=== PATIENT | male | born 1945 | race Caucasian/White ===

== ENCOUNTER 2017-01-10 18:03 | Emergency (ER) | payer MEDICARE, OTHER ==
[~2017-01-10] VITALS: Ht 185.4 cm; Wt 100.0 kg
[~2017-01-10 18:03] MED LIST: LEVA250T14 PO; METO25CR PO; PRED5TAB PO; WARF5TAB PO
[2017-01-10 18:11] VITALS: BP 112/86; PULSE 85; RESP 20; TEMP 98.5; O2SAT 97
[2017-01-10] MEDS ORDERED: WARF-23 PO (18:27)
[2017-01-10] MEDS ORDERED: TRAM50TA PO (18:27)
[2017-01-10] MEDS ORDERED: METO25TA3 PO (18:27)
[2017-01-10] MEDS ORDERED: PRED5TAB PO (18:27)
[2017-01-10] MEDS ORDERED: CEFU250T PO (18:27)
[2017-01-10] MEDS ORDERED: SACU1TAB PO (18:27)
[2017-01-10] MEDS ORDERED: RENV2.4P PO (18:27)
[2017-01-10 19:41] VITALS: BP 120/68
--- NOTE | 2017-01-10 19:43 | PD ---
HPI Chief Complaint: Fall Time Seen by Provider: 19:38 Travel History International Travel<30 days: No Contact w/Intl Traveler<30days: No Traveled to known affect area: No History of Present Illness HPI 71-year-old male that presents to the ED for evaluation of fall. Patient reports that he had a trip and fall before getting to his dialysis center. When he got to the dialysis Center they told to come here [facility] and brought him here. Patient complains of nothing other than some abrasions to his forehead as well as to his knee and arms but they're not actively bleeding. Per patient he was brought here because he hit his head and his taking blood thinners and were concerned that there might be internal bleeding. He denies any pain. No numbness, tingling, weakness. Per patient " I feel fine but need to get out of here to get my dialysis". Patient has ESRD and has dialysis every Tuesday and Tuesday. He denies any other medical problems. He denies any pain of any kind. Patient does have bruising but no bleeding. He has had no changes in mentation. Per patient he does have a trip and fall accident much of it. Per patient he was able to get himself up. He states that he is up-to-date with his tetanus. He has been here for similar in the past. PFSH Past Medical History Hx Anticoagulant Therapy: Yes Anemia: Yes Arthritis: Yes Atrial Fibrillation: Yes Heart Rhythm Problems: Yes Cancer: No Cardiovascular Problems: Yes (AF) Chemotherapy: No Congestive Heart Failure: Yes Cirrhosis: Yes Diabetes: No Dialysis: Yes (//TUE) Diminished Hearing: No Gastrointestinal Disorders: Yes Gout: Yes Genitourinary: Yes Hepatitis: No Hiatal Hernia: No Hypertension: Yes Musculoskeletal: Yes Respiratory: No Integumentary: Yes (MRSA SKIN) Immunizations Current: Yes Renal Failure: Yes Thyroid Disease: No Tetanus Vaccination: < 5 Years Past Surgical History Abdominal Surgery: Yes (APPENDECTOMY?) Arteriovenous Shunt: Yes (LUE) Eye Surgery: Yes (BILATERAL CATARACTS) Joint Replacement: No Oral Surgery: Yes (TONSILLECTOMY?) Pacemaker: No Other Surgery: Yes (skin abscess neck area, left arm fistula) Social History Alcohol Use: No Tobacco Use: No (QUIT 1966) Substance Use: No Allergies-Medications (Allergen,Severity, Reaction): Coded Allergies: Ibuprofen (Verified Allergy, Severe, Rash, 01/10/17) *MDRO Multi-Drug Resistant Organism (Verified Adverse Reaction, Unknown, ) MRSA finger wound 02/2016 Reported Meds & Prescriptions Reported Meds & Active Scripts Active Reported Warfarin 5 Mg Tab 5 Mg PO DAILY Tramadol (Tramadol HCl) 50 Mg Tab 50 Mg PO BID PRN Renvela Liq (Sevelamer Carbonate) 2.4 Gm Pack 2.4 Gm PO TID Prednisone 5 Mg Tab 5 Mg PO DAILY Entresto (Sacubitril-Valsartan) 24-26 Mg Tab 1 Tab PO DAILY Metoprolol Tartrate 25 Mg Tab 25 Mg PO BID Cefuroxime (Cefuroxime Axetil) 250 Mg Tab 250 Mg PO BID PRN Review of Systems General / Constitutional: No: Fever, Chills, Weight Gain, Weight Loss, Other Eyes: No: Diploplia, Blurred Vision, Photophobia, Drainage, Redness, Foreign Body Sensation, Pain, Tearing, Blind Spots, Visual changes, Blindness, Other HENT: No: Headaches, Vertigo, Lightheadedness, Sore Throat, Rhinitis, Rhinorrhea, Congestion, Nosebleed, Neck Stiffness, Neck Pain, Masses, Gingival Bleeding, Dental Difficulties, Ear Discharge, Earache, Other Cardiovascular: No: Chest Pain or Discomfort, Palpitations, Irregular Rhythm, Tachycardia, Diaphoresis, Syncope, Dyspnea on exertion, Varicosities, Edema, Cyanosis, Varicosities, Phlebitis, Claudication, Other Respiratory: No: Cough, Shortness of Breath, Wheezing, Sneezing, Orthopnea, Hemoptysis, Stridor, Night Sweats, Pleuritic Pain, Other Gastrointestinal: No: Nausea, Vomiting, Diarrhea, Abdominal Pain, Hematemesis, Hematochezia, Constipation, Changes in Bowel Habits, Indigestion, Dysphagia, Loss of Appetite, Other Genitourinary: No: Urgency, Frequency, Dysuria, Nocturia, Hematuria, Decreased Urinary Output, Oliguria, Hesitancy, Dribbling, Incontinence, Pelvic Pain, Flank Pain, Dyspareunia, Discharge, Dysmenorrhea, Menorrhagia, Metorrhagia, Vaginal Bleeding, Other Musculoskeletal: No: Myalgias, Arthralgias, Limited ROM, Weakness, Cramping, Edema, Pain, Atrophy, Other Skin: Positive Rash, Positive Lesions, No Itching, No Dryness, No Lumps, No Hives, No Change in Pigmentation, No Change in nails, No Alopecia, No Breast Lumps, No Breast Tenderness, No Breast Swelling, No Other Neurologic: No: Weakness, Dizziness, Syncope, Focal Abnormalities, Coordination Problem, Tremor, Ataxia, Headache, Change in Mentation, Slurred Speech, Paresthesia, Incontinence, Seizures, Sensory Disturbance, Other Psychiatric: No: Anxiety, Depression, Suicidal Ideations, Disorder of Thought, Mood Disorder, Substance Abuse, Homicidal Ideation, Other Endocrine: No: Heat Intolerance, Cold Intolerance, Polyuria, Polydipsia, Other Hematologic/Lymphatic: No: Easy Bruising, Lymph Node Enlargement, Other Physical Exam Narrative GENERAL: SKIN: Warm and dry. Patient has a very small superficial abrasion to the right forehead. Patient does have abrasions to the forearms as well as to the right knee. Able to move it fully. HEAD: Atraumatic. Normocephalic. EYES: Pupils equal and round 4 mm reactive and accommodation. No scleral icterus. No injection or drainage. ENT: No nasal bleeding or discharge. Mucous membranes pink and moist. Tongue is midline. No Uvula deviation. NECK: Trachea midline. No JVD. CARDIOVASCULAR: Regular rate and rhythm. RESPIRATORY: No accessory muscle use. Clear to auscultation. Breath sounds equal bilaterally. GASTROINTESTINAL: Abdomen soft, non-tender, nondistended. Hepatic and splenic margins not palpable. MUSCULOSKELETAL: Extremities without clubbing, cyanosis, or edema. No obvious deformities. Ambulatory with no pain. No lumbar, thoracic, cervical spine tenderness to palpation. Full range of motion of the upper and lower extremities. 2+ pulses bilaterally. NEUROLOGICAL: Awake and alert. No obvious cranial nerve deficits. Motor grossly within normal limits. Five out of 5 muscle strength in the arms and legs. Normal speech. PSYCHIATRIC: Appropriate mood and affect; insight and judgment normal. Data Data Last Documented VS Vital Signs Date Time Temp Pulse Resp B/P Pulse Ox O2 Delivery O2 Flow Rate FiO2 01/10/17 19:41 87 16 120/68 98 01/10/17 18:[address] Brain W/O Iv Contrast(Rout) (01/10/17 ) MDM Medical Decision Making Medical Screen Exam Complete: Yes Emergency Medical Condition: Yes Medical Record Reviewed: Yes Interpretation(s) CT the head was negative for acute intracranial injury Differential Diagnosis Head injury versus abrasion versus normal exam Narrative Course 71-year-old male that presents to the ED for evaluation of head injury. Patient was properly examined and was found to have signs and symptoms consistent with abrasions and head injury. Patient takes blood thinner. Patient was sent here for medical clearance so he can get his dialysis secondary to concern for head bleed. CT of the head was ordered. CT of the head was negative. Patient is neurovascular intact. Patient was reassured. A she was sent home with instructions to go to dialysis immediately. Patient agrees with plan. Told to apply warm compresses or ice to the areas of pain. Tylenol for pain as needed. See ED for any worsening symptoms. Diagnosis Primary Impression: Head injury, acute Qualified Code: S09.90XA - Head injury, acute, initial encounter Additional Impression: Abrasions of multiple sites Patient Instructions: General Instructions Additional Instructions: Follow with PCP. Go to dialysis. See ED for worsening symptoms. Patient is medically cleared to have dialysis. CT was negative no sign of bleeding. Med/Other Pt SpecificInfo: No Change to Meds, Wound Care Disposition: 01 DISCHARGE HOME Condition: Stable Otis Woodall Jan 10, 2017 19:43
--- NOTE | 2017-01-10 19:54 | RADRPT ---
EXAM DATE/TIME: 01/10/2017 19:08 [facility] COMPARISON: No previous studies available for comparison. INDICATIONS : Fall today, abrasion above right eye. RADIATION DOSE: 56.35 CTDIvol (mGy) MEDICAL HISTORY : Hypertension. diabetes, renal failure, cirrhosis SURGICAL HISTORY : None. ENCOUNTER: Initial ACUITY: 1 day PAIN SCALE: 5/10 LOCATION: Right head TECHNIQUE: Multiple contiguous axial images were obtained of the head. Using automated exposure control and adj ustment of the mA and/or kV according to patient size, radiation dose was kept as low as reasonably a chievable to obtain optimal diagnostic quality images. FINDINGS: CEREBRUM: The ventricles are normal for age. No evidence of midline shift, mass lesion, hemorrhage or acute in farction. No extra-axial fluid collections are seen. POSTERIOR FOSSA: The cerebellum and brainstem are intact. The 4th ventricle is midline. The cerebellopontine angle i s unremarkable. EXTRACRANIAL: The visualized portion of the orbits is intact. SKULL: The calvaria is intact. No evidence of skull fracture. CONCLUSION: Unremarkable exam. No evidence of acute infarct, hemorrhage, mass, edema or fracture. Ba Uribe MD on January 10, 2017 at 19:51 Board Certified Radiologist. This report was verified electronically.
== END 2017-01-10 20:10 | disposition home or self-care (01) ==
LOC: NEDAMB 18:03
DX: S09.90XA Unspecified injury of head, initial encounter (principal); S00.81XA Abrasion of other part of head, initial encounter; S80.211A Abrasion, right knee, initial encounter; S50.812A Abrasion of left forearm, initial encounter; S50.811A Abrasion of right forearm, initial encounter; W01.0XXA Fall on same level from slipping, tripping and stumbling without subsequent striking against object, initial encounter; N18.6 End stage renal disease; Z99.2 Dependence on renal dialysis; Z79.01 Long term (current) use of anticoagulants; Z86.2 Personal history of diseases of the blood and blood-forming organs and certain disorders involving the immune mechanism; Z87.39 Personal history of other diseases of the musculoskeletal system and connective tissue; Z86.79 Personal history of other diseases of the circulatory system; Z87.19 Personal history of other diseases of the digestive system; Z87.448 Personal history of other diseases of urinary system; Z86.14 Personal history of Methicillin resistant Staphylococcus aureus infection; Z87.891 Personal history of nicotine dependence
CPT/HCPCS: 70450

== ENCOUNTER 2017-01-24 10:00 | Inpatient (IN) | payer MEDICARE, OTHER ==
[2017-01-24] VITALS (8 sets, daily range): BP systolic 102–113; BP diastolic 51–72; PULSE 65–115; RESP 16–18; TEMP 96.6–102.8; O2SAT 92–98
[~2017-01-24] VITALS: Ht 185.4 cm; Wt 114.6 kg
[~2017-01-24 10:00] MED LIST changes: +CEFU250T PO; -LEVA250T14 PO; -METO25CR PO; +METO25TA3 PO; +RENV2.4P PO; +SACU1TAB PO; +TRAM50TA PO; +WARF-23 PO; -WARF5TAB PO
--- NOTE | 2017-01-24 10:18 | PD ---
HPI Chief Complaint: General Weakness Time Seen by Provider: 10:06 Travel History International Travel<30 days: No Contact w/Intl Traveler<30days: No Traveled to known affect area: No History of Present Illness HPI 71-year-old male came to the emergency room with history of generalized weakness , lightheadedness for past 1 week. His and daughter are here and they're very concerned about him. He fell one week ago and hit his head. Because he is on Coumadin he came into the emergency room to be checked out. A CAT scan of his head was done at that time which was negative and he was discharged home. His says that from the next day on word he started getting weak. Patient is awake but seems restless and says that he does not feel good. He has history of atrial fibrillation and he was A. fib on the monitor with RVR and heart rate in 1 teens. He is also a dialysis patient and is due for his dialysis is 4 PM today. His says that his last dialysis was last Tuesday and after dialysis he got very weak because his blood pressure went down. No history of chest pain. No history of syncopal episodes. He has history of nonalcoholic liver cirrhosis. But he does not see a GI specialist because that has not bothered him so far. I asked the nurse to do a rectal temperature since he felt warm and it was 102.5. PFSH Past Medical History Narrative Medical List of his past medical, social, surgical and family history as reviewed from the nursing note. Hx Anticoagulant Therapy: Yes Anemia: Yes Arthritis: Yes Atrial Fibrillation: Yes Heart Rhythm Problems: Yes Cancer: No Cardiovascular Problems: Yes (AF) Chemotherapy: No Congestive Heart Failure: Yes Cirrhosis: Yes Diabetes: Yes Dialysis: Yes (TU//SAT) Diminished Hearing: No Gastrointestinal Disorders: Yes Gout: Yes Genitourinary: Yes Hepatitis: No Hiatal Hernia: No Hypertension: Yes Musculoskeletal: Yes Respiratory: No Integumentary: Yes (MRSA SKIN) Immunizations Current: Yes Renal Failure: Yes Thyroid Disease: No Past Surgical History Abdominal Surgery: Yes (APPENDECTOMY?) Arteriovenous Shunt: Yes (LUE) Eye Surgery: Yes (BILATERAL CATARACTS) Joint Replacement: No Oral Surgery: Yes (TONSILLECTOMY?) Pacemaker: No Other Surgery: Yes (skin abscess neck area, left arm fistula) Social History Alcohol Use: No Tobacco Use: No (QUIT 1966) Substance Use: No Allergies-Medications (Allergen,Severity, Reaction): Coded Allergies: Ibuprofen (Verified Allergy, Severe, Rash, 01/24/17) *MDRO Multi-Drug Resistant Organism (Verified Adverse Reaction, Unknown, ) MRSA finger wound 02/2016 Comments List of his allergies reviewed from the nursing note. Reported Meds & Prescriptions Reported Meds & Active Scripts Active Reported Warfarin 5 Mg Tab 5 Mg PO DAILY Tramadol (Tramadol HCl) 50 Mg Tab 50 Mg PO BID PRN Prednisone 5 Mg Tab 5 Mg PO DAILY Entresto (Sacubitril-Valsartan) 24-26 Mg Tab 1 Tab PO DAILY Metoprolol Tartrate 25 Mg Tab 25 Mg PO BID Narrative Medication List of his home medications reviewed from the nursing note. Review of Systems Except as stated in HPI: all other systems reviewed are Neg Physical Exam Narrative GENERAL: Awake, alert, anxious, moderate to significant distress, fidgety and restless SKIN: Warm and dry. Pale. Left upper extremity hemodialysis shunt HEAD: Atraumatic. Normocephalic. EYES: Pupils equal and round. No scleral icterus. No injection or drainage. ENT: No nasal bleeding or discharge. Dry mucous membrane NECK: Trachea midline. No JVD. CARDIOVASCULAR: Irregularly irregular heart rate with tachycardia. No murmur appreciated. RESPIRATORY: No accessory muscle use. Clear to auscultation. Breath sounds equal bilaterally. GASTROINTESTINAL: Abdomen soft, non-tender, nondistended. Hepatic and splenic margins not palpable. MUSCULOSKELETAL: No obvious deformities. No clubbing. No cyanosis. No edema. NEUROLOGICAL: Awake and alert. No obvious cranial nerve deficits. Motor grossly within normal limits. Normal speech. PSYCHIATRIC: Appropriate mood and affect; insight and judgment normal. Data Data Last Documented VS Vital Signs Date Time Temp Pulse Resp B/P Pulse Ox O2 Delivery O2 Flow Rate FiO2 01/24/17 12:00 99.0 100 18 109/72 98 Nasal Cannula 2 Orders Ammonia (01/24/17 10:25) Complete Blood Count With Diff (01/24/17 10:25) Comprehensive Metabolic Panel (01/24/17 10:25) Creatine Kinase (Cpk) (01/24/17 10:25) Prothrombin Time / Inr (Pt) (01/24/17 10:25) Troponin I (01/24/17 10:25) Thyroid Stimulating Hormone (01/24/17 10:25) Lactic Acid Sepsis Protocol (01/24/17 10:25) Blood Culture (01/24/17 10:25) Chest, Single Ap (01/24/17 10:25) Ct Brain W/O Iv Contrast(Rout) (01/24/17 10:25) Blood Glucose (01/24/17 10:25) Ecg Monitoring (01/24/17 10:25) Iv Access Insert/Monitor (01/24/17 10:25) Oximetry (01/24/17 10:25) Sodium Chloride 0.9% Flush (Ns Flush) (01/24/17 10:30) Alcohol (Ethanol) (01/24/17 10:25) Salicylates (Aspirin) (01/24/17 10:25) Tylenol (Acetaminophen) (01/24/17 10:25) Sodium Chlorid 0.9% 500 Ml Inj (Ns 500 M (01/24/17 10:30) Sodium Chlor 0.9% 1000 Ml Inj (Ns 1000 M (01/24/17 10:30) Sodium Chlorid 0.9% 500 Ml Inj (Ns 500 M (01/24/17 10:30) Acetaminophen Supp (Tylenol Supp) (01/24/17 10:30) Piperacil-Tazo 4.5 Gm Premix (Zosyn 4.5 (01/24/17 10:30) Vancomycin Inj (Vancomycin Inj) (01/24/17 10:30) Direct Bilirubin (01/24/17 10:38) ^ Blood Flow Rate (01/24/17 11:10) ^ Dialysate Flow Rate (01/24/17 11:10) ^ Dialyzer (01/24/17 11:10) ^ Concentrate (01/24/17 11:10) ^ Acid Concentrate (01/24/17 11:10) ^ Length Of Dialysis (01/24/17 11:10) ^ Frequency Of Dialysis (01/24/17 11:10) ^ Dialysis Obtain (01/24/17 11:10) ^ Needle Size (01/24/17 11:10) ^ Dialysis Schedule (01/24/17 11:10) Resp Oxygen Geo C Titrat 1-4 L (01/24/17 ) ^ Dialysis Weight (01/24/17 11:10) ^ Obtain As Needed (01/24/17 11:10) Sodium Chlor 0.9% 1000 Ml Inj (Ns 1000 M (01/24/17 11:10) Heparin Inj (Heparin Inj) (01/24/17 11:15) Sodium Chlor 0.9% 1000 Ml Inj (Ns 1000 M (01/24/17 11:10) Sodium Chlor 0.9% 1000 Ml Inj (Ns 1000 M (01/24/17 11:10) Mannitol Inj (Mannitol Inj) (01/24/17 11:15) Albumin 25% Inj (Albumin 25% Inj) (01/24/17 11:15) Sodium Chloride 0.9% Flush (Ns Flush) (01/24/17 11:15) Heparin Inj (Heparin Inj) (01/24/17 11:15) Gentamicin (Dialysis) Inj (Gentamicin (D (01/24/17 11:15) Ondansetron Inj (Zofran Inj) (01/24/17 11:15) Acetaminophen (Tylenol) (01/24/17 11:15) Diphenhydramine (Benadryl) (01/24/17 11:15) Nitroglycerin Sl (Nitrostat Sl) (01/24/17 11:15) Clonidine (Catapres) (01/24/17 11:15) Epoetin Dawood Inj (Epogen Inj) (01/24/17 11:15) Gelatin 12 Mm/7 Mm Top (Gelfoam 12 Mm/7 (01/24/17 11:15) Influenzae A/B Antigen (01/24/17 11:55) Admit Order (Ed Use Only) (01/24/17 12:03) Labs Laboratory Tests Test 01/24/17 01/24/17 01/24/17 10:30 10:50 10:53 Prothrombin Time 19.4 SEC Prothromb Time International 1.7 RATIO Ratio Sodium Level 136 MEQ/L Potassium Level 3.8 MEQ/L Chloride Level 95 MEQ/L Carbon Dioxide Level 26.4 MEQ/L Anion Gap 15 MEQ/L Blood Urea Nitrogen 36 MG/DL Creatinine 9.19 MG/DL Estimat Glomerular Filtration 6 ML/MIN Rate Random Glucose 128 MG/DL Lactic Acid Level 3.1 mmol/L Calcium Level 7.6 MG/DL Total Bilirubin 0.8 MG/DL Direct Bilirubin 0.3 MG/DL Aspartate Amino Transf 52 U/L (AST/SGOT) Alanine Aminotransferase 21 U/L (ALT/SGPT) Alkaline Phosphatase 71 U/L Total Creatine Kinase 27 U/L Troponin I LESS THAN 0.02 NG/ML Total Protein 6.8 GM/DL Albumin 2.8 GM/DL Thyroid Stimulating Hormone 2.620 uIU/ML 3rd Gen Acetaminophen Level LESS THAN 2.0 MCG/ML Ethyl Alcohol Level LESS THAN 3 MG/DL White Blood Count 13.6 TH/MM3 Red Blood Count 3.76 MIL/MM3 Hemoglobin 11.9 GM/DL Hematocrit 35.2 % Mean Corpuscular Volume 93.6 FL Mean Corpuscular Hemoglobin 31.7 PG Mean Corpuscular Hemoglobin 33.9 % Concent Red Cell Distribution Width 14.4 % Platelet Count 138 TH/MM3 Mean Platelet Volume 10.0 FL Neutrophils (%) (Auto) % Lymphocytes (%) (Auto) % Monocytes (%) (Auto) % Eosinophils (%) (Auto) % Basophils (%) (Auto) % Neutrophils # (Auto) TH/MM3 Lymphocytes # (Auto) TH/MM3 Monocytes # (Auto) TH/MM3 Eosinophils # (Auto) TH/MM3 Basophils # (Auto) TH/MM3 CBC Comment AUTO DIFF Differential Total Cells 100 Counted Neutrophils % (Manual) 39 % Lymphocytes % 49 % Monocytes % 9 % Eosinophils % 1 % Basophils % 1 % Neutrophils # (Manual) 5.4 TH/MM3 Metamyelocytes 1 % Differential Comment FINAL DIFF MANUAL Atypical Lymphocytes % Platelet Estimate LOW Platelet Morphology Comment NORMAL Ammonia 41 MCMOL/L Salicylates Level LESS THAN 1.7 MG/DL [facility] Medical Decision Making Medical Screen Exam Complete: Yes Emergency Medical Condition: Yes Medical Record Reviewed: Yes Interpretation(s) Twelve-lead EKG was reviewed by me. Atrial fibrillation, normal axis, old anterior MT, poor R-wave progression, PVC. Heart rate of 104 bpm. Differential Diagnosis Sepsis, pneumonia, influenza, electrolyte abnormality, dehydration Narrative Course 11:51 AM patient was given IV fluid 2 L bolus and antibiotic as per sepsis protocol. His white count was elevated with left shift. His lactic acid was 3.1. BUN/creatinine was high as expected due to his end-stage renal disease. I contacted Dr. 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 Patient will require admission and he is arranging for dialysis for him. Head CT was within normal limits. I looked at the chest x-ray and there is no obvious acute issues. I'm waiting for the radiologist to give his read. Patient is subtherapeutic in terms of his INR. Awaiting for the resident to call for admission. I have ordered an influenza test that is pending. Critical Care Narrative Aggregate critical care time was 45 minutes. Time to perform other separately billable procedures was not included in the critical care time. My time did not include minutes spent treating any other patients simultaneously or on activities that did not directly contribute to the patient's treatment. The services I provided to this patient were to treat and/or prevent clinically significant deterioration that could result in: Sepsis, sepsis protocol, end-stage renal disease I provided critical care services requiring my management, as noted below: Chart data review, documentation time, medication orders and management, vital sign assessments/reviewing monitor data, ordering and reviewing lab tests, ordering and interpreting/reviewing x-rays and diagnostic studies, care of the patient and discussion of the patient with the admitting physicians. Procedures EKG Prior to Arrival: Yes Physician Communication Physician Communication Dr. Richardson Diagnosis Primary Impression: Sepsis Qualified Code: A41.9 - Sepsis, due to unspecified organism Additional Impressions: End stage renal disease Dependent on hemodialysis Atrial fibrillation Qualified Code: I48.2 - Chronic atrial fibrillation Admitting Information Admitting Physician Requests: Admit Pierre Hills MD Jan 24, 2017 10:18 Pierre Hills MD Jan 24, 2017 10:18 Pierre Hills MD Jan 24, 2017 10:18
[2017-01-24] MEDS ORDERED: SODIUM CHLORID 0.9% 500 ML INJ 500 ML IV ONE ×2 (10:30)
[2017-01-24] MEDS ORDERED: PIPERACIL-TAZO 4.5 GM PREMIX 100 ML IV ONE (10:30)
[2017-01-24] MEDS ORDERED: SODIUM CHLOR 0.9% 1000 ML INJ 1,000 ML IV ONE (10:30)
[2017-01-24] MEDS ORDERED: VANCOMYCIN INJ 1,000 MG in SODIUM CHLOR 0.9% 250 ML INJ 250 ML IV ONE (10:30)
[2017-01-24] MEDS ORDERED: ACETAMINOPHEN 650 MG SUPP RECTAL ONE (10:30)
[2017-01-24 10:50] LABS: HEMATOCRIT 35.2 % (39.0-51.0); MEAN CELL VOLUME 93.6 FL (80.0-100.0); MEAN CORPUSCULAR HEMOGLOBIN 31.7 PG (27.0-34.0); MEAN CORPUSCULAR HGB CONC 33.9 % (32.0-36.0); PLATELET COUNT 138 TH/MM3 (150-450); RED BLOOD COUNT 3.76 MIL/MM3 (4.50-5.90); RED CELL DISTRIBUTION WIDTH 14.4 % (11.6-17.2); WHITE BLOOD COUNT 13.6 TH/MM3 (4.0-11.0)
[2017-01-24 10:53] LABS: HEMO FLAGS AUTO DIFF
[2017-01-24 10:59] LABS: INTERNATIONAL NORMALIZED RATIO 1.7 RATIO; PROTHROMBIN TIME - PATIENT 19.4 SEC (9.8-11.6)
[2017-01-24] MEDS ORDERED: SODIUM CHLOR 0.9% 1000 ML INJ 1,000 ML IV PRN ×3 (11:10)
--- NOTE | 2017-01-24 11:10 | PD.CONS ---
HPI Service Nephrology Consult Requested By Reason for Consult ESRD Primary Care Physician Justin Chiang MD History of Present Illness Mr. Rowe is a 71 year old male with history of ESRD on HD MWF. Has not felt well for several days. Fell a few days ago, brought to the ER, there was no intracranial bleeding. Patient has been brought back to the hospital with complaints of dizziness, weakness and lightheadedness. He denies chest pain or shortness of breath. Patient has fever in the ER. He is awake, alert , answers questions. He is due for dialysis today. Review of Systems Constitutional: COMPLAINS OF: Fatigue, Fever, Chills, Dizziness, Change in appetite Cardiovascular: DENIES: Chest pain, Palpitations, Syncope Gastrointestinal: DENIES: Abdominal pain, Black stools, Bloody stools, Diarrhea , Nausea, Vomiting Musculoskeletal: COMPLAINS OF: Back pain, DENIES: Joint pain, Muscle aches Past Family Social History Allergies: Coded Allergies: Ibuprofen (Verified Allergy, Severe, Rash, 01/24/17) *MDRO Multi-Drug Resistant Organism (Verified Adverse Reaction, Unknown, ) MRSA finger wound 02/2016 Past Medical History ESRD Atrial fibrillation. CHF. KEVON Type 2 diabetes. Cirrhosis of the liver, possibly as a result of fatty liver. Remote history of MRSA infection in the neck area per , cervical spine was not involved. Past Surgical History AVF placement. Reported Medications Warfarin 5 Mg Tab 5 Mg PO DAILY Tramadol (Tramadol HCl) 50 Mg Tab 50 Mg PO BID PRN Renvela Liq (Sevelamer Carbonate) 2.4 Gm Pack 2.4 Gm PO TID Prednisone 5 Mg Tab 5 Mg PO DAILY Entresto (Sacubitril-Valsartan) 24-26 Mg Tab 1 Tab PO DAILY Metoprolol Tartrate 25 Mg Tab 25 Mg PO BID Cefuroxime (Cefuroxime Axetil) 250 Mg Tab 250 Mg PO BID PRN Active Ordered Medications Current Medications Medications (Trade) Dose Ordered Sig/Serge Route Start Time Stop Time Status Last Admin IV Flush 2 ml 2 ml UNSCH PRN IVF 01/24/17 10:30 Sodium Chloride 500 ml @ 500 mls/hr BOLUS ONCE IV 01/24/17 10:30 01/24/17 11:29 Sodium Chloride 1,000 ml @ 999 mls/hr BOLUS ONCE IV 01/24/17 10:30 01/24/17 11:30 01/24/17 10:46 Sodium Chloride 500 ml @ 500 mls/hr BOLUS ONCE IV 01/24/17 10:30 01/24/17 11:29 Piperacillin Sod/ Tazobactam Sod 100 ml @ 200 mls/hr ONCE ONCE IV 01/24/17 10:30 01/24/17 10:59 (Vancomycin Inj/ NS 250 ml Inj) 250 ml @ 250 mls/hr ONCE ONCE IV 01/24/17 10:30 01/24/17 11:29 01/24/17 10:45 Family History reviewed, non contributory Social History , quit smoking about 40 years ago, quit ETOH about 30 years ago. Physical Exam Vital Signs Vital Signs Date Time Temp Pulse Resp B/P Pulse Ox O2 Delivery O2 Flow Rate FiO2 01/24/17 10:37 102.8 01/24/17 10:10 99.7 105 16 113/51 01/24/17 10:06 97.8 107 16 102/55 97 Physical Exam GENERAL: obese, alert and oriented. Weak appearing. SKIN: Warm and dry. HEAD: Normocephalic. EYES: No scleral icterus. No injection or drainage. NECK: Supple, trachea midline. No JVD or lymphadenopathy. CARDIOVASCULAR: Regular rate and rhythm without murmurs, gallops, or rubs. RESPIRATORY: Breath sounds equal bilaterally. No accessory muscle use. GASTROINTESTINAL: Abdomen soft, non-tender, nondistended. MUSCULOSKELETAL: No cyanosis, or edema. Hypertrophied AVF left arm. BACK: Nontender without obvious deformity. No CVA tenderness. Laboratory Laboratory Tests Test 01/24/17 10:30 White Blood Count 13.6 Red Blood Count 3.76 Hemoglobin 11.9 Hematocrit 35.2 Mean Corpuscular Volume 93.6 Mean Corpuscular Hemoglobin 31.7 Mean Corpuscular Hemoglobin 33.9 Concent Red Cell Distribution Width 14.4 Platelet Count 138 Mean Platelet Volume 10.0 Neutrophils (%) (Auto) Lymphocytes (%) (Auto) Monocytes (%) (Auto) Eosinophils (%) (Auto) Basophils (%) (Auto) Neutrophils # (Auto) Lymphocytes # (Auto) Monocytes # (Auto) Eosinophils # (Auto) Basophils # (Auto) CBC Comment AUTO DIFF Prothrombin Time 19.4 Prothromb Time International 1.7 Ratio Result Diagram: 01/24/17 1030 Assessment and Plan Problem List: (1) ESRD (end stage renal disease) Plan: HD will be MWF. Due for dialysis today. Monitor volume status and electrolytes. Gadolinium is contraindicated. He may not tolerate excessive fluid removal. (2) CHF (congestive heart failure) Plan: He is on Entresto. May need to temporarily suspend it if he becomes hypotensive. (3) Atrial fibrillation Plan: Monitor heart rate. He is currently tachycardic. He is on Warfarin. Monitor INR. (4) Fever Plan: Etiology, source is unclear. Workup is in progress, to have CXR and blood cultures. Needs empiric antibiotics. Apparently has history of MRSA. (5) Anemia of renal disease Plan: Hemoglobin is acceptable. Epogen as needed per protocol with dialysis. Assessment and Plan Thanks for the consult. I will follow. Prashant Richardson MD Jan 24, 2017 11:10
[2017-01-24 11:12] LABS: ALT (GPT) 21 U/L (12-78); ANION GAP 15 MEQ/L (5-15); AST (GOT) 52 U/L (15-37); BICARBONATE 26.4 MEQ/L (21.0-32.0); BLOOD UREA NITROGEN 36 MG/DL (7-18); CHLORIDE 95 MEQ/L (98-107); GLOMERULAR FILTRATION RATE 6 ML/MIN (>89); POTASSIUM 3.8 MEQ/L (3.5-5.1); SODIUM (NA) 136 MEQ/L (136-145)
[2017-01-24] MEDS ORDERED: HEPARIN SODIUM - IV 10,000 UNITS/10 ML VIAL PRN (11:15)
[2017-01-24] MEDS ORDERED: diphenhydrAMINE HCL 25 MG CAP PO PRN (11:15)
[2017-01-24] MEDS ORDERED: SODIUM CHLORIDE 0.9% FLUSH 5 ML FLUSH IVF PRN (11:15)
[2017-01-24] MEDS ORDERED: HEPARIN SODIUM - IV 10,000 UNITS/10 ML VIAL IVF PRN (11:15)
[2017-01-24] MEDS ORDERED: NITROGLYCERIN 0.4 MG SL 25 TABS/BTL SL PRN (11:15)
[2017-01-24] MEDS ORDERED: cloNIDine HCL 0.1 MG TAB PO PRN (11:15)
[2017-01-24] MEDS ORDERED: ONDANSETRON HCL 4 MG/2 ML VIAL IV PRN (11:15)
[2017-01-24] MEDS ORDERED: GELATIN 12 MM/7 MM FOAM TOP PRN (11:15)
[2017-01-24] MEDS ORDERED: GENTAMICIN SULFATE (DIALYSIS USE ONLY) 20 MG/2 ML VIAL IV PRN (11:15)
[2017-01-24] MEDS ORDERED: ACETAMINOPHEN 325 MG TAB PO PRN (11:15)
[2017-01-24] MEDS ORDERED: MANNITOL 12.5 GM/50 ML VIAL IV PRN (11:15)
[2017-01-24] MEDS ORDERED: ALBUMIN HUMAN 25% 25 GM/100 ML BAGP IV PRN (11:15)
--- NOTE | 2017-01-24 11:17 | RADRPT ---
EXAM DATE/TIME: 01/24/2017 11:06 [facility] COMPARISON: CT BRAIN W/O CONTRAST, January 10, 2017, 19:08. INDICATIONS : Altered mental status RADIATION DOSE: 51.75 CTDIvol (mGy) MEDICAL HISTORY : Cardiovascular disease. Congestive heart failure. Diabetes mellitus type 1.Renal failure SURGICAL HISTORY : None. ENCOUNTER: Initial ACUITY: 1 day PAIN SCALE: 0/10 LOCATION: Bilateral cranial TECHNIQUE: Multiple contiguous axial images were obtained of the head. Using automated exposure control and adj ustment of the mA and/or kV according to patient size, radiation dose was kept as low as reasonably a chievable to obtain optimal diagnostic quality images. FINDINGS: CEREBRUM: The ventricles are normal for age. No evidence of midline shift, mass lesion, hemorrhage or acute in farction. No extra-axial fluid collections are seen. POSTERIOR FOSSA: The cerebellum and brainstem are intact. The 4th ventricle is midline. The cerebellopontine angle i s unremarkable. EXTRACRANIAL: The visualized portion of the orbits is intact. SKULL: The calvaria is intact. No evidence of skull fracture. CONCLUSION: No acute disease. No significant change has occurred. No evidence of acute infarct, hemorrhage, mass or edema. Ba Uribe MD on January 24, 2017 at 11:15 Board Certified Radiologist. This report was verified electronically.
[2017-01-24 11:22] LABS: ACETAMINOPHEN LESS THAN 2.0 MCG/ML (10.0-30.0); ALKALINE PHOSPHATASE 71 U/L (45-117); TOTAL BILIRUBIN ADULT 0.8 MG/DL (0.2-1.0)
[2017-01-24 11:24] LABS: CREATINE KINASE 27 U/L (39-308)
[2017-01-24 11:37] LABS: BASOPHILS 1 % (0-2); EOSINOPHILS 1 % (0-4); METAMYELOCYTES 1 % (0-1); NEUTROPHIL # MANUAL DIFF 5.4 TH/MM3 (1.8-7.7); POLYS (SEG NEUTROPHILS) 39 % (16-70); WBC DIFF SAMPLE 100
[2017-01-24 11:38] LABS: PLATELET ESTIMATE SMEAR LOW (NORMAL); PLATELET MORPHOLOGY NORMAL (NORMAL); SCAN/DIFF FINAL DIFF MANUAL
--- NOTE | 2017-01-24 12:08 | RADRPT ---
EXAM DATE/TIME: 01/24/2017 10:42 [facility] COMPARISON: No previous studies available for comparison. INDICATIONS : Dizziness. Fever. MEDICAL HISTORY : Hypertension. Renal failure. Diabetes. Cirrhosis. SURGICAL HISTORY : None. ENCOUNTER: Initial ACUITY: 2 days PAIN SCORE: 0/10 LOCATION: Bilateral chest FINDINGS: The heart size is enlarged. The lungs are grossly clear. No effusion is seen. CONCLUSION: Cardiomegaly Bunny Paz MD on January 24, 2017 at 12:01 Board Certified Radiologist. This report was verified electronically.
[2017-01-24 12:40] LABS: LACTIC ACID GHOST NOT REPORTABLE
[2017-01-24] MEDS ORDERED: HYDROmorphone HCL PF 1 MG/ML VIAL IV PRN (13:00)
[2017-01-24] MEDS ORDERED: SODIUM CHLORIDE 0.9% FLUSH 5 ML FLUSH IV FLUSH PRN (13:00)
[2017-01-24] MEDS ORDERED: Vancomycin Consult Pharmacy 1 EA XX SCH (13:00)
[2017-01-24] MEDS: SODIUM CHLOR 0.9% 1000 ML INJ 1,000 ML IV SCH ×4 (14:00→22:53)
[2017-01-24] MEDS: METOPROLOL TARTRATE 25 MG TAB PO SCH ×2 (14:00→20:55)
--- NOTE | 2017-01-24 16:59 | HHI.HP ---
[facility] Service Family Medicine Primary Care Physician Justin Chiang MD Admission Diagnosis sepsis, end-stage renal disease, hemodialysis dependent Diagnoses: International Travel<30 Days: No Contact w/Intl Traveler<30days: No Known Affected Area: No History of Present Illness Mr. Rowe is a very pleasant 71-year-old male, with a past medical history of type 2 diabetes, end-stage renal disease requiring dialysis Tuesday and Fridays, atrial fibrillation on Coumadin therapy, liver cirrhosis likely from fatty liver, and a MRSA infection/abscess on his posterior neck that needed surgical debridement and a four-month hospital course, his ending with 1 week of general malaise, confusion, and fevers. History of present illness: Approximately 7 days ago, on his way to dialysis he says that he "tripped, and fell forward. He never lost consciousness, however did hit the ground. He was evaluated in the emergency department, and a CT scan of his head at that time was negative for any bleeding or trauma. Since this time, he has been feeling weak and more tired. His reports that he has been sleeping all day long and has not been eating any meals. 3 days ago ( Sunday 01/21) while at dialysis, he felt very weak and his blood pressure was 90/ 30. They recommended that someone drive him home, however he insisted to drive himself home. Since this time, he has felt excessively tired and has not had an appetite. He denies any burning with urination, productive cough, upper respiratory symptoms, palpitations, chest pain, shortness of breath, abdominal pain, nausea, vomiting, diarrhea, or blood in his stool. He was scheduled to see his folder machine tomorrow. (Kleber Finn MD R2) Review of Systems Constitutional: COMPLAINS OF: Fatigue, Fever, Chills Eyes: COMPLAINS OF: Blurred vision, DENIES: Diplopia Respiratory: DENIES: Cough, Wheezing, Sputum production Cardiovascular: DENIES: Chest pain, Palpitations, Syncope Gastrointestinal: COMPLAINS OF: Anorexia, DENIES: Abdominal pain, Black stools , Bloody stools, Diarrhea, Nausea, Vomiting Genitourinary: DENIES: Dysuria Musculoskeletal: COMPLAINS OF: Joint pain, Neck pain (Neck pain.) Neurologic: COMPLAINS OF: Headache Psychiatric: COMPLAINS OF: Confusion (Kleber Finn MD R2) Past Family Social History Allergies: Coded Allergies: Ibuprofen (Verified Allergy, Severe, Rash, 01/24/17) *MDRO Multi-Drug Resistant Organism (Verified Adverse Reaction, Unknown, ) MRSA finger wound 02/2016 Physical Exam Vital Signs Vital Signs Date Time Temp Pulse Resp B/P Pulse Ox O2 Delivery O2 Flow Rate FiO2 01/24/17 13:09 98 Nasal Cannula 2.00 01/24/17 12:00 99.0 100 18 109/72 98 Nasal Cannula 2 01/24/17 10:37 102.8 01/24/17 10:10 99.7 105 16 113/51 01/24/17 10:06 97.8 107 16 102/55 97 Physical Exam GENERAL: NAD, appears tired, but talking in full sentences and sitting up in bed SKIN: Dry mucus membranes. HEAD: Atraumatic. Normocephalic. No temporal or scalp tenderness. EYES: Pupils equal round and reactive. ENT: Nose without bleeding, purulent drainage or septal hematoma. NECK: Trachea midline. No JVD or lymphadenopathy. CARDIOVASCULAR: irregular rate 105 bpm, no murmurs appreciated. RESPIRATORY: Clear to auscultation. GASTROINTESTINAL: Abdomen soft, non-tender, nondistended. MUSCULOSKELETAL: Extremities without clubbing, cyanosis, or edema. NEUROLOGICAL: Awake and alert. Cranial nerves II through XII intact. Motor and sensory grossly within normal limits. Five out of 5 muscle strength in all muscle groups. Normal speech. Laboratory Laboratory Tests Test 01/24/17 01/24/17 01/24/17 10:30 10:50 10:53 White Blood Count 13.6 Red Blood Count 3.76 Hemoglobin 11.9 Hematocrit 35.2 Mean Corpuscular Volume 93.6 Mean Corpuscular Hemoglobin 31.7 Mean Corpuscular Hemoglobin 33.9 Concent Red Cell Distribution Width 14.4 Platelet Count 138 Mean Platelet Volume 10.0 Neutrophils (%) (Auto) Lymphocytes (%) (Auto) Monocytes (%) (Auto) Eosinophils (%) (Auto) Basophils (%) (Auto) Neutrophils # (Auto) Lymphocytes # (Auto) Monocytes # (Auto) Eosinophils # (Auto) Basophils # (Auto) CBC Comment AUTO DIFF Differential Total Cells 100 Counted Neutrophils % (Manual) 39 Lymphocytes % 49 Monocytes % 9 Eosinophils % 1 Basophils % 1 Neutrophils # (Manual) 5.4 Metamyelocytes 1 Differential Comment FINAL DIFF MANUAL Atypical Lymphocytes Platelet Estimate LOW Platelet Morphology Comment NORMAL Prothrombin Time 19.4 Prothromb Time International 1.7 Ratio Sodium Level 136 Potassium Level 3.8 Chloride Level 95 Carbon Dioxide Level 26.4 Anion Gap 15 Blood Urea Nitrogen 36 Creatinine 9.19 Estimat Glomerular Filtration 6 Rate Random Glucose 128 Lactic Acid Level 3.1 Calcium Level 7.6 Total Bilirubin 0.8 Direct Bilirubin 0.3 Aspartate Amino Transf 52 (AST/SGOT) Alanine Aminotransferase 21 (ALT/SGPT) Alkaline Phosphatase 71 Total Creatine Kinase 27 Troponin I LESS THAN 0.02 Total Protein 6.8 Albumin 2.8 Thyroid Stimulating Hormone 2.620 3rd Gen Acetaminophen Level LESS THAN 2.0 Ethyl Alcohol Level LESS THAN 3 Ammonia 41 Salicylates Level LESS THAN 1.7 Date/Time Procedure Status Source Growth 01/24/17 12:00 Influenza Types A,B Antigen (GT) - Final Complete Nasal Aspirate NEGATIVE FOR FLU A AND B ANTIGEN.... 01/24/17 10:55 Aerobic Blood Culture Received Blood Peripheral Pending 01/24/17 10:55 Anaerobic Blood Culture Received Blood Peripheral Pending (Kleber Finn MD R2) Result Diagram: 01/24/17 1030 01/24/[address] of head, showed no acute disease, no significant change has occurred. No evidence of acute infarct, hemorrhage, mass or edema. Chest x-ray showed no consolidations, however noted cardiomegaly. (Kleber Finn MD R2) Septic Shock Reassessment Heart: Irregular Lungs: Clear Skin: Cold Peripheral Pulses: Weak Right Radial Weak Left Radial Capillary Refill: Sluggish (Kleber Finn MD R2) Assessment and Plan Assessment and Plan Mr. Rowe is a pleasant 71-year-old male, with a past medical history of type 2 diabetes, atrial fibrillation on Coumadin, end-stage renal disease on dialysis, MRSA infection on his posterior neck, liver cirrhosis, presenting to the [facility] emergency department with 1 week of general lethargy, confusion, decreased appetite, and subjective fevers and chills. CT of the head showed no acute changes, chest x-ray was benign, and he is not producing urine. A lactic acid on admission was 3.1. Blood cultures have been drawn x 2 , and he has been started on broad spectrum antibiotics (Vancomycin, Zosyn). Nephrology has been consulted, and have arranged for hemodialysis today 01/24. His creatinine on admission was 9.1. Problem #1: Severe sepsis Impression: Etiology unknown at this time. I suspect an occult bacteremia, given vascular access with AV fistula on left arm. Leukocytosis, tachycardia, lactic acidosis, may also be from an infection in the urinary tract, GI tract, or respiratory system. Pain as follows: -Broad Spectrum antibiotics that will be renally dosed, (Vancomycin and Zosyn Started 01/24 at 1000) -Blood cultures 2 -Has received 2 L of IV fluids in the ED, we will continue with 100 ML NS / hr. -We will trend his lactic acid. Anticipate improvement with antibiotics and IV fluids. Problem #2: End-stage renal disease, requiring dialysis. Creatinine on admission was 9.19. Appears dry on exam. Plan as follows: -Consulted nephrology, appreciate their assistance. -Scheduled for hemodialysis. -Avoid nephrotoxic agents. Problem #3: Atrial fibrillation Heart rate was irregular on exam, at 100 bpm. INR was subtherapeutic at 1.7. Continue with Coumadin 5 mg. Continue with home metoprolol 25 mg by mouth twice a day. Recheck INR in 24 hours, will adjust Coumadin dose accordingly. Problem #4: Type 2 diabetes Novolog Sliding Slide scale. Problem #5: Liver cirrhosis AST elevated on exam to 52. ALT within normal limits. Alkaline phosphatase within normal limits. Ammonia level elevated at 41. If his mentation does not improve with IV fluids and supportive therapy, would consider lactulose for hyperammonemia. Problem #6: FEN Fluids: Normal saline at 100 ML's per hour. Electrolytes: Grossly within normal limits except for elevated BUN and creatinine. We'll continue to monitor. Nutrition: Diabetic diet. DVT prophylaxis: Heparin 5,000 units q [address] Steph ar[address] Dr. Rudy Ellington. Code Status Full Code. (Kleber Finn MD R2) Attending Attestation The patient has been seen and examined. The chart and all resident notes have been reviewed. I agree that inpatient care is appropriate and that a two midnight stay is expected for the reasons documented in the resident history and physical. I have discussed this with the resident and certify the resident s order for inpatient admission. (Nia Choi MD) Problem List: (1) Sepsis Status: Acute (2) End stage renal disease Status: Acute (3) Anemia of renal disease Status: Acute (4) CHF (congestive heart failure) Status: Acute (5) Atrial fibrillation Status: Acute (6) Onychomycosis Status: Acute (7) Diabetes mellitus Status: Acute (Kleber Finn MD R2) Physician Certification 2 Midnight Certification Type: Admission for Inpatient Services Order for Inpatient Services The services are ordered in accordance with Medicare regulations or non- Medicare payer requirements, as applicable. In the case of services not specified as inpatient-only, they are appropriately provided as inpatient services in accordance with the 2-midnight benchmark. Estimated LOS (days): 3 3 days is the estimated time the patient will need to remain in the hospital, assuming treatment plan goals are met and no additional complications. Post-Hospital Plan: Home (Kleber Finn MD R2) Problem Qualifiers (1) Sepsis: Qualified Code: A41.9 - Sepsis, due to unspecified organism (2) Atrial fibrillation: Qualified Code: I48.2 - Chronic atrial fibrillation Kleber Finn MD R2 Jan 24, 2017 16:59 Nia Choi MD Jan 25, 2017 17:03
[2017-01-24] MEDS: oxyCODONE/ACETAMINOPHEN 5 MG/325 MG TAB PO PRN (17:30)
[2017-01-24] MEDS: PIPERACIL-TAZO 2.25 GM PREMIX 50 ML IV SCH (17:35)
[2017-01-24] MEDS: HEPARIN SODIUM - SQ 10,000 UNITS/ML VIAL SQ SCH (20:54)
[2017-01-24] MEDS: INSULIN ASPART SUPPLEMENTAL SCALE SQ SCH (20:55)
[2017-01-24] MEDS ORDERED: METOPROLOL TARTRATE 25 MG TAB PO SCH (21:00)
[2017-01-24] MEDS ORDERED: SODIUM CHLORIDE 0.9% FLUSH 5 ML FLUSH IV FLUSH SCH (21:00)
[2017-01-25] VITALS (7 sets, daily range): BP systolic 98–121; BP diastolic 58–82; PULSE 65–124; RESP 15–19; TEMP 97–98.7; O2SAT 93–99
[2017-01-25] MEDS: PIPERACIL-TAZO 2.25 GM PREMIX 50 ML IV SCH ×4 (00:18→23:42)
[2017-01-25] MEDS ORDERED: VANCOMYCIN INJ 1,000 MG in SODIUM CHLOR 0.9% 250 ML INJ 250 ML IV SCH (01:00)
[2017-01-25 05:41] LABS: MEAN CELL VOLUME 93.2 FL (80.0-100.0); MEAN CORPUSCULAR HEMOGLOBIN 32.2 PG (27.0-34.0); MEAN CORPUSCULAR HGB CONC 34.5 % (32.0-36.0); PLATELET COUNT 128 TH/MM3 (150-450); RED BLOOD COUNT 3.65 MIL/MM3 (4.50-5.90); RED CELL DISTRIBUTION WIDTH 14.5 % (11.6-17.2); WHITE BLOOD COUNT 11.6 TH/MM3 (4.0-11.0)
[2017-01-25] MEDS: SODIUM CHLOR 0.9% 1000 ML INJ 1,000 ML IV SCH ×6 (05:51→23:56)
[2017-01-25 06:04] LABS: HEMO FLAGS AUTO DIFF
[2017-01-25] MEDS: INSULIN ASPART SUPPLEMENTAL SCALE SQ SCH ×4 (06:07→20:16)
[2017-01-25 06:09] LABS: BICARBONATE 27.2 MEQ/L (21.0-32.0); CALCIUM-PROTEIN CORRECTED 7.6 MG/DL (8.5-10.1); POTASSIUM 3.7 MEQ/L (3.5-5.1); TOTAL BILIRUBIN ADULT 0.9 MG/DL (0.2-1.0)
[2017-01-25 07:55] LABS: BANDS 2 % (0-6); EOSINOPHILS 2 % (0-4); NEUTROPHIL # MANUAL DIFF 7.3 TH/MM3 (1.8-7.7); PLATELET ESTIMATE SMEAR LOW (NORMAL); PLATELET MORPHOLOGY NORMAL (NORMAL); POLYS (SEG NEUTROPHILS) 61 % (16-70); SCAN/DIFF FINAL DIFF MANUAL; WBC DIFF SAMPLE 100
[2017-01-25] MEDS: METOPROLOL TARTRATE 25 MG TAB PO SCH ×2 (09:00→20:13)
[2017-01-25] MEDS: HEPARIN SODIUM - SQ 10,000 UNITS/ML VIAL SQ SCH ×2 (09:08→23:42)
--- NOTE | 2017-01-25 14:37 | EKG ---
Date Performed: 01/24/2017 Time Performed: 08:20:01 PTAGE: 71 years EKG: ATRIAL FIBRILLATION WITH RAPID VENTRICULAR RESPONSE LOW QRS VOLTAGE IN EXTREMITY LEADS POSS IBLE ANTERIOR MYOCARDIAL INFARCTION POSSIBLE INFERIOR MYOCARDIAL INFARCTION ABNORMAL RHYTHM ECG Rajinder red to PREVIOUS TRACING , ventriular response to atrial fibrillation has increased. PREVIOUS TRA CING DOCTOR: Kevin Sanchez Interpretating Date/Time 01/25/2017 14:37:18
[2017-01-25] MEDS ORDERED: VANCOMYCIN INJ 1,500 MG in SODIUM CHLOR 0.9% 250 ML INJ 250 ML IV SCH (14:45)
--- NOTE | 2017-01-25 14:53 | PD.ID.CON ---
History of Present Illness Service ID Consult Requested By Reason for Consult Evaluation and Mment of fever, possible bacteremia in a patient with ESRD. Primary Care Physician Justin Chiang MD Diagnoses: History of Present Illness Patient says he is tired and does not wish to discuss all his history again. He asked me to try tomorrow. Most of the history was from review of medical records. Mr. Rowe is a 71-year-old male, with PMHx of DM2, ESRD on dialysis Tuesday and Fridays, atrial fibrillation on Coumadin therapy, liver cirrhosis likely from fatty liver, and a MRSA infection/abscess on his posterior neck that needed surgical debridement and a four-month hospital course , his ending with 1 week of general malaise, confusion, and fevers. Approximately 7 days ago, on his way to dialysis he says that he "tripped, and fell forward. He never lost consciousness, however did hit the ground. He was evaluated in the emergency department, and a CT scan of his head at that time was negative for any bleeding or trauma. Since this time, he has been feeling weak and more tired. His reports that he has been sleeping all day long and has not been eating any meals. 3 days ago (Sunday 01/21) while at dialysis, he felt very weak and his blood pressure was 90/30. They recommended that someone drive him home, however he insisted to drive himself home. Since this time, he has felt excessively tired and has not had an appetite. He denied any burning with urination, productive cough, upper respiratory symptoms, palpitations, chest pain, shortness of breath, abdominal pain, nausea, vomiting , diarrhea, or blood in his stool. ID consulted for evaluation and Mment of sepsis, fever, possible bacteremia in a patient with HD. Review of Systems ROS Limitations: Poor Historian Constitutional: COMPLAINS OF: Fever, Chills, DENIES: Diaphoretic episodes, Fatigue, Weight gain, Weight loss, Dizziness, Change in appetite, Night Sweats Endocrine: DENIES: Heat/cold intolerance, Polydipsia, Polyuria, Polyphagia Eyes: DENIES: Blurred vision, Diplopia, Eye inflammation, Eye pain, Vision loss , Photosensitivity, Double Vision Ears, nose, mouth, throat: DENIES: Tinnitus, Hearing loss, Vertigo, Nasal discharge, Oral lesions, Throat pain, Hoarseness, Ear Pain, Running Nose, Epistaxis, Sinus Pain, Toothache, Odynophagia Respiratory: DENIES: Apneas, Cough, Snoring, Wheezing, Hemoptysis, Sputum production, Shortness of breath Cardiovascular: DENIES: Chest pain, Palpitations, Syncope, Dyspnea on Exertion , PND, Lower Extremity Edema, Orthopnea, Claudication Gastrointestinal: DENIES: Abdominal pain, Black stools, Bloody stools, Constipation, Diarrhea, Nausea, Vomiting, Difficulty Swallowing, Anorexia Genitourinary: DENIES: Sexual dysfunction, Urinary frequency, Urinary incontinence, Urgency, Hematuria, Dysuria, Nocturia, Penile Discharge, Testicular Pain, Testicular Swelling Musculoskeletal: COMPLAINS OF: Joint pain, DENIES: Muscle aches, Stiffness, Joint Swelling, Back pain, Neck pain Integumentary: COMPLAINS OF: Abnormal pigmentation, Nail changes Hematologic/lymphatic: COMPLAINS OF: Bruising, DENIES: Lymphadenopathy Immunologic/allergic: DENIES: Eczema, Urticaria Neurologic: DENIES: Abnormal gait, Headache, Localized weakness, Paresthesias, Seizures, Speech Problems, Tremor, Poor Balance Psychiatric: DENIES: Anxiety, Confusion, Mood changes, Depression, Hallucinations, Agitation, Suicidal Ideation, Homicidal Ideation, Delusions Except as stated in HPI: all other systems reviewed are Neg Past Family Social History Allergies: Coded Allergies: Ibuprofen (Verified Allergy, Severe, Rash, 01/24/17) *MDRO Multi-Drug Resistant Organism (Verified Adverse Reaction, Unknown, ) MRSA finger wound 02/2016 Past Medical History ESRD Atrial fibrillation. CHF. KEVON Type 2 diabetes. Cirrhosis of the liver, possibly as a result of fatty liver. Remote history of MRSA infection in the neck area per , cervical spine was not involved. Past Surgical History AVF placement. Reported Medications Reported Meds & Active Scripts Active Reported Warfarin 5 Mg Tab 5 Mg PO DAILY Tramadol (Tramadol HCl) 50 Mg Tab 50 Mg PO BID PRN Prednisone 5 Mg Tab 5 Mg PO DAILY Entresto (Sacubitril-Valsartan) 24-26 Mg Tab 1 Tab PO DAILY Metoprolol Tartrate 25 Mg Tab 25 Mg PO BID Active Ordered Medications Current Medications Medications (Trade) Dose Ordered Sig/Serge Route Start Time Stop Time Status Last Admin IV Flush 2 ml 2 ml UNSCH PRN IVF 01/24/17 10:30 (NS 1000 ml Inj) 1,000 ml @ 0 mls/hr Q0M PRN IV 01/24/17 11:10 Heparin Sodium (Porcine) 8000 units 8,000 units UNSCH PRN IVF 01/24/17 11:15 Sodium Chloride 1,000 ml @ 200 mls/hr Q5H PRN IV 01/24/17 11:10 (NS 1000 ml Inj) 1,000 ml @ 0 mls/hr Q0M PRN IV 01/24/17 11:10 (Mannitol Inj) 12.5 gm UNSCH PRN IV 01/24/17 11:15 (Albumin 25% Inj) 25 gm UNSCH PRN IV 01/24/17 11:15 (NS Flush) 5 ml UNSCH PRN IVF 01/24/17 11:15 (Heparin Inj) UNSCH PRN .XX 01/24/17 11:15 (Gentamicin (Dialysis) Inj) 20 mg UNSCH PRN IV 01/24/17 11:15 (Zofran Inj) 4 mg UNSCH PRN IV 01/24/17 11:15 (Tylenol) 650 mg UNSCH PRN PO 01/24/17 11:15 (Benadryl) 25 mg UNSCH PRN PO 01/24/17 11:15 (Nitrostat Sl) 0.4 mg UNSCH PRN SL 01/24/17 11:15 (Catapres) 0.1 mg UNSCH PRN PO 01/24/17 11:15 (Epogen Inj) 5,000 units UNSCH PRN IV 01/24/17 11:15 (Gelfoam 12 Mm/7 Mm Top) 1 foam UNSCH PRN TOP 01/24/17 11:15 (Coumadin) 5 mg DAILY@16 PO 01/25/17 16:00 Patient Medication Teaching 1 1 ONCE ONCE XX 01/25/17 16:00 01/25/17 16:01 (NS 1000 ml Inj) 1,000 ml @ 100 mls/hr Q10H IV 01/24/17 12:53 01/25/17 09:08 (Tylenol) 650 mg Q4H PRN PO 01/24/17 13:00 (Percocet 5-325 Mg) 1 tab Q4H PRN PO 01/24/17 13:00 01/24/17 17:30 Hydromorphone HCl 1 mg 1 mg Q4H PRN IV 01/24/17 13:00 Piperacillin Sod/ Tazobactam Sod 50 ml @ 200 mls/hr Q8H IV 01/24/17 17:00 01/25/17 09:08 (NS 1000 ml Inj) 1,000 ml @ 125 mls/hr Q8H IV 01/24/17 14:00 01/25/17 13:57 (Lopressor) 25 mg BID PO 01/24/17 14:00 (Heparin Inj) 5,000 units Q12HR SQ 01/24/17 21:00 01/25/17 09:08 Family History could not be obtained. Patients says he is tired and does not wish to discuss history in details at this point. Social History , quit smoking about 40 years ago, quit ETOH about 30 years ago. Physical Exam Vital Signs Vital Signs Date Time Temp Pulse Resp B/P Pulse Ox O2 Delivery O2 Flow Rate FiO2 01/25/17 12:00 97.0 120 19 121/82 96 01/25/17 08:00 97.8 124 15 98/58 94 01/25/17 04:33 98.7 82 18 101/60 99 01/25/17 01:15 98.4 65 18 108/60 95 01/24/17 21:39 97.7 65 18 102/62 94 01/24/17 20:00 115 01/24/17 16:00 96.6 93 18 104/60 92 Physical Exam GENERAL: Obese CM patient, in no apparent distress. SKIN: No rashes, ecchymoses or lesions. Cool and dry. HEAD: Atraumatic. Normocephalic. No temporal or scalp tenderness. EYES: Pupils equal round and reactive. Extraocular motions intact. No scleral icterus. No injection or drainage. ENT: Nose without bleeding, purulent drainage or septal hematoma. Throat without erythema, tonsillar hypertrophy or exudate. Uvula midline. Airway patent. NECK: Trachea midline. Supple, nontender, no meningeal signs. CARDIOVASCULAR: HS audible. Tachycardic. RESPIRATORY: Clear to auscultation. Breath sounds equal bilaterally. No wheezes , rales, or rhonchi. GASTROINTESTINAL: Abdomen soft, non-tender, nondistended. MUSCULOSKELETAL: Bilateral LE with warmth and erythema noted. Left great toe nail avulsed. Left 2nd toe nail avulsed. Note both toe nails are extremely long and not well trimmed. Right great toe with nail avulsion noted as well as on outer aspect of nail there appears to be some skin involvement with erythema and discharge minimal noted as well. AV fistula site with no e.o infection. NEUROLOGICAL: Awake and alert. Grossly non focal Psych: cooperative IV line sites with no e.o infection. Laboratory Laboratory Tests Test 01/24/17 01/25/17 18:01 04:43 Lactic Acid Level 2.1 White Blood Count 11.6 Red Blood Count 3.65 Hemoglobin 11.7 Hematocrit 34.0 Mean Corpuscular Volume 93.2 Mean Corpuscular Hemoglobin 32.2 Mean Corpuscular Hemoglobin 34.5 Concent Red Cell Distribution Width 14.5 Platelet Count 128 Mean Platelet Volume 9.7 Neutrophils (%) (Auto) Lymphocytes (%) (Auto) Monocytes (%) (Auto) Eosinophils (%) (Auto) Basophils (%) (Auto) Neutrophils # (Auto) Lymphocytes # (Auto) Monocytes # (Auto) Eosinophils # (Auto) Basophils # (Auto) CBC Comment AUTO DIFF Differential Total Cells 100 Counted Neutrophils % (Manual) 61 Band Neutrophils % 2 Lymphocytes % 26 Monocytes % 9 Eosinophils % 2 Neutrophils # (Manual) 7.3 Differential Comment FINAL DIFF MANUAL Platelet Estimate LOW Platelet Morphology Comment NORMAL Red Cell Morphology Comment NORMAL Sodium Level 138 Potassium Level 3.7 Chloride Level 99 Carbon Dioxide Level 27.2 Anion Gap 12 Blood Urea Nitrogen 31 Creatinine 7.92 Estimat Glomerular Filtration 7 Rate Random Glucose 101 Calcium Level 7.3 Protein Corrected Calcium 7.6 Total Bilirubin 0.9 Aspartate Amino Transf 60 (AST/SGOT) Alanine Aminotransferase 21 (ALT/SGPT) Alkaline Phosphatase 75 Total Protein 6.6 Albumin 2.6 Random Vancomycin Level 9.6 Date/Time Procedure Status Source Growth 01/24/17 12:00 Influenza Types A,B Antigen (GT) - Final Complete Nasal Aspirate NEGATIVE FOR FLU A AND B ANTIGEN.... 01/24/17 10:55 Aerobic Blood Culture - Preliminary Resulted Blood Peripheral NO GROWTH IN 1 DAY 01/24/17 10:55 Anaerobic Blood Culture - Preliminary Resulted Blood Peripheral NO GROWTH IN 1 DAY Result Diagram: 01/25/17 0443 01/25/173 Imaging Last Impressions Head CT 01/24/17 1025 Signed Impressions: Service Date/Time: Tuesday, January 24, 2017 11:06 - CONCLUSION: No acute disease. No significant change has occurred. No evidence of acute infarct, hemorrhage, mass or edema. Ba Uribe MD Chest X-Ray 01/24/17 1025 Signed Impressions: Service Date/Time: Tuesday, January 24, 2017 10:42 - CONCLUSION: Cardiomegaly Bunny Paz MD Assessment and Plan Assessment and Plan Sepsis present on admission Bilateral LE cellulitis. Right great toe with avulsed nail and ? nail bed infection(cellulitis/abscess), paronychia. ESRD on HD using AV fistula. Clinically fistula does not appears to be the source of infection. Recs Agree with Podiatry consult. Will let them decide if imaging needed. D.w Patient the avulsed nails would likely need removal and right one needs assessment for possible abscess. Continue Zosyn IV Start Vanco IV 1500 mg every 48 hrs in HD sessions. HD sessions ,, Tue. Abad Hollis in HD. Follow cultures Follow clinically. d/w who will evaluate bedside for need of right great toe paronychia/ abscess. Right great toe avulsion and culture if abscess. Minerva Lua MD Jan 25, 2017 14:53
--- NOTE | 2017-01-25 15:47 | HHI.FPPN ---
Subjective Subjective Patient seen and examined with the resident team. Case reviewed and discussed Please refer to resident H&P for further details regarding HPI, ROS, PMH, SurgHx , FH and SocHx In summary, patient is a 71yoM with a history of ESRD on HD who presented from his HD center after increased weakness x 1 week He is seen in his hospital room with his family by his side. He is sitting up in the chair. No chest pain, shortness of breath. BPs running low this am. Hospital Objective Objective Last Impressions Head CT 01/24/17 1025 Signed Impressions: Service Date/Time: Tuesday, January 24, 2017 11:06 - CONCLUSION: No acute disease. No significant change has occurred. No evidence of acute infarct, hemorrhage, mass or edema. Ba Uribe MD Chest X-Ray 01/24/17 1025 Signed Impressions: Service Date/Time: Tuesday, January 24, 2017 10:42 - CONCLUSION: Cardiomegaly Bunny Paz MD Laboratory Tests - Abnormals Test 01/24/17 01/25/17 18:01 04:43 Lactic Acid Level 2.1 mmol/L White Blood Count 11.6 TH/MM3 Red Blood Count 3.65 MIL/MM3 Hemoglobin 11.7 GM/DL Hematocrit 34.0 % Platelet Count 128 TH/MM3 Monocytes % 9 % Platelet Estimate LOW Blood Urea Nitrogen 31 MG/DL Creatinine 7.92 MG/DL Estimat Glomerular Filtration 7 ML/MIN Rate Calcium Level 7.3 MG/DL Protein Corrected Calcium 7.6 MG/DL Aspartate Amino Transf 60 U/L (AST/SGOT) Albumin 2.6 GM/DL Vital Signs 01/24/17 01/24/17 01/24/17 01/25/17 16:00 20:00 21:39 01:15 Temp 96.6 97.7 98.4 Pulse 93 115 65 65 Resp 18 18 18 B/P 104/60 102/62 108/60 Pulse Ox 92 94 95 01/25/17 01/25/17 01/25/17 04:33 08:00 12:00 Temp 98.7 97.8 97.0 Pulse 82 124 120 Resp 18 15 19 B/P 101/60 98/58 121/82 Pulse Ox 99 94 96 INTAKE & OUTPUT 01/25/17 07:00 Intake Total 1127 ml Output Total 200 ml Balance 927 ml Physical exam GENERAL: Elderly male, sitting up in chair, fatigued-appearing. NAD SKIN: Warm and dry. R great toe with erythema, expressible drainage from toe nail, mild edema. HEAD: Normocephalic. AT EYES: No scleral icterus. No injection or drainage. ENT: OP clear. Multiple broken teeth, poor dentition. MM slightly dry. NECK: Supple, trachea midline. No JVD or lymphadenopathy. CARDIOVASCULAR: Regular rate and rhythm audible without murmurs, gallops, or rubs. RESPIRATORY: Breath sounds equal and clear bilaterally. No accessory muscle use. GASTROINTESTINAL: Abdomen soft, non-tender, nondistended. MUSCULOSKELETAL: No cyanosis, or edema. LUE AVF +thrill. No erythema. BACK: Nontender without obvious deformity. No CVA tenderness. NEURO: Awake, alert. Tired. Normal speech. Diminished sensation bilateral LE chronically. CN grossly intact. Assessment Assessment 71yoM admitted with: Sepsis, suspect source is foot infection vs HD access site Hypotension, fever, progressive weakness, concern for infectious process Leukocytosis Elevated lactic acid Recent fall one week ago DM2 ESRD on dialysis Tuesday and Fridays Atrial fibrillation anticoagulated on Coumadin CHF, compensated liver cirrhosis likely from fatty liver Hx MRSA infection/abscess on his posterior neck requiring surgical debridement and prolonged hospital stay (4 months) PLAN PLAN Empiric antibiotic therapy with Vanc and Zosyn ID consult Podiatry consult Nephrology consult for HD Blood cultures CXR 2D echo to assess heart function Caution with IVF given ESRD Monitor for fevers Trend lactic acid Follow PT/INR SSI with accuchecks Monitor intake, may benefit from dietary consult given poor PO intake PT once able Patient seen and examined. Case reviewed and discussed with the resident team Agree with plan of care as discussed with me and documented in the resident note. Nia Choi MD Jan 25, 2017 15:47
--- NOTE | 2017-01-25 16:40 | MB ---
cc: MICHAEL BROOKE DPM DATE OF CONSULTATION: 01/25/2017 REASON FOR CONSULTATION: Bilateral hallux ingrown toenail verses traumatic avulsion. HISTORY OF PRESENT ILLNESS This is a pleasant 71-year male with a significant past medical history, however, he has and tripped and fell on his way to dialysis. He never lost consciousness. He was evaluated emergency room negative for any bleed. He has been feeling more weak, more tired, losing appetite, currently I am seeing the patient bedside, his main complaint right now appears to be some backpain. He is overall numbness of his feet. He is not the best historian PAST MEDICAL HISTORY: The past medical history is positive for diabetes type 2 and stage renal disease, atrial fibrillation. Coumadin with a little psoriasis, history of MRSA of his posterior neck mass. General malaise and confusion. Appears to be the result of a 4-month hospital course. ALLERGIES IBUPROFEN. HISTORY OF MULTIDRUG RESISTANT ORGANISMS. PATIENT MEDICATIONS: Reviewed, he is receiving vancomycin Zosyn. PHYSICAL EXAMINATION VITAL SIGNS: Temperature 97, pulse rate 128, respiratory rate 19, blood pressure 121/82. He is satting 96% one room air. DIRECTED EXAMINATION: This is an alert and oriented male seen bedside he appears to be having a lot of discomfort of his lower back the bilateral lower extremities examined. There is noted be venous stasis hyperpigmentation changes left worse than right. There appears to be mild redness of the left distal ankle however no crepitus or instability upon range of motion of digits forefoot, hind foot or ankle feel warm. Pulses are faint but palpable. Sensation is decreased below the bilateral feet and ankles but intact to deep pressure upon evaluating the patient's bilateral hallux nails there appears to be traumatic lifting of the nails with some local hematoma type findings the nail remains approximately attached there is absent left second digit nail there is no plantar ulcerations noted. LABORATORY FINDINGS White blood cell 13 down to 11.6, hemoglobin/hematocrit 09/1934, platelet count is 128. Chem-7 sodium 138, 1003.7, chloride 99, CO2 27.2, BUN is 39 and creatinine 7.92. Microbial findings blood culture were negative 1 day. No growth. ASSESSMENT/PLAN Traumatic nail avulsion. Today we decided to complete the avulsion process the foot was prepped with Betadine and hallux nails were removed. There is noted be minimal so of subungual bleeding. There is no abscess. There is no ulcer. There was no open fracture. Wound care will resume order written chart. The patient is cleared to followup outpatient reconsult as needed. INOCENCIO Read/jj /3:36 PM /4:02 PM LUIS
[2017-01-25] MEDS: oxyCODONE/ACETAMINOPHEN 5 MG/325 MG TAB PO PRN (16:49)
[2017-01-25] MEDS: WARFARIN SOD 5 MG TAB PO SCH (16:49)
--- NOTE | 2017-01-25 17:20 | EC ---
Study Study Date:01/25/2017 STUDY CONCLUSIONS SUMMARY - Left ventricle: The cavity size was normal. Wall thickness was normal. Systolic function was moderately to severely reduced by visual assessment. The estimated ejection fraction was in the range of 30% to 40%. Diffuse hypokinesis. - Mitral valve: Calcified annulus. Mild regurgitation. Valve area by pressure half-time: 2.5cm^2. - Left atrium: The atrium was moderately dilated. - Right atrium: The atrium was mildly dilated. - Tricuspid valve: Mild regurgitation. - Pulmonary arteries: Systolic pressure was moderately to severely increased. PA peak pressure: 63mm Hg (S). If LV function is below 40, please consider prescribing an ACEI or ARB or document rationale for non-use. PROCEDURE DATA STUDY STATUS: Elective. Procedure: Transthoracic echocardiography. Image quality was poor. The study was technically limited due to poor acoustic window availability. Scanning was performed from the parasternal, apical, and subcostal acoustic windows. Study completion: The patient tolerated the procedure well. Transthoracic echocardiography. M-mode, complete 2D, complete spectral Doppler, and color Doppler. Patient status: Inpatient. CARDIAC ANATOMY LEFT VENTRICLE: Poorly visualized. The cavity size was normal. Wall thickness was normal. Systolic function was moderately to severely reduced by visual assessment. The estimated ejection fraction was in the range of 30% to 40%. Diffuse hypokinesis. AORTIC VALVE: Trileaflet; normal thickness leaflets. Doppler: Transvalvular velocity was within the normal range. There was no stenosis. No regurgitation. AORTA: Aortic root: The aortic root was normal in size. MITRAL VALVE: Calcified annulus. Doppler: Transvalvular velocity was within the normal range. There was no evidence for stenosis. Mild regurgitation. Valve area by pressure half-time: 2.5cm^2. LEFT ATRIUM: The atrium was moderately dilated. RIGHT VENTRICLE: The cavity size was normal. Wall thickness was normal. PULMONIC VALVE: Doppler: Transvalvular velocity was within the normal range. There was no evidence for stenosis. No regurgitation. TRICUSPID VALVE: Structurally normal valve. Doppler: Transvalvular velocity was within the normal range. Mild regurgitation. PULMONARY ARTERY: Systolic pressure was moderately to severely increased. RIGHT ATRIUM: The atrium was mildly dilated. PERICARDIUM: There was no pericardial effusion. SYSTEMIC VEINS: Inferior vena cava: The vessel was normal in size. BASIC MEASUREMENTS ADULT Normal Left ventricle LV internal dimension, ED, chordal level, *52.5 mm 43-52 PLAX LV internal dimension, ES, chordal level, *46.4 mm 23-38 PLAX Fractional shortening, chordal level, PLAX *12 % >29 LV posterior wall thickness, ED 10.6 mm IVS/LVPW ratio, ED *1.39 <1.3 Ventricular septum Septal thickness, ED 14.7 mm Aortic valve Leaflet separation *14 mm 15-26 Right ventricle RV internal dimension, ED, PLAX 30.4 mm 19-38 BASIC MEASUREMENTS ADULT Normal Aortic valve Leaflet separation *14 mm 15-26 Aorta Root diameter, ED *38 mm 20-37 Left atrium Anterior-posterior dimension, ES *45 mm 19-40 LA/aortic root ratio 1.18 DOPPLER MEASUREMENTS ADULT Normal Main pulmonary artery Pressure, S *63 mm Hg =30 Mitral valve Pressure half-time 88 ms Valve area, pressure half-time 2.5 cm^2 Tricuspid valve Regurgitant peak velocity 363 cm/s Peak RV-RA gradient, S 53 mm Hg Maximal regurgitant velocity 363 cm/s Systemic veins Estimated CVP 10 mm Hg Right ventricle RV pressure, S *63 mm Hg <30 LEGEND: Mean values are shown as u=mean value. Asterisk (*) [place] values outside specified normal range. Prepared and signed by Ian Perez [id number]
[2017-01-25 18:10] LABS: HEMOGLOBIN A1a 0.9 %; HEMOGLOBIN A1b 2.3 %; HEMOGLOBIN Ao 82.1 %; HEMOGLOBIN LA1C 2.2 %; HEMOGLOBIN P3 6.5 %
[2017-01-26] VITALS (9 sets, daily range): BP systolic 86–109; BP diastolic 51–67; PULSE 87–145; RESP 16–20; TEMP 96.6–99.6; O2SAT 94–98
[2017-01-26] MEDS: oxyCODONE/ACETAMINOPHEN 5 MG/325 MG TAB PO PRN ×2 (03:25→19:23)
[2017-01-26 05:19] LABS: INTERNATIONAL NORMALIZED RATIO 1.8 RATIO; PROTHROMBIN TIME - PATIENT 20.4 SEC (9.8-11.6)
[2017-01-26] MEDS: SODIUM CHLOR 0.9% 1000 ML INJ 1,000 ML IV SCH (06:00)
[2017-01-26] MEDS: INSULIN ASPART SUPPLEMENTAL SCALE SQ SCH ×4 (07:00→20:42)
[2017-01-26] MEDS: PIPERACIL-TAZO 2.25 GM PREMIX 50 ML IV SCH ×2 (08:33→17:00)
[2017-01-26] MEDS: SODIUM CHLORIDE 0.9% FLUSH 5 ML FLUSH IVF PRN (08:34)
[2017-01-26] MEDS: HEPARIN SODIUM - SQ 10,000 UNITS/ML VIAL SQ SCH ×2 (08:37→20:39)
[2017-01-26] MEDS: METOPROLOL TARTRATE 25 MG TAB PO SCH ×2 (08:39→20:39)
--- NOTE | 2017-01-26 08:50 | HHI.NPPN ---
Subjective Interval History complains of abdominal upset, wants Tums. BP is low normal. To have dialysis today. Cultures are still pending. Review of Systems General Constitutional: Fatigue Gastrointestinal Gastrointestinal: Abdominal Pain, Heartburn Objective Data Data 01/25/17 01/26/17 19:00 07:00 Intake Total 1182 ml 580 ml Balance 1182 ml 580 ml Intake Oral 500 ml 480 ml IV Total 682 ml 100 ml # Voids 0 0 # Bowel Movements 1 1 Vital Signs Date Time Temp Pulse Resp B/P Pulse Ox O2 Delivery O2 Flow Rate FiO2 01/26/17 07:56 96.7 87 16 100/59 98 01/26/17 07:37 96 01/26/17 04:00 96.8 101 18 109/59 94 01/26/17 00:00 98.1 113 20 108/61 95 01/25/17 20:00 106 01/25/17 20:00 97.4 104 18 111/79 96 01/25/17 19:03 94 21 01/25/17 16:00 97.5 106 18 98/59 93 01/25/17 12:00 97.0 120 19 121/82 96 -: 01/25/17 0443 01/25/17 0443 Microbiology 01/26/17 Gram Stain, Received Pending 01/26/17 Wound Culture, Received Pending Physical Exam General Appearance: Well Developed, No Acute Distress Throat Throat Exam: Oral Mucosa [place] & Moist Neck Neck Exam: Neck Supple Pulmonary Resp Exam: Clear Bilaterally, Breath Sounds Equal Cardiology CV Exam: Regular, Normal Sinus Rhythm Gastrointestinal/Abdomen GI Exam: Soft, Non-Tender, Bowel Sounds Present Musculoskeletal MS Exam: Joints Intact Extremeties Extremities Exam: No Edema Neurologic Neuro Exam: Alert, Awake, Oriented, Speech Clear, Moving All Extremities Assessment/Plan Problem List: (1) ESRD (end stage renal disease) Plan: HD will be MWF. Due for dialysis today. Monitor volume status and electrolytes. Gadolinium is contraindicated. (2) CHF (congestive heart failure) Plan: He was on Entresto. monitor volume status and electrolytes. (3) Atrial fibrillation Plan: Monitor heart rate. He is on Warfarin. Monitor INR. (4) Fever Plan: Etiology, source is unclear. Workup is in progress, to have CXR and blood cultures. On empiric antibiotics. Cultures are pending. Influenza negative. (5) Anemia of renal disease Plan: Hemoglobin is acceptable. Epogen as needed per protocol with dialysis. Problem Qualifiers (1) Atrial fibrillation: Qualified Code: I48.2 - Chronic atrial fibrillation Prashant Richardson MD Jan 26, 2017 08:50
[2017-01-26] MEDS ORDERED: CALCIUM CARBONATE 500 MG CHEWABLE TAB CHEW ONE (09:30)
[2017-01-26] MEDS ORDERED: CALCIUM CARBONATE 1.25 GM (CA 500 MG) TAB PO SCH (09:30)
--- NOTE | 2017-01-26 10:10 | HHI.FPPN ---
Subjective Remarks Mr. Rowe is feeling better today. He did not get good sleep and feels tired. He reports feeling about 20% better since admission. He denies sob, chest pain or abdominal discomfort. He is complaining of right arm pain that is worse with movement. He also is having indigestion this morning and requesting tums. He is having frequent formed BMs and tolerated a rice and mushroom soup this morning which is an improvement. Scheduled for dialysis today. (Kleber Finn MD R2) Objective Vitals Vital Signs Date Time Temp Pulse Resp B/P Pulse Ox O2 Delivery O2 Flow Rate FiO2 01/26/17 07:56 96.7 87 16 100/59 98 01/26/17 07:37 96 01/26/17 04:00 96.8 101 18 109/59 94 01/26/17 00:00 98.1 113 20 108/61 95 01/25/17 20:00 106 01/25/17 20:00 97.4 104 18 111/79 96 01/25/17 19:03 94 21 01/25/17 16:00 97.5 106 18 98/59 93 01/25/17 12:00 97.0 120 19 121/82 96 I/O 01/25/17 01/25/17 01/25/17 01/26/17 01/26/17 01/26/17 07:00 15:00 23:00 07:00 15:00 23:00 Intake Total 618 ml 1182 ml 240 ml 340 ml Output Total 0 ml Balance 618 ml 1182 ml 240 ml 340 ml Intake Oral 500 ml 240 ml 240 ml IV Total 618 ml 682 ml 100 ml Output Urine Total 0 ml # Voids 0 0 # Bowel Movements 1 1 0 (Kleber Finn MD R2) Result Diagram: 01/25/1744201/25/173 Objective Remarks GENERAL: NAD, resting comfortably SKIN: Warm and dry. HEAD: Normocephalic. NECK: Supple, trachea midline. No JVD or lymphadenopathy. CARDIOVASCULAR: Faint 2/6 RAMY at left sternal border. AV fistula on left arm. RESPIRATORY: Breath sounds equal bilaterally. GASTROINTESTINAL: Abdomen soft, non-tender, nondistended. EXTREMITIES: No cyanosis, or edema. Right hallux erythematous and nail removed. NEUROLOGICAL: Awake, alert, and oriented x 3. Non-focal. (ClearfieldKleber bhatti MD R2) A/P Assessment and Plan Mr. Rowe is a pleasant 71-year-old male, with a past medical history of type 2 diabetes, atrial fibrillation on Coumadin, end-stage renal disease on dialysis, MRSA infection on his posterior neck, liver cirrhosis, presenting to the [place] emergency department with 1 week of general lethargy, confusion, decreased appetite, and subjective fevers and chills. CT of the head showed no acute changes, chest x-ray was benign, and he is not producing urine. A lactic acid on admission was 3.1. Blood cultures have been drawn x 2 , and he has been started on broad spectrum antibiotics (Vancomycin, Zosyn). Nephrology has been consulted, and have arranged for hemodialysis today 01/26. His creatinine on admission was 9.1. Problem #1: Severe sepsis Resolved. Afebirle, WBC downtrending, no tachycardia. Source not identified at the time. Possible right hallux cellulitis, UTI, vs bactermia despite negative blood cultures. Pain as follows: -ID on board, appreciate recs -Broad Spectrum antibiotics that will be renally dosed, (Vancomycin q 48 hrs with HD and Zosyn Started 01/24 at 1000). -Culture from right foot pending, s/p nail removal, no abscess on exam. -Blood cultures 2 negative x 24 hours. -D/c IVF Problem #2: End-stage renal disease, requiring dialysis. Creatinine on admission was 9.19. Appears dry on exam. Plan as follows: -Consulted nephrology, appreciate their assistance. -Scheduled for hemodialysis. -Avoid nephrotoxic agents. Problem #3: Atrial fibrillation Heart rate was irregular on exam, at 100 bpm. INR 1.8 - continue with Coumadin 5 mg daily. Recheck INR in 1-2 days. Continue with home metoprolol 25 mg by mouth twice a day. Hold parameter (HR <60 , systolic < 100). Problem #4: Type 2 diabetes Novolog Sliding Slide scale. Has required 0 units. AIC 7.2 Problem #5: Liver cirrhosis AST elevated on exam to 52. ALT within normal limits. Alkaline phosphatase within normal limits. Ammonia level elevated at 41. Problem #6: FEN Fluids: d/c fluids, HD MWF. Electrolytes: Grossly within normal limits except for elevated BUN and creatinine. Ca low at 7.6 (corrected). give Ca2+Carbonate 500 mg daily. We'll continue to monitor. Nutrition: Diabetic diet. DVT prophylaxis: Heparin 5,000 units q 12, hold for INR > 2.0. wdw Dr. Choi (Kleber Finn MD R2) Attending Attestation Patient seen and examined. Case reviewed and discussed. Agree with plan of care as discussed with me and documented in the resident note. (Nia Choi MD) Problem List: (1) Sepsis Status: Acute (2) End stage renal disease Status: Acute (3) Anemia of renal disease Status: Acute (4) CHF (congestive heart failure) Status: Acute (5) Atrial fibrillation Status: Acute (6) Onychomycosis Status: Acute (7) Diabetes mellitus Status: Acute (Kleber Finn MD R2) Problem Qualifiers (1) Sepsis: Qualified Code: A41.9 - Sepsis, due to unspecified organism (2) Atrial fibrillation: Qualified Code: I48.2 - Chronic atrial fibrillation Kleber Finn MD R2 Jan 26, 2017 10:10 Nia Choi MD Jan 27, 2017 17:25
[2017-01-26 11:17] LABS: MEAN CORPUSCULAR HEMOGLOBIN 32.3 PG (27.0-34.0); MEAN CORPUSCULAR HGB CONC 34.7 % (32.0-36.0); PLATELET COUNT 135 TH/MM3 (150-450); RED BLOOD COUNT 3.65 MIL/MM3 (4.50-5.90); RED CELL DISTRIBUTION WIDTH 14.5 % (11.6-17.2); WHITE BLOOD COUNT 11.7 TH/MM3 (4.0-11.0)
[2017-01-26 11:18] LABS: HEMO FLAGS AUTO DIFF
[2017-01-26 11:42] LABS: BICARBONATE 26.9 MEQ/L (21.0-32.0); POTASSIUM 3.5 MEQ/L (3.5-5.1)
[2017-01-26] MEDS: SEVELAMER CARBONATE 800 MG TAB PO SCH ×2 (12:00→19:23)
[2017-01-26 12:16] LABS: CALCIUM-PROTEIN CORRECTED 7.3 MG/DL (8.5-10.1)
[2017-01-26 13:00] LABS: ATYPICAL LYMPHOCYTES 7 % (0-0); BANDS 1 % (0-6); EOSINOPHILS 6 % (0-4); NEUTROPHIL # MANUAL DIFF 6.2 TH/MM3 (1.8-7.7); POLYS (SEG NEUTROPHILS) 52 % (16-70); WBC DIFF SAMPLE 100
[2017-01-26 13:12] LABS: OVALOCYTES 1+ (NORMAL); PLATELET ESTIMATE SMEAR LOW (NORMAL); PLATELET MORPHOLOGY NORMAL (NORMAL)
[2017-01-26 13:13] LABS: SCAN/DIFF FINAL DIFF MANUAL
[2017-01-26] MEDS ORDERED: CALCIUM GLUCONATE INJ 1 GM in SODIUM CHLORIDE 0.9% INJ 100 ML IV ONE (15:00)
[2017-01-26] MEDS: WARFARIN SOD 5 MG TAB PO SCH (16:00)
[2017-01-26] MEDS: EPOETIN ALFA 10,000 UNITS/ML VIAL IV PRN (17:37)
[2017-01-26] MEDS: VANCOMYCIN INJ 1,500 MG in SODIUM CHLORID 0.9% 500 ML INJ 500 ML IV SCH (17:37)
[2017-01-27] VITALS (20 sets, daily range): BP systolic 70–117; BP diastolic 30–62; PULSE 72–132; RESP 18–20; TEMP 97.5–99.7; O2SAT 92–97
[2017-01-27] MEDS: PIPERACIL-TAZO 2.25 GM PREMIX 50 ML IV SCH ×2 (01:12→09:25)
[2017-01-27] MEDS ORDERED: METOPROLOL TARTRATE 5 MG/5 ML VIAL IV SCH (02:30)
[2017-01-27 03:37] LABS: HEMATOCRIT 33.7 % (39.0-51.0); MEAN CORPUSCULAR HEMOGLOBIN 31.8 PG (27.0-34.0); MEAN CORPUSCULAR HGB CONC 34.1 % (32.0-36.0); PLATELET COUNT 140 TH/MM3 (150-450); RED BLOOD COUNT 3.62 MIL/MM3 (4.50-5.90); RED CELL DISTRIBUTION WIDTH 14.6 % (11.6-17.2); WHITE BLOOD COUNT 15.7 TH/MM3 (4.0-11.0)
[2017-01-27 03:38] LABS: HEMO FLAGS AUTO DIFF
[2017-01-27 04:25] LABS: ALKALINE PHOSPHATASE 85 U/L (45-117); ALT (GPT) 29 U/L (12-78); ANION GAP 13 MEQ/L (5-15); AST (GOT) 85 U/L (15-37); BICARBONATE 29.6 MEQ/L (21.0-32.0); BLOOD UREA NITROGEN 26 MG/DL (7-18); CHLORIDE 97 MEQ/L (98-107); GLOMERULAR FILTRATION RATE 7 ML/MIN (>89); MAGNESIUM 1.4 MG/DL (1.5-2.5); POTASSIUM 3.8 MEQ/L (3.5-5.1); SODIUM (NA) 140 MEQ/L (136-145)
[2017-01-27 04:57] LABS: ATYPICAL LYMPHOCYTES 7 % (0-0); BANDS 2 % (0-6); POLYS (SEG NEUTROPHILS) 36 % (16-70); SCAN/DIFF FINAL DIFF MANUAL; WBC DIFF SAMPLE 100
[2017-01-27 04:58] LABS: PLATELET MORPHOLOGY NORMAL (NORMAL)
[2017-01-27 04:59] LABS: PLATELET ESTIMATE SMEAR LOW (NORMAL)
[2017-01-27] MEDS: INSULIN ASPART SUPPLEMENTAL SCALE SQ SCH ×4 (06:00→21:00)
[2017-01-27] MEDS: METOPROLOL TARTRATE 25 MG TAB PO SCH ×2 (06:01→21:01)
--- NOTE | 2017-01-27 06:54 | HHI.NPPN ---
Subjective Interval History Sitting on a chair. Low grade fevers (less than 100) earlier this morning. Feels tired. Had difficulty lying in bed for dialysis. Tachycardic. Review of Systems General Constitutional: Fatigue Objective Data Data 01/26/17 01/27/17 19:00 07:00 Intake Total 1965 ml 440 ml Output Total 3350 ml Balance -1385 ml 440 ml Intake Oral 240 ml 240 ml IV Total 1725 ml 200 ml Output Urine Total 0 ml Gastric Drainage Total 350 ml Hemodialysis 3000 ml # Bowel Movements 0 0 Vital Signs Date Time Temp Pulse Resp B/P Pulse Ox O2 Delivery O2 Flow Rate FiO2 01/27/17 04:00 97.8 121 20 117/57 94 01/27/17 02:20 99.7 132 20 110/56 95 01/27/17 01:11 99.7 132 20 100/62 95 01/26/17 23:23 97.2 108 18 99/64 95 01/26/17 20:17 109 01/26/17 20:00 99.6 145 20 107/67 94 01/26/17 17:11 96 21 01/26/17 12:00 96.6 110 16 86/51 96 01/26/17 07:56 96.7 87 16 100/59 98 01/26/17 07:37 96 -: 01/27/17 0320 01/27/17 0320 Physical Exam General Appearance: Well Developed, No Acute Distress Throat Throat Exam: Oral Mucosa [place] & Moist Neck Neck Exam: Neck Supple Pulmonary Resp Exam: Clear Bilaterally, Breath Sounds Equal Cardiology CV Exam: Irregular, Tachycardia Gastrointestinal/Abdomen GI Exam: Soft, Non-Tender, Bowel Sounds Present Musculoskeletal MS Exam: Joints Intact Extremeties Extremities Exam: No Edema Neurologic Neuro Exam: Alert, Awake, Oriented, Speech Clear, Moving All Extremities Assessment/Plan Problem List: (1) ESRD (end stage renal disease) Plan: HD will be MWF.Had dialysis yesterday. Monitor volume status and electrolytes. (2) CHF (congestive heart failure) Plan: He was on Entresto. monitor volume status and electrolytes. (3) Atrial fibrillation Plan: He is tachycardic, needs better heart rate control. INR is 1.8. He is on Metoprolol. Relatively hypotensive, making fluid removal at dialysis difficult. (4) Fever Plan: Source of possible sepsis is unclear. ID following. On Vancomycin and Zosyn empirically. (5) Anemia of renal disease Plan: Hemoglobin is acceptable. Epogen as needed per protocol with dialysis. Problem Qualifiers (1) Atrial fibrillation: Qualified Code: I48.2 - Chronic atrial fibrillation Prashant Richardson MD Jan 27, 2017 06:54
[2017-01-27] MEDS: SEVELAMER CARBONATE 800 MG TAB PO SCH ×3 (08:50→16:10)
[2017-01-27] MEDS: HEPARIN SODIUM - SQ 10,000 UNITS/ML VIAL SQ SCH (08:52)
[2017-01-27] MEDS ORDERED: MAGNESIUM SULFATE 1 GM PREMIX 100 ML IV ONE (09:00)
--- NOTE | 2017-01-27 11:03 | HHI.FPPN ---
Subjective Remarks Patient was seen and examined this morning. He reports all over body aches today and does not like the new room he is in as the bathroom lacks handles. Family states he is eating fresh foods from home without difficulty. Had a BM. Denies having any chest pain, sob, n/v/diarrhea, constipation. Had tachycardia overnight with low BP, received 500cc bolus. Metoprolol IV 5mg was given and patient was transferred to [facility] for possible IV medication, but pulse is now in the 90s and regular rhythm since this morning. (Danii Ellington MD R1) Objective Vitals Vital Signs Date Time Temp Pulse Resp B/P Pulse Ox O2 Delivery O2 Flow Rate FiO2 01/27/17 10:00 92 01/27/17 09:00 94 01/27/17 08:00 89 01/27/17 08:00 98.6 98 20 95/62 97 01/27/17 04:00 97.8 121 20 117/57 94 01/27/17 02:20 99.7 132 20 110/56 95 01/27/17 01:11 99.7 132 20 100/62 95 01/26/17 23:23 97.2 108 18 99/64 95 01/26/17 20:17 109 01/26/17 20:00 99.6 145 20 107/67 94 01/26/17 17:11 96 21 01/26/17 12:00 96.6 110 16 86/51 96 I/O 01/26/17 01/26/17 01/26/17 01/27/17 01/27/17 01/27/17 07:00 15:00 23:00 07:00 15:00 23:00 Intake Total 340 ml 1965 ml 100 ml 340 ml Output Total 350 ml 3000 ml Balance 340 ml 1615 ml -2900 ml 340 ml Intake Oral 240 ml 240 ml 240 ml IV Total 100 ml 1725 ml 100 ml 100 ml Output Urine Total 0 ml Gastric Drainage Total 350 ml Hemodialysis 3000 ml # Bowel Movements 0 0 0 (Danii Ellington MD R1) Result Diagram: 01/27/17 0320 01/27/17 0320 Imaging Last Impressions Head CT 01/24/17 1025 Signed Impressions: Service Date/Time: Tuesday, January 24, 2017 11:06 - CONCLUSION: No acute disease. No significant change has occurred. No evidence of acute infarct, hemorrhage, mass or edema. Ba Uribe MD Chest X-Ray 01/24/17 1025 Signed Impressions: Service Date/Time: Tuesday, January 24, 2017 10:42 - CONCLUSION: Cardiomegaly Bunny Paz MD Objective Remarks GENERAL: Well-nourished, well-appearing elderly male in no apparent distress. SKIN: Warm and dry. Mild bruising noticed on the distal upper extremities. Skin is thin. HEAD: Atraumatic. Normocephalic. EYES: Pupils equal and round. No scleral icterus. No injection or drainage. ENT: No nasal bleeding or discharge. Mucous membranes pink and moist. NECK: Trachea midline. No JVD. CARDIOVASCULAR: Regular rate and rhythm, rate approximately 90. RESPIRATORY: No accessory muscle use. Clear to auscultation without evidence of crackles or wheezing. Breath sounds equal bilaterally. GASTROINTESTINAL: Abdomen soft, non-tender, nondistended. Hepatic and splenic margins not palpable. MUSCULOSKELETAL: Extremities without clubbing, cyanosis, or edema. No obvious deformities. Joints are not tender to palpation. NEUROLOGICAL: Awake and alert. No obvious cranial nerve deficits. Motor grossly within normal limits. Normal speech. PSYCHIATRIC: He does seem somewhat confused but is re-oriented by family when asked about dialysis. Appropriate mood and affect; insight and judgment normal. ENERAL: NAD, resting comfortably SKIN: Warm and dry. HEAD: Normocephalic. NECK: Supple, trachea midline. No JVD or lymphadenopathy. CARDIOVASCULAR: Faint 2/6 RAMY at left sternal border. AV fistula on left arm. RESPIRATORY: Breath sounds equal bilaterally. GASTROINTESTINAL: Abdomen soft, non-tender, nondistended. EXTREMITIES: No cyanosis, or edema. Right hallux erythematous and nail removed. NEUROLOGICAL: Awake, alert, and oriented x 3. Non-focal. Medications and IVs Inpatient Medications Acetaminophen (Tylenol) 650 mg Q4H PRN PO SEE LABEL COMMENTS; Start 01/24/17 at 13:00 Acetaminophen 650 mg 650 mg ONCE ONCE RECTAL Last administered on 01/24/17t 10 :47; Start 01/24/17 at 10:30; Stop 01/24/17 at 10:32; Status DC Albumin Human (Albumin 25% Inj) 25 gm UNSCH PRN IV WITH DIALYSIS; Start at 11:15 Calcium Carbonate (Tums Chew) 500 mg ONCE ONCE CHEW Last administered on 09:50; Start 01/26/17 at 09:30; Stop 01/26/17 at 09:32; Status DC Calcium Carbonate 500 mg 500 mg DAILY PO ; Start 01/26/17 at 09:30; Stop at 09:35; Status DC Calcium Gluconate/ Sodium Chloride (Calcium Gluconate Inj/NS Inj) 110 ml @ 110 mls/hr ONCE ONCE IV Last administered on 01/26/17 19:24; Start 01/26/17 at 15 :00; Stop 01/26/17 at 15:59; Status DC Clonidine (Catapres) 0.1 mg UNSCH PRN PO for BP > 180/100 X 2 readings; Start 01/24/17 at 11:15 Diphenhydramine HCl (Benadryl) 25 mg UNSCH PRN PO for hives/itching/anaphylaxis ; Start 01/24/17 at 11:15 Epoetin Dawood (Epogen Inj) 5,000 units UNSCH PRN IV WITH DIALYSIS Last administered on 01/26/17 17:37; Start 01/24/17 at 11:15 Gelatin (Gelfoam 12 Mm/7 Mm Top) 1 foam UNSCH PRN TOP SEE LABEL COMMENTS; Start 01/24/17 at 11:15 Gentamicin Sulfate (Gentamicin (Dialysis) Inj) 20 mg UNSCH PRN IV WITH DIALYSIS ; Start 01/24/17 at 11:15 Heparin Sodium (Porcine) (Heparin Inj) UNSCH PRN .XX WITH DIALYSIS; Start at 11:15 Heparin Sodium (Porcine) 5000 units 5,000 units Q12HR SQ Last administered on 20:39; Start 01/24/17 at 21:00; Stop 01/27/17 at 15:33; Status DC Hydromorphone HCl (Dilaudid Pf Inj) 1 mg Q4H PRN IV PAIN SCALE 6 TO 10; Start 01/24/17 at 13:00 Insulin Aspart (NovoLOG SUPPLEMENTAL SCALE) 1 ACHS SLIDING SCALE SQ Last administered on 01/26/17 11:00; Start 01/24/17 at 21:00 IV Flush (NS Flush) 2 ml UNSCH PRN IV FLUSH FLUSH AFTER USING IV ACCESS; Start 01/24/17 at 13:00; Stop 01/24/17 at 13:21; Status DC IV Flush 2 ml 2 ml BID IV FLUSH ; Start 01/24/17 at 21:00; Stop 01/24/17 at 21: 00; Status DC Magnesium Sulfate/ Dextrose (Magnesium Sulfate 1 Gm Premix) 100 ml @ 100 mls/ hr ONCE ONCE IV Last administered on 01/27/17 09:27; Start 01/27/17 at 09:00 ; Stop 01/27/17 at 09:59; Status DC Mannitol (Mannitol Inj) 12.5 gm UNSCH PRN IV WITH DIALYSIS; Start 01/24/17 at 11:15 Metoprolol Tartrate (Lopressor) 25 mg BID PO Last administered on 01/27/17 06: 01; Start 01/24/17 at 14:00 Metoprolol Tartrate 5 mg 5 mg ONCE IV Last administered on 01/27/17 03:10; Start 01/27/17 at 02:30; Stop 01/28/17 at 02:29 Nitroglycerin (Nitrostat Sl) 0.4 mg UNSCH PRN SL CHEST PAIN; Start 01/24/17 at 11:15 Ondansetron HCl (Zofran Inj) 4 mg UNSCH PRN IV WITH DIALYSIS; Start 01/24/17 at 11:15 Oxycodone/ Acetaminophen (Percocet 5-325 Mg) 1 tab Q4H PRN PO PAIN SCALE 1 TO 5 Last administered on 01/27/17 11:55; Start 01/24/17 at 13:00 Patient Medication Teaching (Coumadin Booklet) 1 ONCE ONCE XX ; Start 01/25/17 at 16:00; Stop 01/25/17 at 16:01; Status DC Pharmacy Profile Note 0 ml @ 0 mls/hr UNSCH XX ; Start 01/24/17 at 13:00; Stop 01/24/17 at 13:59; Status DC Piperacillin Sod/ Tazobactam Sod 50 ml @ 200 mls/hr Q8H IV Last administered on 01/27/17 09:25; Start 01/24/17 at 17:00; Stop 01/27/17 at 13:00; Status DC Senna/Docusate Sodium (Erin-Colace) 1 tab DAILY PO ; Start 01/28/17 at 18:00 Sevelamer Carbonate (Renvela) 800 mg TIDAC PO Last administered on 01/27/17 11 :54; Start 01/26/17 at 12:00 Sodium Chloride (NS 1000 ml Inj) 1,000 ml @ 125 mls/hr Q8H IV Last administered on 01/25/17 23:44; Start 01/24/17 at 14:00; Stop 01/26/17 at 08:50 ; Status DC Sodium Chloride (NS 500 ml Inj) 500 ml @ 500 mls/hr BOLUS ONCE IV ; Start at 10:30; Stop 01/24/17 at 11:29; Status DC Vancomycin HCl 1000 mg/Sodium Chloride 260 ml @ 262.5 mls/ hr Q12H IV ; Start 01/25/17 at 01:00; Stop 01/25/17 at 01:00; Status DC Vancomycin HCl/ Sodium Chloride (Vancomycin Inj/ NS 250 ml Inj) 250 ml @ 250 mls/hr ONCE ONCE IV Last administered on 01/24/17 10:45; Start 01/24/17 at 10 :30; Stop 01/24/17 at 11:29; Status DC Vancomycin HCl/ Sodium Chloride (Vancomycin Inj/ NS 500 ml Inj) 515 ml @ 250 mls/hr WITH DIALYSIS IV Last administered on 01/26/17 17:37; Start 01/25/17 at 15:15 Warfarin Sodium (Coumadin) 5 mg DAILY@16 PO Last administered on 01/25/17 16: 49; Start 01/25/17 at 16:00 (Danii Ellington MD R1) Urinary Catheter: No (Danii Ellington MD R1) Vascular Central Line Catheter: No (Danii Ellington MD R1) A/P Assessment and Plan Mr. Rowe is a pleasant 71-year-old male, with a past medical history of type 2 diabetes, atrial fibrillation on Coumadin, end-stage renal disease on dialysis, MRSA infection on his posterior neck, liver cirrhosis, presenting to the [place] emergency department with 1 week of general lethargy, confusion, decreased appetite, and subjective fevers and chills. CT of the head showed no acute changes, chest x-ray was benign, and he is not producing urine. A lactic acid on admission was 3.1, with repeat 2.1 after fluid. Blood cultures have drawn x 2 on admission, and broad spectrum antibiotics (Vancomycin , Zosyn) were initiated. Nephrology has been consulted, and have arranged for hemodialysis on his normal schedule MWF. His creatinine on admission was 9.1, which improved after initial dialysis treatment. Problem #1: Severe sepsis Resolved. Afebirle, WBC downtrending, no tachycardia. Source not identified at the time. Possible right hallux cellulitis, UTI, vs bacteremia despite negative blood cultures. Pain as follows: -ID on board, appreciate recs -Broad Spectrum antibiotics that will be renally dosed, (Vancomycin q 48 hrs with HD and Zosyn Started 01/24 at 1000). Per ID, may start doxycycline at discharge if cultures negative -Culture from right foot pending, s/p nail removal, no abscess on exam. -Blood cultures 2 negative x 24 hours. -D/c IVF Problem #2: End-stage renal disease, requiring dialysis. Creatinine on admission was 9.19. Improved after dialysis. -Consulted nephrology, appreciate their assistance. -Scheduled for hemodialysis MWF -Avoid nephrotoxic agents. Problem #3: Atrial fibrillation Heart rate was irregular on admission exam, at 100 bpm. Had A. fib with RVR overnight on 01/27, requiring IV metoprolol 5 mg 1, with resolution a few hours thereafter He was transferred to [facility] for possible GTT, but this was not needed given return to sinus rhythm. INR 2.0- continue with Coumadin 5 mg daily. Recheck INR in 1-2 days. Home metoprolol was 25 mg PO BID. Will increase metoprolol to 12.5 mg twice a day as BP has been low, will increase as needed. Hold parameter (HR <60, systolic < 100). Problem #4: Type 2 diabetes Novolog Sliding Slide scale. Not requiring much sliding scale insulin. A1C 7.2 Problem #5: Liver cirrhosis AST mildly elevated. ALT within normal limits. Alkaline phosphatase within normal limits. Ammonia level elevated at 41. Patient clinically stable, continue follow-up as outpatient Problem #6: Right toenail avulsion -Podiatry was consulted on 01/25, operative right toenail avulsion was performed at that time. Not obvious source of infection per podiatry Problem #7: FEN Fluids: d/c fluids, HD MWF. Electrolytes: Grossly within normal limits except for elevated BUN and creatinine. Corrected calcium has been low. On Ca2+Carbonate 500 mg daily. We' ll continue to monitor and replete as needed Nutrition: Diabetic diet. DVT prophylaxis: On Coumadin, INR 2.0 on 01/[address] Choi Discharge Planning Unclear, possibly in the next 2-3 days if clinically improves and cultures show no growth (Danii Ellington MD R1) Attending Attestation Patient seen and examined. Case reviewed and discussed. Agree with plan of care as discussed with me and documented in the resident note. Patient's home Entresto has been on hold due to hypotension. Will need to consider resuming once appropriate. (Nia Choi MD) Problem List: (1) Sepsis Status: Acute (2) End stage renal disease Status: Acute (3) Anemia of renal disease Status: Acute (4) CHF (congestive heart failure) Status: Acute (5) Atrial fibrillation Status: Acute (6) Onychomycosis Status: Acute (7) Diabetes mellitus Status: Acute (8) Avulsion of toenail of right foot Status: Acute (Danii Ellington MD R1) Problem Qualifiers (1) Sepsis: Qualified Code: A41.9 - Sepsis, due to unspecified organism (2) Atrial fibrillation: Qualified Code: I48.2 - Chronic atrial fibrillation Danii Ellington MD R1 Jan 27, 2017 11:03 Nia Choi MD Jan 27, 2017 17:28
[2017-01-27 11:14] LABS: PROTHROMBIN TIME - PATIENT 22.7 SEC (9.8-11.6)
[2017-01-27] MEDS: oxyCODONE/ACETAMINOPHEN 5 MG/325 MG TAB PO PRN (11:55)
--- NOTE | 2017-01-27 12:49 | HHI.IDPN ---
Subjective Subjective Remarks Mr. Rowe is a 71-year-old male, with PMHx of DM2, ESRD on dialysis Tuesday and Fridays, atrial fibrillation on Coumadin therapy, liver cirrhosis likely from fatty liver, and a MRSA infection/abscess on his posterior neck that needed surgical debridement and a four-month hospital course , his ending with 1 week of general malaise, confusion, and fevers. Approximately 7 days ago, on his way to dialysis he says that he "tripped, and fell forward. He never lost consciousness, however did hit the ground. He was evaluated in the emergency department, and a CT scan of his head at that time was negative for any bleeding or trauma. Since this time, he has been feeling weak and more tired. His reports that he has been sleeping all day long and has not been eating any meals. 3 days ago (Sunday 01/21) while at dialysis, he felt very weak and his blood pressure was 90/30. They recommended that someone drive him home, however he insisted to drive himself home. Since this time, he has felt excessively tired and has not had an appetite. He denied any burning with urination, productive cough, upper respiratory symptoms, palpitations, chest pain, shortness of breath, abdominal pain, nausea, vomiting , diarrhea, or blood in his stool. ID consulted for evaluation and Mment of sepsis, fever, possible bacteremia in a patient with HD. Overnight events reviewed. Afib with RVR overnight. Transferred to [facility]. Hypotension but patient just recd metoprolol for rate control. informs me he is persistently low BP even prior to this admission. No fevers No rash No diarrhea Antibiotics Zosyn IV Vanco IV in HD Lines Line sites with no e.o infection. 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 Vital Signs Date Time Temp Pulse Resp B/P Pulse Ox O2 Delivery O2 Flow Rate FiO2 01/27/17 12:00 93 01/27/17 11:00 97.5 94 20 70/30 94 01/27/17 11:00 72 01/27/17 10:00 92 01/27/17 09:00 94 01/27/17 08:00 89 01/27/17 08:00 98.6 98 20 95/62 97 01/27/17 04:00 97.8 121 20 117/57 94 01/27/17 02:20 99.7 132 20 110/56 95 01/27/17 01:11 99.7 132 20 100/62 95 01/26/17 23:23 97.2 108 18 99/64 95 01/26/17 20:17 109 01/26/17 20:00 99.6 145 20 107/67 94 01/26/17 17:11 96 21 01/26/17 01/26/17 01/27/17 15:00 23:00 07:00 Intake Total 1965 ml 100 ml 340 ml Output Total 350 ml 3000 ml Balance 1615 ml -2900 ml 340 ml Intake Oral 240 ml 240 ml IV Total 1725 ml 100 ml 100 ml Output Urine Total 0 ml Gastric Drainage Total 350 ml Hemodialysis 3000 ml # Bowel Movements 0 0 . Laboratory Tests Test 01/26/17 01/27/17 10:20 03:20 White Blood Count 11.7 TH/MM3 15.7 TH/MM3 Red Blood Count 3.65 MIL/MM3 3.62 MIL/MM3 Hemoglobin 11.8 GM/DL 11.5 GM/DL Hematocrit 34.0 % 33.7 % Mean Corpuscular Volume 93.0 FL 93.0 FL Mean Corpuscular Hemoglobin 32.3 PG 31.8 PG Mean Corpuscular Hemoglobin 34.7 % 34.1 % Concent Red Cell Distribution Width 14.5 % 14.6 % Platelet Count 135 TH/MM3 140 TH/MM3 Mean Platelet Volume 9.6 FL 10.0 FL Neutrophils (%) (Auto) % % Lymphocytes (%) (Auto) % % Monocytes (%) (Auto) % % Eosinophils (%) (Auto) % % Basophils (%) (Auto) % % Neutrophils # (Auto) TH/MM3 TH/MM3 Lymphocytes # (Auto) TH/MM3 TH/MM3 Monocytes # (Auto) TH/MM3 TH/MM3 Eosinophils # (Auto) TH/MM3 TH/MM3 Basophils # (Auto) TH/MM3 TH/MM3 CBC Comment AUTO DIFF AUTO DIFF Differential Total Cells 100 100 Counted Neutrophils % (Manual) 52 % 36 % Band Neutrophils % 1 % 2 % Lymphocytes % 26 % 47 % Monocytes % 8 % 8 % Eosinophils % 6 % Neutrophils # (Manual) 6.2 TH/MM3 6.0 TH/MM3 Differential Comment FINAL DIFF FINAL DIFF MANUAL MANUAL Atypical Lymphocytes 7 % 7 % Platelet Estimate LOW LOW Platelet Morphology Comment NORMAL NORMAL Ovalocytes 1+ Red Cell Morphology Comment NORMAL Laboratory Tests Test 01/26/17 01/27/17 10:20 03:20 Sodium Level 137 MEQ/L 140 MEQ/L Potassium Level 3.5 MEQ/L 3.8 MEQ/L Chloride Level 98 MEQ/L 97 MEQ/L Carbon Dioxide Level 26.9 MEQ/L 29.6 MEQ/L Anion Gap 12 MEQ/L 13 MEQ/L Blood Urea Nitrogen 40 MG/DL 26 MG/DL Creatinine 9.90 MG/DL 7.48 MG/DL Estimat Glomerular Filtration 5 ML/MIN 7 ML/MIN Rate Random Glucose 110 MG/DL 97 MG/DL Calcium Level 7.1 MG/DL 7.8 MG/DL Protein Corrected Calcium 7.3 MG/DL Total Protein 6.8 GM/DL 6.4 GM/DL Phosphorus Level 2.0 MG/DL Magnesium Level 1.4 MG/DL Total Bilirubin 1.0 MG/DL Aspartate Amino Transf 85 U/L (AST/SGOT) Alanine Aminotransferase 29 U/L (ALT/SGPT) Alkaline Phosphatase 85 U/L Troponin I 0.04 NG/ML Albumin 2.6 GM/DL Microbiology Date/Time Procedure Status Source Growth 01/26/17 01:15 Gram Stain - Final Resulted Abscess Toe 01/26/17 01:15 Wound Culture - Preliminary Resulted Abscess Toe Imaging Last Impressions Head CT 01/24/17 1025 Signed Impressions: Service Date/Time: Tuesday, January 24, 2017 11:06 - CONCLUSION: No acute disease. No significant change has occurred. No evidence of acute infarct, hemorrhage, mass or edema. Ba Uribe MD Chest X-Ray 01/24/17 1025 Signed Impressions: Service Date/Time: Tuesday, January 24, 2017 10:42 - CONCLUSION: Cardiomegaly Bunny Paz MD Physical Exam GENERAL: Obese CM patient, in no apparent distress. SKIN: No rashes, ecchymoses or lesions. Cool and dry. HEAD: Atraumatic. Normocephalic. No temporal or scalp tenderness. EYES: Pupils equal round and reactive. Extraocular motions intact. No scleral icterus. No injection or drainage. ENT: Nose without bleeding, purulent drainage or septal hematoma. Throat without erythema, tonsillar hypertrophy or exudate. Uvula midline. Airway patent. NECK: Trachea midline. Supple, nontender, no meningeal signs. CARDIOVASCULAR: HS audible. Tachycardic. RESPIRATORY: Clear to auscultation. Breath sounds equal bilaterally. No wheezes , rales, or rhonchi. GASTROINTESTINAL: Abdomen soft, non-tender, nondistended. MUSCULOSKELETAL: Bilateral LE with warmth and erythema noted much improved. Great toe nails removed by podiatry. Base of nail clean with no residual infection at this point. AV fistula site with no e.o infection. NEUROLOGICAL: Awake and alert. Grossly non focal Psych: cooperative IV line sites with no e.o infection. Assessment & Plan Remarks Sepsis present on admission Bilateral LE cellulitis. Right great toe with avulsed nail and ? nail bed infection(cellulitis/abscess), paronychia. ESRD on HD using AV fistula. Clinically fistula does not appears to be the source of infection. Recs DC Zosyn IV Continue Vanco IV 1500 mg every 48 hrs in HD sessions. HD sessions M,W, Tue. When ready to discharge ok to DC on oral Doxy if cultures negative or based on cultures if any growth. Follow cultures Follow clinically. I will be OOT from 01/28/17 to 02/04/17. Other ID MDs to cover for me. Minerva Lua MD Jan 27, 2017 12:49
--- NOTE | 2017-01-27 13:50 | EKG ---
Date Performed: 01/27/2017 Time Performed: 02:02:54 PTAGE: 71 years EKG: Atrial fibrillation with rapid ventricular response with frequent multifocal PVCs or aberra nt ventricular conduction. Indeterminate axis Possible inferior infarct - age undetermined Possible a nterior infarct - age undetermined Lateral ST-T changes are nonspecific Low QRS voltages in limb lead s Abnormal ECG PREVIOUS TRACING : 01/24/2017 08.20 DOCTOR: Nish Allen Interpretating Date/Time 01/27/2017 13:47:46
[2017-01-27] MEDS: WARFARIN SOD 5 MG TAB PO SCH (16:09)
[2017-01-27] MEDS ORDERED: PILL SPLITTER OTHER PRN (16:15)
[2017-01-27] MEDS ORDERED: BENZOCAINE 6 MG/MENTHOL 10 MG LOZENGE BUCCAL PRN (17:00)
[2017-01-28] VITALS (23 sets, daily range): BP systolic 87–125; BP diastolic 50–69; PULSE 89–132; RESP 16–18; TEMP 97.4–98.7; O2SAT 91–94
[2017-01-28] MEDS: traMADol HCL 50 MG TAB PO PRN ×3 (02:36→22:07)
[2017-01-28 05:43] LABS: HEMATOCRIT 35.1 % (39.0-51.0); MEAN CELL VOLUME 93.5 FL (80.0-100.0); MEAN CORPUSCULAR HEMOGLOBIN 30.8 PG (27.0-34.0); PLATELET COUNT 141 TH/MM3 (150-450); RED BLOOD COUNT 3.75 MIL/MM3 (4.50-5.90); RED CELL DISTRIBUTION WIDTH 14.3 % (11.6-17.2)
[2017-01-28 05:44] LABS: HEMO FLAGS AUTO DIFF
[2017-01-28 05:49] LABS: INTERNATIONAL NORMALIZED RATIO 2.1 RATIO; PROTHROMBIN TIME - PATIENT 24.1 SEC (9.8-11.6)
[2017-01-28 06:31] LABS: ALKALINE PHOSPHATASE 93 U/L (45-117); ALT (GPT) 34 U/L (12-78); ANION GAP 13 MEQ/L (5-15); AST (GOT) 105 U/L (15-37); BICARBONATE 29.1 MEQ/L (21.0-32.0); BLOOD UREA NITROGEN 36 MG/DL (7-18); CHLORIDE 95 MEQ/L (98-107); GLOMERULAR FILTRATION RATE 5 ML/MIN (>89); MAGNESIUM 1.8 MG/DL (1.5-2.5); SODIUM (NA) 137 MEQ/L (136-145)
[2017-01-28] MEDS: INSULIN ASPART SUPPLEMENTAL SCALE SQ SCH ×4 (07:00→21:00)
[2017-01-28 07:39] LABS: BANDS 4 % (0-6); EOSINOPHILS 2 % (0-4); NEUTROPHIL # MANUAL DIFF 4.5 TH/MM3 (1.8-7.7); PLATELET ESTIMATE SMEAR LOW (NORMAL); PLATELET MORPHOLOGY NORMAL (NORMAL); POLYS (SEG NEUTROPHILS) 26 % (16-70); SCAN/DIFF FINAL DIFF MANUAL; WBC DIFF SAMPLE 100
[2017-01-28] MEDS: METOPROLOL TARTRATE 25 MG TAB PO SCH ×2 (09:00→22:07)
--- NOTE | 2017-01-28 09:38 | HHI.FPPN ---
Subjective Remarks Patient was seen and examined this morning. He states he feels better and would like to go home and pursue dialysis scheduled for today at his outpt center. He notes back pain when he gets dialysis here and states he is more comfortable at his center. Denies nausea, vomiting, shortness of breath, chest pain. Denies total body aches which he endorsed yesterday. Patient's is at bedside, states he is eating and drinking well, and states he would not need home health at home but could benefit from home PT. He notes no pain in the feet or LEs. Objective Vitals Vital Signs Date Time Temp Pulse Resp B/P Pulse Ox O2 Delivery O2 Flow Rate FiO2 01/28/17 09:00 99 01/28/17 08:00 98.4 105 18 94/58 94 01/28/17 08:00 105 01/28/17 07:00 94 01/28/17 03:24 98.6 94 18 94/50 93 01/28/17 03:00 112 01/28/17 02:00 112 01/28/17 01:00 98 01/28/17 00:00 96 01/27/17 23:00 98.6 104 18 104/62 92 01/27/17 23:00 98 01/27/17 22:00 100 01/27/17 21:00 104 01/27/17 20:14 98.7 109 18 101/56 96 01/27/17 20:00 106 01/27/17 19:00 110 01/27/17 18:00 101 01/27/17 17:00 90 01/27/17 16:00 95 01/27/17 15:00 97.6 89 20 112/58 96 01/27/17 15:00 95 01/27/17 14:00 84 01/27/17 13:00 86 01/27/17 12:00 93 01/27/17 11:00 97.5 94 20 70/30 94 01/27/17 11:00 72 01/27/17 10:00 92 I/O 01/27/17 01/27/17 01/27/17 01/28/17 01/28/17 01/28/17 07:00 15:00 23:00 07:00 15:00 23:00 Intake Total 340 ml 1110 ml 240 ml Output Total 0 ml 0 ml Balance 340 ml 1110 ml 240 ml Intake Oral 240 ml 960 ml 240 ml IV Total 100 ml 150 ml Output Urine Total 0 ml 0 ml # Bowel Movements 0 1 0 Result Diagram: 01/28/17 0454 01/28/17 0454 Imaging Last Impressions Head CT 01/24/17 1025 Signed Impressions: Service Date/Time: Tuesday, January 24, 2017 11:06 - CONCLUSION: No acute disease. No significant change has occurred. No evidence of acute infarct, hemorrhage, mass or edema. Ba Uribe MD Chest X-Ray 01/24/17 1025 Signed Impressions: Service Date/Time: Tuesday, January 24, 2017 10:42 - CONCLUSION: Cardiomegaly Bunny Paz MD Objective Remarks GENERAL: Well-nourished, well-appearing elderly male in no apparent distress. SKIN: Warm and dry. Mild bruising noticed on the distal upper extremities. Skin is thin. HEAD: Atraumatic. Normocephalic. EYES: Pupils equal and round. No scleral icterus. No injection or drainage. ENT: No nasal bleeding or discharge. Mucous membranes pink and moist. NECK: Trachea midline. No JVD. CARDIOVASCULAR: Faint 2/6 RAMY at left sternal border. AV fistula on left arm. Rate approx 90 RESPIRATORY: No accessory muscle use. Clear to auscultation without evidence of crackles or wheezing. Breath sounds equal bilaterally. GASTROINTESTINAL: Abdomen soft, non-tender, nondistended. Hepatic and splenic margins not palpable. MUSCULOSKELETAL: Extremities without clubbing, cyanosis, or edema. Joints are not tender to palpation. No cyanosis, or edema. Right hallux erythematous and nail removed. NEUROLOGICAL: Awake and alert. No obvious cranial nerve deficits. Motor grossly within normal limits. Normal speech. PSYCHIATRIC: He does seem somewhat confused but is re-oriented by family when asked about dialysis. Appropriate mood and affect; insight and judgment normal. Medications and IVs Inpatient Medications Acetaminophen (Tylenol) 650 mg Q4H PRN PO SEE LABEL COMMENTS; Start 01/24/17 at 13:00 Acetaminophen 650 mg 650 mg ONCE ONCE RECTAL Last administered on 01/24/17t 10 :47; Start 01/24/17 at 10:30; Stop 01/24/17 at 10:32; Status DC Albumin Human (Albumin 25% Inj) 25 gm UNSCH PRN IV WITH DIALYSIS; Start at 11:15 Benzocaine/Menthol (Chloraseptic Maximiliano) 1 lozenge UNSCH PRN BUCCAL THROAT IRRITATION Last administered on 01/27/17 17:31; Start 01/27/17 at 17:00 Calcium Carbonate (Tums Chew) 500 mg ONCE ONCE CHEW Last administered on 09:50; Start 01/26/17 at 09:30; Stop 01/26/17 at 09:32; Status DC Calcium Carbonate 500 mg 500 mg DAILY PO ; Start 01/26/17 at 09:30; Stop at 09:35; Status DC Calcium Gluconate/ Sodium Chloride (Calcium Gluconate Inj/NS Inj) 110 ml @ 110 mls/hr ONCE ONCE IV Last administered on 01/26/17 19:24; Start 01/26/17 at 15 :00; Stop 01/26/17 at 15:59; Status DC Clonidine (Catapres) 0.1 mg UNSCH PRN PO for BP > 180/100 X 2 readings; Start 01/24/17 at 11:15 Diphenhydramine HCl (Benadryl) 25 mg UNSCH PRN PO for hives/itching/anaphylaxis ; Start 01/24/17 at 11:15 Epoetin Dawood (Epogen Inj) 5,000 units UNSCH PRN IV WITH DIALYSIS Last administered on 01/26/17 17:37; Start 01/24/17 at 11:15 Gelatin (Gelfoam 12 Mm/7 Mm Top) 1 foam UNSCH PRN TOP SEE LABEL COMMENTS; Start 01/24/17 at 11:15 Gentamicin Sulfate (Gentamicin (Dialysis) Inj) 20 mg UNSCH PRN IV WITH DIALYSIS ; Start 01/24/17 at 11:15 Heparin Sodium (Porcine) (Heparin Inj) UNSCH PRN .XX WITH DIALYSIS; Start at 11:15 Heparin Sodium (Porcine) 5000 units 5,000 units Q12HR SQ Last administered on 20:39; Start 01/24/17 at 21:00; Stop 01/27/17 at 15:33; Status DC Hydromorphone HCl (Dilaudid Pf Inj) 1 mg Q4H PRN IV PAIN SCALE 6 TO 10; Start 01/24/17 at 13:00 Insulin Aspart (NovoLOG SUPPLEMENTAL SCALE) 1 ACHS SLIDING SCALE SQ Last administered on 01/26/17 11:00; Start 01/24/17 at 21:00 IV Flush (NS Flush) 2 ml UNSCH PRN IV FLUSH FLUSH AFTER USING IV ACCESS; Start 01/24/17 at 13:00; Stop 01/24/17 at 13:21; Status DC IV Flush 2 ml 2 ml BID IV FLUSH ; Start 01/24/17 at 21:00; Stop 01/24/17 at 21: 00; Status DC Magnesium Sulfate/ Dextrose (Magnesium Sulfate 1 Gm Premix) 100 ml @ 100 mls/ hr ONCE ONCE IV Last administered on 01/27/17 09:27; Start 01/27/17 at 09:00 ; Stop 01/27/17 at 09:59; Status DC Mannitol (Mannitol Inj) 12.5 gm UNSCH PRN IV WITH DIALYSIS; Start 01/24/17 at 11:15 Metoprolol Tartrate (Lopressor) 12.5 mg BID PO Last administered on 01/27/17 21:01; Start 01/27/17 at 21:00 Metoprolol Tartrate 5 mg 5 mg ONCE IV Last administered on 01/27/17 03:10; Start 01/27/17 at 02:30; Stop 01/28/17 at 02:29; Status DC Miscellaneous (Pill Splitter) 1 ea UNSCH PRN OTHER SEE LABEL COMMENTS; Start at 16:15 Nitroglycerin (Nitrostat Sl) 0.4 mg UNSCH PRN SL CHEST PAIN; Start 01/24/17 at 11:15 Ondansetron HCl (Zofran Inj) 4 mg UNSCH PRN IV WITH DIALYSIS; Start 01/24/17 at 11:15 Oxycodone/ Acetaminophen (Percocet 5-325 Mg) 1 tab Q4H PRN PO PAIN SCALE 1 TO 5 Last administered on 01/27/17 11:55; Start 01/24/17 at 13:00; Stop 01/27/17 at 16:57; Status DC Patient Medication Teaching (Coumadin Booklet) 1 ONCE ONCE XX ; Start 01/25/17 at 16:00; Stop 01/25/17 at 16:01; Status DC Patient Own Medication PT OWN MED: RENVELA(SEVELAMER)-1 PACKET(2.4 ... TIDAC PO Last administered on 01/28/17 08:29; Start 01/27/17 at 18:00 Pharmacy Profile Note 0 ml @ 0 mls/hr UNSCH XX ; Start 01/24/17 at 13:00; Stop 01/24/17 at 13:59; Status DC Piperacillin Sod/ Tazobactam Sod 50 ml @ 200 mls/hr Q8H IV Last administered on 01/27/17 09:25; Start 01/24/17 at 17:00; Stop 01/27/17 at 13:00; Status DC Senna/Docusate Sodium (Erin-Colace) 1 tab DAILY PO ; Start 01/28/17 at 18:00 Sevelamer Carbonate (Renvela) 800 mg TIDAC PO Last administered on 01/27/17 16 :10; Start 01/26/17 at 12:00; Stop 01/27/17 at 17:47; Status DC Sodium Chloride (NS 1000 ml Inj) 1,000 ml @ 125 mls/hr Q8H IV Last administered on 01/25/17 23:44; Start 01/24/17 at 14:00; Stop 01/26/17 at 08:50 ; Status DC Sodium Chloride (NS 500 ml Inj) 500 ml @ 500 mls/hr BOLUS ONCE IV ; Start at 10:30; Stop 01/24/17 at 11:29; Status DC Tramadol HCl (Ultram) 50 mg Q6H PRN PO PAIN Last administered on 01/28/17 09: 02; Start 01/27/17 at 17:00 Vancomycin HCl 1000 mg/Sodium Chloride 260 ml @ 262.5 mls/ hr Q12H IV ; Start 01/25/17 at 01:00; Stop 01/25/17 at 01:00; Status DC Vancomycin HCl/ Sodium Chloride (Vancomycin Inj/ NS 250 ml Inj) 250 ml @ 250 mls/hr ONCE ONCE IV Last administered on 01/24/17 10:45; Start 01/24/17 at 10 :30; Stop 01/24/17 at 11:29; Status DC Vancomycin HCl/ Sodium Chloride (Vancomycin Inj/ NS 500 ml Inj) 515 ml @ 250 mls/hr WITH DIALYSIS IV Last administered on 01/26/17 17:37; Start 01/25/17 at 15:15 Warfarin Sodium (Coumadin) 5 mg DAILY@16 PO Last administered on 01/27/17 16: 09; Start 01/25/17 at 16:00 Urinary Catheter: No Vascular Central Line Catheter: No A/P Assessment and Plan Mr. Rowe is a pleasant 71-year-old male, with a past medical history of type 2 diabetes, atrial fibrillation on Coumadin, end-stage renal disease on dialysis, MRSA infection on his posterior neck, liver cirrhosis, presenting to the [place] emergency department with 1 week of general lethargy, confusion, decreased appetite, and subjective fevers and chills. CT of the head showed no acute changes, chest x-ray was benign, and he is not producing urine. A lactic acid on admission was 3.1, with repeat 2.1 after fluid. Blood cultures have drawn x 2 on admission, and broad spectrum antibiotics (Vancomycin , Zosyn) were initiated. Nephrology has been consulted, and have arranged for hemodialysis on his normal schedule MWF. His creatinine on admission was 9.1, which improved after initial dialysis treatment. Discharge Planning Possible today or tomorrow pending clear cultures and PT clearance for safe discharge Problem List: (1) Sepsis Status: Resolved Plan: Resolved. Afebirle, WBC downtrending, no tachycardia. Source not identified at the time. Possible right hallux cellulitis vs bacteremia despite negative blood cultures. Pain as follows: -ID on board, appreciate rec - recommend Doxycycline as outpatient if cultures negative, will continue to complete a 14 day course -Broad Spectrum antibiotics that will be renally dosed, (Vancomycin q 48 hrs with HD and Zosyn Started 01/24 at 1000). Per ID, may start doxycycline at discharge if cultures negative -Culture from right foot pending, s/p nail removal, no abscess on exam. -Blood cultures 2 negative x 24 hours. -D/c IVF (2) End stage renal disease Status: Acute Plan: Creatinine on admission was 9.19. Improved after dialysis. -Consulted nephrology, appreciate their assistance. -Scheduled for hemodialysis MWF -Avoid nephrotoxic agents. (3) CHF (congestive heart failure) Status: Acute Plan: EF 30% per echo. Asymptomatic. Recommend f/u with cardiology as outpatient. (4) Atrial fibrillation Status: Acute Plan: Heart rate was irregular on admission exam, at 100 bpm. Had A. fib with RVR overnight on 01/27, requiring IV metoprolol 5 mg 1, with resolution a few hours thereafter He was transferred to [facility] for possible GTT, but this was not needed given return to sinus rhythm. INR 2.0- continue with Coumadin 5 mg daily. Recheck INR in 1-2 days. Home metoprolol was 25 mg PO BID. Will increase metoprolol to 12.5 mg twice a day as BP has been low, will increase as needed. Hold parameter (HR <60, systolic < 100). (5) Avulsion of toenail of right foot Status: Acute Plan: Podiatry was consulted on 01/25, operative right toenail avulsion was performed at that time. Not obvious source of infection per podiatry (6) Diabetes mellitus Status: Acute Plan: Novolog Sliding Slide scale. Not requiring much sliding scale insulin. A1C 7.2 (7) Liver cirrhosis Status: Chronic Plan: AST mildly elevated. ALT within normal limits. Alkaline phosphatase within normal limits. Ammonia level elevated at 41. Patient clinically stable, continue follow-up as outpatient (8) Fluids/Electrolytes/Nutrition/Prophylaxis Status: Acute Plan: Fluids: d/c fluids, HD MWF. Electrolytes: Grossly within normal limits except for elevated BUN and creatinine. Corrected calcium has been low. On Ca2+Carbonate 500 mg daily. We' ll continue to monitor and replete as needed Nutrition: Diabetic diet. DVT prophylaxis: On Coumadin, INR 2.1 on 01/28 Problem Qualifiers (1) Sepsis: Qualified Code: A41.9 - Sepsis, due to unspecified organism (2) Atrial fibrillation: Qualified Code: I48.2 - Chronic atrial fibrillation Danii Ellington MD R1 Jan 28, 2017 09:38 Problem #3: Atrial fibrillation Heart rate was irregular on admission exam, at 100 bpm. Had A. fib with RVR overnight on 01/27, requiring IV metoprolol 5 mg 1, with resolution a few hours thereafter He was transferred to [facility] for possible GTT, but this was not needed given return to sinus rhythm. INR 2.0- continue with Coumadin 5 mg daily. Recheck INR in 1-2 days. Home metoprolol was 25 mg PO BID. Will increase metoprolol to 12.5 mg twice a day as BP has been low, will increase as needed. Hold parameter (HR <60, systolic < 100). Problem #4: Type 2 diabetes Novolog Sliding Slide scale. Not requiring much sliding scale insulin. A1C 7.2 Problem #5: Liver cirrhosis AST mildly elevated. ALT within normal limits. Alkaline phosphatase within normal limits. Ammonia level elevated at 41. Patient clinically stable, continue follow-up as outpatient Problem #6: Right toenail avulsion -Podiatry was consulted on 01/25, operative right toenail avulsion was performed at that time. Not obvious source of infection per podiatry Problem #7: FEN Fluids: d/c fluids, HD MWF. Electrolytes: Grossly within normal limits except for elevated BUN and creatinine. Corrected calcium has been low. On Ca2+Carbonate 500 mg daily. We' ll continue to monitor and replete as needed Nutrition: Diabetic diet. DVT prophylaxis: On Coumadin, INR 2.0 on 01/[address] Choi (2) End stage renal disease Status: Acute (3) Anemia of renal disease Status: Acute (4) CHF (congestive heart failure) Status: Acute (5) Atrial fibrillation Status: Acute (6) Onychomycosis Status: Acute (7) Diabetes mellitus Status: Acute (8) Avulsion of toenail of right foot Status: Acute Problem Qualifiers (1) Sepsis: Qualified Code: A41.9 - Sepsis, due to unspecified organism (2) Atrial fibrillation: Qualified Code: I48.2 - Chronic atrial fibrillation Danii Ellington MD R1 Jan 28, 2017 09:38 (6) Onychomycosis Status: Acute (7) Diabetes mellitus Status: Acute (8) Avulsion of toenail of right foot Status: Acute Problem Qualifiers (1) Sepsis: Qualified Code: A41.9 - Sepsis, due to unspecified organism (2) Atrial fibrillation: Qualified Code: I48.2 - Chronic atrial fibrillation Danii Ellington MD R1 Jan 28, 2017 09:38
--- NOTE | 2017-01-28 11:32 | HHI.NPPN ---
Subjective General Problems: Edema Renal Failure: Chronic, End Stage Renal Disease Interval History Due for dialysis today. BP borderline low but he was sleeping when it was taken. He is requesting discharge to resume outpatient HD this evening. ( Eileen Salgado) Review of Systems General Constitutional: Fatigue (Eileen Salgado) Musculoskeletal MS: Pain/Stiffness MS Remarks left arm (Eileen Salgado) Objective Data Data 01/27/17 01/28/17 19:00 07:00 Intake Total 1110 ml Output Total 0 ml Balance 1110 ml Intake Oral 960 ml IV Total 150 ml Output Urine Total 0 ml # Bowel Movements 1 Vital Signs Date Time Temp Pulse Resp B/P Pulse Ox O2 Delivery O2 Flow Rate FiO2 01/28/17 10:00 115 01/28/17 09:00 99 01/28/17 08:00 98.4 105 18 94/58 94 01/28/17 08:00 105 01/28/17 07:00 94 01/28/17 03:24 98.6 94 18 94/50 93 01/28/17 03:00 112 01/28/17 02:00 112 01/28/17 01:00 98 01/28/17 00:00 96 01/27/17 23:00 98.6 104 18 104/62 92 01/27/17 23:00 98 01/27/17 22:00 100 01/27/17 21:00 104 01/27/17 20:14 98.7 109 18 101/56 96 01/27/17 20:00 106 01/27/17 19:00 110 01/27/17 18:00 101 01/27/17 17:00 90 01/27/17 16:00 95 01/27/17 15:00 97.6 89 20 112/58 96 01/27/17 15:00 95 01/27/17 14:00 84 01/27/17 13:00 86 01/27/17 12:00 93 (Eileen Salgado) -: 01/28/17 0454 01/28/17 0454 Physical Exam General Appearance: Well Developed, Well Nourished, No Acute Distress (Eileen Salgado) Throat Throat Exam: Oral Mucosa [place] & Moist (Eileen Salgado NNP) Neck Neck Exam: Neck Supple (Eileen Salgado NNP) Pulmonary Resp Exam: Clear Bilaterally, Breath Sounds Equal (Eileen SalgadoP) Cardiology CV Exam: Irregular, Tachycardia (Eileen Salgado NNP) Gastrointestinal/Abdomen GI Exam: Soft, Non-Tender, Bowel Sounds Present (Eileen SalgadoP) Musculoskeletal MS Exam: Joints Intact, Normal Gait (Eileen SalgadoP) Integumentary Skin Exam: Warm, Dry (Eileen SalgadoP) Extremeties Extremities Exam: No Edema (Eileen SalgadoP) Neurologic Neuro Exam: Alert, Awake, Oriented, Speech Clear, Moving All Extremities ( Eileen Salgado) Assessment/Plan Discussed Condition With: Patient Assessment Summary: Anemia of CKD, End Stage Renal Disease Problem List: (1) ESRD (end stage renal disease) Plan: HD MWF, he is due today has access left arm that functions well no electrolyte concerns monitor fluid volume status phosphorus borderline low, hold Renvela intermittent metabolic profile (2) CHF (congestive heart failure) Plan: He is on BB monitor volume status (3) Atrial fibrillation Plan: persistently tachycardic, needs better heart rate control. INR is therapeutic He is on Metoprolol but dose reduced due to hypotension consider digoxin difficulty with fluid removal during dialysis due to hypotension (4) Fever Plan: afebrile now, negative cultures Source of possible infection is unclear. ID following. On Vancomycin with dialysis (5) Anemia of renal disease Plan: Hemoglobin is acceptable. Epogen as needed per protocol with dialysis. (Eileen Salgado) Plan patient was seen and examined. Relatively hypotensive, tachycardic. Monitor. Dialysis is scheduled for today, remains to be seen how well he will tolerate it. (Prashant Richardson MD) Problem Qualifiers (1) Atrial fibrillation: Qualified Code: I48.2 - Chronic atrial fibrillation Eileen Salgado Jan 28, 2017 11:32 Prashant Richardson MD Jan 28, 2017 17:28
[2017-01-28] MEDS ORDERED: MIDODRINE 5 MG TAB PO ONE (13:15)
[2017-01-28] MEDS: WARFARIN SOD 5 MG TAB PO SCH (16:28)
[2017-01-28] MEDS: DOCUSATE SODIUM 50 MG/SENNA 8.6 MG TAB PO SCH (18:00)
[2017-01-28] MEDS: EPOETIN ALFA 10,000 UNITS/ML VIAL IV PRN (19:05)
[2017-01-28] MEDS: VANCOMYCIN INJ 1,500 MG in SODIUM CHLORID 0.9% 500 ML INJ 500 ML IV SCH (19:05)
[2017-01-29] VITALS (27 sets, daily range): BP systolic 70–113; BP diastolic 49–75; PULSE 81–122; RESP 16–18; TEMP 98–98.7; O2SAT 93–96
[2017-01-29] MEDS: MIDODRINE 5 MG TAB PO SCH ×3 (06:28→17:57)
[2017-01-29] MEDS: traMADol HCL 50 MG TAB PO PRN ×2 (06:29→22:14)
[2017-01-29 06:33] LABS: HEMATOCRIT 34.4 % (39.0-51.0); MEAN CELL VOLUME 94.2 FL (80.0-100.0); MEAN CORPUSCULAR HEMOGLOBIN 30.9 PG (27.0-34.0); MEAN CORPUSCULAR HGB CONC 32.8 % (32.0-36.0); PLATELET COUNT 144 TH/MM3 (150-450); RED BLOOD COUNT 3.65 MIL/MM3 (4.50-5.90); RED CELL DISTRIBUTION WIDTH 14.5 % (11.6-17.2); WHITE BLOOD COUNT 16.7 TH/MM3 (4.0-11.0)
[2017-01-29 06:46] LABS: HEMO FLAGS AUTO DIFF
--- NOTE | 2017-01-29 06:47 | HHI.DCPOC ---
Discharge Care Plan Diagnosis: (1) Sepsis (2) End stage renal disease (3) CHF (congestive heart failure) (4) Atrial fibrillation (5) Avulsion of toenail of right foot (6) Diabetes mellitus (7) Liver cirrhosis Goals to Promote Your Health * To prevent worsening of your condition and complications * To maintain your health at the optimal level Directions to Meet Your Goals Take your medications as prescribed Follow your dietary instruction Follow activity as directed Keep your appointments as scheduled Take your immunizations and boosters as scheduled If your symptoms worsen call your PCP, if no PCP go to Urgent Care Center or Emergency Room Smoking is Dangerous to Your Health. Avoid second hand smoke Call the 24-hour hour crisis hotline for domestic abuse at Danii Ellington MD R1 Jan 29, 2017 06:46
--- NOTE | 2017-01-29 06:49 | HHI.FF ---
Face to Face Verification Diagnosis: (1) Sepsis (2) ESRD (end stage renal disease) (3) CHF (congestive heart failure) (4) Atrial fibrillation (5) Avulsion of toenail of right foot (6) Diabetes mellitus (7) Liver cirrhosis Physical Therapy Order: Evaluate and Treat, Improve ambulation, Strength and gait training Occupational Therapy Order: Evaluate and Treat Home Health Nursing Order: CHF education Wound care and dressing changes I have seen patient Doug Rowe on 01/29/17. My clinical findings support the need for the requested home health care services because: Ltd mobility - disease progression Deconditioned w/ increased weakness Limited ability to care for self Impaired cognition/judgement High risk of falls I certify that my clinical findings support that this patient is homebound because: Impaired cognitive ability/safety Unsteady gait/balance Poor cardiac reserve A. fib on the ESRD on dialysis, CHF EF 30%, diabetes Danii Ellington MD R1 Jan 29, 2017 06:49
[2017-01-29 06:55] LABS: BICARBONATE 31.8 MEQ/L (21.0-32.0)
[2017-01-29] MEDS: INSULIN ASPART SUPPLEMENTAL SCALE SQ SCH ×4 (07:00→21:00)
[2017-01-29 08:02] LABS: BANDS 8 % (0-6); EOSINOPHILS 3 % (0-4); NEUTROPHIL # MANUAL DIFF 8.7 TH/MM3 (1.8-7.7); PLATELET ESTIMATE SMEAR LOW (NORMAL); PLATELET MORPHOLOGY ENLARGED (NORMAL); POLYS (SEG NEUTROPHILS) 44 % (16-70); WBC DIFF SAMPLE 100
[2017-01-29 08:03] LABS: SCAN/DIFF FINAL DIFF MANUAL
[2017-01-29] MEDS: METOPROLOL TARTRATE 25 MG TAB PO SCH ×3 (08:57→17:57)
[2017-01-29] MEDS ORDERED: DIGOXIN 0.125 MG TAB PO SCH (09:00)
[2017-01-29] MEDS: DOCUSATE SODIUM 50 MG/SENNA 8.6 MG TAB PO SCH (09:36)
--- NOTE | 2017-01-29 09:54 | HHI.FPPN ---
Subjective Remarks Patient reports he feels fine today and is ready to go home. He has been eating and drinking without any difficulty. Normal bowel movements. Oliguric at baseline. states that she is not ready to take him home given he has low blood pressures and she worries about these. They both assert that the blood pressure is often low but that it has been particularly low since admission. He is aware he is in A. fib and denies any symptoms of dizziness, shortness of breath, chest pain, nausea, vomiting. He states he has gotten up out any difficulty. Regarding the right toenail erosion, he states he has no symptoms in the toe feels fine. He does note that he has had decreased sensation in the right distal toes for a while. (Danii Ellington MD R1) Objective Vitals Vital Signs Date Time Temp Pulse Resp B/P Pulse Ox O2 Delivery O2 Flow Rate FiO2 01/29/17 08:00 110 01/29/17 07:00 98.2 105 18 70/49 94 01/29/17 07:00 101 01/29/17 06:00 101 01/29/17 05:00 107 01/29/17 04:56 98.6 105 16 90/58 93 01/29/17 04:00 115 01/29/17 03:00 116 01/29/17 02:00 110 01/29/17 01:33 98.7 121 16 113/68 93 01/29/17 01:00 112 01/29/17 00:00 122 01/28/17 23:00 124 01/28/17 22:00 124 01/28/17 21:00 124 01/28/17 20:09 98.7 121 16 102/59 91 01/28/17 20:00 132 01/28/17 19:00 132 01/28/17 18:00 120 01/28/17 17:00 110 01/28/17 16:00 101 01/28/17 15:00 104 01/28/17 15:00 97.4 109 18 125/69 92 01/28/17 14:00 98 01/28/17 13:16 104 01/28/17 12:00 95 01/28/17 11:00 97.5 89 18 87/53 92 01/28/17 11:00 106 01/28/17 10:00 115 I/O 01/28/17 01/28/17 01/28/17 01/29/17 01/29/17 01/29/17 07:00 15:00 23:00 07:00 15:00 23:00 Intake Total 240 ml 1200 ml 600 ml Output Total 0 ml 3000 ml 0 ml Balance 240 ml -1800 ml 600 ml Intake Oral 240 ml 1200 ml 600 ml Output Urine Total 0 ml 0 ml 0 ml Hemodialysis 3000 ml # Bowel Movements 0 1 (Danii Ellington MD R1) Result Diagram: 01/29/17 0610 01/29/17 0610 Imaging Last Impressions Head CT 01/24/17 1025 Signed Impressions: Service Date/Time: Tuesday, January 24, 2017 11:06 - CONCLUSION: No acute disease. No significant change has occurred. No evidence of acute infarct, hemorrhage, mass or edema. Ba Uribe MD Chest X-Ray 01/24/17 1025 Signed Impressions: Service Date/Time: Tuesday, January 24, 2017 10:42 - CONCLUSION: Cardiomegaly Bunyn Paz MD Objective Remarks GENERAL: Well-nourished, well-appearing elderly male in no apparent distress. Sitting up in chair. SKIN: Warm and dry. Skin is thin and scattered bruising noted. HEAD: Atraumatic. Normocephalic. EYES: Pupils equal and round. No scleral icterus. No injection or drainage. ENT: No nasal bleeding or discharge. Mucous membranes pink and moist. NECK: Trachea midline. No JVD. CARDIOVASCULAR: Irregular rhythm approximately 100. Faint 2/6 RAMY at left sternal border. AV fistula on left arm. RESPIRATORY: No accessory muscle use. Clear to auscultation without evidence of crackles or wheezing. Breath sounds equal bilaterally. GASTROINTESTINAL: Abdomen soft, non-tender, nondistended. Hepatic and splenic margins not palpable. MUSCULOSKELETAL: Extremities without clubbing, cyanosis, or edema. Joints are not tender to palpation. No cyanosis, or edema. Right great toe is bandaged. Distal toe shows decreased sensation but no discoloration. Pulses are 1+ in the upper and lower extremities bilaterally. NEUROLOGICAL: Awake and alert. No obvious cranial nerve deficits. Motor grossly within normal limits. Normal speech. PSYCHIATRIC: Alert and oriented. Appropriate mood and affect; insight and judgment normal. Medications and IVs Inpatient Medications Acetaminophen (Tylenol) 650 mg Q4H PRN PO SEE LABEL COMMENTS; Start 01/24/17 at 13:00 Acetaminophen 650 mg 650 mg ONCE ONCE RECTAL Last administered on 01/24/17 10 :47; Start 01/24/17 at 10:30; Stop 01/24/17 at 10:32; Status DC Albumin Human (Albumin 25% Inj) 25 gm UNSCH PRN IV WITH DIALYSIS; Start at 11:15 Benzocaine/Menthol (Chloraseptic Maximiliano) 1 lozenge UNSCH PRN BUCCAL THROAT IRRITATION Last administered on 01/27/17 17:31; Start 01/27/17 at 17:00 Calcium Carbonate (Tums Chew) 500 mg ONCE ONCE CHEW Last administered on 09:50; Start 01/26/17 at 09:30; Stop 01/26/17 at 09:32; Status DC Calcium Carbonate 500 mg 500 mg DAILY PO ; Start 01/26/17 at 09:30; Stop at 09:35; Status DC Calcium Gluconate/ Sodium Chloride (Calcium Gluconate Inj/NS Inj) 110 ml @ 110 mls/hr ONCE ONCE IV Last administered on 01/26/17 19:24; Start 01/26/17 at 15 :00; Stop 01/26/17 at 15:59; Status DC Clonidine (Catapres) 0.1 mg UNSCH PRN PO for BP > 180/100 X 2 readings; Start 01/24/17 at 11:15 Digoxin (Lanoxin) 0.125 mg DAILY PO Last administered on 01/29/17 09:36; Start 01/29/17 at 09:00 Diphenhydramine HCl (Benadryl) 25 mg UNSCH PRN PO for hives/itching/anaphylaxis ; Start 01/24/17 at 11:15 Epoetin Dawood (Epogen Inj) 5,000 units UNSCH PRN IV WITH DIALYSIS Last administered on 01/28/17 19:05; Start 01/24/17 at 11:15 Gelatin (Gelfoam 12 Mm/7 Mm Top) 1 foam UNSCH PRN TOP SEE LABEL COMMENTS; Start 01/24/17 at 11:15 Gentamicin Sulfate (Gentamicin (Dialysis) Inj) 20 mg UNSCH PRN IV WITH DIALYSIS ; Start 01/24/17 at 11:15 Heparin Sodium (Porcine) (Heparin Inj) UNSCH PRN .XX WITH DIALYSIS; Start at 11:15 Heparin Sodium (Porcine) 5000 units 5,000 units Q12HR SQ Last administered on 20:39; Start 01/24/17 at 21:00; Stop 01/27/17 at 15:33; Status DC Hydromorphone HCl (Dilaudid Pf Inj) 1 mg Q4H PRN IV PAIN SCALE 6 TO 10; Start 01/24/17 at 13:00 Insulin Aspart (NovoLOG SUPPLEMENTAL SCALE) 1 ACHS SLIDING SCALE SQ Last administered on 01/28/17 16:28; Start 01/24/17 at 21:00 IV Flush (NS Flush) 2 ml UNSCH PRN IV FLUSH FLUSH AFTER USING IV ACCESS; Start 01/24/17 at 13:00; Stop 01/24/17 at 13:21; Status DC IV Flush 2 ml 2 ml BID IV FLUSH ; Start 01/24/17 at 21:00; Stop 01/24/17 at 21: 00; Status DC Magnesium Sulfate/ Dextrose (Magnesium Sulfate 1 Gm Premix) 100 ml @ 100 mls/ hr ONCE ONCE IV Last administered on 01/27/17 09:27; Start 01/27/17 at 09:00 ; Stop 01/27/17 at 09:59; Status DC Mannitol (Mannitol Inj) 12.5 gm UNSCH PRN IV WITH DIALYSIS; Start 01/24/17 at 11:15 Metoprolol Tartrate (Lopressor) 12.5 mg BID PO Last administered on 01/28/17 22:07; Start 01/27/17 at 21:00 Metoprolol Tartrate 5 mg 5 mg ONCE IV Last administered on 01/27/17 03:10; Start 01/27/17 at 02:30; Stop 01/28/17 at 02:29; Status DC Midodrine (Proamatine) 5 mg TID@07,12,17 PO Last administered on 01/29/17 06: 28; Start 01/29/17 at 07:00 Miscellaneous (Pill Splitter) 1 ea UNSCH PRN OTHER SEE LABEL COMMENTS; Start at 16:15 Nitroglycerin (Nitrostat Sl) 0.4 mg UNSCH PRN SL CHEST PAIN; Start 01/24/17 at 11:15 Ondansetron HCl (Zofran Inj) 4 mg UNSCH PRN IV WITH DIALYSIS; Start 01/24/17 at 11:15 Oxycodone/ Acetaminophen (Percocet 5-325 Mg) 1 tab Q4H PRN PO PAIN SCALE 1 TO 5 Last administered on 01/27/17 11:55; Start 01/24/17 at 13:00; Stop 01/27/17 at 16:57; Status DC Patient Medication Teaching (Coumadin Booklet) 1 ONCE ONCE XX ; Start 01/25/17 at 16:00; Stop 01/25/17 at 16:01; Status DC Patient Own Medication PT OWN MED: RENVELA(SEVELAMER)-1 PACKET(2.4 ... TIDAC PO Last administered on 01/29/17 09:37; Start 01/27/17 at 18:00 Pharmacy Profile Note 0 ml @ 0 mls/hr UNSCH XX ; Start 01/24/17 at 13:00; Stop 01/24/17 at 13:59; Status DC Piperacillin Sod/ Tazobactam Sod 50 ml @ 200 mls/hr Q8H IV Last administered on 01/27/17 09:25; Start 01/24/17 at 17:00; Stop 01/27/17 at 13:00; Status DC Senna/Docusate Sodium (Erin-Colace) 1 tab DAILY PO Last administered on 09:36; Start 01/28/17 at 18:00 Sevelamer Carbonate (Renvela) 800 mg TIDAC PO Last administered on 01/27/17 16 :10; Start 01/26/17 at 12:00; Stop 01/27/17 at 17:47; Status DC Sodium Chloride (NS 1000 ml Inj) 1,000 ml @ 125 mls/hr Q8H IV Last administered on 01/25/17 23:44; Start 01/24/17 at 14:00; Stop 01/26/17 at 08:50 ; Status DC Sodium Chloride (NS 500 ml Inj) 500 ml @ 500 mls/hr BOLUS ONCE IV ; Start at 10:30; Stop 01/24/17 at 11:29; Status DC Tramadol HCl (Ultram) 50 mg Q6H PRN PO PAIN Last administered on 01/29/17 06: 29; Start 01/27/17 at 17:00 Vancomycin HCl 1000 mg/Sodium Chloride 260 ml @ 262.5 mls/ hr Q12H IV ; Start 01/25/17 at 01:00; Stop 01/25/17 at 01:00; Status DC Vancomycin HCl/ Sodium Chloride (Vancomycin Inj/ NS 250 ml Inj) 250 ml @ 250 mls/hr ONCE ONCE IV Last administered on 01/24/17 10:45; Start 01/24/17 at 10 :30; Stop 01/24/17 at 11:29; Status DC Vancomycin HCl/ Sodium Chloride (Vancomycin Inj/ NS 500 ml Inj) 515 ml @ 250 mls/hr WITH DIALYSIS IV Last administered on 01/28/17 19:05; Start 01/25/17 at 15:15 Warfarin Sodium (Coumadin) 5 mg DAILY@16 PO Last administered on 01/28/17 16: 28; Start 01/25/17 at 16:00 (Danii Ellington MD R1) Urinary Catheter: No (Danii Ellington MD R1) Vascular Central Line Catheter: No (Danii Ellington MD R1) A/P Assessment and Plan Mr. Rowe is a pleasant 71-year-old male, with a past medical history of type 2 diabetes, atrial fibrillation on Coumadin, end-stage renal disease on dialysis, MRSA infection on his posterior neck, liver cirrhosis, presenting to the [place] emergency department with 1 week of general lethargy, confusion, decreased appetite, and subjective fevers and chills. CT of the head showed no acute changes, chest x-ray was benign, and he is not producing urine. A lactic acid on admission was 3.1, with repeat 2.1 after fluid. Blood cultures have drawn x 2 on admission, and broad spectrum antibiotics (Vancomycin , Zosyn) were initiated. Nephrology has been consulted, and have arranged for hemodialysis on his normal schedule MW. His creatinine on admission was 9.1, which improved after initial dialysis treatment. Discharge Planning Cardiology consult placed on 01/29 persistent hypotension and A. fib, CHF. Discharge is pending recs. (Danii Ellington MD R1) Attending Attestation Pt. examined and case discussed with resident physicians I have read the above note and agree with the assessment/plan as discussed with me I was involved in all medical decision making for this patient Ezio Sanon MD (Ezio Sanon MD) Problem List: (1) Sepsis Status: Resolved Plan: Resolved. Afebirle, WBC downtrending, no tachycardia. Source not identified at the time. Possible right hallux cellulitis vs bacteremia despite negative blood cultures. Pain as follows: -ID on board, appreciate rec - recommend Doxycycline as outpatient if cultures negative, will continue to complete a 14 day course. Once cultures show clear and final read, will transition to doxycycline. -Broad Spectrum antibiotics that will be renally dosed, (Vancomycin q 48 hrs with HD and Zosyn Started 01/24 at 1000). Per ID, may start doxycycline at discharge if cultures negative -Culture from right foot negative, s/p nail removal, no abscess on exam. -Blood cultures 2 negative x 4 d. -D/c IVF (2) End stage renal disease Status: Acute Plan: Creatinine on admission was 9.19. Improved after dialysis. -Consulted nephrology, appreciate their assistance. -Scheduled for hemodialysis MWF -Avoid nephrotoxic agents. -Vancomycin has been repeatedly dosed (3) CHF (congestive heart failure) Status: Acute Plan: EF 30% per echo this hospital stay. Asymptomatic. -Cardiology consult placed 01/29 given A. fib and hypotension (4) Atrial fibrillation Status: Acute Plan: Heart rate was irregular on admission exam, at 100 bpm. Had A. fib with RVR overnight on 01/27, requiring IV metoprolol 5 mg 1, with resolution a few hours thereafter He was transferred to [facility] for possible GTT, but this was not needed given return to sinus rhythm and asymptomatic. INR 2.0- continue with Coumadin 5 mg daily. Recheck INR in 1-2 days. Home metoprolol was 25 mg PO BID. metoprolol is being held due to hypotension. Hold parameter (HR <60, systolic < 100). Digoxin ordered but pt refused today Cardiology consult 01/29 (5) Avulsion of toenail of right foot Status: Acute Plan: Podiatry was consulted on 01/25, operative right toenail avulsion was performed at that time. Not obvious source of infection per podiatry (6) Diabetes mellitus Status: Acute Plan: Novolog Sliding Slide scale. Not requiring much sliding scale insulin. A1C 7.2 (7) Liver cirrhosis Status: Chronic Plan: AST mildly elevated. ALT within normal limits. Alkaline phosphatase within normal limits. Ammonia level elevated at 41. Patient clinically stable, continue follow-up as outpatient (8) Fluids/Electrolytes/Nutrition/Prophylaxis Status: Acute Plan: Fluids: d/c fluids, HD MWF. Electrolytes: Grossly within normal limits except for elevated BUN and creatinine. Corrected calcium has been low. On Ca2+Carbonate 500 mg daily. We' ll continue to monitor and replete as needed Nutrition: Diabetic diet. DVT prophylaxis: On Coumadin, INR 2.1 on 01/28 (Danii Ellington MD R1) Problem Qualifiers (1) Sepsis: Qualified Code: A41.9 - Sepsis, due to unspecified organism (2) Atrial fibrillation: Qualified Code: I48.2 - Chronic atrial fibrillation Danii Ellington MD R1 Jan 29, 2017 09:54 Ezio Sanon MD Jan 29, 2017 20:46
--- NOTE | 2017-01-29 12:17 | MB ---
cc: MERLINE AMBROSE M.D., ALAN S. M.D. WILSON, VANCE E. M.D. DATE OF CONSULTATION: 01/29/2017. HISTORY OF PRESENT ILLNESS: Hospital and office records have been reviewed. The patient is a 71-year-old white gentleman followed by Dr. Chiang in my group. The patient has a nonischemic cardiomyopathy with catheterization in 2010 showing ejection fraction of 30% to 35% with normal coronary arteries. The patient has multiple medical issues including prior hypertension, atrial fibrillation which is chronic, chronic kidney disease V on dialysis, diabetes, cirrhosis presumably from fatty liver, sleep apnea, prior MRSA of the neck, AV fistula. The patient was admitted with a week of fatigue, lightheadedness, mild confusion and fever. The patient was initially febrile with this has resolved. He has run low blood pressures despite discontinuation of his cardiac medications and has been placed on midodrine. He is feeling stronger. He had been placed on antibiotics. IMAGING STUDIES: Head CT was negative. Chest x-ray showed cardiomegaly. EKGS: EKG showed atrial fibrillation with rapid response and poor R-wave progression. LABORATORY DATA: CBC remarkable for mild anemia. INR last done yesterday 2.1. Troponins negative. TSH normal. Most recent electrolytes: potassium 4.0, creatinine 8.5, magnesium 1.8. Liver functions mildly elevated. Blood cultures negative so far. ALLERGIES: IBUPROFEN. SOCIAL HISTORY: He is and a distant smoker and does not drink. REVIEW OF SYSTEMS: Remarkable for fatigue and trace edema intermittently. MEDICATIONS: Medication list reviewed. He had been switched to Entresto in the office, but this has been on hold. PHYSICAL EXAMINATION: GENERAL: On exam, he is alert and oriented times three. He is sitting in a chair. He is overweight. VITAL SIGNS: He is in atrial fibrillation with a rapid response. He is afebrile. Blood pressure borderline to mildly depressed. SKIN: There are no xanthelasma and oropharyngeal mucosa normal. CHEST: Clear. CARDIOVASCULAR: JVD normal and a irregular rhythm. S1, S2. No definite murmurs or gallops. ABDOMEN: Grossly benign. EXTREMITIES: Trace edema. PULSES: Carotids without bruits. Radials at most are trace. Femorals not felt. Pedals not felt. NEUROLOGIC: He was not ambulated. Echocardiogram showed an ejection fraction of 30% to 40% with mitral annular calcification, mild MR/TR, left atrial enlargement and pulmonary hypertension. ASSESSMENT AND PLAN: Mr. Rowe has a nonischemic cardiomyopathy. He presented with sepsis. He has chronic atrial fibrillation and his rate is elevated initially most likely due to the infection and debility but also his metoprolol has been placed on hold. He is off his cardiac medication. At this point in time, he is feeling better and I would recommend the followin. Infectious disease per primary service. 2. Warfarin to an INR of 2 to 3. 3. Digoxin was initiated by the primary service -- I have asked the nurse to contact the renal specialist about appropriate dosing of this given his end-stage renal disease. 4. Will re-initiate metoprolol at a lower dose q. 8 hours. I would not hold this as the atrial fibrillation with rapid response in itself is probably lowering his blood pressure and we need to better control rate obtaining sustained average of 100 or below. 5. Hold Entresto and LEVI inhibitors. 6. The patient has a shunt in the left arm and has an intravenous catheter in the right antecubital area. I have asked his nurse to switch the IV site and to do all blood pressures manually. 7. The patient is not ready for discharge and we will follow. All questions were answered to him, his and the nurse. MD KALEN Ladd/LAURA /10:49 AM /11:59 AM LUIS
--- NOTE | 2017-01-29 14:17 | HHI.NPPN ---
Subjective General Problems: Anemia, Edema Renal Failure: Chronic, End Stage Renal Disease Additional Remarks Patient is alert, sitting on chair, no SOB, no dizziness, no palpitation. Review of Systems General Constitutional: Fatigue Musculoskeletal MS: Pain/Stiffness MS Remarks left arm Objective Data Data 01/28/17 01/29/17 19:00 07:00 Intake Total 1440 ml 600 ml Output Total 0 ml 3000 ml Balance 1440 ml -2400 ml Intake Oral 1440 ml 600 ml Output Urine Total 0 ml 0 ml Hemodialysis 3000 ml # Bowel Movements 1 Vital Signs Date Time Temp Pulse Resp B/P Pulse Ox O2 Delivery O2 Flow Rate FiO2 01/29/17 14:00 85 01/29/17 13:00 95 01/29/17 12:00 95 01/29/17 11:10 102 01/29/17 11:10 98.4 104 18 82/54 95 82/54 01/29/17 10:00 108 01/29/17 09:00 98 01/29/17 08:00 110 01/29/17 07:00 98.2 105 18 70/49 94 01/29/17 07:00 101 01/29/17 06:00 101 01/29/17 05:00 107 01/29/17 04:56 98.6 105 16 90/58 93 01/29/17 04:00 115 01/29/17 03:00 116 01/29/17 02:00 110 01/29/17 01:33 98.7 121 16 113/68 93 01/29/17 01:00 112 01/29/17 00:00 122 01/28/17 23:00 124 01/28/17 22:00 124 01/28/17 21:00 124 01/28/17 20:09 98.7 121 16 102/59 91 01/28/17 20:00 132 01/28/17 19:00 132 01/28/17 18:00 120 01/28/17 17:00 110 01/28/17 16:00 101 01/28/17 15:00 104 01/28/17 15:00 97.4 109 18 125/69 92 -: 01/29/17 0610 01/29/17 0610 Physical Exam General Appearance: No Acute Distress, Comfortable Throat Throat Exam: Oral Mucosa [place] & Moist Neck Neck Exam: Neck Supple Pulmonary Resp Exam: Clear Bilaterally, Breath Sounds Equal Cardiology CV Exam: Irregular, Tachycardia Gastrointestinal/Abdomen GI Exam: Soft, Non-Tender, Bowel Sounds Present Musculoskeletal MS Exam: Joints Intact, Normal Gait Integumentary Skin Exam: Warm, Dry Extremeties Extremities Exam: No Edema Neurologic Neuro Exam: Alert, Awake, Oriented, Speech Clear, Moving All Extremities Assessment/Plan Discussed Condition With: Patient Assessment Summary: Anemia of CKD, End Stage Renal Disease Problem List: (1) ESRD (end stage renal disease) Plan: HD MWF, has access left arm that functions well no electrolyte concerns monitor fluid volume status phosphorus borderline low, hold Renvela intermittent metabolic profile Last HD done yesterday. Digoxin to change to Q48 hrs. (2) CHF (congestive heart failure) Plan: He is on BB monitor volume status (3) Atrial fibrillation Plan: persistently tachycardic, needs better heart rate control. INR is therapeutic He is on Metoprolol but dose reduced due to hypotension consider digoxin difficulty with fluid removal during dialysis due to hypotension (4) Fever Plan: afebrile now, negative cultures Source of possible infection is unclear. ID following. On Vancomycin with dialysis (5) Anemia of renal disease Plan: Hemoglobin is acceptable. Epogen as needed per protocol with dialysis. Problem Qualifiers (1) Atrial fibrillation: Qualified Code: I48.2 - Chronic atrial fibrillation Cristiane Cárdenas MD Jan 29, 2017 14:17
[2017-01-29] MEDS: WARFARIN SOD 5 MG TAB PO SCH (16:26)
--- NOTE | 2017-01-29 16:41 | EKG ---
Date Performed: 01/29/2017 Time Performed: 10:13:14 PTAGE: 71 years EKG: Atrial fibrillation with PVC(s) Left axis deviation Possible inferior infarct - age undeter mined Possible anterior infarct - age undetermined Lateral T wave changes are nonspecific Generalized low QRS voltages Abnormal ECG No significant change from prior electrocardiogram. PREVIOUS TRACING : 01/27/2017 02.02 DOCTOR: Darren Siegel Interpretating Date/Time 01/29/2017 16:39:23
[2017-01-30] VITALS (31 sets, daily range): BP systolic 82–114; BP diastolic 53–77; PULSE 84–122; RESP 16–20; TEMP 98.1–100.1; O2SAT 92–99
[2017-01-30] MEDS: METOPROLOL TARTRATE 25 MG TAB PO SCH ×3 (03:36→23:16)
[2017-01-30] MEDS: MIDODRINE 5 MG TAB PO SCH ×3 (06:27→17:17)
[2017-01-30] MEDS: traMADol HCL 50 MG TAB PO PRN ×3 (06:27→23:16)
[2017-01-30] MEDS: INSULIN ASPART SUPPLEMENTAL SCALE SQ SCH ×4 (07:00→21:00)
--- NOTE | 2017-01-30 08:57 | HHI.FPPN ---
Subjective Remarks Doing well. Denies palpitations or chest pain. Feels lightheaded in the morning when he gets up from bed. Denies abdominal pain. Still having right elbow and arm pain, worse with movement. Constant and aching. BM this AM, eating whole meals. No SOB. No HAs. Objective Vitals Vital Signs Date Time Temp Pulse Resp B/P Pulse Ox O2 Delivery O2 Flow Rate FiO2 01/30/17 06:00 106 01/30/17 05:51 98.1 100 18 107/56 98 01/30/17 05:00 97 01/30/17 04:00 102 01/30/17 03:00 112 01/30/17 02:00 104 01/30/17 01:23 91/53 01/30/17 01:22 98.3 87 18 84/66 99 01/30/17 01:00 106 01/30/17 00:00 90 01/29/17 23:00 86 01/29/17 22:00 86 01/29/17 21:04 98.0 81 18 87/53 96 01/29/17 21:04 105/75 01/29/17 21:00 84 01/29/17 20:00 86 01/29/17 19:00 97 01/29/17 18:00 88 01/29/17 17:00 102 01/29/17 16:00 100 01/29/17 15:00 98.4 100 18 101/66 95 01/29/17 15:00 96 01/29/17 14:00 85 01/29/17 13:00 95 01/29/17 12:00 95 01/29/17 11:10 102 01/29/17 11:10 98.4 104 18 82/54 95 82/54 01/29/17 10:00 108 01/29/17 09:00 98 I/O 01/29/17 01/29/17 01/29/17 01/30/17 01/30/17 01/30/17 07:00 15:00 23:00 07:00 15:00 23:00 Intake Total 600 ml 1000 ml 620 ml Output Total 0 ml 0 ml 0 ml Balance 600 ml 1000 ml 620 ml Intake Oral 600 ml 1000 ml 620 ml Output Urine Total 0 ml 0 ml 0 ml # Bowel Movements 1 0 Result Diagram: 01/29/17 0601/29/17 06 Imaging Last Impressions Head CT 01/24/17 1025 Signed Impressions: Service Date/Time: Tuesday, January 24, 2017 11:06 - CONCLUSION: No acute disease. No significant change has occurred. No evidence of acute infarct, hemorrhage, mass or edema. Ba Uribe MD Chest X-Ray 01/24/17 1025 Signed Impressions: Service Date/Time: Tuesday, January 24, 2017 10:42 - CONCLUSION: Cardiomegaly Bunny Paz MD Objective Remarks GENERAL: Well-nourished, well-appearing elderly male in no apparent distress. Sitting up in chair. SKIN: Warm and dry. Skin is thin and scattered bruising noted. HEAD: Atraumatic. Normocephalic. EYES: Pupils equal and round. No scleral icterus. No injection or drainage. ENT: No nasal bleeding or discharge. Mucous membranes pink and moist. NECK: Trachea midline. No JVD. CARDIOVASCULAR: Irregular rhythm approximately 100. Faint 2/6 RAMY at left sternal border. AV fistula on left arm. RESPIRATORY: No accessory muscle use. Clear to auscultation without evidence of crackles or wheezing. Breath sounds equal bilaterally. GASTROINTESTINAL: Abdomen soft, non-tender, nondistended. Hepatic and splenic margins not palpable. MUSCULOSKELETAL: Extremities without clubbing, cyanosis, or edema. Joints are not tender to palpation. No cyanosis, or edema. Right great toe is bandaged. Distal toe shows decreased sensation but no discoloration. Pulses are 1+ in the upper and lower extremities bilaterally. NEUROLOGICAL: Awake and alert. No obvious cranial nerve deficits. Motor grossly within normal limits. Normal speech. PSYCHIATRIC: Alert and oriented. Appropriate mood and affect; insight and judgment normal. A/P Assessment and Plan Mr. Rowe is a pleasant 71-year-old male, with a past medical history of type 2 diabetes, atrial fibrillation on Coumadin, end-stage renal disease on dialysis, MRSA infection on his posterior neck, liver cirrhosis, presenting to the [facility] emergency department with 1 week of general lethargy, confusion, decreased appetite, and subjective fevers and chills. CT of the head showed no acute changes, chest x-ray was benign, and he is not producing urine. A lactic acid on admission was 3.1, with repeat 2.1 after fluid. Blood cultures have drawn x 2 on admission, and broad spectrum antibiotics (Vancomycin , Zosyn) were initiated. Nephrology has been consulted, and have arranged for hemodialysis on his normal schedule MWF. His creatinine on admission was 9.1, which improved after initial dialysis treatment. Discharge Planning Cardiology consult placed on 01/29 persistent hypotension and A. fib, CHF. Discharge is pending recs. Problem List: (1) Sepsis Status: Resolved Plan: Resolved. Afebirle, WBC downtrending, no tachycardia. Source not identified at the time. Possible right hallux cellulitis vs bacteremia despite negative blood cultures. Pain as follows: -ID on board, appreciate rec - recommend Doxycycline as outpatient if cultures negative, will continue to complete a 14 day course. Once cultures show no growth on final read, will transition to doxycycline. -Broad Spectrum antibiotics that will be renally dosed, (Vancomycin q 48 hrs with HD and Zosyn Started 01/24 at 1000). Per ID, may start doxycycline at discharge if cultures negative -Culture from right foot negative, s/p nail removal, no abscess on exam. -Blood cultures 2 negative x 4 d. -D/c IVF (2) End stage renal disease Status: Acute Plan: Creatinine on admission was 9.19. Improved after dialysis. -Consulted nephrology, appreciate their assistance. -Scheduled for hemodialysis MWF -Avoid nephrotoxic agents. -Vancomycin has been repeatedly dosed (3) CHF (congestive heart failure) Status: Acute Plan: EF 30% per echo this hospital stay. Asymptomatic. -Cardiology consult placed 01/29 given A. fib and hypotension. (4) Atrial fibrillation Status: Acute Plan: Heart rate was irregular on admission exam, at 100 bpm. Had A. fib with RVR overnight on 01/27, requiring IV metoprolol 5 mg 1, with resolution a few hours thereafter He was transferred to [facility] for possible GTT, but this was not needed given return to sinus rhythm and asymptomatic. INR 2.0- continue with Coumadin 5 mg daily. Recheck INR in 1-2 days. Home metoprolol was 25 mg PO BID changed to 12.5 mg PO q 8 hours. Hold parameters (HR <60, systolic < 100). Digoxin ordered, renally dosed to q 48. Check level in 1-2 days. Cardiology consult 01/29 (5) Avulsion of toenail of right foot Status: Acute Plan: Podiatry was consulted on 01/25, operative right toenail avulsion was performed at that time. Not obvious source of infection per podiatry (6) Diabetes mellitus Status: Acute Plan: Novolog Sliding Slide scale. Not requiring much sliding scale insulin. A1C 7.2 (7) Liver cirrhosis Status: Chronic Plan: AST mildly elevated. ALT within normal limits. Alkaline phosphatase within normal limits. Ammonia level elevated at 41. Patient clinically stable, continue follow-up as outpatient (8) Fluids/Electrolytes/Nutrition/Prophylaxis Status: Acute Plan: Fluids: d/c fluids, HD MWF. Electrolytes: Grossly within normal limits except for elevated BUN and creatinine. Corrected calcium has been low. On Ca2+Carbonate 500 mg daily. We' ll continue to monitor and replete as needed Nutrition: Diabetic diet. DVT prophylaxis: On Coumadin, INR 2.1 on 01/28 Dispo: Like d/c within 1-2 days once stable from cardiac standpoint. WDW Dr. Sanon. Problem Qualifiers (1) Sepsis: Qualified Code: A41.9 - Sepsis, due to unspecified organism (2) Atrial fibrillation: Qualified Code: I48.2 - Chronic atrial fibrillation Kleber Finn MD R2 Jan 30, 2017 08:57
[2017-01-30] MEDS: DOCUSATE SODIUM 50 MG/SENNA 8.6 MG TAB PO SCH (09:46)
--- NOTE | 2017-01-30 10:03 | PD.CARD.PN ---
Subjective Subjective Remarks The patient denies chest pain, shortness of breath, palpitations, GI symptoms or bleeding. Telemetry reveals borderline controlled atrial fibrillation. Chart reviewed. Objective Medications Reviewed Vital Signs / I&O Vital Signs Date Time Temp Pulse Resp B/P Pulse Ox O2 Delivery O2 Flow Rate FiO2 01/30/17 06:00 106 01/30/17 05:51 98.1 100 18 107/56 98 01/30/17 05:00 97 01/30/17 04:00 102 01/30/17 03:00 112 01/30/17 02:00 104 01/30/17 01:23 91/53 01/30/17 01:22 98.3 87 18 84/66 99 01/30/17 01:00 106 01/30/17 00:00 90 01/29/17 23:00 86 01/29/17 22:00 86 01/29/17 21:04 98.0 81 18 87/53 96 01/29/17 21:04 105/75 01/29/17 21:00 84 01/29/17 20:00 86 01/29/17 19:00 97 01/29/17 18:00 88 01/29/17 17:00 102 01/29/17 16:00 100 01/29/17 15:00 98.4 100 18 101/66 95 01/29/17 15:00 96 01/29/17 14:00 85 01/29/17 13:00 95 01/29/17 12:00 95 01/29/17 11:10 102 01/29/17 11:10 98.4 104 18 82/54 95 82/54 I/O 01/29/17 01/29/17 01/29/17 01/30/17 01/30/17 01/30/17 07:00 15:00 23:00 07:00 15:00 23:00 Intake Total 600 ml 1000 ml 620 ml Output Total 0 ml 0 ml 0 ml Balance 600 ml 1000 ml 620 ml Intake Oral 600 ml 1000 ml 620 ml Output Urine Total 0 ml 0 ml 0 ml # Bowel Movements 1 0 Physical Exam GENERAL: Well-nourished, well-developed patient in no apparent distress. SKIN: Warm and dry. NECK: JVD normal - less than or equal to 5 cm H20. CARDIOVASCULAR: Irregular rate and rhythm without murmurs, gallops, or rubs. RESPIRATORY: Normal breath sounds - equal bilaterally. No accessory muscle use. No wheezes, rales or rubs. PERIPHERY: No cyanosis, or edema. Laboratory Reviewed Assessment and Plan Assessment and Plan Problems: Atrial fibrillation with rapid response Nonischemic cardiomyopathy Recent sepsis End-stage renal disease on dialysis Hypertension Cirrhosis Recommendations: Continue digoxin at recommended dose by renal. Increase metoprolol back to 25 mg twice a day which is his pre-admit dose. We'll hold Entresto. Discharge per primary service with follow-up with Dr. Chiang. I will be available if needed. Darren Siegel MD Jan 30, 2017 10:03
[2017-01-30] MEDS ORDERED: ULTR50TA5 PO (10:28)
[2017-01-30 10:29] LABS: HEMATOCRIT 35.7 % (39.0-51.0); MEAN CELL VOLUME 94.3 FL (80.0-100.0); MEAN CORPUSCULAR HEMOGLOBIN 31.1 PG (27.0-34.0); PLATELET COUNT 155 TH/MM3 (150-450); RED BLOOD COUNT 3.79 MIL/MM3 (4.50-5.90); WHITE BLOOD COUNT 17.3 TH/MM3 (4.0-11.0)
[2017-01-30 10:30] LABS: HEMO FLAGS AUTO DIFF
[2017-01-30 10:37] LABS: INTERNATIONAL NORMALIZED RATIO 4.4 RATIO; PROTHROMBIN TIME - PATIENT 52.3 SEC (9.8-11.6)
[2017-01-30 11:04] LABS: BANDS 2 % (0-6); MYELOCYTES 1 % (0-0); NEUTROPHIL # MANUAL DIFF 6.9 TH/MM3 (1.8-7.7); POLYS (SEG NEUTROPHILS) 37 % (16-70); WBC DIFF SAMPLE 100
[2017-01-30 11:05] LABS: PLATELET ESTIMATE SMEAR NORMAL (NORMAL); PLATELET MORPHOLOGY NORMAL (NORMAL); SCAN/DIFF FINAL DIFF MANUAL
[2017-01-30 11:20] LABS: BICARBONATE 32.6 MEQ/L (21.0-32.0); MAGNESIUM 1.7 MG/DL (1.5-2.5); POTASSIUM 4.2 MEQ/L (3.5-5.1)
--- NOTE | 2017-01-30 11:39 | HHI.DS ---
Discharge Summary Admission Date Jan 24, 2017 at 12:05 Discharge Date: Jan 30, 2017 Admitting Diagnosis sepsis, end-stage renal disease, hemodialysis dependent (1) Sepsis Diagnosis: Principal Plan: Resolved. Afebirle, WBC downtrending, no tachycardia. Source not identified at the time. Possible right hallux cellulitis vs bacteremia despite negative blood cultures. Pain as follows: -ID on board, appreciate rec - recommend Doxycycline as outpatient if cultures negative, will continue to complete a 14 day course. Once cultures show no growth on final read, will transition to doxycycline. -Broad Spectrum antibiotics that will be renally dosed, (Vancomycin q 48 hrs with HD and Zosyn Started 01/24 at 1000). Per ID, may start doxycycline at discharge if cultures negative -Culture from right foot negative, s/p nail removal, no abscess on exam. -Blood cultures 2 negative x 4 d. -D/c IVF (2) Atrial fibrillation Diagnosis: Principal Plan: Heart rate was irregular on admission exam, at 100 bpm. Had A. fib with RVR overnight on 01/27, requiring IV metoprolol 5 mg 1, with resolution a few hours thereafter He was transferred to [facility] for possible GTT, but this was not needed given return to sinus rhythm and asymptomatic. INR 2.0- continue with Coumadin 5 mg daily. Recheck INR in 1-2 days. Home metoprolol was 25 mg PO BID changed to 12.5 mg PO q 8 hours. Hold parameters (HR <60, systolic < 100). Digoxin ordered, renally dosed to q 48. Check level in 1-2 days. Cardiology consult 01/29 (3) End stage renal disease Diagnosis: Secondary Plan: Creatinine on admission was 9.19. Improved after dialysis. -Consulted nephrology, appreciate their assistance. -Scheduled for hemodialysis MWF -Avoid nephrotoxic agents. -Vancomycin has been repeatedly dosed (4) CHF (congestive heart failure) Diagnosis: Secondary Plan: EF 30% per echo this hospital stay. Asymptomatic. -Cardiology consult placed 01/29 given A. fib and hypotension. -Follow up with senior design engineer (Dr. Chiang) within one week (5) Avulsion of toenail of right foot Diagnosis: Secondary Plan: Podiatry was consulted on 01/25, operative right toenail avulsion was performed at that time. Not obvious source of infection per podiatry (6) Diabetes mellitus Diagnosis: Secondary Plan: Novolog Sliding Slide scale. Not requiring much sliding scale insulin. A1C 7.2 (7) Liver cirrhosis Diagnosis: Secondary Plan: AST mildly elevated. ALT within normal limits. Alkaline phosphatase within normal limits. Ammonia level elevated at 41. Patient clinically stable, continue follow-up as outpatient Consultants Nephrology, Cardiology, Infectious Disease Procedures Dialysis MWF Brief History Mr. Rowe is a very pleasant 71-year-old male, with a past medical history of type 2 diabetes, end-stage renal disease requiring dialysis Tuesday and Fridays, atrial fibrillation on Coumadin therapy, liver cirrhosis likely from fatty liver, and a MRSA infection/abscess on his posterior neck that needed surgical debridement and a four-month hospital course, his ending with 1 week of general malaise, confusion, and fevers. History of present illness: Approximately 7 days ago, on his way to dialysis he says that he "tripped, and fell forward. He never lost consciousness, however did hit the ground. He was evaluated in the emergency department, and a CT scan of his head at that time was negative for any bleeding or trauma. Since this time, he has been feeling weak and more tired. His reports that he has been sleeping all day long and has not been eating any meals. 3 days ago ( Sunday 01/21) while at dialysis, he felt very weak and his blood pressure was 90/ 30. They recommended that someone drive him home, however he insisted to drive himself home. Since this time, he has felt excessively tired and has not had an appetite. He denies any burning with urination, productive cough, upper respiratory symptoms, palpitations, chest pain, shortness of breath, abdominal pain, nausea, vomiting, diarrhea, or blood in his stool. He was scheduled to see his senior design engineer tomorrow. CBC/BMP: 01/30/17 1012 01/29/17 0610 Significant Findings Laboratory Tests Test 01/28/17 01/29/17 01/30/17 04:54 06:10 10:12 White Blood Count 15.0 TH/MM3 16.7 TH/MM3 17.3 TH/MM3 (4.0-11.0) (4.0-11.0) (4.0-11.0) Red Blood Count 3.75 MIL/MM3 3.65 MIL/MM3 3.79 MIL/MM3 (4.50-5.90) (4.50-5.90) (4.50-5.90) Hemoglobin 11.6 GM/DL 11.3 GM/DL 11.8 GM/DL (13.0-17.0) (13.0-17.0) (13.0-17.0) Hematocrit 35.1 % 34.4 % 35.7 % (39.0-51.0) (39.0-51.0) (39.0-51.0) Platelet Count 141 TH/MM3 144 TH/MM3 (150-450) (150-450) Lymphocytes % 59 % (9-44) Monocytes % 9 % (0-8) 17 % (0-8) Platelet Estimate LOW (NORMAL) LOW (NORMAL) Prothrombin Time 24.1 SEC 52.3 SEC (9.8-11.6) (9.8-11.6) Chloride Level 95 MEQ/L 95 MEQ/L (98-107) (98-107) Blood Urea Nitrogen 36 MG/DL (7-18) 29 MG/DL (7-18) Creatinine 9.47 MG/DL 8.50 MG/DL (0.60-1.30) (0.60-1.30) Estimat Glomerular Filtration 5 ML/MIN (>89) 6 ML/MIN (>89) Rate Calcium Level 8.0 MG/DL 7.6 MG/DL (8.5-10.1) (8.5-10.1) Aspartate Amino Transf 105 U/L (15-37) (AST/SGOT) Albumin 2.4 GM/DL (3.4-5.0) Band Neutrophils % 8 % (0-6) Neutrophils # (Manual) 8.7 TH/MM3 (1.8-7.7) Platelet Morphology Comment ENLARGED (NORMAL) Random Glucose 112 MG/DL (74-106) Myelocytes 1 % (0-0) Imaging Last Impressions Head CT 01/24/17 1025 Signed Impressions: Service Date/Time: Tuesday, January 24, 2017 11:06 - CONCLUSION: No acute disease. No significant change has occurred. No evidence of acute infarct, hemorrhage, mass or edema. Ba Uribe MD Chest X-Ray 01/24/17 1025 Signed Impressions: Service Date/Time: Tuesday, January 24, 2017 10:42 - CONCLUSION: Cardiomegaly Bunny Paz MD PE at Discharge GENERAL: Well-nourished, well-appearing elderly male in no apparent distress. Sitting up in chair. SKIN: Warm and dry. Skin is thin and scattered bruising noted. HEAD: Atraumatic. Normocephalic. EYES: Pupils equal and round. No scleral icterus. No injection or drainage. ENT: No nasal bleeding or discharge. Mucous membranes pink and moist. NECK: Trachea midline. No JVD. CARDIOVASCULAR: Irregular rhythm approximately 100. Faint 2/6 RAMY at left sternal border. AV fistula on left arm. RESPIRATORY: No accessory muscle use. Clear to auscultation without evidence of crackles or wheezing. Breath sounds equal bilaterally. GASTROINTESTINAL: Abdomen soft, non-tender, nondistended. Hepatic and splenic margins not palpable. MUSCULOSKELETAL: Extremities without clubbing, cyanosis, or edema. Joints are not tender to palpation. No cyanosis, or edema. Right great toe is bandaged. Distal toe shows decreased sensation but no discoloration. Pulses are 1+ in the upper and lower extremities bilaterally. NEUROLOGICAL: Awake and alert. No obvious cranial nerve deficits. Motor grossly within normal limits. Normal speech. PSYCHIATRIC: Alert and oriented. Appropriate mood and affect; insight and judgment normal. Hospital Course Mr. Rowe is a pleasant 71-year-old male, with a past medical history of type 2 diabetes, atrial fibrillation on Coumadin, end-stage renal disease on dialysis, MRSA infection on his posterior neck, liver cirrhosis, who was admitted for work-up of AMS, lethargy, confusion, decreased appetite, and subjective fevers and chills x [address] of the head showed no acute changes, chest x-ray was benign, and he is anuric at baseline. A lactic acid on admission was 3.1, with repeat 2.1 after fluid bolus. Blood cultures have drawn x 2 on admission, and broad spectrum antibiotics (Vancomycin, Zosyn) were initiated. Nephrology has been consulted, and have arranged for hemodialysis on his normal schedule [facility]. His creatinine on admission was 9.1, which improved after initial dialysis treatment. Patient has hypotension and metoprolol doses were held; he went into atrial fibrillation with RVR on 01/27 which resolved and then recurred. Patient remained asymptomatic. Midodrine 5mg PO TID was initiated for hypotension in addition to digoxin for atrial fibrillation. Cardiology consult placed on 01/29 due to atrial fibrillation complicated by hypotension. Recommendations were made to restart home metoprolol dose of 25mg BID, continue midodrine. With additional recommendations from Nephrology, digoxin 0.125mg was added and being renally dosed for every other day. Discharge has been placed 01/30 with doxycycline 100mg BID to be continued to complete a 14-day total course of antibiotics, with home health PT ordered and coordinated by case management per PT recs. He is to follow up with nephrology, cardiology (Dr. Chiang), and primary care physician within one week. Pt Condition on Discharge: Stable Discharge Disposition: Discharge Home Discharge Instructions DIET: Follow Instructions for: Renal Failure Diet Activities you can perform: Regular-No Restrictions, See Additionl Instruction Other Activity Instructions: Follow home PT recommendations. Ambulation with assistance Follow up Referrals: Cardiology - 1 Week with Justin Chiang MD Nephrology - 2-3 Days Physician - 1 Week New Medications: Digoxin (Digoxin) 0.125 Mg Tab 0.125 MG PO EVERY OTHER DAY #30 TAB Doxycycline Hyclate (Doxycycline Hyclate) 100 Mg Cap 100 MG PO BID #16 CAP Midodrine (Midodrine) 5 Mg Tab 5 MG PO TID@07,12,17 #60 Ref 0 TAB Tramadol (Ultram) 50 Mg Tab 50 MG PO Q6H PRN PAIN #60 Ref 0 TAB Continued Medications: Metoprolol Tartrate (Metoprolol Tartrate) 25 Mg Tab 25 MG PO BID #60 Ref 0 TAB (This prescription has been renewed) Warfarin (Warfarin) 5 Mg Tab 5 MG PO DAILY Blood Clot Prevention #30 Ref 0 TAB Discontinued Medications: Prednisone (Prednisone) 5 Mg Tab 5 MG PO DAILY Ref 0 TAB Sacubitril-Valsartan (Entresto) 24-26 Mg Tab 1 TAB PO DAILY Heart Failure #30 Ref 0 TAB Tramadol (Tramadol) 50 Mg Tab 50 MG PO BID PRN PAIN Ref 0 TAB Danii Ellington MD R1 Jan 30, 2017 11:39
--- NOTE | 2017-01-30 12:25 | HHI.PR ---
Addendum to Inpatient Note Addendum Reason: Additional Documentation Additional Information ADDENDUM INPATIENT Update: Labs resulted at approximately 1130 were reviewed, notable for leukocytosis to 17.3 without left shift but notable for monocytes elevated, 1 myelocyte, INR 4.2 , platelets low normal, creatinine 10.3. Electrolytes grossly wnl. Patient examined at bedside and is asymptomatic. He notes no new lesions, chest pain, shortness of breath, fevers, chills. He wants to go home and states he will refuse dialysis as inpatient. Next outpatient dialysis would be 01/31/17 ([facility]) per routine and he prefers this. Objective: Patient on exam is sitting up in chair in NAD. Cardiac auscultation reveals afib with rate approximately 90. Lungs are clear. No edema or abdominal pain. Assessment/Plan: Leukocytosis: will repeat CBC in AM and obtain blood cultures x 2 now continue inpatient monitoring of VS and monitor for new symptoms. Getting a peripheral smear Creatinine: spoke with Dr. Cárdenas, who notes the lab results above and states dialysis can be continued per routine on 01/31 either as inpatient or outpatient given electrolytes wnl and patient asymptomatic INR: spoke with pharmacy; will hold coumadin and monitor INR as inpatient. Pharmacy coumadin consult placed. Inpatient monitoring will also allow for further titration of BB and other medications for chronic atrial fibrillation. Plan was discussed with patient and at bedside, who understand and agree with plan of care. WDW Dr. Sanon and Danii Garza MD R1 Jan 30, 2017 12:25
--- NOTE | 2017-01-30 13:20 | HHI.NPPN ---
Subjective General Problems: Anemia, Edema Renal Failure: Chronic, End Stage Renal Disease Additional Remarks Patient is alert, no complain except heart burn, no SOB, no palpitation. Review of Systems General Constitutional: Fatigue Musculoskeletal MS: Pain/Stiffness MS Remarks left arm Objective Data Data 01/29/17 01/30/17 19:00 07:00 Intake Total 1000 ml 620 ml Output Total 0 ml 0 ml Balance 1000 ml 620 ml Intake Oral 1000 ml 620 ml Output Urine Total 0 ml 0 ml # Bowel Movements 1 0 Vital Signs Date Time Temp Pulse Resp B/P Pulse Ox O2 Delivery O2 Flow Rate FiO2 01/30/17 11:01 96 01/30/17 10:00 98 01/30/17 09:00 98 01/30/17 08:59 98.5 102 16 82/54 95 01/30/17 08:00 100 01/30/17 07:00 100 01/30/17 06:00 106 01/30/17 05:51 98.1 100 18 107/56 98 01/30/17 05:00 97 01/30/17 04:00 102 01/30/17 03:00 112 01/30/17 02:00 104 01/30/17 01:23 91/53 01/30/17 01:22 98.3 87 18 84/66 99 01/30/17 01:00 106 01/30/17 00:00 90 01/29/17 23:00 86 01/29/17 22:00 86 01/29/17 21:04 98.0 81 18 87/53 96 01/29/17 21:04 105/75 01/29/17 21:00 84 01/29/17 20:00 86 01/29/17 19:00 97 01/29/17 18:00 88 01/29/17 17:00 102 01/29/17 16:00 100 01/29/17 15:00 98.4 100 18 101/66 95 01/29/17 15:00 96 01/29/17 14:00 85 -: 01/30/17 1012 01/30/17 1012 Microbiology 01/30/17 Aerobic Blood Culture, Received Pending 01/30/17 Anaerobic Blood Culture, Received Pending 01/30/17 Aerobic Blood Culture, Received Pending 01/30/17 Anaerobic Blood Culture, Received Pending Physical Exam General Appearance: No Acute Distress, Comfortable Throat Throat Exam: Oral Mucosa Spur & Moist Neck Neck Exam: Neck Supple Pulmonary Resp Exam: Clear Bilaterally, Breath Sounds Equal Cardiology CV Exam: Irregular, Tachycardia Gastrointestinal/Abdomen GI Exam: Soft, Non-Tender, Bowel Sounds Present Musculoskeletal MS Exam: Joints Intact, Normal Gait Integumentary Skin Exam: Warm, Dry Extremeties Extremities Exam: No Edema Neurologic Neuro Exam: Alert, Awake, Oriented, Speech Clear, Moving All Extremities Assessment/Plan Discussed Condition With: Patient Assessment Summary: Anemia of CKD, End Stage Renal Disease Problem List: (1) ESRD (end stage renal disease) Plan: HD MWF, has access left arm that functions well no electrolyte concerns monitor fluid volume status phosphorus borderline low, hold Renvela intermittent metabolic profile HD to continue MWF. BP is chronically low. WBC elevated, afebrile. Possible D/C in AM if stable. (2) CHF (congestive heart failure) Plan: He is on BB monitor volume status (3) Atrial fibrillation Plan: persistently tachycardic, needs better heart rate control. INR is therapeutic He is on Metoprolol but dose reduced due to hypotension consider digoxin difficulty with fluid removal during dialysis due to hypotension (4) Fever Plan: afebrile now, negative cultures Source of possible infection is unclear. ID following. On Vancomycin with dialysis (5) Anemia of renal disease Plan: Hemoglobin is acceptable. Epogen as needed per protocol with dialysis. Problem Qualifiers (1) Atrial fibrillation: Qualified Code: I48.2 - Chronic atrial fibrillation Cristiane Cárdenas MD Jan 30, 2017 13:20
[2017-01-30] MEDS ORDERED: ALUMINUM/MAGNESIUM/SIMETH 30 ML CUP PO PRN (13:30)
[2017-01-30] MEDS ORDERED: DOXYCYCLINE HYCLATE 100 MG CAP PO SCH (21:00)
[2017-01-30] MEDS: ACETAMINOPHEN 325 MG TAB PO PRN (23:44)
[2017-01-31] VITALS (23 sets, daily range): BP systolic 82–114; BP diastolic 48–66; PULSE 85–134; RESP 18–20; TEMP 97.6–100.1; O2SAT 90–95
[2017-01-31 05:29] LABS: HEMATOCRIT 35.8 % (39.0-51.0); MEAN CELL VOLUME 93.7 FL (80.0-100.0); MEAN CORPUSCULAR HEMOGLOBIN 31.4 PG (27.0-34.0); MEAN CORPUSCULAR HGB CONC 33.5 % (32.0-36.0); PLATELET COUNT 159 TH/MM3 (150-450); RED BLOOD COUNT 3.82 MIL/MM3 (4.50-5.90); RED CELL DISTRIBUTION WIDTH 14.8 % (11.6-17.2); WHITE BLOOD COUNT 21.5 TH/MM3 (4.0-11.0)
[2017-01-31 05:40] LABS: HEMO FLAGS AUTO DIFF
[2017-01-31 06:21] LABS: ALKALINE PHOSPHATASE 133 U/L (45-117); ALT (GPT) 35 U/L (12-78); ANION GAP 13 MEQ/L (5-15); AST (GOT) 115 U/L (15-37); BICARBONATE 27.7 MEQ/L (21.0-32.0); BLOOD UREA NITROGEN 44 MG/DL (7-18); CHLORIDE 94 MEQ/L (98-107); GLOMERULAR FILTRATION RATE 4 ML/MIN (>89); MAGNESIUM 1.9 MG/DL (1.5-2.5); POTASSIUM 4.6 MEQ/L (3.5-5.1); SODIUM (NA) 135 MEQ/L (136-145)
[2017-01-31] MEDS: MIDODRINE 5 MG TAB PO SCH ×3 (07:00→17:00)
[2017-01-31] MEDS: INSULIN ASPART SUPPLEMENTAL SCALE SQ SCH ×4 (07:00→21:05)
[2017-01-31 07:02] LABS: BANDS 6 % (0-6); BASOPHILS 2 % (0-2); METAMYELOCYTES 1 % (0-1); NEUTROPHIL # MANUAL DIFF 8.4 TH/MM3 (1.8-7.7); POLYS (SEG NEUTROPHILS) 32 % (16-70); WBC DIFF SAMPLE 100
[2017-01-31 07:03] LABS: PLATELET ESTIMATE SMEAR NORMAL (NORMAL); PLATELET MORPHOLOGY ENLARGED (NORMAL); SCAN/DIFF FINAL DIFF MANUAL
[2017-01-31 07:26] LABS: INTERNATIONAL NORMALIZED RATIO 4.8 RATIO; PROTHROMBIN TIME - PATIENT 56.9 SEC (9.8-11.6)
[2017-01-31] MEDS ORDERED: VANCOMYCIN INJ 1,500 MG in SODIUM CHLORID 0.9% 500 ML INJ 500 ML IV SCH (08:00)
[2017-01-31] MEDS: DOCUSATE SODIUM 50 MG/SENNA 8.6 MG TAB PO SCH (09:00)
--- NOTE | 2017-01-31 09:01 | HHI.NPPN ---
Subjective General Problems: Anemia, Edema, Hypotension Renal Failure: Chronic, End Stage Renal Disease Interval History Seen during dialysis. Chronically hypotensive. Midodrine has been started. Fevers overnight. INR 4.8. (Eileen Salgado) Review of Systems General Constitutional: Fever, Fatigue (Eileen Salgado) Cardiovascular Cardiac: Edema (Eileen Salgado) Musculoskeletal MS: Pain/Stiffness MS Remarks left arm (Eileen Salgado) Objective Data Data 01/30/17 01/31/17 19:00 07:00 Intake Total 600 ml 420 ml Output Total 0 ml Balance 600 ml 420 ml Intake Oral 600 ml 420 ml Output Urine Total 0 ml # Voids 0 # Bowel Movements 1 0 Vital Signs Date Time Temp Pulse Resp B/P Pulse Ox O2 Delivery O2 Flow Rate FiO2 01/31/17 08:00 98.0 115 20 92/53 95 01/31/17 06:36 97.6 93 20 82/48 90 01/31/17 06:00 103 01/31/17 05:00 112 01/31/17 04:00 104 01/31/17 03:00 103 01/31/17 02:00 104 01/31/17 01:33 98.7 01/31/17 01:31 100.1 98 20 92/65 92 01/31/17 01:00 124 01/31/17 00:00 126 01/30/17 23:00 119 01/30/17 22:10 100.1 112 20 86/55 92 01/30/17 22:00 122 01/30/17 21:00 116 01/30/17 20:00 114 01/30/17 19:00 104 01/30/17 18:01 102 01/30/17 17:01 85 01/30/17 16:00 84 01/30/17 15:45 98.1 92 18 114/77 98 01/30/17 15:00 86 01/30/17 14:00 92 01/30/17 13:00 96 01/30/17 12:00 96 01/30/17 11:45 98.5 98 16 91/62 96 01/30/17 11:01 96 01/30/17 10:00 98 01/30/17 09:00 98 01/30/17 08:59 98.5 102 16 82/54 95 (Eileen Salgado) -: 01/31/17 0440 01/31/17 0440 Microbiology 01/30/17 Aerobic Blood Culture, Received Pending 01/30/17 Anaerobic Blood Culture, Received Pending 01/30/17 Aerobic Blood Culture, Received Pending 01/30/17 Anaerobic Blood Culture, Received Pending Imaging Last Impressions Head CT 01/24/17 1025 Signed Impressions: Service Date/Time: Tuesday, January 24, 2017 11:06 - CONCLUSION: No acute disease. No significant change has occurred. No evidence of acute infarct, hemorrhage, mass or edema. Ba Uribe MD Chest X-Ray 01/24/17 1025 Signed Impressions: Service Date/Time: Tuesday, January 24, 2017 10:42 - CONCLUSION: Cardiomegaly Bunny Paz MD (Eileen Salgado) Physical Exam General Appearance: Well Developed, No Acute Distress, Comfortable (Eileen Salgado) Throat Throat Exam: Oral Mucosa [place] & Moist Throat Remarks poor dentition (Eileen Salgado) Neck Neck Exam: Neck Supple (Eileen Salgado) Pulmonary Resp Exam: Clear Bilaterally, Breath Sounds Equal (Eileen Salgado BAlejandro DAVISP) Cardiology CV Exam: Good Perfusion, Irregular, Tachycardia (Eileen Salgado BAlejandro DAVISP) Gastrointestinal/Abdomen GI Exam: Soft, Non-Tender, Bowel Sounds Present (Eileen Salgado) Musculoskeletal MS Exam: Joints Intact, Normal Gait (Eileen SalgadoP) Integumentary Skin Exam: Warm, Dry (Eileen Salgado) Extremeties Extremities Exam: No Edema, Moderate Edema (Eileen Salgado BAlejandro STERN) Neurologic Neuro Exam: Alert, Awake, Oriented, Speech Clear, Moving All Extremities ( Eileen SalgadoP) VTE Prophylaxis Meds: Coumadin (Eileen Salgado BAlejandro DAVISP) Assessment/Plan Discussed Condition With: Patient Assessment Summary: Anemia of CKD, Hypotension, End Stage Renal Disease Problem List: (1) ESRD (end stage renal disease) Plan: HD MWF, seen during dialysis today on a 2K, 350 BFR, goal 2-3 liters if BP tolerates now requiring midodrine, BP still 70s systolic, increase dosage to 10 mg has access left arm that functions well no electrolyte concerns phosphorus acceptable, Renvela on hold if he is discharged he has existing outpatient arrangements. (2) CHF (congestive heart failure) Plan: now on digoxin, monitor volume status, adjust UF with dialysis (3) Atrial fibrillation Plan: intermittent tachycardia, on digoxin; also on Lopressor INR is 4.5. difficulty with fluid removal during dialysis due to hypotension (4) Fever Plan: intermittent fevers, also with leukocytosis noted negative cultures Source of possible infection is unclear. ID following. On Vancomycin with dialysis (5) Anemia of renal disease Plan: Hemoglobin is acceptable. Epogen as needed per protocol with dialysis. (Eileen Salgado) Plan patient was seen and examined. Seen during dialysis. Orders were reviewed. We will continue dialysis MWF. Above note was reviewed, I agree with assessment and plan. (Prashant Richardson MD) Problem Qualifiers (1) Atrial fibrillation: Qualified Code: I48.2 - Chronic atrial fibrillation Eileen Salgado Jan 31, 2017 09:01 Prashant Richardson MD Feb 01, 2017 11:30
--- NOTE | 2017-01-31 09:18 | HHI.FPPN ---
Subjective Remarks Overnight, it was reported that patient complained of "ringing" in the head, not the ears. He complained of pain and weakness on the right arm and thigh, which she reports he has had since this hospital stay.. He was noted to have 3 superficial bleeding lesions on the left posterior foot and calf. He reports that he was sitting in the recliner and wrapped his leg against the chair. He denies any falls or trauma. Reports that he feels he needs dialysis this morning. states that she does not feel like he is getting better and she would be uncomfortable having him at home given his weakness. He also notes that his throat is not sore, previously only reporting that it was dry and uncomfortable. He denies chest pain, shortness of breath, nausea, vomiting, abdominal pain, fevers, chills. Has had normal bowel movements this hospital stay, last bowel movement yesterday. He is going to dialysis this morning. ( Danii Ellington MD R1) Objective Vitals Vital Signs Date Time Temp Pulse Resp B/P Pulse Ox O2 Delivery O2 Flow Rate FiO2 01/31/17 08:00 98.0 115 20 92/53 95 01/31/17 06:36 97.6 93 20 82/48 90 01/31/17 06:00 103 01/31/17 05:00 112 01/31/17 04:00 104 01/31/17 03:00 103 01/31/17 02:00 104 01/31/17 01:33 98.7 01/31/17 01:31 100.1 98 20 92/65 92 01/31/17 01:00 124 01/31/17 00:00 126 01/30/17 23:00 119 01/30/17 22:10 100.1 112 20 86/55 92 01/30/17 22:00 122 01/30/17 21:00 116 01/30/17 20:00 114 01/30/17 19:00 104 01/30/17 18:01 102 01/30/17 17:01 85 01/30/17 16:00 84 01/30/17 15:45 98.1 92 18 114/77 98 01/30/17 15:00 86 01/30/17 14:00 92 01/30/17 13:00 96 01/30/17 12:00 96 01/30/17 11:45 98.5 98 16 91/62 96 01/30/17 11:01 96 01/30/17 10:00 98 I/O 01/30/17 01/30/17 01/30/17 01/31/17 01/31/17 01/31/17 07:00 15:00 23:00 07:00 15:00 23:00 Intake Total 620 ml 600 ml 420 ml Output Total 0 ml 0 ml Balance 620 ml 600 ml 420 ml Intake Oral 620 ml 600 ml 420 ml Output Urine Total 0 ml 0 ml # Voids 0 # Bowel Movements 0 1 0 (Danii Ellington MD R1) Result Diagram: 01/31/17 0440 01/31/17 0440 Imaging Last Impressions Head CT 01/24/17 1025 Signed Impressions: Service Date/Time: Tuesday, January 24, 2017 11:06 - CONCLUSION: No acute disease. No significant change has occurred. No evidence of acute infarct, hemorrhage, mass or edema. Ba Uribe MD Chest X-Ray 01/24/17 1025 Signed Impressions: Service Date/Time: Tuesday, January 24, 2017 10:42 - CONCLUSION: Cardiomegaly Bunny Paz MD Objective Remarks GENERAL: Well-nourished elderly male. Sitting up in a recliner chair. Appear to be in acute distress. SKIN: Warm and dry. Skin is thin and scattered bruising noted. The left posterior extremity is notable for approximately 1 cm skin abrasion with slow bleeding on the posterior medial calf and posterior foot. HEAD: Atraumatic. Normocephalic. EYES: Pupils equal and round. No scleral icterus. No injection or drainage. ENT: No nasal bleeding or discharge. Mucous membranes pink and moist. NECK: Trachea midline. No JVD. CARDIOVASCULAR: Irregular rhythm approximately 90. Faint 2/6 RAMY at left sternal border. AV fistula on left arm. RESPIRATORY: No accessory muscle use. Clear to auscultation without evidence of crackles or wheezing. Breath sounds equal bilaterally. GASTROINTESTINAL: Abdomen soft, non-tender, nondistended. Hepatic and splenic margins not palpable. MUSCULOSKELETAL: Joints are not tender to palpation. No cyanosis, or edema. Right great toe is dressed, without active bleeding or signs of infection. Distal toes show decreased sensation but no discoloration. Pulses are 1+ in the upper and lower extremities bilaterally. The lower extremities bilaterally are nontender to palpation. Joints are normal in appearance without tenderness or swelling. He has limited range of motion of the right upper and lower extremity due to pain. Passive range of motion is normal, without pain noted in the shoulders, elbows, hips, knees, ankles. He is noted to have 2+ edema to the knee worse in the feet and ankle. NEUROLOGICAL: Awake and alert. No obvious cranial nerve deficits. Motor grossly within normal limits. Normal speech. PSYCHIATRIC: Alert and oriented. Appropriate mood and affect; insight and judgment normal. Procedures Dialysis MWF (Danii Ellington MD R1) A/P Assessment and Plan Mr. Rowe is a pleasant 71-year-old male, with a past medical history of type 2 diabetes, atrial fibrillation on Coumadin, end-stage renal disease on dialysis, MRSA infection on his posterior neck, liver cirrhosis, presenting to the [place] emergency department with 1 week of general lethargy, confusion, decreased appetite, and subjective fevers and chills. CT of the head showed no acute changes, chest x-ray was benign, and he is not producing urine. A lactic acid on admission was 3.1, with repeat 2.1 after fluid. Blood cultures have drawn x 2 on admission, and broad spectrum antibiotics (Vancomycin , Zosyn) were initiated. Nephrology has been consulted, and have arranged for hemodialysis on his normal schedule MWF. His creatinine on admission was 9.1, which improved after initial dialysis treatment, but has trended up over the weekend. Discharge Planning Cardiology consult placed on 01/29 persistent hypotension and A. fib, CHF. Discharge was initially pending cardiology rest, however, discharge was held due to increasing leukocytosis, INR 4.4, creatinine 10.5 on 01/30. Further workup including blood cultures pending. We'll continue IV antibiotics at this time as outlined below. (Danii Ellington MD R1) Attending Attestation Pt. examined and case discussed with resident physician I have read the above note and agree with the assessment/plan as discussed with me I was involved in all medical decision making for this patient Ezio Sanon MD (Ezio Sanon MD) Problem List: (1) Fever of unknown origin Status: Acute Plan: Initially, sepsis resolved. On 01/30, leukocytosis noted to continue increasing and patient has had low-grade fever overnight to 100.1 F. WBC 21.5 today. Source not identified on clinical exam. Initial potential sources were bacteremia and skin infection, not found on labs or clinical exam. Plan as follows: -Blood cultures reordered 01/30. We will add CK and ESR to rule out possible inflammatory etiology. Peripheral smear was ordered yesterday and pending. -Reconsult ID -Wells score for PE is 1.5 for tachycardia - low risk for PE -ESR noted to be elevated at 56, CK wnl, lactate 2.0 -AST noted to be uptrending, isolated as ALT normal. Bili normal -ID on board early in admission, appreciate recs - recommended Doxycycline as outpatient if cultures negative, to complete a 14 day course. Initial cultures on 01/24 showed no growth. Doxycycline 100 mg twice a day was initiated on 01/30. Over, given increasing leukocytosis and low-grade fevers overnight to 100.1, IV vancomycin was restarted to be dosed with dialysis. Blood cultures were redrawn on 01/30, pending. -Vancomycin (01/24 - ) dosed with dialysis. Initially discontinued but restarted due lab abnormalities, getting dose this morning -Broad Spectrum antibiotics that will be renally dosed, (Vancomycin q 48 hrs with HD and Zosyn Started 01/24 at 1000, continued). Per ID, may start doxycycline at discharge if cultures negative -Culture from right foot negative, s/p nail removal, no abscess or evidence of infection on exam. -Blood cultures 2 negative from 01/24, new blood cultures pending from 01/30 -D/C IVF (2) Right leg pain Status: Acute Plan: Exam is unremarkable. The pain is noted to be in the right lateral thigh. He did sustain a fall one week prior to admission. Lower extremity ultrasounds ordered to rule out clot, though suspicion is low for this. (3) Right arm pain Status: Acute Plan: Exam is unremarkable. He notes no tenderness to palpation over the shoulder, elbow, wrist. Passive range of motion is normal, active range of motion limited due to pain. -X-ray right elbow ordered -Monitor symptoms, likely related to previous fall and deconditioning -Reconsult PT to work with patient to improve mobility and strength (4) Atrial fibrillation Status: Acute Plan: Heart rate was irregular on admission exam, at 100 bpm. HR 110s this morning, continues to be irregular. Telemetry showing short run of V. tach at 7 this morning, resolved. Had A. fib with RVR overnight on 01/27, requiring IV metoprolol 5 mg 1, with resolution a few hours thereafter He was transferred to [facility] for possible GTT, but this was not needed given return to sinus rhythm and asymptomatic. INR 4.4 on 01/30, 4.8 on 01/31. Coumadin was held on 01/30, Coumadin consult placed with pharmacy. Patient did have some superficial bleeding today, resolved after pressure dressings were applied. Monitor INR and bleeding. Home metoprolol was 25 mg PO BID was restarted per cardiology. Hold parameters ( HR <60, systolic < 100). Digoxin ordered, renally dosed to q 48. Check level in 1-2 days. (5) End stage renal disease Status: Acute Plan: Creatinine on admission was 9.19. Improved after dialysis. -Consulted nephrology, appreciate their assistance. -Scheduled for hemodialysis MWF -Avoid nephrotoxic agents. -Vancomycin has been repeatedly dosed (6) CHF (congestive heart failure) Status: Acute Plan: EF 30% per echo this hospital stay. Asymptomatic. -Cardiology consult placed 01/29 given A. fib and hypotension. -Follow up with principal librarian (Dr. Chiang) within one week (7) Avulsion of toenail of right foot Status: Acute Plan: Podiatry was consulted on 01/25, operative right toenail avulsion was performed at that time. Not obvious source of infection per podiatry (8) Diabetes mellitus Status: Acute Plan: Novolog Sliding Slide scale. Not requiring much sliding scale insulin. A1C 7.2 (9) Liver cirrhosis Status: Chronic Plan: AST mildly elevated. ALT within normal limits. Alkaline phosphatase within normal limits. Ammonia level elevated at 41. Patient clinically stable, continue follow-up as outpatient (10) Fluids/Electrolytes/Nutrition/Prophylaxis Status: Acute Plan: Fluids: d/c fluids, HD MWF. Electrolytes: Grossly within normal limits except for elevated BUN and creatinine. Corrected calcium has been low. On Ca2+Carbonate 500 mg daily. We' ll continue to monitor and replete as needed Nutrition: Diabetic diet. DVT prophylaxis: On Coumadin at home, 5 mg daily. Held due to INR 4.[address] Sanon. (Danii Ellington MD R1) Problem Qualifiers (1) Atrial fibrillation: Qualified Code: I48.2 - Chronic atrial fibrillation Danii Ellington MD R1 Jan 31, 2017 09:18 Ezio Sanon MD Jan 31, 2017 18:10
--- NOTE | 2017-01-31 09:26 | RADRPT ---
EXAM DATE/TIME: 01/31/2017 07:45 [facility] COMPARISON: No previous studies available for comparison. INDICATIONS : Patient states right elbow pain, no known trauma to elbow. MEDICAL HISTORY : None. SURGICAL HISTORY : None. ENCOUNTER: Initial ACUITY: 1 week PAIN SCORE: 5/10 LOCATION: Right Elbow FINDINGS: Two view examination of the right elbow demonstrates bony eburnation at the bicipital tuberosity of t he proximal radius. Small spur is also seen at the triceps tendon attachment of the olecranon. No obv ious fracture or joint effusion. There is calcification of the regional vasculature with a benign-damian earing soft tissue calcification anterior to the elbow joint. CONCLUSION: 1. Small olecranon spur with bony eburnation at the bicipital tuberosity of the proximal radius. Thes e are both chronic and overtly benign. 2. No acute fracture or effusion. 3. Atherosclerotic calcification of the regional vasculature. Robin Reed MD on January 31, 2017 at 9:21 Board Certified Radiologist. This report was verified electronically.
[2017-01-31] MEDS: DIGOXIN 0.125 MG TAB PO SCH (15:33)
--- NOTE | 2017-01-31 16:42 | HHI.PR ---
Addendum to Inpatient Note Addendum Reason: Additional Documentation Additional Information Addendum Subjective: She was evaluated at bedside due to report of heart rate in the 120s on monitor. At bedside, patient reports no symptoms at this time besides dry mouth and throat irritation. He denies current chest pain, shortness of breath, nausea , vomiting, abdominal pain. Objective: On auscultation, patient is noted to have a rate of approximately 100-110 with irregular rate Plan: Will restart medications which were missed this morning. Digoxin 0.125 mg by mouth given all which was due this morning. Metoprolol dose of 25 mg ordered 1. This dose was missed this morning. Will monitor rate. Continue telemetry, monitor HR. If patient's rate is not controlled (>110 sustained after interventions noted above), will initiate a amiodarone drip with 150 mg bolus followed by drip per protocol, with starting rate of 1 mg/min for the first 6 hours, then 0.5 mg/min until discontinued. Must caution giving other antiarrhythmics given additive effects with digoxin and ESRD. Danii Martinez Dr., Dr., MD R1 Jan 31, 2017 16:42
[2017-01-31] MEDS: METOPROLOL TARTRATE 25 MG TAB PO SCH ×2 (16:45→21:05)
--- NOTE | 2017-01-31 19:16 | HHI.IDPN ---
Subjective Subjective Remarks ID Xcover for Dr Lua reconsulted 2/2 fever, leukocytosis' Dw Dr Rudy Martinez [facility] reviewed Mr. Rowe is a 71-year-old male, with PMHx of DM2, ESRD on dialysis Tuesday and Fridays, atrial fibrillation on Coumadin therapy, liver cirrhosis likely from fatty liver, and a MRSA infection/abscess on his posterior neck that needed surgical debridement and a four-month hospital course , his ending with 1 week of general malaise, confusion, and fevers. Approximately 7 days ago, on his way to dialysis he says that he "tripped, and fell forward. He never lost consciousness, however did hit the ground. He was evaluated in the emergency department, and a CT scan of his head at that time was negative for any bleeding or trauma. Since this time, he has been feeling weak and more tired. He was noted to have fever, leukocytosis blood clx were negative o admission Repeat BC also negative at 1 day He has b/s sx for traumatic nail avulsion , cultuer is negative - final Pt developped Afib with RVR and was ransferred to [facility]. Overnight events reviewed. + fevers, low grade up to 100.3 in the last 24-48 hrs, but not today No rash No diarrhea No abd pain Denies cough co RUE pain "where they take BP" Pt is on HD, anuric Antibiotics Vanco IV in HD Lines Line sites with no e.o infection. 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 Vital Signs Date Time Temp Pulse Resp B/P Pulse Ox O2 Delivery O2 Flow Rate FiO2 01/31/17 17:00 128 01/31/17 16:00 112 01/31/17 15:00 110 01/31/17 15:00 98.9 111 20 100/64 92 01/31/17 14:00 134 01/31/17 13:45 124 01/31/17 13:15 99.2 130 20 91/66 94 01/31/17 08:00 98 01/31/17 08:00 98.0 115 20 92/53 95 01/31/17 07:00 98 01/31/17 06:36 97.6 93 20 82/48 90 01/31/17 06:00 103 01/31/17 05:00 112 01/31/17 04:00 104 01/31/17 03:00 103 01/31/17 02:00 104 01/31/17 01:33 98.7 01/31/17 01:31 100.1 98 20 92/65 92 01/31/17 01:00 124 01/31/17 00:00 126 01/30/17 23:00 119 01/30/17 22:10 100.1 112 20 86/55 92 01/30/17 22:00 122 01/30/17 21:00 116 01/30/17 20:00 114 01/30/17 01/30/17 01/31/17 15:00 23:00 07:00 Intake Total 600 ml 420 ml Output Total 0 ml Balance 600 ml 420 ml Intake Oral 600 ml 420 ml Output Urine Total 0 ml # Voids 0 # Bowel Movements 1 0 . Laboratory Tests Test 01/30/17 01/30/17 01/31/17 10:12 12:50 04:40 White Blood Count 17.3 TH/MM3 21.5 TH/MM3 Red Blood Count 3.79 MIL/MM3 3.82 MIL/MM3 Hemoglobin 11.8 GM/DL 12.0 GM/DL Hematocrit 35.7 % 35.8 % Mean Corpuscular Volume 94.3 FL 93.7 FL Mean Corpuscular Hemoglobin 31.1 PG 31.4 PG Mean Corpuscular Hemoglobin 33.0 % 33.5 % Concent Red Cell Distribution Width 15.0 % 14.8 % Platelet Count 155 TH/MM3 159 TH/MM3 Mean Platelet Volume 10.3 FL 9.9 FL Neutrophils (%) (Auto) % % Lymphocytes (%) (Auto) % % Monocytes (%) (Auto) % % Eosinophils (%) (Auto) % % Basophils (%) (Auto) % % Neutrophils # (Auto) TH/MM3 TH/MM3 Lymphocytes # (Auto) TH/MM3 TH/MM3 Monocytes # (Auto) TH/MM3 TH/MM3 Eosinophils # (Auto) TH/MM3 TH/MM3 Basophils # (Auto) TH/MM3 TH/MM3 CBC Comment AUTO DIFF AUTO DIFF Differential Total Cells 100 100 Counted Neutrophils % (Manual) 37 % 32 % Band Neutrophils % 2 % 6 % Lymphocytes % 43 % 43 % Monocytes % 17 % 16 % Neutrophils # (Manual) 6.9 TH/MM3 8.4 TH/MM3 Myelocytes 1 % Differential Comment FINAL DIFF FINAL DIFF MANUAL MANUAL Platelet Estimate NORMAL NORMAL Platelet Morphology Comment NORMAL ENLARGED Blood Smear Pathologist Review Basophils % 2 % Metamyelocytes 1 % Erythrocyte Sedimentation Rate 65 mm/hr Laboratory Tests Test 01/30/17 01/31/17 01/31/17 10:12 04:40 08:13 Sodium Level 134 MEQ/L 135 MEQ/L Potassium Level 4.2 MEQ/L 4.6 MEQ/L Chloride Level 92 MEQ/L 94 MEQ/L Carbon Dioxide Level 32.6 MEQ/L 27.7 MEQ/L Anion Gap 9 MEQ/L 13 MEQ/L Blood Urea Nitrogen 37 MG/DL 44 MG/DL Creatinine 10.31 MG/DL 11.42 MG/DL Estimat Glomerular Filtration 5 ML/MIN 4 ML/MIN Rate Random Glucose 111 MG/DL 80 MG/DL Calcium Level 7.6 MG/DL 8.0 MG/DL Phosphorus Level 2.9 MG/DL 3.3 MG/DL Magnesium Level 1.7 MG/DL 1.9 MG/DL Total Bilirubin 1.0 MG/DL Aspartate Amino Transf 115 U/L (AST/SGOT) Alanine Aminotransferase 35 U/L (ALT/SGPT) Alkaline Phosphatase 133 U/L Total Protein 7.0 GM/DL Albumin 2.4 GM/DL Lactic Acid Level 2.0 mmol/L Ammonia 35 MCMOL/L Total Creatine Kinase 36 U/L Microbiology Date/Time Procedure Status Source Growth 01/30/17 12:20 Aerobic Blood Culture - Preliminary Resulted Blood Peripheral NO GROWTH IN 1 DAY 01/30/17 12:20 Anaerobic Blood Culture - Preliminary Resulted Blood Peripheral NO GROWTH IN 1 DAY 01/30/17 12:25 Aerobic Blood Culture - Preliminary Resulted Blood Peripheral NO GROWTH IN 1 DAY 01/30/17 12:25 Anaerobic Blood Culture - Preliminary Resulted Blood Peripheral NO GROWTH IN 1 DAY Imaging Last Impressions Elbow X-Ray 01/31/17 0000 Signed Impressions: Service Date/Time: Tuesday, January 31, 2017 07:45 - CONCLUSION: 1. Small olecranon spur with bony eburnation at the bicipital tuberosity of the proximal radius. These are both chronic and overtly benign. 2. No acute fracture or effusion. 3. Atherosclerotic calcification of the regional vasculature. Robin Reed MD Head CT 01/24/17 1025 Signed Impressions: Service Date/Time: Tuesday, January 24, 2017 11:06 - CONCLUSION: No acute disease. No significant change has occurred. No evidence of acute infarct, hemorrhage, mass or edema. Ba Uribe MD Chest X-Ray 01/24/17 1025 Signed Impressions: Service Date/Time: Tuesday, January 24, 2017 10:42 - CONCLUSION: Cardiomegaly Bunny Paz MD Physical Exam GENERAL: Obese CM patient, in no apparent distress. Chronically ill appearing SKIN: No rashes, ecchymoses or lesions. Cool and dry. HEAD: Atraumatic. Normocephalic. No temporal or scalp tenderness. EYES: Pupils equal round and reactive. Extraocular motions intact. No scleral icterus. No injection or drainage. ENT: Nose without bleeding, purulent drainage or septal hematoma. Throat without erythema, tonsillar hypertrophy or exudate. Uvula midline. Airway patent. NECK: Trachea midline. Supple, nontender, no meningeal signs. CARDIOVASCULAR: HS audible. Tachycardic. RESPIRATORY: Clear to auscultation. Breath sounds equal bilaterally. No wheezes , rales, or rhonchi. GASTROINTESTINAL: Abdomen soft, non-tender, nondistended. MUSCULOSKELETAL: Bilateral LE with residual edema and erythema Great toe nails removed by podiatry. Base of nail clean with no residual infection at this point. AV fistula site with no e.o infection. RUE with echymoses, but no edema or erythema noted ROM wnl NEUROLOGICAL: Awake and alert. Grossly non focal Psych: cooperative IV line sites with no e.o infection. Assessment & Plan Remarks FUO, persistent leukocytosis with monocytosi - path reviw noted - multiple neg BC - negative 2 D echo,but image quality was poor - new elevation of LFTs note Sepsis present on admission - sourece no apparent Bilateral LE cellulitis. Right great toe with avulsed nail and ? nail bed infection(cellulitis/abscess), paronychia. ESRD on HD using AV fistula. Clinically fistula does not appears to be the source of infection. Recs Continue Vanco IV 1500 mg every 48 hrs in HD sessions. HD sessions ,, Tue. fu repeat BC CT abd/pel to Enma Emanuel Dr, MD Jan 31, 2017 19:16
[2017-01-31] MEDS ORDERED: DIATRIZOATE MEGLUM/DIATRIZOATE SOD 9 ML CUP PO ONE (19:45)
[2017-02-01] VITALS (28 sets, daily range): BP systolic 93–124; BP diastolic 55–80; PULSE 69–112; RESP 16–20; TEMP 97.6–98.5; O2SAT 94–99
[2017-02-01 01:05] LABS: EBV VCA IgM Positive (Negative)
[2017-02-01 05:50] LABS: INTERNATIONAL NORMALIZED RATIO 3.8 RATIO; PROTHROMBIN TIME - PATIENT 44.1 SEC (9.8-11.6)
[2017-02-01] MEDS: INSULIN ASPART SUPPLEMENTAL SCALE SQ SCH ×4 (07:00→21:00)
[2017-02-01] MEDS: MIDODRINE 5 MG TAB PO SCH ×3 (07:13→16:41)
[2017-02-01 07:35] LABS: HEMATOCRIT 34.7 % (39.0-51.0); MEAN CELL VOLUME 94.1 FL (80.0-100.0); PLATELET COUNT 146 TH/MM3 (150-450); RED BLOOD COUNT 3.68 MIL/MM3 (4.50-5.90); RED CELL DISTRIBUTION WIDTH 14.8 % (11.6-17.2); WHITE BLOOD COUNT 19.5 TH/MM3 (4.0-11.0)
[2017-02-01 07:41] LABS: HEMO FLAGS AUTO DIFF
[2017-02-01] MEDS ORDERED: EPINEPHrine HCL (1:10,000) 1 MG/10 ML SYRINGE ONE (07:49)
[2017-02-01] MEDS ORDERED: ATROPINE SULFATE 1 MG/10 ML SYRINGE ONE (07:49)
[2017-02-01 08:21] LABS: ALKALINE PHOSPHATASE 123 U/L (45-117); ALT (GPT) 29 U/L (12-78); ANION GAP 10 MEQ/L (5-15); AST (GOT) 106 U/L (15-37); BICARBONATE 30.4 MEQ/L (21.0-32.0); BLOOD UREA NITROGEN 35 MG/DL (7-18); CHLORIDE 97 MEQ/L (98-107); GLOMERULAR FILTRATION RATE 6 ML/MIN (>89); POTASSIUM 4.6 MEQ/L (3.5-5.1); SODIUM (NA) 137 MEQ/L (136-145); TOTAL BILIRUBIN ADULT 1.1 MG/DL (0.2-1.0)
[2017-02-01 08:23] LABS: BANDS 7 % (0-6); CORRECTED NUCLEATED RBC 1 /100 WBC (0-0); NEUTROPHIL # MANUAL DIFF 8.4 TH/MM3 (1.8-7.7); POLYS (SEG NEUTROPHILS) 36 % (16-70); WBC DIFF SAMPLE 100
[2017-02-01 08:24] LABS: PLATELET ESTIMATE SMEAR LOW (NORMAL); PLATELET MORPHOLOGY NORMAL (NORMAL)
[2017-02-01 08:25] LABS: SCAN/DIFF FINAL DIFF MANUAL
--- NOTE | 2017-02-01 08:38 | RADRPT ---
EXAM DATE/TIME: 02/01/2017 08:10 [place] COMPARISON: No previous studies available for comparison. INDICATIONS : Fever. Abnormal LFT's. ORAL CONTRAST: Prescribed oral contrast ingested. RADIATION DOSE: 16.89 CTDIvol (mGy) MEDICAL HISTORY : Cardiovascular disease. Renal failure, chronic. Cirrhosis.Hypertension. SURGICAL HISTORY : Appendectomy. ENCOUNTER: Initial ACUITY: 2 days PAIN SCALE: 0/10 LOCATION: Abdomen. TECHNIQUE: Volumetric scanning of the abdomen and pelvis was performed. Using automated exposure control and ad justment of the mA and/or kV according to patient size, radiation dose was kept as low as reasonably achievable to obtain optimal diagnostic quality images. FINDINGS: LOWER LUNGS: Dependent atelectatic changes in the left base with some haziness in the adjacent lung parenchyma pos sibly representing an early infiltrate. Benign-appearing diaphragmatic calcification on the right LIVER: Homogeneous density without lesion. There is no dilation of the biliary tree. No calcified gallston es. SPLEEN: Normal size without lesion. PANCREAS: Within normal limits. KIDNEYS: Both kidneys are atrophic with cortical thinning. Bilateral renal cortical cysts. ADRENAL GLANDS: Within normal limits. VASCULAR: There is no aortic aneurysm. BOWEL/MESENTERY: The stomach, small bowel, and colon demonstrate no acute abnormality. There is no free intraperitone al air or fluid. ABDOMINAL WALL: Small umbilical hernia measuring 3 cm in diameter and only containing fat. RETROPERITONEUM: There is no lymphadenopathy. BLADDER: Decompressed with relatively high density fluid centrally. This may represent some concentrated urine associated with dysfunctional kidneys. REPRODUCTIVE: Within normal limits. INGUINAL: Small left inguinal hernia which only contains fat. MUSCULOSKELETAL: Within normal limits for patient age. CONCLUSION: 1. Left-sided atelectatic changes with adjacent parenchymal density possibly representing early infil trate. This could be the source of the patient's fever. 2. Benign-appearing diaphragmatic calcification on the right. 3. Both kidneys are atrophic with cortical thinning and bilateral renal cortical cysts. 4. Urinary bladder is decompressed with some relatively high density fluid centrally possibly represe nting dehydrated urine associated with chronic renal insufficiency. 5. 3 cm periumbilical hernia which only contains fat Robin Reed MD on February 01, 2017 at 8:29 Board Certified Radiologist. This report was verified electronically.
--- NOTE | 2017-02-01 09:13 | HHI.FPPN ---
Subjective Remarks Feel good today. Denies palpitations or SOB. Has not had BM this AM. Denies fevers or chills. Walked with PT yesterday with walker and felt steady. Denies dizziness or loss of balance. Left arm pain has improved since yesterday. ( Kleber Finn MD R2) Objective Vitals Vital Signs Date Time Temp Pulse Resp B/P Pulse Ox O2 Delivery O2 Flow Rate FiO2 02/01/17 08:02 91 02/01/17 08:00 108 02/01/17 07:59 91 02/01/17 07:00 98.0 92 16 105/55 99 02/01/17 07:00 100 02/01/17 06:00 106 02/01/17 05:00 98 02/01/17 04:00 106 02/01/17 03:00 98.5 69 18 124/80 95 02/01/17 03:00 98 02/01/17 02:00 102 02/01/17 01:00 98 02/01/17 00:00 94 01/31/17 23:00 85 01/31/17 23:00 98.7 88 20 114/56 93 01/31/17 22:00 96 01/31/17 21:00 94 01/31/17 20:00 94 01/31/17 19:00 85 01/31/17 19:00 98.1 100 18 92/53 93 01/31/17 17:00 128 01/31/17 16:00 112 01/31/17 15:00 110 01/31/17 15:00 98.9 111 20 100/64 92 01/31/17 14:00 134 01/31/17 13:45 124 01/31/17 13:15 99.2 130 20 91/66 94 I/O 01/31/17 01/31/17 01/31/17 02/01/17 02/01/17 02/01/17 07:00 15:00 23:00 07:00 15:00 23:00 Intake Total 420 ml 600 ml 240 ml Output Total 0 ml 2000 ml 0 ml 0 ml Balance 420 ml -2000 ml 600 ml 240 ml Intake Oral 420 ml 600 ml 240 ml Output Urine Total 0 ml 0 ml 0 ml Hemodialysis 2000 ml # Bowel Movements 0 1 0 (Kleber Finn MD R2) Result Diagram: 02/01/1723 02/01/17 0723 Objective Remarks GENERAL: Well-nourished elderly male. Sitting up in a recliner chair. Appear to be in acute distress. SKIN: Warm and dry. Skin is thin and scattered bruising noted. The left posterior extremity is notable for approximately 1 cm skin abrasion with slow bleeding on the posterior medial calf and posterior foot. Lower extremities erythematous to chins. HEAD: Atraumatic. Normocephalic. EYES: Pupils equal and round. No scleral icterus. No injection or drainage. ENT: No nasal bleeding or discharge. Mucous membranes pink and moist. NECK: Trachea midline. No JVD. CARDIOVASCULAR: Irregular rhythm approximately 90. Faint 2/6 RAMY at left sternal border. AV fistula on left arm. RESPIRATORY: No accessory muscle use. Clear to auscultation without evidence of crackles or wheezing. Breath sounds equal bilaterally. GASTROINTESTINAL: Abdomen soft, non-tender, nondistended. Hepatic and splenic margins not palpable. MUSCULOSKELETAL: Joints are not tender to palpation. No cyanosis, or edema. Right great toe is dressed, without active bleeding or signs of infection. Distal toes show decreased sensation but no discoloration. Pulses are 1+ in the upper and lower extremities bilaterally. The lower extremities bilaterally are nontender to palpation. Joints are normal in appearance without tenderness or swelling. He has limited range of motion of the right upper and lower extremity due to pain. Passive range of motion is normal, without pain noted in the shoulders, elbows, hips, knees, ankles. He is noted to have 2+ edema to the knee worse in the feet and ankle. NEUROLOGICAL: Awake and alert. No obvious cranial nerve deficits. Motor grossly within normal limits. Normal speech. PSYCHIATRIC: Alert and oriented. Appropriate mood and affect; insight and judgment normal. Procedures Dialysis MWF (Kleber Finn MD R2) A/P Assessment and Plan Mr. Rowe is a pleasant 71-year-old male, with a past medical history of type 2 diabetes, atrial fibrillation on Coumadin, end-stage renal disease on dialysis, MRSA infection on his posterior neck, liver cirrhosis, presenting to the [facility] [place] emergency department with 1 week of general lethargy, confusion, decreased appetite, and subjective fevers and chills. CT of the head showed no acute changes, chest x-ray was benign, and he is not producing urine. A lactic acid on admission was 3.1, with repeat 2.1 after fluid. Blood cultures have drawn x 2 on admission, and broad spectrum antibiotics (Vancomycin , Zosyn) were initiated. Nephrology has been consulted, and have arranged for hemodialysis on his normal schedule MWF. His creatinine on admission was 9.1, which improved after initial dialysis treatment, but has trended up over the weekend. Discharge Planning Cardiology consult placed on 01/29 persistent hypotension and A. fib, CHF. Discharge was initially pending cardiology rest, however, discharge was held due to increasing leukocytosis, INR 4.4, creatinine 10.5 on 01/30. Further workup including blood cultures pending. We'll continue IV antibiotics at this time as outlined below. (Kleber Finn MD R2) Problem List: (1) Fever of unknown origin Status: Acute Plan: Initially, sepsis resolved. Source not identified on clinical exam. Initial potential sources were bacteremia and skin infection, not found on labs or clinical exam. Plan as follows: -ABD/PELVIS CT with Oral Contrast 02/01. -Blood cultures reordered 01/30 (negative x 1 days). -Peripheral smear showed monocytosis unspecific for any malignancy, inflammatory process, or infection. -Reconsult ID - we greatly appreciate their recommendations. -ESR noted to be elevated at 56, CK wnl, lactate 2.0 -AST noted to be uptrending, isolated as ALT normal. Bili normal. IgM and IgG EBV antibodies positive, will get monoscreen. -ID on board early in admission, appreciate recs - recommended Doxycycline as outpatient if cultures negative, to complete a 14 day course. Initial cultures on 01/24 showed no growth. Doxycycline 100 mg twice a day was initiated on 01/30. Over, given increasing leukocytosis and low-grade fevers to 100.1, IV vancomycin was restarted to be dosed with dialysis MWF. Blood cultures were redrawn on 01/30, negative x 1 day. -Culture from right foot negative, s/p nail removal, no abscess or evidence of infection on exam. (2) Right leg pain Status: Acute Plan: Exam is unremarkable. The pain is noted to be in the right lateral thigh. He did sustain a fall one week prior to admission. Lower extremity ultrasounds ordered to rule out clot, though suspicion is low for this. (3) Right arm pain Status: Acute Plan: Exam is unremarkable. He notes no tenderness to palpation over the shoulder, elbow, wrist. Passive range of motion is normal, active range of motion limited due to pain. -X-ray right elbow was insignificant -Monitor symptoms, likely related to previous fall and deconditioning -Reconsult PT to work with patient to improve mobility and strength (4) Atrial fibrillation Status: Acute Plan: Heart rate was irregular on admission exam, at 100 bpm. HR 106 this morning, continues to be irregular. Had A. fib with RVR overnight on 01/27, requiring IV metoprolol 5 mg 1, with resolution a few hours thereafter He was transferred to [facility] for possible GTT, but this was not needed given return to sinus rhythm and asymptomatic. INR 4.4 on 01/30, 4.8 on 01/31. 3.8 on 02/01. Coumadin was held on 01/30, Coumadin consult placed with pharmacy. Patient did have some superficial bleeding today, resolved after pressure dressings were applied. Monitor INR and bleeding. Home metoprolol was 25 mg PO BID was restarted per cardiology. Hold parameters ( HR <60, systolic < 100). Digoxin ordered, renally dosed to q 48. Check level in 1-2 days. (5) End stage renal disease Status: Acute Plan: Creatinine on admission was 9.19. Improved after dialysis. -Consulted nephrology, appreciate their assistance. -Scheduled for hemodialysis MWF -Avoid nephrotoxic agents. -Vancomycin has been repeatedly dosed (6) CHF (congestive heart failure) Status: Acute Plan: EF 30% per echo this hospital stay. Asymptomatic. -Cardiology consult placed 01/29 given A. fib and hypotension. -Follow up with mill stenciler (Dr. Chiang) within one week (7) Avulsion of toenail of right foot Status: Acute Plan: Podiatry was consulted on 01/25, operative right toenail avulsion was performed at that time. Not obvious source of infection per podiatry (8) Diabetes mellitus Status: Acute Plan: Novolog Sliding Slide scale. Not requiring much sliding scale insulin. A1C 7.2 (9) Liver cirrhosis Status: Chronic Plan: AST mildly elevated. ALT within normal limits. Alkaline phosphatase within normal limits. Ammonia level elevated at 41. Patient clinically stable, continue follow-up as outpatient (10) Fluids/Electrolytes/Nutrition/Prophylaxis Status: Acute Plan: Fluids: d/c fluids, HD MWF. Electrolytes: Grossly within normal limits except for elevated BUN and creatinine. Corrected calcium has been low. On Ca2+Carbonate 500 mg daily. We' ll continue to monitor and replete as needed Nutrition: Diabetic diet. DVT prophylaxis: On Coumadin at home, 5 mg daily. Held due to INR 3.8. WDW Dr. Sanon. (Kleber Finn MD R2) Problem Qualifiers (1) Atrial fibrillation: Qualified Code: I48.2 - Chronic atrial fibrillation Kleber Finn MD R2 Feb 01, 2017 09:13 Ezio Sanon MD Feb 01, 2017 20:14
[2017-02-01] MEDS: METOPROLOL TARTRATE 25 MG TAB PO SCH ×2 (09:41→21:14)
[2017-02-01] MEDS: DOCUSATE SODIUM 50 MG/SENNA 8.6 MG TAB PO SCH (09:41)
[2017-02-01] MEDS: SODIUM CHLORIDE 0.9% FLUSH 5 ML FLUSH IVF PRN (09:42)
--- NOTE | 2017-02-01 10:17 | EKG ---
Date Performed: 01/31/2017 Time Performed: 17:25:44 PTAGE: 71 years EKG: Atrial fibrillation with rapid ventricular response. Leftward axis Possible inferior infarc t - age undetermined Possible anterior infarct - age undetermined Generalized low QRS voltages Abnorm al ECG PREVIOUS TRACING : 01/29/2017 10.13 DOCTOR: Nish Allen Interpretating Date/Time 02/01/2017 10:15:11
--- NOTE | 2017-02-01 10:51 | HHI.NPPN ---
Subjective General Problems: Anemia, Edema, Hypotension Renal Failure: Chronic, End Stage Renal Disease Interval History Lying in bed, at bedside. Afebrile overnight. (Eileen Salgado) Review of Systems General Constitutional: Fever, Fatigue (Eileen Salgado) Cardiovascular Cardiac: Edema (Eileen Salgado) Musculoskeletal MS: Pain/Stiffness MS Remarks left arm (Eileen Salgado) Objective Data Data 01/31/17 02/01/17 19:00 07:00 Intake Total 840 ml Output Total 2000 ml 0 ml Balance -2000 ml 840 ml Intake Oral 840 ml Output Urine Total 0 ml Hemodialysis 2000 ml # Bowel Movements 1 Vital Signs Date Time Temp Pulse Resp B/P Pulse Ox O2 Delivery O2 Flow Rate FiO2 02/01/17 10:00 96 02/01/17 09:20 112 02/01/17 08:02 91 02/01/17 08:00 108 02/01/17 07:59 91 02/01/17 07:00 98.0 92 16 105/55 99 02/01/17 07:00 100 02/01/17 06:00 106 02/01/17 05:00 98 02/01/17 04:00 106 02/01/17 03:00 98.5 69 18 124/80 95 02/01/17 03:00 98 02/01/17 02:00 102 02/01/17 01:00 98 02/01/17 00:00 94 01/31/17 23:00 85 01/31/17 23:00 98.7 88 20 114/56 93 01/31/17 22:00 96 01/31/17 21:00 94 01/31/17 20:00 94 01/31/17 19:00 85 01/31/17 19:00 98.1 100 18 92/53 93 01/31/17 17:00 128 01/31/17 16:00 112 01/31/17 15:00 110 01/31/17 15:00 98.9 111 20 100/64 92 01/31/17 14:00 134 01/31/17 13:45 124 01/31/17 13:15 99.2 130 20 91/66 94 (Eileen Salgado) -: 02/01/17 0723 02/01/17 0723 Imaging Last Impressions Abdomen/Pelvis CT 02/01/17 0000 Signed Impressions: Service Date/Time: Wednesday, February 01, 2017 08:10 - CONCLUSION: 1. Left-sided atelectatic changes with adjacent parenchymal density possibly representing early infiltrate. This could be the source of the patient's fever. 2. Benign-appearing diaphragmatic calcification on the right. 3. Both kidneys are atrophic with cortical thinning and bilateral renal cortical cysts. 4. Urinary bladder is decompressed with some relatively high density fluid centrally possibly representing dehydrated urine associated with chronic renal insufficiency. 5. 3 cm periumbilical hernia which only contains fat Robin Reed MD Elbow X-Ray 01/31/17 0000 Signed Impressions: Service Date/Time: Tuesday, January 31, 2017 07:45 - CONCLUSION: 1. Small olecranon spur with bony eburnation at the bicipital tuberosity of the proximal radius. These are both chronic and overtly benign. 2. No acute fracture or effusion. 3. Atherosclerotic calcification of the regional vasculature. Robin Reed MD Head CT 01/24/17 1025 Signed Impressions: Service Date/Time: Tuesday, January 24, 2017 11:06 - CONCLUSION: No acute disease. No significant change has occurred. No evidence of acute infarct, hemorrhage, mass or edema. Ba Uribe MD Chest X-Ray 01/24/17 1025 Signed Impressions: Service Date/Time: Tuesday, January 24, 2017 10:42 - CONCLUSION: Cardiomegaly Bunny Paz MD (Eileen Salgado) Physical Exam General Appearance: Well Developed, No Acute Distress, Comfortable (Eileen Salgado) Throat Throat Exam: Oral Mucosa [place] & Moist Throat Remarks poor dentition (Eileen Salgado) Neck Neck Exam: Neck Supple (Eileen Salgado) Pulmonary Resp Exam: Clear Bilaterally, Breath Sounds Equal (Eileen Salgado) Cardiology CV Exam: Good Perfusion, Irregular, Tachycardia (Eileen Salgado) Gastrointestinal/Abdomen GI Exam: Soft, Non-Tender, Bowel Sounds Present (Eileen Salgado) Musculoskeletal MS Exam: Joints Intact, Normal Gait (Eileen Salgado) Integumentary Skin Exam: Warm, Dry (Eileen Salgado) Extremeties Extremities Exam: No Edema, Moderate Edema (Eileen Salgado) Neurologic Neuro Exam: Alert, Awake, Oriented, Speech Clear, Moving All Extremities ( Eileen Salgado) Assessment/Plan Discussed Condition With: Patient, Spouse Assessment Summary: Anemia of CKD, Hypotension, End Stage Renal Disease Problem List: (1) ESRD (end stage renal disease) Plan: HD MWF, he had 2L UF without complications on midodrine at 10 mg TID has access left arm that functions well no electrolyte concerns phosphorus acceptable, Renvela on hold if he is discharged he has existing outpatient arrangements. (2) CHF (congestive heart failure) Plan: now on digoxin, monitor volume status, adjust UF with dialysis, although having some difficulty with fluid removal during dialysis due to hypotension (3) Atrial fibrillation Plan: intermittent tachycardia, on digoxin; also on Lopressor INR supra therapeutic (4) Fever Plan: intermittent fevers, also with leukocytosis noted negative cultures Source of possible infection is unclear. CT showing early PNA as source? Abd US looking at GB taken, awaiting results ID following. On Vancomycin with dialysis (5) Anemia of renal disease Plan: Hemoglobin is acceptable. Epogen as needed per protocol with dialysis. (Eileen Salgado) Plan patient was seen and examined. He feels better. Discussed with patient's . LFTs slightly better, alkaline phosphatase could be higher due to bone disease associated with ESRD. Afebrile. On Vancomycin. HD MWF. Start protein supplement. (Prashant Richardson MD) Problem Qualifiers (1) Atrial fibrillation: Qualified Code: I48.2 - Chronic atrial fibrillation Eileen Salgado Feb 01, 2017 10:51 Prashant Richardson MD Feb 01, 2017 11:59
--- NOTE | 2017-02-01 12:54 | RADRPT ---
EXAM DATE/TIME: 02/01/2017 12:07 [facility] COMPARISON: CHEST SINGLE AP, January 24, 2017, 10:42. INDICATIONS: Infiltrate. Short of breath. MEDICAL HISTORY: Cardiovascular disease. Hypertension Renal failure, chronic. SURGICAL HISTORY: Appendectomy. ENCOUNTER: Subsequent ACUITY: 2 days PAIN SCORE: 0/10 LOCATION: Chest FINDINGS: Mild cardiomegaly is stable. The pulmonary vascular pattern is normal. The lungs are clear. Degene rative changes are noted within the thoracic spine. CONCLUSION: 1. Mild cardiomegaly. 2. No acute focal pulmonary infiltrate or pulmonary vascular congestion. 3. Degenerative changes involving the thoracic spine. Mike Arriaga MD on February 01, 2017 at 12:36 Board Certified Radiologist. This report was verified electronically.
--- NOTE | 2017-02-01 13:23 | RADRPT ---
EXAM DATE/TIME: 02/01/2017 09:01 [facility] COMPARISON: No previous studies available for comparison. INDICATIONS : Cholelithiasis. MEDICAL HISTORY : Hypertension. Cirrhosis. Methicillin-resistant Staphylococcus aureus. CHF. Hiatal hernia. Renal failu re. Arthritis. Gout. SURGICAL HISTORY : Tonsillectomy. Appendectomy. Umbilical hernia repair. AV shunt. ENCOUNTER: Initial ACUITY: 1 day PAIN SCORE: 0/10 LOCATION: Right upper quadrant MEASUREMENTS: LIVER: 18.0 cm length COMMON DUCT: 6 mm RIGHT KIDNEY: 9.0 x 4.6 x 4.8 cm FINDINGS: LIVER: Normal echotexture without focal lesion or ductal dilatation. COMMON DUCT: No intraluminal mass or stone visualized. GALLBLADDER: Low level echoes in the gallbladder neck probably represents some sludge. No stones or mural thickeni ng. PANCREAS: The visualized portions are within normal limits. RIGHT KIDNEY: Right kidney appears atrophic with cortical thinning. There are multiple cortical cysts. Echogenic fo ci in the hilum represent either nonobstructing stones or vascular calcifications CONCLUSION: 1. Atrophic changes in the right kidney with multiple cortical cysts. 2. Echogenic foci in the region of the collecting system are characteristic of nonobstructing stones or vascular calcifications. 3. Small amount of sludge in the gallbladder neck. No stones, mural thickening or pericholecystic flu id. Robin Reed MD on February 01, 2017 at 13:15 Board Certified Radiologist. This report was verified electronically.
--- NOTE | 2017-02-01 15:53 | HHI.IDPN ---
Subjective Subjective Remarks Afebrile No cough CT A/P wo acute pahtology, ATX @ bases AC essentially unchanged EBV profiel cw resolving infx vs reactivation Antibiotics Vanco IV in HD Lines Line sites with no e.o infection. 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 Vital Signs Date Time Temp Pulse Resp B/P Pulse Ox O2 Delivery O2 Flow Rate FiO2 02/01/17 15:33 98.0 106 18 110/62 98 02/01/17 15:29 106 02/01/17 14:38 104 02/01/17 13:08 84 02/01/17 12:09 106 02/01/17 11:11 107 02/01/17 11:00 94 02/01/17 11:00 98.4 92 18 93/57 94 02/01/17 10:00 96 02/01/17 09:20 112 02/01/17 08:02 91 02/01/17 08:00 108 02/01/17 07:59 91 02/01/17 07:00 98.0 92 16 105/55 99 02/01/17 07:00 100 02/01/17 06:00 106 02/01/17 05:00 98 02/01/17 04:00 106 02/01/17 03:00 98.5 69 18 124/80 95 02/01/17 03:00 98 02/01/17 02:00 102 02/01/17 01:00 98 02/01/17 00:00 94 01/31/17 23:00 85 01/31/17 23:00 98.7 88 20 114/56 93 01/31/17 22:00 96 01/31/17 21:00 94 01/31/17 20:00 94 01/31/17 19:00 85 01/31/17 19:00 98.1 100 18 92/53 93 01/31/17 17:00 128 01/31/17 16:00 112 01/31/17 01/31/17 02/01/17 15:00 23:00 07:00 Intake Total 600 ml 240 ml Output Total 2000 ml 0 ml 0 ml Balance -2000 ml 600 ml 240 ml Intake Oral 600 ml 240 ml Output Urine Total 0 ml 0 ml Hemodialysis 2000 ml # Bowel Movements 1 0 . Laboratory Tests Test 01/31/17 02/01/17 04:40 07:23 White Blood Count 21.5 TH/MM3 19.5 TH/MM3 Red Blood Count 3.82 MIL/MM3 3.68 MIL/MM3 Hemoglobin 12.0 GM/DL 11.4 GM/DL Hematocrit 35.8 % 34.7 % Mean Corpuscular Volume 93.7 FL 94.1 FL Mean Corpuscular Hemoglobin 31.4 PG 31.0 PG Mean Corpuscular Hemoglobin 33.5 % 33.0 % Concent Red Cell Distribution Width 14.8 % 14.8 % Platelet Count 159 TH/MM3 146 TH/MM3 Mean Platelet Volume 9.9 FL 9.8 FL Neutrophils (%) (Auto) % % Lymphocytes (%) (Auto) % % Monocytes (%) (Auto) % % Eosinophils (%) (Auto) % % Basophils (%) (Auto) % % Neutrophils # (Auto) TH/MM3 TH/MM3 Lymphocytes # (Auto) TH/MM3 TH/MM3 Monocytes # (Auto) TH/MM3 TH/MM3 Eosinophils # (Auto) TH/MM3 TH/MM3 Basophils # (Auto) TH/MM3 TH/MM3 CBC Comment AUTO DIFF AUTO DIFF Differential Total Cells 100 100 Counted Neutrophils % (Manual) 32 % 36 % Band Neutrophils % 6 % 7 % Lymphocytes % 43 % 48 % Monocytes % 16 % 9 % Basophils % 2 % Neutrophils # (Manual) 8.4 TH/MM3 8.4 TH/MM3 Metamyelocytes 1 % Differential Comment FINAL DIFF FINAL DIFF MANUAL MANUAL Platelet Estimate NORMAL LOW Platelet Morphology Comment ENLARGED NORMAL Erythrocyte Sedimentation Rate 65 mm/hr Nucleated Red Blood Cells 1 /100 WBC Polychromasia 2.0 % Laboratory Tests Test 01/31/17 01/31/17 02/01/17 04:40 08:13 07:23 Sodium Level 135 MEQ/L 137 MEQ/L Potassium Level 4.6 MEQ/L 4.6 MEQ/L Chloride Level 94 MEQ/L 97 MEQ/L Carbon Dioxide Level 27.7 MEQ/L 30.4 MEQ/L Anion Gap 13 MEQ/L 10 MEQ/L Blood Urea Nitrogen 44 MG/DL 35 MG/DL Creatinine 11.42 MG/DL 9.13 MG/DL Estimat Glomerular Filtration 4 ML/MIN 6 ML/MIN Rate Random Glucose 80 MG/DL 85 MG/DL Calcium Level 8.0 MG/DL 7.7 MG/DL Phosphorus Level 3.3 MG/DL Magnesium Level 1.9 MG/DL Total Bilirubin 1.0 MG/DL 1.1 MG/DL Aspartate Amino Transf 115 U/L 106 U/L (AST/SGOT) Alanine Aminotransferase 35 U/L 29 U/L (ALT/SGPT) Alkaline Phosphatase 133 U/L 123 U/L Total Protein 7.0 GM/DL 6.6 GM/DL Albumin 2.4 GM/DL 2.3 GM/DL Lactic Acid Level 2.0 mmol/L Ammonia 35 MCMOL/L Total Creatine Kinase 36 U/L Microbiology Date/Time Procedure Status Source Growth 01/30/17 12:20 Aerobic Blood Culture - Preliminary Resulted Blood Peripheral NO GROWTH IN 2 DAYS 01/30/17 12:20 Anaerobic Blood Culture - Preliminary Resulted Blood Peripheral NO GROWTH IN 2 DAYS 01/30/17 12:25 Aerobic Blood Culture - Preliminary Resulted Blood Peripheral NO GROWTH IN 2 DAYS 01/30/17 12:25 Anaerobic Blood Culture - Preliminary Resulted Blood Peripheral NO GROWTH IN 2 DAYS Imaging Last Impressions Gall Bladder Ultrasound 02/01/17 0000 Signed Impressions: Service Date/Time: Wednesday, February 01, 2017 09:01 - CONCLUSION: 1. Atrophic changes in the right kidney with multiple cortical cysts. 2. Echogenic foci in the region of the collecting system are characteristic of nonobstructing stones or vascular calcifications. 3. Small amount of sludge in the gallbladder neck. No stones, mural thickening or pericholecystic fluid. Robin Reed MD Abdomen/Pelvis CT 02/01/17 0000 Signed Impressions: Service Date/Time: Wednesday, February 01, 2017 08:10 - CONCLUSION: 1. Left-sided atelectatic changes with adjacent parenchymal density possibly representing early infiltrate. This could be the source of the patient's fever. 2. Benign-appearing diaphragmatic calcification on the right. 3. Both kidneys are atrophic with cortical thinning and bilateral renal cortical cysts. 4. Urinary bladder is decompressed with some relatively high density fluid centrally possibly representing dehydrated urine associated with chronic renal insufficiency. 5. 3 cm periumbilical hernia which only contains fat Robin Reed MD Elbow X-Ray 01/31/17 0000 Signed Impressions: Service Date/Time: Tuesday, January 31, 2017 07:45 - CONCLUSION: 1. Small olecranon spur with bony eburnation at the bicipital tuberosity of the proximal radius. These are both chronic and overtly benign. 2. No acute fracture or effusion. 3. Atherosclerotic calcification of the regional vasculature. Robin Reed MD Head CT 01/24/17 1025 Signed Impressions: Service Date/Time: Tuesday, January 24, 2017 11:06 - CONCLUSION: No acute disease. No significant change has occurred. No evidence of acute infarct, hemorrhage, mass or edema. Ba Uribe MD Chest X-Ray 01/24/17 1025 Signed Impressions: Service Date/Time: Tuesday, January 24, 2017 10:42 - CONCLUSION: Cardiomegaly Bunny Paz MD Physical Exam GENERAL: Obese CM patient, in no apparent distress. Chronically ill appearing SKIN: No rashes, ecchymoses or lesions. Cool and dry. HEAD: Atraumatic. Normocephalic. No temporal or scalp tenderness. EYES: Pupils equal round and reactive. Extraocular motions intact. No scleral icterus. No injection or drainage. ENT: Nose without bleeding, purulent drainage or septal hematoma. CARDIOVASCULAR: HS audible. Tachycardic. RESPIRATORY: Clear to auscultation. Breath sounds equal bilaterally. No wheezes , rales, or rhonchi. GASTROINTESTINAL: Abdomen soft, non-tender, nondistended. MUSCULOSKELETAL: Bilateral LE with residual edema and erythema Great toe nails removed by podiatry. Base of nail clean with no residual infection at this point. AV fistula site with no e.o infection. RUE with echymoses, but no edema or erythema noted ROM wnl NEUROLOGICAL: Awake and alert. Grossly non focal Psych: cooperative IV line sites with no e.o infection. Assessment & Plan Remarks FUO, persistent leukocytosis with monocytosis - path review noted - multiple neg BC - negative 2 D echo,but image quality was poor - new elevation of LFTs note, US with stones, but no e/o cholecystitis Sepsis present on admission - source no apparent Bilateral LE cellulitis. Right great toe with avulsed nail and ? nail bed infection(cellulitis/abscess), paronychia. ESRD on HD using AV fistula. Clinically fistula does not appears to be the source of infection. Recs dc Vanco IV fu temmami, WBC Enma Vazquez MD Feb 01, 2017 15:53
[2017-02-02] VITALS (23 sets, daily range): BP systolic 92–127; BP diastolic 52–71; PULSE 81–155; RESP 18–20; TEMP 98–98.7; O2SAT 93–98
[2017-02-02] MEDS: INSULIN ASPART SUPPLEMENTAL SCALE SQ SCH ×4 (06:11→21:00)
[2017-02-02 06:13] LABS: HEMATOCRIT 35.9 % (39.0-51.0); MEAN CELL VOLUME 93.6 FL (80.0-100.0); MEAN CORPUSCULAR HEMOGLOBIN 31.6 PG (27.0-34.0); MEAN CORPUSCULAR HGB CONC 33.7 % (32.0-36.0); PLATELET COUNT 145 TH/MM3 (150-450); RED BLOOD COUNT 3.84 MIL/MM3 (4.50-5.90); RED CELL DISTRIBUTION WIDTH 15.1 % (11.6-17.2); WHITE BLOOD COUNT 16.2 TH/MM3 (4.0-11.0)
[2017-02-02 06:21] LABS: INTERNATIONAL NORMALIZED RATIO 3.1 RATIO; PROTHROMBIN TIME - PATIENT 36.4 SEC (9.8-11.6)
[2017-02-02 06:26] LABS: HEMO FLAGS AUTO DIFF
[2017-02-02 06:33] LABS: ALKALINE PHOSPHATASE 132 U/L (45-117); ALT (GPT) 30 U/L (12-78); ANION GAP 12 MEQ/L (5-15); AST (GOT) 114 U/L (15-37); BICARBONATE 27.4 MEQ/L (21.0-32.0); BLOOD UREA NITROGEN 45 MG/DL (7-18); CHLORIDE 96 MEQ/L (98-107); GLOMERULAR FILTRATION RATE 5 ML/MIN (>89); SODIUM (NA) 135 MEQ/L (136-145); TOTAL BILIRUBIN ADULT 1.1 MG/DL (0.2-1.0)
[2017-02-02] MEDS: MIDODRINE 5 MG TAB PO SCH ×3 (07:00→17:00)
[2017-02-02 08:53] LABS: BANDS 4 % (0-6); CORRECTED NUCLEATED RBC 1 /100 WBC (0-0); EOSINOPHILS 2 % (0-4); PLATELET ESTIMATE SMEAR LOW (NORMAL); PLATELET MORPHOLOGY NORMAL (NORMAL); POLYS (SEG NEUTROPHILS) 39 % (16-70); SCAN/DIFF FINAL DIFF MANUAL; WBC DIFF SAMPLE 100
[2017-02-02] MEDS: DOCUSATE SODIUM 50 MG/SENNA 8.6 MG TAB PO SCH (09:21)
[2017-02-02] MEDS: METOPROLOL TARTRATE 25 MG TAB PO SCH ×2 (09:21→22:31)
[2017-02-02] MEDS: SODIUM CHLORIDE 0.9% FLUSH 5 ML FLUSH IVF PRN (09:21)
--- NOTE | 2017-02-02 10:56 | HHI.NPPN ---
Subjective General Problems: Anemia, Edema, Hypotension Renal Failure: Chronic, End Stage Renal Disease Interval History Pt sitting up in chair. Due for dialysis. He is wanting to be discharged. Afebrile overnight. (Eileen Salgado) Review of Systems General Constitutional: Fever, Fatigue (Eileen Salgado) Cardiovascular Cardiac: Edema (Eileen Salgado) Musculoskeletal MS: Pain/Stiffness MS Remarks left arm (Eileen Salgado) Objective Data Data 02/01/17 02/02/17 19:00 07:00 Intake Total 960 ml 240 ml Output Total 1000 ml 0 ml Balance -40 ml 240 ml Intake Oral 960 ml 240 ml IV Total 0 ml 0 ml Output Urine Total 1000 ml 0 ml # Bowel Movements 0 Vital Signs Date Time Temp Pulse Resp B/P Pulse Ox O2 Delivery O2 Flow Rate FiO2 02/02/17 08:15 98.1 92 18 120/59 98 02/02/17 06:00 99 02/02/17 05:00 92 02/02/17 04:00 95 02/02/17 03:00 100 02/02/17 03:00 98.3 97 18 121/71 95 Manual Cuff/Auscultation 02/02/17 02:00 104 02/02/17 01:00 100 02/02/17 00:00 81 02/01/17 23:00 97.6 95 19 95/65 96 02/01/17 23:00 97 02/01/17 22:00 108 02/01/17 21:00 110 02/01/17 20:00 102 02/01/17 19:00 97.6 106 20 114/70 94 02/01/17 19:00 112 02/01/17 18:40 98 02/01/17 17:14 108 02/01/17 16:20 100 02/01/17 15:33 98.0 106 18 110/62 98 02/01/17 15:29 106 02/01/17 14:38 104 02/01/17 13:08 84 02/01/17 12:09 106 02/01/17 11:11 107 02/01/17 11:00 94 02/01/17 11:00 98.4 92 18 93/57 94 (Eileen Salgado) -: 02/02/17 0511 02/02/17 0511 Imaging Last Impressions Gall Bladder Ultrasound 02/01/17 0000 Signed Impressions: Service Date/Time: Wednesday, February 01, 2017 09:01 - CONCLUSION: 1. Atrophic changes in the right kidney with multiple cortical cysts. 2. Echogenic foci in the region of the collecting system are characteristic of nonobstructing stones or vascular calcifications. 3. Small amount of sludge in the gallbladder neck. No stones, mural thickening or pericholecystic fluid. Robin Reed MD Chest X-Ray 02/01/17 0000 Signed Impressions: Service Date/Time: Wednesday, February 01, 2017 12:07 - CONCLUSION: 1. Mild cardiomegaly. 2. No acute focal pulmonary infiltrate or pulmonary vascular congestion. 3. Degenerative changes involving the thoracic spine. Mike Arriaga MD Abdomen/Pelvis CT 02/01/17 0000 Signed Impressions: Service Date/Time: Wednesday, February 01, 2017 08:10 - CONCLUSION: 1. Left-sided atelectatic changes with adjacent parenchymal density possibly representing early infiltrate. This could be the source of the patient's fever. 2. Benign-appearing diaphragmatic calcification on the right. 3. Both kidneys are atrophic with cortical thinning and bilateral renal cortical cysts. 4. Urinary bladder is decompressed with some relatively high density fluid centrally possibly representing dehydrated urine associated with chronic renal insufficiency. 5. 3 cm periumbilical hernia which only contains fat Robin Reed MD Elbow X-Ray 01/31/17 0000 Signed Impressions: Service Date/Time: Tuesday, January 31, 2017 07:45 - CONCLUSION: 1. Small olecranon spur with bony eburnation at the bicipital tuberosity of the proximal radius. These are both chronic and overtly benign. 2. No acute fracture or effusion. 3. Atherosclerotic calcification of the regional vasculature. Robin Reed MD Head CT 01/24/17 1025 Signed Impressions: Service Date/Time: Tuesday, January 24, 2017 11:06 - CONCLUSION: No acute disease. No significant change has occurred. No evidence of acute infarct, hemorrhage, mass or edema. Ba Uribe MD (Eileen Salgado) Physical Exam General Appearance: Well Developed, Well Nourished, No Acute Distress, Comfortable ( Eileen Salgado) Throat Throat Exam: Oral Mucosa [place] & Moist Throat Remarks poor dentition (Eileen Salgado) Neck Neck Exam: Neck Supple (Eileen Salgado) Pulmonary Resp Exam: Clear Bilaterally, Breath Sounds Equal (Eileen Salgado) Cardiology CV Exam: Good Perfusion, Irregular, Tachycardia (Eileen Salgado) Gastrointestinal/Abdomen GI Exam: Soft, Non-Tender, Bowel Sounds Present (Eileen Salgado) Musculoskeletal MS Exam: Joints Intact, Normal Gait (Eileen Salgado) Integumentary Skin Exam: Warm, Dry (Eileen Salgado) Extremeties Extremities Exam: Pedal Pulses Palpable, Trace Edema (Eileen Salgado) Neurologic Neuro Exam: Alert, Awake, Oriented, Speech Clear, Moving All Extremities ( Eileen Salgado) Psychiatric Psych Exam: Appropriate Responses (Eileen Salgado) Assessment/Plan Discussed Condition With: Patient Assessment Summary: Anemia of CKD, Hypotension, End Stage Renal Disease Problem List: (1) ESRD (end stage renal disease) Plan: HD MWF, he is due today on midodrine at TID, BP better reduce to 5 mg dose has access left arm that functions well no electrolyte concerns phosphorus acceptable, Renvela on hold if he is discharged early today he can resume outpatient HD arrangements this evening, he goes around 5pm ; he is preferring outpatient HD (2) CHF (congestive heart failure) Plan: now on digoxin, monitor volume status, adjust UF with dialysis (3) Atrial fibrillation Plan: heart rate improved, on digoxin; also on Lopressor INR supra therapeutic but improving (4) Fever Plan: afebrile but worsening leukocytosis noted negative cultures Source of possible infection is unclear. CT showing early PNA as source? Abd US with stones, no cholecystitis, although elevated LFTs ID following. vancomycin was stopped (5) Anemia of renal disease Plan: Hemoglobin is acceptable. Epogen as needed per protocol with dialysis. (Eileen Salgado) Plan patient was seen and examined. Patient is wanting to be discharged today. ID note reviewed. (Prashant Richardson MD) Problem Qualifiers (1) Atrial fibrillation: Qualified Code: I48.2 - Chronic atrial fibrillation Eileen Salgado Feb 02, 2017 10:56 Prashant Richardson MD Feb 03, 2017 07:50
--- NOTE | 2017-02-02 11:55 | HHI.FPPN ---
Subjective Remarks Patient was agitated today on exam. He is requesting to go to HD at an outside facility. He says that it is very difficult for him to lay flat for 4 hours 2/2 back pain. He denies palpitation, chest pain, feeling faint, or fevers over the past 24 hours. He is requesting to go home. Objective Vitals Vital Signs Date Time Temp Pulse Resp B/P Pulse Ox O2 Delivery O2 Flow Rate FiO2 02/02/17 11:06 98.0 97 20 92/52 94 02/02/17 11:05 98 02/02/17 10:00 108 02/02/17 09:00 116 02/02/17 08:15 98.1 92 18 120/59 98 02/02/17 08:00 92 02/02/17 07:00 86 02/02/17 06:00 99 02/02/17 05:00 92 02/02/17 04:00 95 02/02/17 03:00 100 02/02/17 03:00 98.3 97 18 121/71 95 Manual Cuff/Auscultation 02/02/17 02:00 104 02/02/17 01:00 100 02/02/17 00:00 81 02/01/17 23:00 97.6 95 19 95/65 96 02/01/17 23:00 97 02/01/17 22:00 108 02/01/17 21:00 110 02/01/17 20:00 102 02/01/17 19:00 97.6 106 20 114/70 94 02/01/17 19:00 112 02/01/17 18:40 98 02/01/17 17:14 108 02/01/17 16:20 100 02/01/17 15:33 98.0 106 18 110/62 98 02/01/17 15:29 106 02/01/17 14:38 104 02/01/17 13:08 84 02/01/17 12:09 106 I/O 02/01/17 02/01/17 02/01/17 02/02/17 02/02/17 02/02/17 07:00 15:00 23:00 07:00 15:00 23:00 Intake Total 240 ml 960 ml 240 ml Output Total 0 ml 1000 ml 0 ml Balance 240 ml -40 ml 240 ml Intake Oral 240 ml 960 ml 240 ml IV Total 0 ml 0 ml Output Urine Total 0 ml 1000 ml 0 ml # Bowel Movements 0 0 Result Diagram: 02/02/1751002/02/17510 Objective Remarks GENERAL: Well-nourished elderly male. Sitting up in a recliner chair. Appear to be in acute distress. SKIN: Warm and dry. Skin is thin and scattered bruising noted. The left posterior extremity is notable for approximately 1 cm skin abrasion with slow bleeding on the posterior medial calf and posterior foot. Lower extremities erythematous to chins. HEAD: Atraumatic. Normocephalic. EYES: Pupils equal and round. No scleral icterus. No injection or drainage. ENT: No nasal bleeding or discharge. Mucous membranes pink and moist. NECK: Trachea midline. No JVD. CARDIOVASCULAR: Irregular rhythm approximately 90. Faint 2/6 RAMY at left sternal border. AV fistula on left arm. RESPIRATORY: No accessory muscle use. Clear to auscultation without evidence of crackles or wheezing. Breath sounds equal bilaterally. GASTROINTESTINAL: Abdomen soft, non-tender, nondistended. Hepatic and splenic margins not palpable. MUSCULOSKELETAL: Joints are not tender to palpation. No cyanosis, or edema. Right great toe is dressed, without active bleeding or signs of infection. Distal toes show decreased sensation but no discoloration. Pulses are 1+ in the upper and lower extremities bilaterally. The lower extremities bilaterally are nontender to palpation. Joints are normal in appearance without tenderness or swelling. He has limited range of motion of the right upper and lower extremity due to pain. Passive range of motion is normal, without pain noted in the shoulders, elbows, hips, knees, ankles. He is noted to have 2+ edema to the knee worse in the feet and ankle. NEUROLOGICAL: Awake and alert. No obvious cranial nerve deficits. Motor grossly within normal limits. Normal speech. PSYCHIATRIC: Alert and oriented. Appropriate mood and affect; insight and judgment normal. Procedures Dialysis MWF A/P Assessment and Plan Mr. Rowe is a pleasant 71-year-old male, with a past medical history of type 2 diabetes, atrial fibrillation on Coumadin, end-stage renal disease on dialysis, MRSA infection on his posterior neck, liver cirrhosis, presenting to the [facility] emergency department with 1 week of general lethargy, confusion, decreased appetite, and subjective fevers and chills. CT of the head showed no acute changes, chest x-ray was benign, and he is not producing urine. Discharge Planning Cardiology consult placed on 01/29 persistent hypotension and A. fib, CHF. Discharge was held due to increasing leukocytosis, INR 4.4, creatinine 10.5 on . Further workup including blood cultures have been negative and he has remained afebrile off of ABX. Problem List: (1) Fever of unknown origin Status: Acute Plan: Initially, sepsis resolved. Source not identified on clinical exam. Initial potential sources were bacteremia and skin infection, not found on labs or clinical exam. Afebrile x 24 hours off of antibiotics and cultures have been negative for 3 days. Plan as follows: -ABD/PELVIS CT with Oral Contrast 02/01: Left sided atelectasis changes with adjacent parenchymal density possibly representing an early infiltrate. A follow-up chest x-ray was negative for any consolidations. -Blood cultures reordered 01/30 (negative x 3 days). -Peripheral smear showed monocytosis unspecific for any malignancy, inflammatory process, or infection. -Factious disease recommended stopping antibiotics at this time. His WBC decreased from 19.5-->16.2, while off antibiotics. His leukocytosis, more specifically monocytosis, is likely chronic. -ESR noted to be elevated at 56, CK wnl, lactate 2.0 -AST increasing, isolated as ALT normal. Bili slightly elevated at 1.1. IgM and IgG EBV antibodies positive. May represent reactivation. -Culture from right foot negative, s/p nail removal, no abscess or evidence of infection on exam. -Check CMV RNA in the blood, will check for C. difficile given no diarrhea, we will also consult gastroenterology. (2) Right arm pain Status: Acute Plan: Resolved. -X-ray right elbow was insignificant (3) Atrial fibrillation Status: Acute Plan: Heart rate was irregular on admission exam, at 100 bpm. HR occ 105 on exam. Coumadin was held on 01/30 given supra-therapeutic INR. Continue monitoring. Coumadin consult placed with pharmacy. Home metoprolol was 25 mg PO BID was restarted per cardiology. Hold parameters ( HR <60, systolic < 100). Digoxin ordered, renally dosed to q 48. Check level in 1-2 days. (4) End stage renal disease Status: Acute Plan: Creatinine on admission was 9.19. Improved after dialysis. -Consulted nephrology, appreciate their assistance. -Scheduled for hemodialysis MWF -Avoid nephrotoxic agents. (5) CHF (congestive heart failure) Status: Acute Plan: EF 30% per echo this hospital stay. Asymptomatic. -Cardiology consult placed 01/29 given A. fib and hypotension. -Follow up with aligning inspector (Dr. Chiang) within one week (6) Avulsion of toenail of right foot Status: Acute Plan: Podiatry was consulted on 01/25, operative right toenail avulsion was performed at that time. Not obvious source of infection per podiatry (7) Diabetes mellitus Status: Acute Plan: Novolog Sliding Slide scale. Not requiring much sliding scale insulin. A1C 7.2 (8) Liver cirrhosis Status: Chronic Plan: AST mildly elevated and trending upward. Repeat CMV. Hep B panel negative for signs of infection. ALT within normal limits. Negative Physical exam. CT abd showed no hepatic pathology. (9) Fluids/Electrolytes/Nutrition/Prophylaxis Status: Acute Plan: Fluids: d/c fluids, HD MWF. Electrolytes: Grossly within normal limits except for elevated BUN and creatinine. Corrected calcium has been low. On Ca2+Carbonate 500 mg daily. We' ll continue to monitor and replete as needed Nutrition: Diabetic diet. DVT prophylaxis: On Coumadin at home, 5 mg daily. Held due to supra- theraapeutic INR. DW Dr. Sanon. Problem Qualifiers (1) Atrial fibrillation: Qualified Code: I48.2 - Chronic atrial fibrillation Kleber Finn MD R2 Feb 02, 2017 11:55 Nutrition: Diabetic diet. DVT prophylaxis: On Coumadin at home, 5 mg daily. Held due to INR 3.8. WDW Dr. Sanon. Problem Qualifiers (1) Atrial fibrillation: Qualified Code: I48.2 - Chronic atrial fibrillation Kleber Finn MD R2 Feb 02, 2017 11:55
[2017-02-02] MEDS ORDERED: COUM5TAB PO (12:01)
[2017-02-02] MEDS ORDERED: MIDO10TA PO (12:10)
[2017-02-02] MEDS: DIGOXIN 0.125 MG TAB PO SCH (13:16)
--- NOTE | 2017-02-02 14:53 | HHI.IDPN ---
Subjective Subjective Remarks seen in HD Afebrile co new onset diarrhea " big time" denies abd pain CMV viremia > 10 K EBV profiel cw resolving infx vs reactivation Antibiotics Vanco IV in HD Lines Line sites with no e.o infection. 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 Vital Signs Date Time Temp Pulse Resp B/P Pulse Ox O2 Delivery O2 Flow Rate FiO2 02/02/17 12:01 102 02/02/17 11:06 98.0 97 20 92/52 94 02/02/17 11:05 98 02/02/17 10:00 108 02/02/17 09:00 116 02/02/17 08:15 98.1 92 18 120/59 98 02/02/17 08:00 92 02/02/17 07:00 86 02/02/17 06:00 99 02/02/17 05:00 92 02/02/17 04:00 95 02/02/17 03:00 100 02/02/17 03:00 98.3 97 18 121/71 95 Manual Cuff/Auscultation 02/02/17 02:00 104 02/02/17 01:00 100 02/02/17 00:00 81 02/01/17 23:00 97.6 95 19 95/65 96 02/01/17 23:00 97 02/01/17 22:00 108 02/01/17 21:00 110 02/01/17 20:00 102 02/01/17 19:00 97.6 106 20 114/70 94 02/01/17 19:00 112 02/01/17 18:40 98 02/01/17 17:14 108 02/01/17 16:20 100 02/01/17 15:33 98.0 106 18 110/62 98 02/01/17 15:29 106 02/01/17 02/01/17 02/02/17 15:00 23:00 07:00 Intake Total 960 ml 240 ml Output Total 1000 ml 0 ml Balance -40 ml 240 ml Intake Oral 960 ml 240 ml IV Total 0 ml 0 ml Output Urine Total 1000 ml 0 ml # Bowel Movements 0 . Laboratory Tests Test 02/01/17 02/02/17 07:23 05:11 White Blood Count 19.5 TH/MM3 16.2 TH/MM3 Red Blood Count 3.68 MIL/MM3 3.84 MIL/MM3 Hemoglobin 11.4 GM/DL 12.1 GM/DL Hematocrit 34.7 % 35.9 % Mean Corpuscular Volume 94.1 FL 93.6 FL Mean Corpuscular Hemoglobin 31.0 PG 31.6 PG Mean Corpuscular Hemoglobin 33.0 % 33.7 % Concent Red Cell Distribution Width 14.8 % 15.1 % Platelet Count 146 TH/MM3 145 TH/MM3 Mean Platelet Volume 9.8 FL 9.5 FL Neutrophils (%) (Auto) % % Lymphocytes (%) (Auto) % % Monocytes (%) (Auto) % % Eosinophils (%) (Auto) % % Basophils (%) (Auto) % % Neutrophils # (Auto) TH/MM3 TH/MM3 Lymphocytes # (Auto) TH/MM3 TH/MM3 Monocytes # (Auto) TH/MM3 TH/MM3 Eosinophils # (Auto) TH/MM3 TH/MM3 Basophils # (Auto) TH/MM3 TH/MM3 CBC Comment AUTO DIFF AUTO DIFF Differential Total Cells 100 100 Counted Neutrophils % (Manual) 36 % 39 % Band Neutrophils % 7 % 4 % Lymphocytes % 48 % 42 % Monocytes % 9 % 13 % Neutrophils # (Manual) 8.4 TH/MM3 7.0 TH/MM3 Nucleated Red Blood Cells 1 /100 WBC 1 /100 WBC Differential Comment FINAL DIFF FINAL DIFF MANUAL MANUAL Platelet Estimate LOW LOW Platelet Morphology Comment NORMAL NORMAL Polychromasia 2.0 % Eosinophils % 2 % Atypical Lymphocytes % Red Cell Morphology Comment NORMAL Laboratory Tests Test 02/01/17 02/02/17 07:23 05:11 Sodium Level 137 MEQ/L 135 MEQ/L Potassium Level 4.6 MEQ/L 5.0 MEQ/L Chloride Level 97 MEQ/L 96 MEQ/L Carbon Dioxide Level 30.4 MEQ/L 27.4 MEQ/L Anion Gap 10 MEQ/L 12 MEQ/L Blood Urea Nitrogen 35 MG/DL 45 MG/DL Creatinine 9.13 MG/DL 10.55 MG/DL Estimat Glomerular Filtration 6 ML/MIN 5 ML/MIN Rate Random Glucose 85 MG/DL 75 MG/DL Calcium Level 7.7 MG/DL 7.9 MG/DL Total Bilirubin 1.1 MG/DL 1.1 MG/DL Aspartate Amino Transf 106 U/L 114 U/L (AST/SGOT) Alanine Aminotransferase 29 U/L 30 U/L (ALT/SGPT) Alkaline Phosphatase 123 U/L 132 U/L Total Protein 6.6 GM/DL 7.0 GM/DL Albumin 2.3 GM/DL 2.4 GM/DL Magnesium Level 2.0 MG/DL Imaging Last Impressions Gall Bladder Ultrasound 02/01/17 0000 Signed Impressions: Service Date/Time: Wednesday, February 01, 2017 09:01 - CONCLUSION: 1. Atrophic changes in the right kidney with multiple cortical cysts. 2. Echogenic foci in the region of the collecting system are characteristic of nonobstructing stones or vascular calcifications. 3. Small amount of sludge in the gallbladder neck. No stones, mural thickening or pericholecystic fluid. Robin Reed MD Chest X-Ray 02/01/17 0000 Signed Impressions: Service Date/Time: Wednesday, February 01, 2017 12:07 - CONCLUSION: 1. Mild cardiomegaly. 2. No acute focal pulmonary infiltrate or pulmonary vascular congestion. 3. Degenerative changes involving the thoracic spine. Mike Arriaga MD Abdomen/Pelvis CT 02/01/17 0000 Signed Impressions: Service Date/Time: Wednesday, February 01, 2017 08:10 - CONCLUSION: 1. Left-sided atelectatic changes with adjacent parenchymal density possibly representing early infiltrate. This could be the source of the patient's fever. 2. Benign-appearing diaphragmatic calcification on the right. 3. Both kidneys are atrophic with cortical thinning and bilateral renal cortical cysts. 4. Urinary bladder is decompressed with some relatively high density fluid centrally possibly representing dehydrated urine associated with chronic renal insufficiency. 5. 3 cm periumbilical hernia which only contains fat Robin Reed MD Elbow X-Ray 01/31/17 0000 Signed Impressions: Service Date/Time: Tuesday, January 31, 2017 07:45 - CONCLUSION: 1. Small olecranon spur with bony eburnation at the bicipital tuberosity of the proximal radius. These are both chronic and overtly benign. 2. No acute fracture or effusion. 3. Atherosclerotic calcification of the regional vasculature. Robin Reed MD Head CT 01/24/17 1025 Signed Impressions: Service Date/Time: Tuesday, January 24, 2017 11:06 - CONCLUSION: No acute disease. No significant change has occurred. No evidence of acute infarct, hemorrhage, mass or edema. Ba Uribe MD Physical Exam GENERAL: Obese CM patient, in no apparent distress. Chronically ill appearing SKIN: No rashes, ecchymoses or lesions. Cool and dry. HEAD: Atraumatic. Normocephalic. No temporal or scalp tenderness. EYES: Pupils equal round and reactive. Extraocular motions intact. No scleral icterus. No injection or drainage. ENT: Nose without bleeding, purulent drainage or septal hematoma. CARDIOVASCULAR: HS audible. Tachycardic. RESPIRATORY: Clear to auscultation. Breath sounds equal bilaterally. No wheezes , rales, or rhonchi. GASTROINTESTINAL: Abdomen soft, non-tender, nondistended. MUSCULOSKELETAL: Bilateral LE with residual edema and erythema Great toe nails removed by podiatry. Base of nail clean with no residual infection at this point. AV fistula site with no e.o infection. RUE with echymoses, but no edema or erythema noted ROM wnl NEUROLOGICAL: Awake and alert. Grossly non focal Psych: cooperative IV line sites with no e.o infection. Assessment & Plan Remarks FUO, persistent leukocytosis with monocytosis - leukocytosis resolving - ANC is WNL today monocytosis is favouring reactive +EBV reactivation profile + CMV viremia ? target organ - path review noted - multiple neg BC - negative 2 D echo,but image quality was poor - new elevation of LFTs note, US with stones, but no e/o cholecystitis New onset diarrhea ? CMV colitis Sepsis present on admission - source no apparent Bilateral LE cellulitis. Right great toe with avulsed nail and ? nail bed infection(cellulitis/abscess), paronychia. ESRD on HD using AV fistula. Clinically fistula does not appears to be the source of infection. Recs chk HIV STEPHAN ro C.diff if C.diff negative and pt cont to have diarrhea consult GI for suspected CMV colitis - that dx has to be made via colonoscopy repeat CMV load dw Leatha Medina, Aakash Vazquez,Enma Thomas MD Feb 02, 2017 14:53
[2017-02-02] MEDS: EPOETIN ALFA 10,000 UNITS/ML VIAL IV PRN (17:03)
--- NOTE | 2017-02-02 18:13 | PD.CONS ---
HPI History of Present Illness This is a 71 year old male with multiple medical problems including type 2 diabetes, end-stage renal disease (hemodialysis on Mondays, Wednesdays, and Fridays), atrial fibrillation, liver cirrhosis secondary to fatty liver, CHF, who was currently hospitalized for severe sepsis, no apparent source. However, he has had with leukocytosis, and monocytosis. He came back with a positive Isauro-Brown virus reactivation profile, positive CMV viremia with elevated LFTs. ID is following. GI has been consulted for diarrhea. The patient tells me that he normally has no issues with diarrhea or any GI problems. He states that since he's been in the hospital, he has been getting a stool softener and started having loose stools. However, up until today, this was just a single loose stool. Today this worsened and he reports that he has had 5 liquid brown stools without any blood or mucous. He denies any nausea, vomiting, fever, chills, abdominal pain, melena, or hematochezia. He states that he had a colonoscopy a few years ago and that this was normal, but he had issues with rectal pain for months after the procedure. D/W patient the concern for possible CMV colitis related to his CMV infection and possible evaluation with colonoscopy for further evaluation. He verbalizes understanding but is refusing to have any endoscopic procedures. (Arianne Gomes) PFSH Past Medical History Type 2 diabetes End-stage renal disease, hemodialysis on Wednesdays and Fridays Atrial fibrillation Liver cirrhosis secondary to fatty liver disease History of MRSA infection CHF Obstructive sleep apnea Past Surgical History AV fistula placement Colonoscopy (Arianne Gomes) Coded Allergies: Ibuprofen (Verified Allergy, Severe, Rash, 01/24/17) *MDRO Multi-Drug Resistant Organism (Verified Adverse Reaction, Unknown, ) MRSA finger wound 02/2016 Medications Allergies Coded Allergies Type Severity Reaction Last Updated Verified Ibuprofen Allergy Severe Rash 01/24/17 Yes *MDRO Multi-Drug Resistant Organism Adverse Reaction Unknown 01/24/17 Yes Active Scripts Medications Dose Route/Sig Days Date Category Ultram (Tramadol HCl) 50 Mg Tab 50 Mg PO Q6H PRN 01/30/17 Rx Warfarin 5 Mg Tab 5 Mg PO DAILY 01/10/17 Reported Tramadol (Tramadol HCl) 50 Mg Tab 50 Mg PO BID PRN 01/10/17 Reported Prednisone 5 Mg Tab 5 Mg PO DAILY 01/10/17 Reported Entresto (Sacubitril-Valsartan) 24-26 Mg Tab 1 Tab PO DAILY 01/10/17 Reported Metoprolol Tartrate 25 Mg Tab 25 Mg PO BID 01/10/17 Reported Family History Denies any family history of colitis, gastric, esophageal, or colorectal cancer Social History He quit smoking 40 years ago. He quit drinking alcohol about 30 years ago ( Arianne Gomes) Review of Systems Constitutional: COMPLAINS OF: Fatigue, DENIES: Weight loss, Change in appetite Respiratory: DENIES: Cough Cardiovascular: DENIES: Chest pain Gastrointestinal: COMPLAINS OF: Diarrhea, DENIES: Abdominal pain, Black stools , Bloody stools, Constipation, Nausea, Vomiting, Heartburn, Hematemesis Hematologic/lymphatic: COMPLAINS OF: Bruising Neurologic: DENIES: Abnormal gait Psychiatric: DENIES: Confusion (Arianne Gomes) GI Exam Vitals I&O Vital Signs Date Time Temp Pulse Resp B/P Pulse Ox O2 Delivery O2 Flow Rate FiO2 02/02/17 12:01 102 02/02/17 11:06 98.0 97 20 92/52 94 02/02/17 11:05 98 02/02/17 10:00 108 02/02/17 09:00 116 02/02/17 08:15 98.1 92 18 120/59 98 02/02/17 08:00 92 02/02/17 07:00 86 02/02/17 06:00 99 02/02/17 05:00 92 02/02/17 04:00 95 02/02/17 03:00 100 02/02/17 03:00 98.3 97 18 121/71 95 Manual Cuff/Auscultation 02/02/17 02:00 104 02/02/17 01:00 100 02/02/17 00:00 81 02/01/17 23:00 97.6 95 19 95/65 96 02/01/17 23:00 97 02/01/17 22:00 108 02/01/17 21:00 110 02/01/17 20:00 102 02/01/17 19:00 97.6 106 20 114/70 94 02/01/17 19:00 112 02/01/17 18:40 98 I/O 02/01/17 02/01/17 02/01/17 02/02/17 02/02/17 02/02/17 07:00 15:00 23:00 07:00 15:00 23:00 Intake Total 240 ml 960 ml 240 ml Output Total 0 ml 1000 ml 0 ml Balance 240 ml -40 ml 240 ml Intake Oral 240 ml 960 ml 240 ml IV Total 0 ml 0 ml Output Urine Total 0 ml 1000 ml 0 ml # Voids 3 # Bowel Movements 0 0 4 Imaging Last Impressions Gall Bladder Ultrasound 02/01/17 0000 Signed Impressions: Service Date/Time: Wednesday, February 01, 2017 09:01 - CONCLUSION: 1. Atrophic changes in the right kidney with multiple cortical cysts. 2. Echogenic foci in the region of the collecting system are characteristic of nonobstructing stones or vascular calcifications. 3. Small amount of sludge in the gallbladder neck. No stones, mural thickening or pericholecystic fluid. Robin Reed MD Chest X-Ray 02/01/17 0000 Signed Impressions: Service Date/Time: Wednesday, February 01, 2017 12:07 - CONCLUSION: 1. Mild cardiomegaly. 2. No acute focal pulmonary infiltrate or pulmonary vascular congestion. 3. Degenerative changes involving the thoracic spine. Mike Arriaga MD Abdomen/Pelvis CT 02/01/17 0000 Signed Impressions: Service Date/Time: Wednesday, February 01, 2017 08:10 - CONCLUSION: 1. Left-sided atelectatic changes with adjacent parenchymal density possibly representing early infiltrate. This could be the source of the patient's fever. 2. Benign-appearing diaphragmatic calcification on the right. 3. Both kidneys are atrophic with cortical thinning and bilateral renal cortical cysts. 4. Urinary bladder is decompressed with some relatively high density fluid centrally possibly representing dehydrated urine associated with chronic renal insufficiency. 5. 3 cm periumbilical hernia which only contains fat Robin Reed MD Elbow X-Ray 01/31/17 0000 Signed Impressions: Service Date/Time: Tuesday, January 31, 2017 07:45 - CONCLUSION: 1. Small olecranon spur with bony eburnation at the bicipital tuberosity of the proximal radius. These are both chronic and overtly benign. 2. No acute fracture or effusion. 3. Atherosclerotic calcification of the regional vasculature. Robin Reed MD Head CT 01/24/17 1025 Signed Impressions: Service Date/Time: Tuesday, January 24, 2017 11:06 - CONCLUSION: No acute disease. No significant change has occurred. No evidence of acute infarct, hemorrhage, mass or edema. Ba Uribe MD Laboratory Test 02/02/17 05:11 White Blood Count 16.2 TH/MM3 Red Blood Count 3.84 MIL/MM3 Hemoglobin 12.1 GM/DL Hematocrit 35.9 % Mean Corpuscular Volume 93.6 FL Mean Corpuscular Hemoglobin 31.6 PG Mean Corpuscular Hemoglobin 33.7 % Concent Red Cell Distribution Width 15.1 % Platelet Count 145 TH/MM3 Mean Platelet Volume 9.5 FL Neutrophils (%) (Auto) % Lymphocytes (%) (Auto) % Monocytes (%) (Auto) % Eosinophils (%) (Auto) % Basophils (%) (Auto) % Neutrophils # (Auto) TH/MM3 Lymphocytes # (Auto) TH/MM3 Monocytes # (Auto) TH/MM3 Eosinophils # (Auto) TH/MM3 Basophils # (Auto) TH/MM3 CBC Comment AUTO DIFF Differential Total Cells 100 Counted Neutrophils % (Manual) 39 % Band Neutrophils % 4 % Lymphocytes % 42 % Monocytes % 13 % Eosinophils % 2 % Neutrophils # (Manual) 7.0 TH/MM3 Nucleated Red Blood Cells 1 /100 WBC Differential Comment FINAL DIFF MANUAL Atypical Lymphocytes % Platelet Estimate LOW Platelet Morphology Comment NORMAL Red Cell Morphology Comment NORMAL Prothrombin Time 36.4 SEC Prothromb Time International 3.1 RATIO Ratio Sodium Level 135 MEQ/L Potassium Level 5.0 MEQ/L Chloride Level 96 MEQ/L Carbon Dioxide Level 27.4 MEQ/L Anion Gap 12 MEQ/L Blood Urea Nitrogen 45 MG/DL Creatinine 10.55 MG/DL Estimat Glomerular Filtration 5 ML/MIN Rate Random Glucose 75 MG/DL Calcium Level 7.9 MG/DL Magnesium Level 2.0 MG/DL Total Bilirubin 1.1 MG/DL Aspartate Amino Transf 114 U/L (AST/SGOT) Alanine Aminotransferase 30 U/L (ALT/SGPT) Alkaline Phosphatase 132 U/L Total Protein 7.0 GM/DL Albumin 2.4 GM/DL Date/Time Procedure Status Source Growth 01/30/17 12:25 Aerobic Blood Culture - Preliminary Resulted Blood Peripheral NO GROWTH IN 3 DAYS 01/30/17 12:25 Anaerobic Blood Culture - Preliminary Resulted Blood Peripheral NO GROWTH IN 3 DAYS Physical Examination HEENT: Normocephalic; atraumatic; no jaundice. CHEST: CTA CARDIAC: Irregular ABDOMEN: Soft, nondistended, nontender; no hepatosplenomegaly; bowel sounds are present in all four quadrants. EXTREMITIES: trace edema ble, worse lle SKIN: Normal; no rash; no jaundice. DIE EQUIPMENT OPERATOR: No focal deficits; alert and oriented times three. (Arianne Gomes) Assessment and Plan Plan ASSESSMENT: - Diarrhea. States he started having liquid stools after being started on a stool softener. He was only having one episode per day up until today. He has had 5 episodes today. He denies mucus or visible blood. He denies any other GI symptoms. Stool studies have not been done. He has a known EBV and CMV infection and is being followed by ID. GI was consulted for evaluation for possible CMV colitis. Abdomen/Pelvis CT (02/01/17)---> 1. Left-sided atelectatic changes with adjacent parenchymal density possibly representing early infiltrate. This could be the source of the patient's fever. 2. Benign-appearing diaphragmatic calcification on the right. 3. Both kidneys are atrophic with cortical thinning and bilateral renal cortical cysts. 4. Urinary bladder is decompressed with some relatively high density fluid centrally possibly representing dehydrated urine associated with chronic renal insufficiency. 5. 3 cm periumbilical hernia which only contains faPatient had a colonoscopy about 2 years ago. He cannot recall who did this. Discussed with patient further evaluation with colonoscopy to evaluate for possible CMV colitis. He verbalizes understanding but, adamantly refuses any endoscopic procedures. Recommend holding stool softener. Obtain stool studies. - Elevated LFTs. Pt is (+) EBV, CMV. Gall Bladder Ultrasound (02/01/17) 1. Atrophic changes in the right kidney with multiple cortical cysts. 2. Echogenic foci in the region of the collecting system are characteristic of nonobstructing stones or vascular calcifications. 3. Small amount of sludge in the gallbladder neck. No stones, mural thickening or pericholecystic fluid. Pt also has known liver cirrhosis secondary to fatty liver disease. - Leukocytosis, monocytosis with (+) EBV, CMV per ID. - ESRD, HD per renal - DM, Afib, CHF, KEVON per primary. Coumadin on hold for elevated INR. PLAN: - CLAUDINE - CDiff, Giardia, Cryptosporidia, Cyclospora, O&P, WBC, Enteric pathogens - Monitor labs - Hold colace - Pt refuses colonoscopy - Supportive care - Further recommendations to follow based on results of above - Pt seen and examined by Dr. Ren and myself and this note is written on her behalf (Arianne Gomes) Physician Comments seen, examined agree with above also complaining of some dry mouth, soreness in his mouth and some difficulty swallowing, discussed about egd-also refusing (Negrita Ren MD) Arianne Gomes Feb 02, 2017 18:13 Negrita Ren MD Feb 03, 2017 08:54
[2017-02-02] MEDS ORDERED: DILTIAZEM HCL 25 MG/5 ML VIAL IV ONE (22:15)
[2017-02-03] VITALS (25 sets, daily range): BP systolic 102–112; BP diastolic 50–68; PULSE 87–122; RESP 13–16; TEMP 98–98.7; O2SAT 95–98
[2017-02-03 05:53] LABS: BICARBONATE 31.4 MEQ/L (21.0-32.0); POTASSIUM 4.4 MEQ/L (3.5-5.1)
[2017-02-03 05:59] LABS: HEMATOCRIT 35.7 % (39.0-51.0); INTERNATIONAL NORMALIZED RATIO 2.4 RATIO; MEAN CELL VOLUME 93.5 FL (80.0-100.0); MEAN CORPUSCULAR HEMOGLOBIN 31.5 PG (27.0-34.0); MEAN CORPUSCULAR HGB CONC 33.6 % (32.0-36.0); PLATELET COUNT 129 TH/MM3 (150-450); PROTHROMBIN TIME - PATIENT 27.7 SEC (9.8-11.6); RED BLOOD COUNT 3.82 MIL/MM3 (4.50-5.90); RED CELL DISTRIBUTION WIDTH 15.4 % (11.6-17.2); WHITE BLOOD COUNT 16.1 TH/MM3 (4.0-11.0)
[2017-02-03 06:10] LABS: HEMO FLAGS AUTO DIFF
[2017-02-03] MEDS: INSULIN ASPART SUPPLEMENTAL SCALE SQ SCH ×4 (06:37→21:00)
[2017-02-03 06:44] LABS: BANDS 1 % (0-6); BASOPHILS 1 % (0-2); CORRECTED NUCLEATED RBC 1 /100 WBC (0-0); EOSINOPHILS 1 % (0-4); NEUTROPHIL # MANUAL DIFF 6.3 TH/MM3 (1.8-7.7); PLASMA CELLS 1 % (0-0); POLYS (SEG NEUTROPHILS) 38 % (16-70); WBC DIFF SAMPLE 100
[2017-02-03 06:46] LABS: PLATELET ESTIMATE SMEAR LOW (NORMAL); PLATELET MORPHOLOGY NORMAL (NORMAL); SCAN/DIFF FINAL DIFF MANUAL
--- NOTE | 2017-02-03 08:08 | HHI.NPPN ---
Subjective General Problems: Anemia, Edema, Hypotension Renal Failure: Chronic, End Stage Renal Disease Interval History He is sitting on a chair. Wondering why he is still in the hospital. He has now developed diarrhea. ID following. GI on the case. CMV and EBV positive. Review of Systems General Constitutional: Fever, Fatigue Cardiovascular Cardiac: Edema Gastrointestinal Gastrointestinal: Diarrhea Musculoskeletal MS: Pain/Stiffness MS Remarks left arm Objective Data Data 02/02/17 02/03/17 19:00 07:00 Intake Total 1080 ml Output Total 300 ml Balance 780 ml Intake Oral 1080 ml Output Urine Total 0 ml Stool Total 300 ml # Voids 3 2 # Bowel Movements 4 3 Vital Signs Date Time Temp Pulse Resp B/P Pulse Ox O2 Delivery O2 Flow Rate FiO2 02/03/17 06:00 102 02/03/17 05:00 98 02/03/17 04:00 90 02/03/17 03:00 98.2 104 16 112/66 95 02/03/17 03:00 96 02/03/17 02:00 90 02/03/17 01:00 98 02/03/17 00:00 98.6 110 16 109/68 95 02/03/17 00:00 103 02/02/17 23:00 104 02/02/17 22:00 101 02/02/17 21:00 155 02/02/17 20:00 147 02/02/17 19:00 98.7 147 20 127/67 93 02/02/17 19:00 112 02/02/17 18:01 128 02/02/17 17:30 98.2 105 18 101/57 94 02/02/17 17:00 119 02/02/17 12:01 102 02/02/17 11:06 98.0 97 20 92/52 94 02/02/17 11:05 98 02/02/17 10:00 108 02/02/17 09:00 116 02/02/17 08:15 98.1 92 18 120/59 98 -: 02/03/17 0510 02/03/17 0510 Physical Exam General Appearance: Well Developed, Well Nourished, No Acute Distress, Comfortable Throat Throat Exam: Oral Mucosa Jolley & Moist Neck Neck Exam: Neck Supple Pulmonary Resp Exam: Clear Bilaterally, Breath Sounds Equal Cardiology CV Exam: Good Perfusion, Irregular, Tachycardia Gastrointestinal/Abdomen GI Exam: Soft, Non-Tender, Bowel Sounds Present Musculoskeletal MS Exam: Joints Intact, Normal Gait Integumentary Skin Exam: Warm, Dry Extremeties Extremities Exam: Pedal Pulses Palpable, Trace Edema Neurologic Neuro Exam: Alert, Awake, Oriented, Speech Clear, Moving All Extremities Psychiatric Psych Exam: Appropriate Responses Assessment/Plan Discussed Condition With: Patient Assessment Summary: Anemia of CKD, Hypotension, End Stage Renal Disease Problem List: (1) ESRD (end stage renal disease) Plan: Hemodialysis will be continued MWF. has access left arm that functions well no electrolyte concerns phosphorus acceptable, Renvela on hold if he is discharged early today he can resume outpatient HD arrangements this evening, he goes around 5pm ; he is preferring outpatient HD (2) CHF (congestive heart failure) Plan: now on digoxin, monitor volume status, adjust UF with dialysis (3) Atrial fibrillation Plan: heart rate improved, on digoxin; also on Lopressor INR is now therapeutic. (4) Fever Plan: Persisting but stable leukocytosis. Cultures are negative. Now with diarrhea. Rule out C.diff colitis. CMV positive, significance is not known. GI consulted. ID on the case. (5) Anemia of renal disease Plan: Hemoglobin is acceptable. Epogen as needed per protocol with dialysis. Problem Qualifiers (1) Atrial fibrillation: Qualified Code: I48.2 - Chronic atrial fibrillation Prashant Richardson MD Feb 03, 2017 08:08
--- NOTE | 2017-02-03 08:33 | HHI.FPPN ---
Subjective Remarks Reports doing well overnight. Dry mouth and lips. Some pain around inguinal fold with movement, feels sore. Also complaining of pain around rectum. Had bloody BM yesterday and blood when whipping today. Also having excessive flatulence today. Denies F C CP or SOB. Objective Vitals Vital Signs Date Time Temp Pulse Resp B/P Pulse Ox O2 Delivery O2 Flow Rate FiO2 02/03/17 06:00 102 02/03/17 05:00 98 02/03/17 04:00 90 02/03/17 03:00 98.2 104 16 112/66 95 02/03/17 03:00 96 02/03/17 02:00 90 02/03/17 01:00 98 02/03/17 00:00 98.6 110 16 109/68 95 02/03/17 00:00 103 02/02/17 23:00 104 02/02/17 22:00 101 02/02/17 21:00 155 02/02/17 20:00 147 02/02/17 19:00 98.7 147 20 127/67 93 02/02/17 19:00 112 02/02/17 18:01 128 02/02/17 17:30 98.2 105 18 101/57 94 02/02/17 17:00 119 02/02/17 12:01 102 02/02/17 11:06 98.0 97 20 92/52 94 02/02/17 11:05 98 02/02/17 10:00 108 02/02/17 09:00 116 I/O 02/02/17 02/02/17 02/02/17 02/03/17 02/03/17 02/03/17 07:00 15:00 23:00 07:00 15:00 23:00 Intake Total 240 ml 720 ml 360 ml Output Total 0 ml 300 ml Balance 240 ml 420 ml 360 ml Intake Oral 240 ml 720 ml 360 ml IV Total 0 ml Output Urine Total 0 ml 0 ml Stool Total 300 ml # Voids 3 0 2 # Bowel Movements 0 4 2 1 Result Diagram: 02/03/1750902/03/17509 Objective Remarks GENERAL: Well-nourished elderly male. Sitting up in a recliner chair. Appear to be in acute distress. SKIN: Warm and dry. Skin is thin and scattered bruising noted. The left posterior extremity is notable for approximately 1 cm skin abrasion with slow bleeding on the posterior medial calf and posterior foot. Lower extremities erythematous to chins. Erythematous intertriginous areas. HEAD: Atraumatic. Normocephalic. EYES: Pupils equal and round. No scleral icterus. No injection or drainage. ENT: No nasal bleeding or discharge. Mucous membranes pink and moist. NECK: Trachea midline. No JVD. CARDIOVASCULAR: Irregular rhythm approximately 90. Faint 2/6 RAMY at left sternal border. AV fistula on left arm. RESPIRATORY: No accessory muscle use. Clear to auscultation without evidence of crackles or wheezing. Breath sounds equal bilaterally. GASTROINTESTINAL: Abdomen soft, non-tender, nondistended. Hepatic and splenic margins not palpable. MUSCULOSKELETAL: Joints are not tender to palpation. No cyanosis, or edema. Right great toe is dressed, without active bleeding or signs of infection. Distal toes show decreased sensation but no discoloration. Pulses are 1+ in the upper and lower extremities bilaterally. The lower extremities bilaterally are nontender to palpation. Joints are normal in appearance without tenderness or swelling. He has limited range of motion of the right upper and lower extremity due to pain. Passive range of motion is normal, without pain noted in the shoulders, elbows, hips, knees, ankles. He is noted to have 2+ edema to the knee worse in the feet and ankle. NEUROLOGICAL: Awake and alert. No obvious cranial nerve deficits. Motor grossly within normal limits. Normal speech. PSYCHIATRIC: Alert and oriented. Appropriate mood and affect; insight and judgment normal. Procedures Dialysis MWF A/P Assessment and Plan Mr. Rowe is a pleasant 71-year-old male, with a past medical history of type 2 diabetes, atrial fibrillation on Coumadin, end-stage renal disease on dialysis, MRSA infection on his posterior neck, liver cirrhosis, presenting to the [place] emergency department with 1 week of general lethargy, confusion, decreased appetite, and subjective fevers and chills. CT of the head showed no acute changes, chest x-ray was benign, and he is not producing urine. Discharge Planning Cardiology consult placed on 01/29 persistent hypotension and A. fib, CHF. Discharge was held due to increasing leukocytosis, INR 4.4, creatinine 10.5 on . Further workup including blood cultures have been negative and he has remained afebrile off of ABX. Problem List: (1) Fever of unknown origin Status: Acute Plan: Initially, sepsis resolved. Source not identified on clinical exam. Initial potential sources were bacteremia and skin infection, not found on labs or clinical exam. Afebrile x 24 hours off of antibiotics and cultures have been negative for 3 days. Plan as follows: -ABD/PELVIS CT with Oral Contrast 02/01: Left sided atelectasis changes with adjacent parenchymal density possibly representing an early infiltrate. A follow-up chest x-ray was negative for any consolidations. -Blood cultures reordered 01/30 (negative x 3 days). -Peripheral smear showed monocytosis unspecific for any malignancy, inflammatory process, or infection. -Infectious disease recommended stopping antibiotics at this time. His WBC decreased from 19.5-->16.2, while off antibiotics. His leukocytosis, more specifically monocytosis, is likely chronic. -ESR noted to be elevated at 56, CK wnl, lactate 2.0 -AST increasing, isolated as ALT normal. Bili slightly elevated at 1.1. IgM and IgG EBV antibodies positive. May represent reactivation. -Culture from right foot negative, s/p nail removal, no abscess or evidence of infection on exam. -Check CMV DNA in the blood, will check for C. difficile given diarrhea, we will also consult gastroenterology, who have ordered stool studies and stopped stool softeners. (2) Right arm pain Status: Acute Plan: Resolved. -X-ray right elbow was insignificant (3) Atrial fibrillation Status: Acute Plan: Heart rate was irregular on admission exam, at 100 bpm. HR occ 105 on exam. Coumadin was held on 01/30 given supra-therapeutic INR. Continue monitoring. Coumadin consult placed with pharmacy. Home metoprolol was 25 mg PO BID was restarted per cardiology. Hold parameters ( HR <60, systolic < 100). Digoxin ordered, renally dosed to q 48. Check level in 1-2 days. (4) End stage renal disease Status: Acute Plan: Creatinine on admission was 9.19. Improved after dialysis. -Consulted nephrology, appreciate their assistance. -Scheduled for hemodialysis MWF -Avoid nephrotoxic agents. (5) CHF (congestive heart failure) Status: Acute Plan: EF 30% per echo this hospital stay. Asymptomatic. -Cardiology consult placed 01/29 given A. fib and hypotension. -Follow up with measurement coordinator (Dr. Chiang) within one week (6) Avulsion of toenail of right foot Status: Acute Plan: Podiatry was consulted on 01/25, operative right toenail avulsion was performed at that time. Not obvious source of infection per podiatry (7) Diabetes mellitus Status: Acute Plan: Novolog Sliding Slide scale. Not requiring much sliding scale insulin. A1C 7.2 (8) Liver cirrhosis Status: Chronic Plan: AST mildly elevated and trending upward. Repeat CMV. Hep B panel negative for signs of infection. ALT within normal limits. Negative Physical exam. CT abd showed no hepatic pathology. (9) Fluids/Electrolytes/Nutrition/Prophylaxis Status: Acute Plan: Fluids: d/c fluids, HD MWF. Electrolytes: Grossly within normal limits except for elevated BUN and creatinine. Corrected calcium has been low. On Ca2+Carbonate 500 mg daily. We' ll continue to monitor and replete as needed Nutrition: Diabetic diet. DVT prophylaxis: On Coumadin at home, 5 mg daily. Held due to rectal bleeding. INR 2.4 on 02/03. wdw Dr. Sanon. Problem Qualifiers (1) Atrial fibrillation: Qualified Code: I48.2 - Chronic atrial fibrillation Kleber Finn MD R2 Feb 03, 2017 08:33
[2017-02-03] MEDS: MIDODRINE 5 MG TAB PO SCH ×3 (08:55→18:10)
[2017-02-03] MEDS: METOPROLOL TARTRATE 25 MG TAB PO SCH ×3 (08:55→22:22)
[2017-02-03] MEDS: CALCIUM CARBONATE 1.25 GM (CA 500 MG) TAB PO SCH (08:56)
[2017-02-03 12:38] LABS: ALKALINE PHOSPHATASE 125 U/L (45-117); ALT (GPT) 23 U/L (12-78); ANION GAP 10 MEQ/L (5-15); AST (GOT) 102 U/L (15-37); BLOOD UREA NITROGEN 35 MG/DL (7-18); CHLORIDE 95 MEQ/L (98-107); GLOMERULAR FILTRATION RATE 6 ML/MIN (>89); POTASSIUM 4.2 MEQ/L (3.5-5.1); SODIUM (NA) 137 MEQ/L (136-145); TOTAL BILIRUBIN ADULT 0.9 MG/DL (0.2-1.0)
--- NOTE | 2017-02-03 16:19 | HHI.GIFU ---
Subjective Remarks Resting in bed. C/O oral and throat pain. No n/v. No further diarrhea. Still refusing egd/colonoscopy. (Arianne Gomes) Objective Vitals I&O Vital Signs Date Time Temp Pulse Resp B/P Pulse Ox O2 Delivery O2 Flow Rate FiO2 02/03/17 12:43 98.0 90 16 103/52 97 02/03/17 11:00 98 02/03/17 10:00 98 02/03/17 09:00 90 02/03/17 08:57 98.2 87 13 102/50 96 02/03/17 08:00 106 02/03/17 06:00 102 02/03/17 05:00 98 02/03/17 04:00 90 02/03/17 03:00 98.2 104 16 112/66 95 02/03/17 03:00 96 02/03/17 02:00 90 02/03/17 01:00 98 02/03/17 00:00 98.6 110 16 109/68 95 02/03/17 00:00 103 02/02/17 23:00 104 02/02/17 22:00 101 02/02/17 21:00 155 02/02/17 20:00 147 02/02/17 19:00 98.7 147 20 127/67 93 02/02/17 19:00 112 02/02/17 18:01 128 02/02/17 17:30 98.2 105 18 101/57 94 02/02/17 17:00 119 I/O 02/02/17 02/02/17 02/02/17 02/03/17 02/03/17 02/03/17 07:00 15:00 23:00 07:00 15:00 23:00 Intake Total 240 ml 720 ml 360 ml 360 ml Output Total 0 ml 300 ml Balance 240 ml 420 ml 360 ml 360 ml Intake Oral 240 ml 720 ml 360 ml 360 ml IV Total 0 ml Output Urine Total 0 ml 0 ml Stool Total 300 ml # Voids 3 0 2 1 # Bowel Movements 0 4 2 1 Laboratory Laboratory Tests Test 02/03/17 02/03/17 05:10 11:40 White Blood Count 16.1 Red Blood Count 3.82 Hemoglobin 12.0 Hematocrit 35.7 Mean Corpuscular Volume 93.5 Mean Corpuscular Hemoglobin 31.5 Mean Corpuscular Hemoglobin 33.6 Concent Red Cell Distribution Width 15.4 Platelet Count 129 Mean Platelet Volume 9.8 Neutrophils (%) (Auto) Lymphocytes (%) (Auto) Monocytes (%) (Auto) Eosinophils (%) (Auto) Basophils (%) (Auto) Neutrophils # (Auto) Lymphocytes # (Auto) Monocytes # (Auto) Eosinophils # (Auto) Basophils # (Auto) CBC Comment AUTO DIFF Differential Total Cells 100 Counted Neutrophils % (Manual) 38 Band Neutrophils % 1 Lymphocytes % 44 Monocytes % 14 Eosinophils % 1 Basophils % 1 Neutrophils # (Manual) 6.3 Nucleated Red Blood Cells 1 Differential Comment FINAL DIFF MANUAL Plasma Cells 1 Platelet Estimate LOW Platelet Morphology Comment NORMAL Prothrombin Time 27.7 Prothromb Time International 2.4 Ratio Sodium Level 139 137 Potassium Level 4.4 4.2 Chloride Level 97 95 Carbon Dioxide Level 31.4 32.0 Anion Gap 11 10 Blood Urea Nitrogen 33 35 Creatinine 8.60 9.06 Estimat Glomerular Filtration 6 6 Rate Random Glucose 91 124 Calcium Level 7.8 7.6 Total Bilirubin 0.9 Aspartate Amino Transf 102 (AST/SGOT) Alanine Aminotransferase 23 (ALT/SGPT) Alkaline Phosphatase 125 Total Protein 6.3 Albumin 2.1 HIV (1&2) Antibody NEGATIVE Date/Time Procedure Status Source Growth 01/30/17 12:25 Aerobic Blood Culture - Preliminary Resulted Blood Peripheral NO GROWTH IN 4 DAYS 01/30/17 12:25 Anaerobic Blood Culture - Preliminary Resulted Blood Peripheral NO GROWTH IN 4 DAYS Imaging Last Impressions Gall Bladder Ultrasound 02/01/17 0000 Signed Impressions: Service Date/Time: Wednesday, February 01, 2017 09:01 - CONCLUSION: 1. Atrophic changes in the right kidney with multiple cortical cysts. 2. Echogenic foci in the region of the collecting system are characteristic of nonobstructing stones or vascular calcifications. 3. Small amount of sludge in the gallbladder neck. No stones, mural thickening or pericholecystic fluid. Robin Reed MD Chest X-Ray 02/01/17 0000 Signed Impressions: Service Date/Time: Wednesday, February 01, 2017 12:07 - CONCLUSION: 1. Mild cardiomegaly. 2. No acute focal pulmonary infiltrate or pulmonary vascular congestion. 3. Degenerative changes involving the thoracic spine. Mike Arriaga MD Abdomen/Pelvis CT 02/01/17 0000 Signed Impressions: Service Date/Time: Wednesday, February 01, 2017 08:10 - CONCLUSION: 1. Left-sided atelectatic changes with adjacent parenchymal density possibly representing early infiltrate. This could be the source of the patient's fever. 2. Benign-appearing diaphragmatic calcification on the right. 3. Both kidneys are atrophic with cortical thinning and bilateral renal cortical cysts. 4. Urinary bladder is decompressed with some relatively high density fluid centrally possibly representing dehydrated urine associated with chronic renal insufficiency. 5. 3 cm periumbilical hernia which only contains fat Robin Reed MD Elbow X-Ray 01/31/17 0000 Signed Impressions: Service Date/Time: Tuesday, January 31, 2017 07:45 - CONCLUSION: 1. Small olecranon spur with bony eburnation at the bicipital tuberosity of the proximal radius. These are both chronic and overtly benign. 2. No acute fracture or effusion. 3. Atherosclerotic calcification of the regional vasculature. Robin Reed MD Head CT 01/24/17 1025 Signed Impressions: Service Date/Time: Tuesday, January 24, 2017 11:06 - CONCLUSION: No acute disease. No significant change has occurred. No evidence of acute infarct, hemorrhage, mass or edema. Ba Uribe MD Physical Exam HEENT: Normocephalic; atraumatic; no jaundice. CHEST: CTA CARDIAC: Irregular ABDOMEN: Soft, nondistended, nontender; no hepatosplenomegaly; bowel sounds are present in all four quadrants. EXTREMITIES: trace edema ble, worse lle SKIN: Normal; no rash; no jaundice. STAY CUTTER: No focal deficits; alert and oriented times three (Arianne Gomes [facility]) Assessment and Plan Plan ASSESSMENT: - Diarrhea. States he started having liquid stools after being started on a stool softener. He was only having one episode per day up until today. He has had 5 episodes today. He denies mucus or visible blood. He denies any other GI symptoms. Stool studies have not been done. He has a known EBV and CMV infection and is being followed by ID. GI was consulted for evaluation for possible CMV colitis. Abdomen/Pelvis CT (02/01/17)---> 1. Left-sided atelectatic changes with adjacent parenchymal density possibly representing early infiltrate. This could be the source of the patient's fever. 2. Benign-appearing diaphragmatic calcification on the right. 3. Both kidneys are atrophic with cortical thinning and bilateral renal cortical cysts. 4. Urinary bladder is decompressed with some relatively high density fluid centrally possibly representing dehydrated urine associated with chronic renal insufficiency. 5. 3 cm periumbilical hernia which only contains faPatient had a colonoscopy about 2 years ago. He cannot recall who did this. Discussed with patient further evaluation with colonoscopy to evaluate for possible CMV colitis. No further diarrhea. Refusing EGD/Colonoscopy. - Oral/Throat pain. Oral cavity appears extremely dry. - Elevated LFTs. Pt is (+) EBV, CMV. Gall Bladder Ultrasound (02/01/17) 1. Atrophic changes in the right kidney with multiple cortical cysts. 2. Echogenic foci in the region of the collecting system are characteristic of nonobstructing stones or vascular calcifications. 3. Small amount of sludge in the gallbladder neck. No stones, mural thickening or pericholecystic fluid. Pt also has known liver cirrhosis secondary to fatty liver disease. - Leukocytosis, monocytosis with (+) EBV, CMV per ID. - ESRD, HD per renal - DM, Afib, CHF, KEVON per primary. Coumadin on hold for elevated INR. PLAN: - CLAUDINE - Mouth moisturizer to oral cavity - CDiff, Giardia, Cryptosporidia, Cyclospora, O&P, WBC, Enteric pathogens- not sent as he has not had any further diarrhea. - Monitor labs - Hold colace - Pt refuses egd/colonoscopy - Supportive care - Further recommendations to follow based on results of above - Pt seen and examined by Dr. Ren and myself and this note is written on her behalf (Arianne Gomes) Physician Comments agree (Negrita Ren MD) Arianne Gomes Feb 03, 2017 16:19 Negrita Ren MD Feb 03, 2017 16:57
[2017-02-03] MEDS: WARFARIN SOD 4 MG TAB PO SCH (18:10)
[2017-02-04] VITALS (24 sets, daily range): BP systolic 82–107; BP diastolic 63–74; PULSE 80–113; RESP 18–20; TEMP 97.4–98; O2SAT 96–99
[2017-02-04] MEDS: MIDODRINE 5 MG TAB PO SCH ×3 (05:20→16:51)
[2017-02-04 06:45] LABS: HEMATOCRIT 34.9 % (39.0-51.0); MEAN CORPUSCULAR HEMOGLOBIN 30.7 PG (27.0-34.0); MEAN CORPUSCULAR HGB CONC 32.7 % (32.0-36.0); PLATELET COUNT 107 TH/MM3 (150-450); RED BLOOD COUNT 3.71 MIL/MM3 (4.50-5.90); RED CELL DISTRIBUTION WIDTH 15.6 % (11.6-17.2); WHITE BLOOD COUNT 17.7 TH/MM3 (4.0-11.0)
[2017-02-04 06:46] LABS: APTT (PATIENT) 49.1 SEC (24.3-30.1); PROTHROMBIN TIME - PATIENT 24.6 SEC (9.8-11.6)
[2017-02-04 06:47] LABS: INTERNATIONAL NORMALIZED RATIO 2.2 RATIO
[2017-02-04 06:55] LABS: HEMO FLAGS AUTO DIFF
[2017-02-04] MEDS: INSULIN ASPART SUPPLEMENTAL SCALE SQ SCH ×4 (07:00→20:42)
[2017-02-04 07:20] LABS: ALKALINE PHOSPHATASE 154 U/L (45-117); ALT (GPT) 23 U/L (12-78); ANION GAP 11 MEQ/L (5-15); AST (GOT) 103 U/L (15-37); BICARBONATE 30.8 MEQ/L (21.0-32.0); BLOOD UREA NITROGEN 45 MG/DL (7-18); CHLORIDE 93 MEQ/L (98-107); GLOMERULAR FILTRATION RATE 5 ML/MIN (>89); POTASSIUM 4.4 MEQ/L (3.5-5.1); SODIUM (NA) 135 MEQ/L (136-145); TOTAL BILIRUBIN ADULT 0.9 MG/DL (0.2-1.0)
[2017-02-04 08:15] LABS: BANDS 1 % (0-6); EOSINOPHILS 1 % (0-4); METAMYELOCYTES 1 % (0-1); NEUTROPHIL # MANUAL DIFF 5.5 TH/MM3 (1.8-7.7); POLYS (SEG NEUTROPHILS) 29 % (16-70); WBC DIFF SAMPLE 100
[2017-02-04 08:17] LABS: PLATELET ESTIMATE SMEAR LOW (NORMAL); PLATELET MORPHOLOGY NORMAL (NORMAL); SCAN/DIFF FINAL DIFF MANUAL
[2017-02-04] MEDS: DIGOXIN 0.125 MG TAB PO SCH (08:24)
[2017-02-04] MEDS: METOPROLOL TARTRATE 25 MG TAB PO SCH ×3 (08:25→20:34)
[2017-02-04] MEDS: CALCIUM CARBONATE 1.25 GM (CA 500 MG) TAB PO SCH (08:25)
--- NOTE | 2017-02-04 09:24 | HHI.NPPN ---
Subjective General Problems: Anemia, Edema, Hypotension Renal Failure: Chronic, End Stage Renal Disease Interval History Sitting up in chair. No further diarrhea or rectal bleeding. (Eileen Salgado) Review of Systems General Constitutional: Fever, Fatigue (Eileen Salgado) Cardiovascular Cardiac: Edema (Eileen Salgado) Gastrointestinal Gastrointestinal: Diarrhea, Blood/Tarry Stools (Eileen Salgado) Objective Data Data 02/03/17 02/04/17 18:59 06:59 Intake Total 360 ml 240 ml Balance 360 ml 240 ml Intake Oral 360 ml 240 ml # Voids 1 0 Vital Signs Date Time Temp Pulse Resp B/P Pulse Ox O2 Delivery O2 Flow Rate FiO2 02/04/17 06:00 88 02/04/17 05:00 88 02/04/17 04:09 100 02/04/17 04:00 98.0 84 18 82/65 98 02/04/17 03:00 82 02/04/17 03:00 90 02/04/17 02:00 90 02/04/17 01:00 92 02/04/17 00:00 98.0 100 18 106/74 98 02/04/17 00:00 94 02/03/17 23:00 102 02/03/17 22:00 98 02/03/17 21:00 102 02/03/17 20:00 98.0 87 16 104/59 98 02/03/17 20:00 106 02/03/17 19:00 122 02/03/17 18:00 96 02/03/17 17:00 100 02/03/17 16:00 98 02/03/17 15:00 100 02/03/17 14:00 106 02/03/17 14:00 98.7 104 16 103/60 98 02/03/17 13:00 98 02/03/17 12:43 98.0 90 16 103/52 97 02/03/17 12:00 90 02/03/17 11:00 98 02/03/17 10:00 98 (Eileen Salgado) -: 02/04/17 0603 02/04/17 0603 Imaging Last Impressions Gall Bladder Ultrasound 02/01/17 0000 Signed Impressions: Service Date/Time: Wednesday, February 01, 2017 09:01 - CONCLUSION: 1. Atrophic changes in the right kidney with multiple cortical cysts. 2. Echogenic foci in the region of the collecting system are characteristic of nonobstructing stones or vascular calcifications. 3. Small amount of sludge in the gallbladder neck. No stones, mural thickening or pericholecystic fluid. Robin Reed MD Chest X-Ray 02/01/17 0000 Signed Impressions: Service Date/Time: Wednesday, February 01, 2017 12:07 - CONCLUSION: 1. Mild cardiomegaly. 2. No acute focal pulmonary infiltrate or pulmonary vascular congestion. 3. Degenerative changes involving the thoracic spine. Mike Arriaga MD Abdomen/Pelvis CT 02/01/17 0000 Signed Impressions: Service Date/Time: Wednesday, February 01, 2017 08:10 - CONCLUSION: 1. Left-sided atelectatic changes with adjacent parenchymal density possibly representing early infiltrate. This could be the source of the patient's fever. 2. Benign-appearing diaphragmatic calcification on the right. 3. Both kidneys are atrophic with cortical thinning and bilateral renal cortical cysts. 4. Urinary bladder is decompressed with some relatively high density fluid centrally possibly representing dehydrated urine associated with chronic renal insufficiency. 5. 3 cm periumbilical hernia which only contains fat Robin Reed MD Elbow X-Ray 01/31/17 0000 Signed Impressions: Service Date/Time: Tuesday, January 31, 2017 07:45 - CONCLUSION: 1. Small olecranon spur with bony eburnation at the bicipital tuberosity of the proximal radius. These are both chronic and overtly benign. 2. No acute fracture or effusion. 3. Atherosclerotic calcification of the regional vasculature. Robin Reed MD Head CT 01/24/17 1025 Signed Impressions: Service Date/Time: Tuesday, January 24, 2017 11:06 - CONCLUSION: No acute disease. No significant change has occurred. No evidence of acute infarct, hemorrhage, mass or edema. Ba Uribe MD (Eileen Salgado) Physical Exam General Appearance: Well Developed, Well Nourished, No Acute Distress, Comfortable ( Eileen Salgado) Throat Throat Exam: Oral Mucosa [place] & Moist Throat Remarks poor dentition (Eileen Salgado) Neck Neck Exam: Neck Supple (Eileen Salgado) Pulmonary Resp Exam: Clear Bilaterally, Breath Sounds Equal, No Distress (Eileen Salgado) Cardiology CV Exam: Good Perfusion, Irregular, Tachycardia (Eileen Salgado) Gastrointestinal/Abdomen GI Exam: Soft, Non-Tender, Bowel Sounds Present (Eileen Salgado) Musculoskeletal MS Exam: Joints Intact, Normal Gait, Good Strength (Eileen Salgado) Integumentary Skin Exam: Warm, Dry (Eileen Salgado) Extremeties Extremities Exam: Pedal Pulses Palpable, Trace Edema (Eileen Salgado) Neurologic Neuro Exam: Alert, Awake, Oriented, Speech Clear, Moving All Extremities ( Eileen Salgado) Psychiatric Psych Exam: Appropriate Responses (Eileen Salgado) Assessment/Plan Discussed Condition With: Patient, Spouse Assessment Summary: Anemia of CKD, Hypotension, End Stage Renal Disease Problem List: (1) ESRD (end stage renal disease) Plan: Hemodialysis will be continued MW. He is due today. has access left arm that functions well no electrolyte concerns phosphorus acceptable, Renvela on hold He does nocturnal dialysis at [facility], prefers to go outpatient if discharged early today; chair time around 5pm ; he is preferring outpatient HD (2) CHF (congestive heart failure) Plan: now on digoxin, monitor volume status, adjust UF with dialysis (3) Atrial fibrillation Plan: heart rate improved, on digoxin; also on Lopressor INR is now therapeutic. (4) Fever Plan: Persisting but stable leukocytosis. He is afebrile Cultures are negative. Now with diarrhea. Rule out C.diff colitis. CMV positive, significance is not known. GI consulted but he is refusing colonoscopy ID following (5) Anemia of renal disease Plan: Hemoglobin is acceptable. Epogen as needed per protocol with dialysis. (Eileen Salgado) Plan patient was seen and examined during dialysis. On 3K, 2.5 Ca, UF goal is 3.5 liters. Has some urge to urinate, but nothing comes out. Also complains of dry mouth. Discharge pending ID clearance. He refuses colonoscopy. Agree with above assessment and plan. (Prashant Richardson MD) Problem Qualifiers (1) Atrial fibrillation: Qualified Code: I48.2 - Chronic atrial fibrillation Eileen Salgado Feb 04, 2017 09:24 Prashnat Richardson MD Feb 04, 2017 13:27
--- NOTE | 2017-02-04 10:51 | HHI.FPPN ---
Subjective Remarks Patient was seen and examined this morning. He feels well, denying fever, chills , nausea, vomiting, chest pain, palpitations, shortness of breath, abdominal pain. He states that his stools were bloody this morning but formed. A C. difficile was ordered, and GI has evaluated patient and recommend scope. He states he refused colonoscopy because he he has had bad previous experiences. He understands that the importance of getting a colonoscopy is to assess for colitis. He states he would not even consent to a rectal exam at this point. ( Danii Ellington MD R1) Objective Vitals Vital Signs Date Time Temp Pulse Resp B/P Pulse Ox O2 Delivery O2 Flow Rate FiO2 02/04/17 09:50 94 02/04/17 08:05 87 02/04/17 07:55 97.7 92 18 102/63 96 02/04/17 07:55 81 02/04/17 06:00 88 02/04/17 05:00 88 02/04/17 04:09 100 02/04/17 04:00 98.0 84 18 82/65 98 02/04/17 03:00 82 02/04/17 03:00 90 02/04/17 02:00 90 02/04/17 01:00 92 02/04/17 00:00 98.0 100 18 106/74 98 02/04/17 00:00 94 02/03/17 23:00 102 02/03/17 22:00 98 02/03/17 21:00 102 02/03/17 20:00 98.0 87 16 104/59 98 02/03/17 20:00 106 02/03/17 19:00 122 02/03/17 18:00 96 02/03/17 17:00 100 02/03/17 16:00 98 02/03/17 15:00 100 02/03/17 14:00 106 02/03/17 14:00 98.7 104 16 103/60 98 02/03/17 13:00 98 02/03/17 12:43 98.0 90 16 103/52 97 02/03/17 12:00 90 02/03/17 11:00 98 I/O 02/03/17 02/03/17 02/03/17 02/04/17 02/04/17 02/04/17 06:59 14:59 22:59 06:59 14:59 22:59 Intake Total 360 ml 360 ml 240 ml Balance 360 ml 360 ml 240 ml Intake Oral 360 ml 360 ml 240 ml # Voids 2 1 0 # Bowel Movements 1 (Danii Ellington MD R1) Result Diagram: 02/04/17 0603 02/04/17 0603 Imaging Last Impressions Gall Bladder Ultrasound 02/01/17 0000 Signed Impressions: Service Date/Time: Wednesday, February 01, 2017 09:01 - CONCLUSION: 1. Atrophic changes in the right kidney with multiple cortical cysts. 2. Echogenic foci in the region of the collecting system are characteristic of nonobstructing stones or vascular calcifications. 3. Small amount of sludge in the gallbladder neck. No stones, mural thickening or pericholecystic fluid. Robin Reed MD Chest X-Ray 02/01/17 0000 Signed Impressions: Service Date/Time: Wednesday, February 01, 2017 12:07 - CONCLUSION: 1. Mild cardiomegaly. 2. No acute focal pulmonary infiltrate or pulmonary vascular congestion. 3. Degenerative changes involving the thoracic spine. Mike Arriaga MD Abdomen/Pelvis CT 02/01/17 0000 Signed Impressions: Service Date/Time: Wednesday, February 01, 2017 08:10 - CONCLUSION: 1. Left-sided atelectatic changes with adjacent parenchymal density possibly representing early infiltrate. This could be the source of the patient's fever. 2. Benign-appearing diaphragmatic calcification on the right. 3. Both kidneys are atrophic with cortical thinning and bilateral renal cortical cysts. 4. Urinary bladder is decompressed with some relatively high density fluid centrally possibly representing dehydrated urine associated with chronic renal insufficiency. 5. 3 cm periumbilical hernia which only contains fat Robin Reed MD Elbow X-Ray 01/31/17 0000 Signed Impressions: Service Date/Time: Tuesday, January 31, 2017 07:45 - CONCLUSION: 1. Small olecranon spur with bony eburnation at the bicipital tuberosity of the proximal radius. These are both chronic and overtly benign. 2. No acute fracture or effusion. 3. Atherosclerotic calcification of the regional vasculature. Robin Reed MD Head CT 01/24/17 1025 Signed Impressions: Service Date/Time: Tuesday, January 24, 2017 11:06 - CONCLUSION: No acute disease. No significant change has occurred. No evidence of acute infarct, hemorrhage, mass or edema. Ba Uribe MD Objective Remarks GENERAL: Well-nourished elderly male. Sitting up in a recliner chair. In no acute distress. SKIN: Warm and dry. Skin is thin and scattered bruising noted. Lower extremities erythematous to mid-aguirre HEAD: Atraumatic. Normocephalic. EYES: Pupils equal and round. No scleral icterus. No injection or drainage. ENT: No nasal bleeding or discharge. Mucous membranes pink and moist. NECK: Trachea midline. No JVD. CARDIOVASCULAR: Irregular rhythm approximately 90. Faint 2/6 RAMY at left sternal border. AV fistula on left arm with acute defect. RESPIRATORY: No accessory muscle use. Clear to auscultation without evidence of crackles or wheezing. Breath sounds equal bilaterally. GASTROINTESTINAL: Abdomen soft, non-tender, nondistended. Hepatic and splenic margins not palpable. MUSCULOSKELETAL: Joints are not tender to palpation. No cyanosis, or edema. Distal toes show decreased sensation but no discoloration. Pulses are 1+ in the upper and lower extremities bilaterally. The lower extremities bilaterally are nontender to palpation. Joints are normal in appearance without tenderness or swelling. He has limited range of motion of the right upper and lower extremity due to pain. Passive range of motion is normal, without pain noted in the shoulders, elbows, hips, knees, ankles. 2+ edema in LEs bilaterally. NEUROLOGICAL: Awake and alert. No obvious cranial nerve deficits. Motor grossly within normal limits. Normal speech. PSYCHIATRIC: Alert and oriented. Appropriate mood and affect; insight and judgment normal. Procedures Dialysis MWF Medications and IVs Inpatient Medications Acetaminophen (Tylenol) 650 mg Q4H PRN PO SEE LABEL COMMENTS Last administered on 01/30/17 23:44; Start 01/24/17 at 13:00 Acetaminophen 650 mg 650 mg ONCE ONCE RECTAL Last administered on 01/24/17 10 :47; Start 01/24/17 at 10:30; Stop 01/24/17 at 10:32; Status DC Al Hydrox/Mg Hydrox/ Simethicone 30 ml 30 ml Q6H PRN PO heart burn Last administered on 01/30/17 14:05; Start 01/30/17 at 13:30 Albumin Human (Albumin 25% Inj) 25 gm UNSCH PRN IV WITH DIALYSIS; Start at 11:15 Benzocaine/Menthol (Chloraseptic Maximiliano) 1 lozenge UNSCH PRN BUCCAL THROAT IRRITATION Last administered on 01/27/17 17:31; Start 01/27/17 at 17:00 Calcium Carbonate (Oscal) 500 mg DAILY PO Last administered on 02/04/17 08:25 ; Start 02/03/17 at 09:00 Calcium Carbonate (Tums Chew) 500 mg ONCE ONCE CHEW Last administered on 09:50; Start 01/26/17 at 09:30; Stop 01/26/17 at 09:32; Status DC Calcium Carbonate 500 mg 500 mg DAILY PO ; Start 01/26/17 at 09:30; Stop at 09:35; Status DC Calcium Gluconate/ Sodium Chloride (Calcium Gluconate Inj/NS Inj) 110 ml @ 110 mls/hr ONCE ONCE IV Last administered on 01/26/17 19:24; Start 01/26/17 at 15 :00; Stop 01/26/17 at 15:59; Status DC Clonidine (Catapres) 0.1 mg UNSCH PRN PO for BP > 180/100 X 2 readings; Start 01/24/17 at 11:15 Diatrizoate Meglum/ Diatrizoate Sod ( Gastroview Liq) 18 ml ONCE ONCE PO Last administered on 01/31/17 21:05; Start 01/31/17 at 19:45; Stop 01/31/17 at 19:46; Status DC Digoxin (Lanoxin) 0.125 mg EVERY OTHER DAY PO Last administered on 02/04/17 08:24; Start 01/31/17 at 09:00 Diltiazem HCl (Cardizem Inj) 15 mg NOW ONCE IV Last administered on 02/02/17 22:32; Start 02/02/17 at 22:15; Stop 02/02/17 at 22:16; Status DC Diphenhydramine HCl (Benadryl) 25 mg UNSCH PRN PO for hives/itching/anaphylaxis ; Start 01/24/17 at 11:15 Doxycycline Hyclate (Vibramycin) 100 mg BID PO Last administered on 01/30/17 23:16; Start 01/30/17 at 21:00; Status Hold Epoetin Dawood (Epogen Inj) 5,000 units UNSCH PRN IV WITH DIALYSIS Last administered on 02/02/17 17:03; Start 01/24/17 at 11:15 Gelatin (Gelfoam 12 Mm/7 Mm Top) 1 foam UNSCH PRN TOP SEE LABEL COMMENTS; Start 01/24/17 at 11:15 Gentamicin Sulfate (Gentamicin (Dialysis) Inj) 20 mg UNSCH PRN IV WITH DIALYSIS ; Start 01/24/17 at 11:15 Heparin Sodium (Porcine) (Heparin Inj) 5,000 units Q12HR SQ Last administered on 01/26/17 20:39; Start 01/24/17 at 21:00; Stop 01/27/17 at 15:33; Status DC Hydromorphone HCl (Dilaudid Pf Inj) 1 mg Q4H PRN IV PAIN SCALE 6 TO 10; Start 01/24/17 at 13:00 Insulin Aspart (NovoLOG SUPPLEMENTAL SCALE) 1 ACHS SLIDING SCALE SQ Last administered on 01/31/17 21:05; Start 01/24/17 at 21:00 IV Flush (NS Flush) 2 ml UNSCH PRN IV FLUSH FLUSH AFTER USING IV ACCESS; Start 01/24/17 at 13:00; Stop 01/24/17 at 13:21; Status DC IV Flush 2 ml 2 ml BID IV FLUSH ; Start 01/24/17 at 21:00; Stop 01/24/17 at 21: 00; Status DC Magnesium Sulfate/ Dextrose (Magnesium Sulfate 1 Gm Premix) 100 ml @ 100 mls/ hr ONCE ONCE IV Last administered on 01/27/17 09:27; Start 01/27/17 at 09:00 ; Stop 01/27/17 at 09:59; Status DC Mannitol (Mannitol Inj) 12.5 gm UNSCH PRN IV WITH DIALYSIS; Start 01/24/17 at 11:15 Metoprolol Tartrate (Lopressor) 25 mg Q12HR PO Last administered on 02/03/17 22:22; Start 01/31/17 at 16:45 Metoprolol Tartrate 5 mg 5 mg ONCE IV Last administered on 01/27/17 03:10; Start 01/27/17 at 02:30; Stop 01/28/17 at 02:29; Status DC Midodrine (Proamatine) 5 mg TID@,,17 PO Last administered on 02/04/17 05: 20; Start 02/02/17 at 12:00 Midodrine 10 mg 10 mg TID@,,17 PO Last administered on 02/01/17 16:41; Start 01/31/17 at 12:00; Stop 02/02/17 at 10:57; Status DC Miscellaneous (Pill Splitter) 1 ea UNSCH PRN OTHER SEE LABEL COMMENTS; Start at 16:15 Nitroglycerin (Nitrostat Sl) 0.4 mg UNSCH PRN SL CHEST PAIN; Start 01/24/17 at 11:15 Ondansetron HCl (Zofran Inj) 4 mg UNSCH PRN IV WITH DIALYSIS; Start 01/24/17 at 11:15 Oxycodone/ Acetaminophen (Percocet 5-325 Mg) 1 tab Q4H PRN PO PAIN SCALE 1 TO 5 Last administered on 01/27/17 11:55; Start 01/24/17 at 13:00; Stop 01/27/17 at 16:57; Status DC Patient Medication Teaching (Coumadin Booklet) 1 ONCE ONCE XX ; Start 01/25/17 at 16:00; Stop 01/25/17 at 16:01; Status DC Patient Own Medication PT OWN MED: RENVELA(SEVELAMER)-1 PACKET(2.4 ... TIDAC PO Last administered on 02/04/17 08:00; Start 01/27/17 at 18:00 Pharmacy Profile Note (Coumadin Consult Pharmacy) 0 ml @ 0 mls/hr UNSCH OTHER ; Start 01/31/17 at 10:45 Piperacillin Sod/ Tazobactam Sod 50 ml @ 200 mls/hr Q8H IV Last administered on 01/27/17 09:25; Start 01/24/17 at 17:00; Stop 01/27/17 at 13:00; Status DC Senna/Docusate Sodium (Erin-Colace) 1 tab DAILY PO Last administered on 09:21; Start 01/28/17 at 18:00; Status Hold Sevelamer Carbonate (Renvela) 800 mg TIDAC PO Last administered on 01/27/17 16 :10; Start 01/26/17 at 12:00; Stop 01/27/17 at 17:47; Status DC Sodium Chloride (NS 1000 ml Inj) 1,000 ml @ 125 mls/hr Q8H IV Last administered on 01/25/17 23:44; Start 01/24/17 at 14:00; Stop 01/26/17 at 08:50 ; Status DC Sodium Chloride (NS 500 ml Inj) 500 ml @ 500 mls/hr BOLUS ONCE IV ; Start at 10:30; Stop 01/24/17 at 11:29; Status DC Tramadol HCl (Ultram) 50 mg Q6H PRN PO PAIN Last administered on 01/30/17 23: 16; Start 01/27/17 at 17:00 Vancomycin HCl 1000 mg/Sodium Chloride 260 ml @ 262.5 mls/ hr Q12H IV ; Start 01/25/17 at 01:00; Stop 01/25/17 at 01:00; Status DC Vancomycin HCl/ Sodium Chloride (Vancomycin Inj/ NS 250 ml Inj) 250 ml @ 250 mls/hr ONCE ONCE IV Last administered on 01/24/17 10:45; Start 01/24/17 at 10 :30; Stop 01/24/17 at 11:29; Status DC Vancomycin HCl/ Sodium Chloride (Vancomycin Inj/ NS 500 ml Inj) 515 ml @ 257.5 mls/ hr WITH DIALYSIS IV Last administered on 01/31/17 11:59; Start 01/31/17 at 08:00; Stop 02/01/17 at 15:54; Status DC Warfarin Sodium (Coumadin) 4 mg DAILY@16 PO Last administered on 02/03/17 18: 10; Start 02/03/17 at 16:00 (Danii Ellington MD R1) Urinary Catheter: No (Danii Ellington MD R1) Vascular Central Line Catheter: No (Danii Ellington MD R1) A/P Assessment and Plan Mr. Rowe is a 71-year-old male, with a past medical history of type 2 diabetes, atrial fibrillation on Coumadin, end-stage renal disease on dialysis, MRSA infection on his posterior neck, liver cirrhosis, presented to the [facility] emergency department on 01/24/17 with a one-week history of general lethargy, confusion, decreased appetite, and subjective fevers and chills. He was admitted for work-up of SIRS and AMS. Discharge Planning Discharge was held due to increasing leukocytosis and LFTs. He is now noted to have diarrhea with reportedly bloody stools. Infectious Disease consult was placed and recommended GI evaluation given CMV positive and loose stools. ( Danii Ellington MD R1) Attending Attestation Patient examined and case discussed with resident physician I have read the above note and agree with the assessment/plan as discussed with the I was involved in all medical decision making for this patient Ezio Sanon M.D. (Ezio Sanon MD) Problem List: (1) Fever of unknown origin Status: Acute Plan: Plan as follows: -Infectious disease and GI teams recommend further evaluation of the colon given new symptoms of bloody diarrhea and lab findings suggestive of CMV colitis. He refuses this work-up at this time. Discharge will be held given importance of this work-up as inpatient. - C. difficile collected 02/04 negative given diarrhea - Patient has refused further workup by way of colonoscopy and understands the risks of this refusal. Hospital course: -Initially met SIRS criteria -Initial potential sources were bacteremia and skin infection, not found on labs or clinical exam. -Culture from right foot negative, s/p nail removal, no abscess or evidence of infection on exam. -Source was not definitively identified at admission, however, increasing suspicion for GI source based on interim workup including increasing LFTs, positive serum CMV, persistent leukocytosis, and bloody diarrhea -CT of the head on admission 01/24 showed no acute changes, chest x-ray was benign. He is anuric at baseline given ESRD. -C. difficile is negative -Patient continues to be afebrile Afebrile x 24 hours off of antibiotics and cultures have been negative for 3 days. -Only documented low-grade fevers of 100.1 F on evening of 01/30 and display director 01/31 -CT abdomen/pelvis with Oral Contrast 02/01: Left sided atelectasis changes with adjacent parenchymal density possibly representing an early infiltrate. A follow-up chest x-ray was negative for any consolidations. -Blood cultures 01/24, 01/30 showed no growth (final) -Peripheral smear showed monocytosis unspecific for any malignancy, inflammatory process, or infection. -ESR 01/31 was elevated at 65, nonspecific -Lactic acid on admission 3.1, with repeat 01/31 within normal limits -WBC decreased from 19.5-->16.2, while off antibiotics. -Infectious disease team has followed patient, appreciate recommendations. -AST increased but currently stable at approximately 100, ALT is normal, alkaline phosphatase mildly elevated at 154 today -[place] [id number], repeat 02/03 was 3780. Bili 1.1 normal. IgM and IgG EBV antibodies positive. May represent reactivation. Antibiotic course: Vancomycin 1.5 g IV renally dosed (01/26-01/28, 01/31) Zosyn 4.5g IV x 1 (01/24) 2.25g IV q8hr (01/24-01/27) (2) Atrial fibrillation Status: Chronic Plan: Heart rate was irregular on admission exam, at 100 bpm. Coumadin was held on 01/30 given supra-therapeutic INR. Continue monitoring. Coumadin consult placed with pharmacy. Warfarin restarted at 4 mg daily on 02/03, pharmacy consulted, monitor INR Home metoprolol was 25 mg PO BID was restarted per cardiology. Hold parameters ( HR <60, systolic < 100). Digoxin ordered, 0.125mg renally dosed to q 48. (3) End stage renal disease Status: Acute Plan: Creatinine on admission was 9.19. Gradual increase between dialysis sessions, range 8-11. Patient has not tolerated inpatient dialysis well given he must lie supine and normally sits in recliner at outpatient dialysis. -Consulted nephrology, appreciate their assistance. -Scheduled for hemodialysis MWF -Avoid nephrotoxic agents. -Digoxin and vancomycin (d/c'd 02/02) renally dosed (4) CHF (congestive heart failure) Status: Acute Plan: Echocardiogram 01/25/17: EF 30%. Asymptomatic. -Cardiology consult placed 01/29 given A. fib and hypotension. -Continue medical management to include beta bairon, digoxin -He was not on a statin as outpatient -Follow up with [facility] (Dr. Chiang) within one week of discharge (5) Diabetes mellitus Status: Chronic Plan: Novolog Sliding Slide scale. Not requiring much sliding scale insulin. A1C 7.2 (6) Avulsion of toenail of right foot Status: Resolved Plan: Podiatry was consulted on 01/25, operative right toenail avulsion was performed at that time. Not obvious source of infection per podiatry (7) Liver cirrhosis Status: Chronic Plan: AST mildly elevated and trending upward. Repeat CMV showing downtrend. Hep B panel negative for signs of infection. ALT within normal limits. Negative Physical exam. CT abd showed no hepatic pathology. ID and GI teams recommend colonoscopy as noted above (8) Right arm pain Status: Resolved Plan: Resolved. -X-ray right elbow was insignificant (9) Fluids/Electrolytes/Nutrition/Prophylaxis Status: Acute Plan: Fluids: d/c fluids, HD MWF. Electrolytes: Grossly within normal limits except for elevated BUN and creatinine. Corrected calcium has been low. On Ca2+Carbonate 500 mg daily. We' ll continue to monitor and replete as needed Nutrition: Diabetic diet. DVT prophylaxis: On Coumadin at home, 5 mg daily. INR 2.2 on 02/04. wdw Dr. Sanon. (Danii Ellington MD R1) Problem Qualifiers (1) Atrial fibrillation: Qualified Code: I48.2 - Chronic atrial fibrillation Danii Ellington MD R1 Feb 04, 2017 10:51 Ezio Sanon MD Feb 04, 2017 16:38
[2017-02-04 11:00] LABS: C. DIFF EPI 027 PRESUMPTIVE NEGATIVE (NEGATIVE); C. DIFF TOXIN PCR NEGATIVE (NEGATIVE)
[2017-02-04] MEDS: EPOETIN ALFA 10,000 UNITS/ML VIAL IV PRN (13:22)
--- NOTE | 2017-02-04 14:21 | HHI.IDPN ---
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 Vital Signs Date Time Temp Pulse Resp B/P Pulse Ox O2 Delivery O2 Flow Rate FiO2 02/04/17 14:05 95 02/04/17 13:00 86 02/04/17 12:16 85 02/04/17 11:27 97.4 89 18 104/63 96 02/04/17 11:27 89 02/04/17 10:53 89 02/04/17 09:50 94 02/04/17 08:05 87 02/04/17 07:55 97.7 92 18 102/63 96 02/04/17 07:55 81 02/04/17 06:00 88 02/04/17 05:00 88 02/04/17 04:09 100 02/04/17 04:00 98.0 84 18 82/65 98 02/04/17 03:00 82 02/04/17 03:00 90 02/04/17 02:00 90 02/04/17 01:00 92 02/04/17 00:00 98.0 100 18 106/74 98 02/04/17 00:00 94 02/03/17 23:00 102 02/03/17 22:00 98 02/03/17 21:00 102 02/03/17 20:00 98.0 87 16 104/59 98 02/03/17 20:00 106 02/03/17 19:00 122 02/03/17 18:00 96 02/03/17 17:00 100 02/03/17 16:00 98 02/03/17 15:00 100 02/03/17 02/03/17 02/04/17 15:00 23:00 07:00 Intake Total 360 ml 240 ml Balance 360 ml 240 ml Intake Oral 360 ml 240 ml # Voids 1 0 . Laboratory Tests Test 02/03/17 02/04/17 05:10 06:03 White Blood Count 16.1 TH/MM3 17.7 TH/MM3 Red Blood Count 3.82 MIL/MM3 3.71 MIL/MM3 Hemoglobin 12.0 GM/DL 11.4 GM/DL Hematocrit 35.7 % 34.9 % Mean Corpuscular Volume 93.5 FL 94.0 FL Mean Corpuscular Hemoglobin 31.5 PG 30.7 PG Mean Corpuscular Hemoglobin 33.6 % 32.7 % Concent Red Cell Distribution Width 15.4 % 15.6 % Platelet Count 129 TH/MM3 107 TH/MM3 Mean Platelet Volume 9.8 FL 9.8 FL Neutrophils (%) (Auto) % % Lymphocytes (%) (Auto) % % Monocytes (%) (Auto) % % Eosinophils (%) (Auto) % % Basophils (%) (Auto) % % Neutrophils # (Auto) TH/MM3 TH/MM3 Lymphocytes # (Auto) TH/MM3 TH/MM3 Monocytes # (Auto) TH/MM3 TH/MM3 Eosinophils # (Auto) TH/MM3 TH/MM3 Basophils # (Auto) TH/MM3 TH/MM3 CBC Comment AUTO DIFF AUTO DIFF Differential Total Cells 100 100 Counted Neutrophils % (Manual) 38 % 29 % Band Neutrophils % 1 % 1 % Lymphocytes % 44 % 55 % Monocytes % 14 % 13 % Eosinophils % 1 % 1 % Basophils % 1 % Neutrophils # (Manual) 6.3 TH/MM3 5.5 TH/MM3 Nucleated Red Blood Cells 1 /100 WBC Differential Comment FINAL DIFF FINAL DIFF MANUAL MANUAL Plasma Cells 1 % Platelet Estimate LOW LOW Platelet Morphology Comment NORMAL NORMAL Metamyelocytes 1 % Laboratory Tests Test 02/03/17 02/03/17 02/04/17 05:10 11:40 06:03 Sodium Level 139 MEQ/L 137 MEQ/L 135 MEQ/L Potassium Level 4.4 MEQ/L 4.2 MEQ/L 4.4 MEQ/L Chloride Level 97 MEQ/L 95 MEQ/L 93 MEQ/L Carbon Dioxide Level 31.4 MEQ/L 32.0 MEQ/L 30.8 MEQ/L Anion Gap 11 MEQ/L 10 MEQ/L 11 MEQ/L Blood Urea Nitrogen 33 MG/DL 35 MG/DL 45 MG/DL Creatinine 8.60 MG/DL 9.06 MG/DL 10.11 MG/DL Estimat Glomerular Filtration 6 ML/MIN 6 ML/MIN 5 ML/MIN Rate Random Glucose 91 MG/DL 124 MG/DL 110 MG/DL Calcium Level 7.8 MG/DL 7.6 MG/DL 7.5 MG/DL Total Bilirubin 0.9 MG/DL 0.9 MG/DL Aspartate Amino Transf 102 U/L 103 U/L (AST/SGOT) Alanine Aminotransferase 23 U/L 23 U/L (ALT/SGPT) Alkaline Phosphatase 125 U/L 154 U/L Total Protein 6.3 GM/DL 6.4 GM/DL Albumin 2.1 GM/DL 2.1 GM/DL Microbiology Date/Time Procedure Status Source Growth 02/04/17 07:53 Received Stool Stool Pending 02/04/17 07:53 Cyclospora Exam Received Stool Stool Pending 02/04/17 07:53 Cryptosporidium Exam Received Stool Stool Pending 02/04/17 07:53 Stool Pus (GT) Received Stool Stool Pending 02/04/17 07:53 Giardia Antigen (GT) Received Stool Stool Pending Imaging Last Impressions Gall Bladder Ultrasound 02/01/17 0000 Signed Impressions: Service Date/Time: Wednesday, February 01, 2017 09:01 - CONCLUSION: 1. Atrophic changes in the right kidney with multiple cortical cysts. 2. Echogenic foci in the region of the collecting system are characteristic of nonobstructing stones or vascular calcifications. 3. Small amount of sludge in the gallbladder neck. No stones, mural thickening or pericholecystic fluid. Robin Reed MD Chest X-Ray 02/01/17 0000 Signed Impressions: Service Date/Time: Wednesday, February 01, 2017 12:07 - CONCLUSION: 1. Mild cardiomegaly. 2. No acute focal pulmonary infiltrate or pulmonary vascular congestion. 3. Degenerative changes involving the thoracic spine. Mike Arriaga MD Abdomen/Pelvis CT 02/01/17 0000 Signed Impressions: Service Date/Time: Wednesday, February 01, 2017 08:10 - CONCLUSION: 1. Left-sided atelectatic changes with adjacent parenchymal density possibly representing early infiltrate. This could be the source of the patient's fever. 2. Benign-appearing diaphragmatic calcification on the right. 3. Both kidneys are atrophic with cortical thinning and bilateral renal cortical cysts. 4. Urinary bladder is decompressed with some relatively high density fluid centrally possibly representing dehydrated urine associated with chronic renal insufficiency. 5. 3 cm periumbilical hernia which only contains fat Robin Reed MD Elbow X-Ray 01/31/17 0000 Signed Impressions: Service Date/Time: Tuesday, January 31, 2017 07:45 - CONCLUSION: 1. Small olecranon spur with bony eburnation at the bicipital tuberosity of the proximal radius. These are both chronic and overtly benign. 2. No acute fracture or effusion. 3. Atherosclerotic calcification of the regional vasculature. Robin Reed MD Head CT 01/24/17 1025 Signed Impressions: Service Date/Time: Tuesday, January 24, 2017 11:06 - CONCLUSION: No acute disease. No significant change has occurred. No evidence of acute infarct, hemorrhage, mass or edema. Ba Uribe MD Physical Exam GENERAL: Obese CM patient, in no apparent distress. Chronically ill appearing SKIN: No rashes, ecchymoses or lesions. Cool and dry. HEAD: Atraumatic. Normocephalic. No temporal or scalp tenderness. EYES: Pupils equal round and reactive. Extraocular motions intact. No scleral icterus. No injection or drainage. ENT: oral mucosea dry with few shallow small ulcers on the toungue and erythema on soft palate CARDIOVASCULAR: HS audible. Tachycardic. RESPIRATORY: Clear to auscultation. Breath sounds equal bilaterally. No wheezes , rales, or rhonchi. GASTROINTESTINAL: Abdomen soft, non-tender, nondistended. MUSCULOSKELETAL:AV fistula site with no e.o infection. Bilateral LE some minimal edema no erythema noted chronic hyperpigmentation noted ROM wnl NEUROLOGICAL: Awake and alert. Grossly non focal Psych: cooperative IV line sites with no e.o infection. Assessment & Plan Remarks FUO, persistent leukocytosis with monocytosis - leukocytosis resolving - ANC is WNL today monocytosis is favouring reactive +EBV reactivation profile + CMV viremia - colitis suspected based on clinical pic (diarrhea, blood in the stool) - negative C.diff - refuses colonoiscopy IV negative New onset diarrhea ? CMV colitis Sepsis present on admission - source no apparent Bilateral LE cellulitis: clinically resolved Right great toe with avulsed nail and ? nail bed infection(cellulitis/abscess), paronychia. ESRD on HD using AV fistula. Clinically fistula does not appears to be the source of infection. Recs Essentially pt needs endoscopy for suspected CMV colitis - that dx has to be made via colonoscopy fu repeat CMV load Further tx rec per colonoscopy report Enma Vazquez MD Feb 04, 2017 14:21
[2017-02-04] MEDS ORDERED: PETROLATUM 30 GM TUBE TOPICAL PRN (15:15)
[2017-02-04] MEDS ORDERED: BENZOCAINE 6 MG/MENTHOL 10 MG LOZENGE BUCCAL PRN (15:15)
--- NOTE | 2017-02-04 16:29 | HHI.GIFU ---
Subjective Remarks Pt reports that he did not have any bowel movements yesterday and had one loose stool today with small amount of bright red blood on tissue. No pain. Still refusing procedures. Stool was sent for cultures. (Arianne Gomes) Objective Vitals I&O Vital Signs Date Time Temp Pulse Resp B/P Pulse Ox O2 Delivery O2 Flow Rate FiO2 02/04/17 14:05 95 02/04/17 13:00 86 02/04/17 12:16 85 02/04/17 11:27 97.4 89 18 104/63 96 02/04/17 11:27 89 02/04/17 10:53 89 02/04/17 09:50 94 02/04/17 08:05 87 02/04/17 07:55 97.7 92 18 102/63 96 02/04/17 07:55 81 02/04/17 06:00 88 02/04/17 05:00 88 02/04/17 04:09 100 02/04/17 04:00 98.0 84 18 82/65 98 02/04/17 03:00 82 02/04/17 03:00 90 02/04/17 02:00 90 02/04/17 01:00 92 02/04/17 00:00 98.0 100 18 106/74 98 02/04/17 00:00 94 02/03/17 23:00 102 02/03/17 22:00 98 02/03/17 21:00 102 02/03/17 20:00 98.0 87 16 104/59 98 02/03/17 20:00 106 02/03/17 19:00 122 02/03/17 18:00 96 02/03/17 17:00 100 I/O 02/03/17 02/03/17 02/03/17 02/04/17 02/04/17 02/04/17 07:00 15:00 23:00 07:00 15:00 23:00 Intake Total 360 ml 360 ml 240 ml Output Total 2700 ml Balance 360 ml 360 ml 240 ml -2700 ml Intake Oral 360 ml 360 ml 240 ml Hemodialysis 2700 ml # Voids 2 1 0 # Bowel Movements 1 Laboratory Laboratory Tests Test 02/04/17 02/04/17 06:03 07:53 White Blood Count 17.7 Red Blood Count 3.71 Hemoglobin 11.4 Hematocrit 34.9 Mean Corpuscular Volume 94.0 Mean Corpuscular Hemoglobin 30.7 Mean Corpuscular Hemoglobin 32.7 Concent Red Cell Distribution Width 15.6 Platelet Count 107 Mean Platelet Volume 9.8 Neutrophils (%) (Auto) Lymphocytes (%) (Auto) Monocytes (%) (Auto) Eosinophils (%) (Auto) Basophils (%) (Auto) Neutrophils # (Auto) Lymphocytes # (Auto) Monocytes # (Auto) Eosinophils # (Auto) Basophils # (Auto) CBC Comment AUTO DIFF Differential Total Cells 100 Counted Neutrophils % (Manual) 29 Band Neutrophils % 1 Lymphocytes % 55 Monocytes % 13 Eosinophils % 1 Neutrophils # (Manual) 5.5 Metamyelocytes 1 Differential Comment FINAL DIFF MANUAL Platelet Estimate LOW Platelet Morphology Comment NORMAL Prothrombin Time 24.6 Prothromb Time International 2.2 Ratio Activated Partial 49.1 Thromboplast Time Sodium Level 135 Potassium Level 4.4 Chloride Level 93 Carbon Dioxide Level 30.8 Anion Gap 11 Blood Urea Nitrogen 45 Creatinine 10.11 Estimat Glomerular Filtration 5 Rate Random Glucose 110 Calcium Level 7.5 Total Bilirubin 0.9 Aspartate Amino Transf 103 (AST/SGOT) Alanine Aminotransferase 23 (ALT/SGPT) Alkaline Phosphatase 154 Total Protein 6.4 Albumin 2.1 Stool C. difficile Toxin (PCR) NEGATIVE Stl C. difficile Toxin PRESUMPTIVE Epiderm 027 NEGATIVE Date/Time Procedure Status Source Growth 02/04/17 07:53 Cyclospora Exam - Final Resulted Stool Stool NO CYCLOSPORA SEEN 02/04/17 07:53 Cryptosporidium Exam Resulted Stool Stool Pending 02/04/17 07:53 Stool Pus (GT) - Final Resulted Stool Stool RARE WBC 02/04/17 07:53 Giardia Antigen (GT) Resulted Stool Stool Pending 02/04/17 07:53 - Final Complete Stool Stool NO ENTERIC PATHOGENS DETECTED BY PCR... Imaging Last Impressions Gall Bladder Ultrasound 02/01/17 0000 Signed Impressions: Service Date/Time: Wednesday, February 01, 2017 09:01 - CONCLUSION: 1. Atrophic changes in the right kidney with multiple cortical cysts. 2. Echogenic foci in the region of the collecting system are characteristic of nonobstructing stones or vascular calcifications. 3. Small amount of sludge in the gallbladder neck. No stones, mural thickening or pericholecystic fluid. Robin Reed MD Chest X-Ray 02/01/17 0000 Signed Impressions: Service Date/Time: Wednesday, February 01, 2017 12:07 - CONCLUSION: 1. Mild cardiomegaly. 2. No acute focal pulmonary infiltrate or pulmonary vascular congestion. 3. Degenerative changes involving the thoracic spine. Mike Arriaga MD Abdomen/Pelvis CT 02/01/17 0000 Signed Impressions: Service Date/Time: Wednesday, February 01, 2017 08:10 - CONCLUSION: 1. Left-sided atelectatic changes with adjacent parenchymal density possibly representing early infiltrate. This could be the source of the patient's fever. 2. Benign-appearing diaphragmatic calcification on the right. 3. Both kidneys are atrophic with cortical thinning and bilateral renal cortical cysts. 4. Urinary bladder is decompressed with some relatively high density fluid centrally possibly representing dehydrated urine associated with chronic renal insufficiency. 5. 3 cm periumbilical hernia which only contains fat Robin Reed MD Elbow X-Ray 01/31/17 0000 Signed Impressions: Service Date/Time: Tuesday, January 31, 2017 07:45 - CONCLUSION: 1. Small olecranon spur with bony eburnation at the bicipital tuberosity of the proximal radius. These are both chronic and overtly benign. 2. No acute fracture or effusion. 3. Atherosclerotic calcification of the regional vasculature. Robin Reed MD Head CT 01/24/17 1025 Signed Impressions: Service Date/Time: Tuesday, January 24, 2017 11:06 - CONCLUSION: No acute disease. No significant change has occurred. No evidence of acute infarct, hemorrhage, mass or edema. Ba Uribe MD Physical Exam HEENT: Normocephalic; atraumatic; no jaundice. CHEST: CTA CARDIAC: Irregular ABDOMEN: Soft, nondistended, nontender; no hepatosplenomegaly; bowel sounds are present in all four quadrants. EXTREMITIES: trace edema ble, worse lle SKIN: Normal; no rash; no jaundice. 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 States he started having liquid stools after being started on a stool softener. He was only having one episode per day up until today. He has had 5 episodes today. He denies mucus or visible blood. He denies any other GI symptoms. Stool studies have not been done. He has a known EBV and CMV infection and is being followed by ID. GI was consulted for evaluation for possible CMV colitis. Abdomen/Pelvis CT (02/01/17)---> 1. Left-sided atelectatic changes with adjacent parenchymal density possibly representing early infiltrate. This could be the source of the patient's fever. 2. Benign-appearing diaphragmatic calcification on the right. 3. Both kidneys are atrophic with cortical thinning and bilateral renal cortical cysts. 4. Urinary bladder is decompressed with some relatively high density fluid centrally possibly representing dehydrated urine associated with chronic renal insufficiency. 5. 3 cm periumbilical hernia which only contains faPatient had a colonoscopy about 2 years ago. He cannot recall who did this. Discussed with patient further evaluation with colonoscopy to evaluate for possible CMV colitis. No further diarrhea. Refusing EGD/Colonoscopy. Per emr, 7 stools were documented, but patient denies this and states he did not have a bowel movement yesterday and only one today- with small amount bright red blood on tissue. this was confirmed by nurse. Stool studies are pending. - Oral/Throat pain. Oral cavity appears extremely dry. - Elevated LFTs. Pt is (+) EBV, CMV. Gall Bladder Ultrasound (02/01/17) 1. Atrophic changes in the right kidney with multiple cortical cysts. 2. Echogenic foci in the region of the collecting system are characteristic of nonobstructing stones or vascular calcifications. 3. Small amount of sludge in the gallbladder neck. No stones, mural thickening or pericholecystic fluid. Pt also has known liver cirrhosis secondary to fatty liver disease. - Leukocytosis, monocytosis with (+) EBV, CMV per ID. - ESRD, HD per renal - DM, Afib, CHF, KEVON per primary. Coumadin on hold for elevated INR. PLAN: - CLAUDINE - Mouth moisturizer to oral cavity - Await CDiff, Giardia, Cryptosporidia, Cyclospora, O&P, WBC, Enteric pathogens - Monitor labs - Hold colace - Pt refuses egd/colonoscopy - Supportive care - Further recommendations to follow based on results of above - Pt seen and examined by Dr. Ren and myself and this note is written on her behalf (Arianne Gomes) Physician Comments agree with above not much to offer from gi point as he is refusing egd/colon (Negrita Ren MD) MireyaAriannesyd STERN Feb 04, 2017 16:29 Negrita Ren MD Feb 04, 2017 16:42
[2017-02-04] MEDS: WARFARIN SOD 4 MG TAB PO SCH (16:51)
[2017-02-04] MEDS: NYSTAT/DIPHENHY/LIDO MOUTHWASH (Adult) 120ML SWISH-SWAL SCH ×2 (17:54→20:34)
[2017-02-04] MEDS: SODIUM CHLORIDE 0.9% FLUSH 5 ML FLUSH IVF PRN (20:33)
[2017-02-04] MEDS: traMADol HCL 50 MG TAB PO PRN (20:33)
[2017-02-05] VITALS (25 sets, daily range): BP systolic 89–110; BP diastolic 58–75; PULSE 82–120; RESP 16–20; TEMP 97.8–98.4; O2SAT 95–98
[2017-02-05] MEDS: MIDODRINE 5 MG TAB PO SCH ×3 (05:31→17:27)
[2017-02-05] MEDS: INSULIN ASPART SUPPLEMENTAL SCALE SQ SCH ×4 (06:46→20:16)
--- NOTE | 2017-02-05 08:22 | HHI.FPPN ---
Subjective Remarks Patient "feeling better" - every day he reports that he feels a little better. He is complaining about the urge to urinate, which is new over the past couple of months. Nothing comes out when he tries. He denies any palpitations, CP or SOB. He is walking with a walker with some assistance. Eating well. No BMs for past 24 hours, last BM was formed and had streaks of blood and clots per RN. BP borderline with metoprolol 25 BID. HR 110 this AM. Seems agreeable to colonoscopy at this time. Objective Vitals Vital Signs Date Time Temp Pulse Resp B/P Pulse Ox O2 Delivery O2 Flow Rate FiO2 02/05/17 06:00 97 02/05/17 05:00 99 02/05/17 04:00 Room Air 02/05/17 04:00 112 02/05/17 04:00 98.4 112 18 89/59 95 02/05/17 03:00 98 02/05/17 02:00 111 02/05/17 01:00 110 02/05/17 00:00 117 02/05/17 00:00 Room Air 02/05/17 00:00 98.3 117 20 96/58 96 02/04/17 23:00 106 02/04/17 22:00 110 02/04/17 21:00 108 02/04/17 20:00 113 02/04/17 20:00 98.0 113 20 106/66 98 02/04/17 18:09 80 02/04/17 17:05 108 02/04/17 16:33 108 02/04/17 15:50 97.6 109 18 107/70 99 02/04/17 15:50 109 02/04/17 14:05 95 02/04/17 13:00 86 02/04/17 12:16 85 02/04/17 11:27 97.4 89 18 104/63 96 02/04/17 11:27 89 02/04/17 10:53 89 02/04/17 09:50 94 I/O 02/04/17 02/04/17 02/04/17 02/05/17 02/05/17 02/05/17 07:00 15:00 23:00 07:00 15:00 23:00 Intake Total 240 ml 960 ml 482 ml Output Total 2700 ml 0 ml Balance 240 ml -1740 ml 482 ml Intake Oral 240 ml 960 ml 480 ml IV Total 2 ml Output Urine Total 0 ml Hemodialysis 2700 ml # Voids 0 0 # Bowel Movements 1 0 Result Diagram: 02/04/17 0603 02/04/17 0603 Imaging Last Impressions Gall Bladder Ultrasound 02/01/17 0000 Signed Impressions: Service Date/Time: Wednesday, February 01, 2017 09:01 - CONCLUSION: 1. Atrophic changes in the right kidney with multiple cortical cysts. 2. Echogenic foci in the region of the collecting system are characteristic of nonobstructing stones or vascular calcifications. 3. Small amount of sludge in the gallbladder neck. No stones, mural thickening or pericholecystic fluid. Robin Reed MD Chest X-Ray 02/01/17 0000 Signed Impressions: Service Date/Time: Wednesday, February 01, 2017 12:07 - CONCLUSION: 1. Mild cardiomegaly. 2. No acute focal pulmonary infiltrate or pulmonary vascular congestion. 3. Degenerative changes involving the thoracic spine. Mike Arriaga MD Abdomen/Pelvis CT 02/01/17 0000 Signed Impressions: Service Date/Time: Wednesday, February 01, 2017 08:10 - CONCLUSION: 1. Left-sided atelectatic changes with adjacent parenchymal density possibly representing early infiltrate. This could be the source of the patient's fever. 2. Benign-appearing diaphragmatic calcification on the right. 3. Both kidneys are atrophic with cortical thinning and bilateral renal cortical cysts. 4. Urinary bladder is decompressed with some relatively high density fluid centrally possibly representing dehydrated urine associated with chronic renal insufficiency. 5. 3 cm periumbilical hernia which only contains fat Robin Reed MD Elbow X-Ray 01/31/17 0000 Signed Impressions: Service Date/Time: Tuesday, January 31, 2017 07:45 - CONCLUSION: 1. Small olecranon spur with bony eburnation at the bicipital tuberosity of the proximal radius. These are both chronic and overtly benign. 2. No acute fracture or effusion. 3. Atherosclerotic calcification of the regional vasculature. Robin Reed MD Head CT 01/24/17 1025 Signed Impressions: Service Date/Time: Tuesday, January 24, 2017 11:06 - CONCLUSION: No acute disease. No significant change has occurred. No evidence of acute infarct, hemorrhage, mass or edema. Ba Uribe MD Objective Remarks GENERAL: Well-nourished elderly male. Sitting up in a recliner chair. In no acute distress. SKIN: Warm and dry. Skin is thin and scattered bruising noted. Lower extremities erythematous to mid-aguirre HEAD: Atraumatic. Normocephalic. EYES: Pupils equal and round. No scleral icterus. No injection or drainage. ENT: No nasal bleeding or discharge. Mucous membranes pink and moist. NECK: Trachea midline. No JVD. CARDIOVASCULAR: Irregular rhythm approximately 90. Faint 2/6 RAMY at left sternal border. AV fistula on left arm with acute defect. RESPIRATORY: No accessory muscle use. Clear to auscultation without evidence of crackles or wheezing. Breath sounds equal bilaterally. GASTROINTESTINAL: Abdomen soft, non-tender, nondistended. Hepatic and splenic margins not palpable. MUSCULOSKELETAL: Joints are not tender to palpation. No cyanosis, or edema. Distal toes show decreased sensation but no discoloration. Pulses are 1+ in the upper and lower extremities bilaterally. The lower extremities bilaterally are nontender to palpation. Joints are normal in appearance without tenderness or swelling. He has limited range of motion of the right upper and lower extremity due to pain. Passive range of motion is normal, without pain noted in the shoulders, elbows, hips, knees, ankles. 2+ edema in LEs bilaterally. NEUROLOGICAL: Awake and alert. No obvious cranial nerve deficits. Motor grossly within normal limits. Normal speech. PSYCHIATRIC: Alert and oriented. Appropriate mood and affect; insight and judgment normal. Procedures Dialysis MWF A/P Assessment and Plan Mr. Rowe is a 71-year-old male, with a past medical history of type 2 diabetes, atrial fibrillation on Coumadin, end-stage renal disease on dialysis, MRSA infection on his posterior neck, liver cirrhosis, presented to the [facility] emergency department on 01/24/17 with a one-week history of general lethargy, confusion, decreased appetite, and subjective fevers and chills. He was admitted for work-up of SIRS and AMS. Discharge Planning Discharge was held due to increasing leukocytosis and LFTs. He is now noted to have diarrhea with reportedly bloody stools. Infectious Disease consult was placed and recommended GI evaluation given CMV positive and loose stools. Problem List: (1) Fever of unknown origin Status: Acute Plan: Plan as follows: -Infectious disease and GI teams recommend further evaluation of the colon given new symptoms of bloody diarrhea and lab findings suggestive of CMV colitis. He is now agreeing to colonoscopy. - C. difficile collected 02/04 negative given diarrhea Hospital course: -Initially met SIRS criteria -Initial potential sources were bacteremia and skin infection, not found on labs or clinical exam. -Culture from right foot negative, s/p nail removal, no abscess or evidence of infection on exam. -Source was not definitively identified at admission, however, increasing suspicion for GI source based on interim workup including increasing LFTs, positive serum CMV, persistent leukocytosis, and bloody diarrhea -CT of the head on admission 01/24 showed no acute changes, chest x-ray was benign. He is anuric at baseline given ESRD. -C. difficile is negative -Patient continues to be afebrile Afebrile x 24 hours off of antibiotics and cultures have been negative for 3 days. -Only documented low-grade fevers of 100.1 F on evening of 01/30 and job placement specialist 01/31 -CT abdomen/pelvis with Oral Contrast 02/01: Left sided atelectasis changes with adjacent parenchymal density possibly representing an early infiltrate. A follow-up chest x-ray was negative for any consolidations. -Blood cultures 01/24, 01/30 showed no growth (final) -Peripheral smear showed monocytosis unspecific for any malignancy, inflammatory process, or infection. -ESR 01/31 was elevated at 65, nonspecific -Lactic acid on admission 3.1, with repeat 01/31 within normal limits -WBC decreased from 19.5-->16.2, while off antibiotics. -Infectious disease team has followed patient, appreciate recommendations. -AST increased but currently stable at approximately 100, ALT is normal, alkaline phosphatase mildly elevated at 154 -CMV [place] 01/31 [place] [address], repeat 02/03 was 3780. Bili 1.1 normal. IgM and IgG EBV antibodies positive. May represent reactivation. Antibiotic course: Vancomycin 1.5 g IV renally dosed (01/26-01/28, 01/31) Zosyn 4.5g IV x 1 (01/24) 2.25g IV q8hr (01/24-01/27) (2) Atrial fibrillation Status: Chronic Plan: Heart rate was irregular on admission exam, at 100 bpm. Coumadin was held on 01/30 given supra-therapeutic INR. Continue monitoring. Coumadin consult placed with pharmacy. Warfarin restarted at 4 mg daily on 02/03, pharmacy consulted, monitor INR Home metoprolol was 25 mg PO BID was restarted per cardiology. Hold parameters ( HR <60, systolic < 100). Digoxin ordered, 0.125mg renally dosed to q 48. (3) End stage renal disease Status: Acute Plan: Creatinine on admission was 9.19. Gradual increase between dialysis sessions, range 8-11. Patient has not tolerated inpatient dialysis well given he must lie supine and normally sits in recliner at outpatient dialysis. -Consulted nephrology, appreciate their assistance. -Scheduled for hemodialysis MWF -Avoid nephrotoxic agents. -Digoxin and vancomycin (d/c'd 02/02) renally dosed (4) CHF (congestive heart failure) Status: Acute Plan: Echocardiogram 01/25/17: EF 30%. Asymptomatic. -Cardiology consult placed 01/29 given A. fib and hypotension. -Continue medical management to include beta bairon, digoxin -He was not on a statin as outpatient -Follow up with systems architecture analyst (Dr. Chiang) within one week of discharge (5) Diabetes mellitus Status: Chronic Plan: Novolog Sliding Slide scale. Not requiring much sliding scale insulin. A1C 7.2 (6) Avulsion of toenail of right foot Status: Resolved Plan: Podiatry was consulted on 01/25, operative right toenail avulsion was performed at that time. Not obvious source of infection per podiatry (7) Liver cirrhosis Status: Chronic Plan: AST mildly elevated and trending upward. Repeat CMV showing downtrend. Hep B panel negative for signs of infection. ALT within normal limits. Negative Physical exam. CT abd showed no hepatic pathology. ID and GI teams recommend colonoscopy as noted above (8) Right arm pain Status: Resolved Plan: Resolved. -X-ray right elbow was insignificant (9) Fluids/Electrolytes/Nutrition/Prophylaxis Status: Acute Plan: Fluids: d/c fluids, HD MWF. Electrolytes: Grossly within normal limits except for elevated BUN and creatinine. Corrected calcium has been low. On Ca2+Carbonate 500 mg daily. We' ll continue to monitor and replete as needed Nutrition: Diabetic diet. DVT prophylaxis: On Coumadin at home, 5 mg daily. INR 2.2 on 02/04. wdw Dr. Sanon. Problem Qualifiers (1) Atrial fibrillation: Qualified Code: I48.2 - Chronic atrial fibrillation Kleber Finn MD R2 Feb 05, 2017 08:22 Kleber Finn MD R2 Feb 05, 2017 08:22
[2017-02-05] MEDS: METOPROLOL TARTRATE 25 MG TAB PO SCH ×2 (09:14→20:16)
[2017-02-05] MEDS: CALCIUM CARBONATE 1.25 GM (CA 500 MG) TAB PO SCH (09:14)
[2017-02-05] MEDS: NYSTAT/DIPHENHY/LIDO MOUTHWASH (Adult) 120ML SWISH-SWAL SCH ×4 (09:14→20:15)
[2017-02-05 09:35] LABS: HEMATOCRIT 35.4 % (39.0-51.0); MEAN CELL VOLUME 93.4 FL (80.0-100.0); MEAN CORPUSCULAR HEMOGLOBIN 31.3 PG (27.0-34.0); MEAN CORPUSCULAR HGB CONC 33.6 % (32.0-36.0); PLATELET COUNT 111 TH/MM3 (150-450); RED BLOOD COUNT 3.79 MIL/MM3 (4.50-5.90); RED CELL DISTRIBUTION WIDTH 15.8 % (11.6-17.2)
[2017-02-05 09:38] LABS: HEMO FLAGS AUTO DIFF
[2017-02-05 09:47] LABS: APTT (PATIENT) 51.9 SEC (24.3-30.1); INTERNATIONAL NORMALIZED RATIO 2.2 RATIO; PROTHROMBIN TIME - PATIENT 24.7 SEC (9.8-11.6)
[2017-02-05 10:12] LABS: ALKALINE PHOSPHATASE 120 U/L (45-117); ALT (GPT) 24 U/L (12-78); ANION GAP 11 MEQ/L (5-15); AST (GOT) 111 U/L (15-37); BICARBONATE 32.5 MEQ/L (21.0-32.0); BLOOD UREA NITROGEN 36 MG/DL (7-18); CHLORIDE 92 MEQ/L (98-107); GLOMERULAR FILTRATION RATE 6 ML/MIN (>89); SODIUM (NA) 135 MEQ/L (136-145)
[2017-02-05 10:18] LABS: POTASSIUM 4.9 MEQ/L (3.5-5.1)
[2017-02-05 10:35] LABS: BANDS 2 % (0-6); CORRECTED NUCLEATED RBC 1 /100 WBC (0-0); POLYS (SEG NEUTROPHILS) 33 % (16-70); WBC DIFF SAMPLE 100
[2017-02-05 10:36] LABS: OVALOCYTES 1+ (NORMAL); PLATELET ESTIMATE SMEAR LOW (NORMAL); PLATELET MORPHOLOGY NORMAL (NORMAL); SCAN/DIFF FINAL DIFF MANUAL
--- NOTE | 2017-02-05 13:04 | HHI.IDPN ---
Subjective Subjective Remarks Patient known to me. Chart reviewed and case d.w who was covering for me. H/o diarrhea, stools with blood and oral ulcers ? CMV related. HIV negative. seen by GI was refusing Colonoscopy. co oral tender ulcers Afebrile No diarrhea. C.diff negative denies abd pain CMV viremia > 10 K Antibiotics Doxy oral. Lines Line sites with no e.o infection. 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 Vital Signs Date Time Temp Pulse Resp B/P Pulse Ox O2 Delivery O2 Flow Rate FiO2 02/05/17 12:23 92 02/05/17 11:56 97.9 93 18 99/67 98 02/05/17 11:56 93 02/05/17 10:22 105 02/05/17 09:02 96 02/05/17 08:40 104 02/05/17 07:40 Room Air 02/05/17 07:40 106 02/05/17 07:40 97.8 97 18 98/70 95 02/05/17 06:00 97 02/05/17 05:00 99 02/05/17 04:00 Room Air 02/05/17 04:00 112 02/05/17 04:00 98.4 112 18 89/59 95 02/05/17 03:00 98 02/05/17 02:00 111 02/05/17 01:00 110 02/05/17 00:00 117 02/05/17 00:00 Room Air 02/05/17 00:00 98.3 117 20 96/58 96 02/04/17 23:00 106 02/04/17 22:00 110 02/04/17 21:00 108 02/04/17 20:00 113 02/04/17 20:00 98.0 113 20 106/66 98 02/04/17 18:09 80 02/04/17 17:05 108 02/04/17 16:33 108 02/04/17 15:50 97.6 109 18 107/70 99 02/04/17 15:50 109 02/04/17 14:05 95 02/04/17 13:00 86 02/04/17 02/04/17 02/05/17 15:00 23:00 07:00 Intake Total 960 ml 482 ml Output Total 2700 ml 0 ml Balance -1740 ml 482 ml Intake Oral 960 ml 480 ml IV Total 2 ml Output Urine Total 0 ml Hemodialysis 2700 ml # Voids 0 # Bowel Movements 1 0 . Laboratory Tests Test 02/04/17 02/05/17 06:03 08:52 White Blood Count 17.7 TH/MM3 17.0 TH/MM3 Red Blood Count 3.71 MIL/MM3 3.79 MIL/MM3 Hemoglobin 11.4 GM/DL 11.9 GM/DL Hematocrit 34.9 % 35.4 % Mean Corpuscular Volume 94.0 FL 93.4 FL Mean Corpuscular Hemoglobin 30.7 PG 31.3 PG Mean Corpuscular Hemoglobin 32.7 % 33.6 % Concent Red Cell Distribution Width 15.6 % 15.8 % Platelet Count 107 TH/MM3 111 TH/MM3 Mean Platelet Volume 9.8 FL 9.9 FL Neutrophils (%) (Auto) % % Lymphocytes (%) (Auto) % % Monocytes (%) (Auto) % % Eosinophils (%) (Auto) % % Basophils (%) (Auto) % % Neutrophils # (Auto) TH/MM3 TH/MM3 Lymphocytes # (Auto) TH/MM3 TH/MM3 Monocytes # (Auto) TH/MM3 TH/MM3 Eosinophils # (Auto) TH/MM3 TH/MM3 Basophils # (Auto) TH/MM3 TH/MM3 CBC Comment AUTO DIFF AUTO DIFF Differential Total Cells 100 100 Counted Neutrophils % (Manual) 29 % 33 % Band Neutrophils % 1 % 2 % Lymphocytes % 55 % 51 % Monocytes % 13 % 14 % Eosinophils % 1 % Neutrophils # (Manual) 5.5 TH/MM3 6.0 TH/MM3 Metamyelocytes 1 % Differential Comment FINAL DIFF FINAL DIFF MANUAL MANUAL Platelet Estimate LOW LOW Platelet Morphology Comment NORMAL NORMAL Nucleated Red Blood Cells 1 /100 WBC Ovalocytes 1+ Laboratory Tests Test 02/04/17 02/05/17 06:03 08:52 Sodium Level 135 MEQ/L 135 MEQ/L Potassium Level 4.4 MEQ/L 4.9 MEQ/L Chloride Level 93 MEQ/L 92 MEQ/L Carbon Dioxide Level 30.8 MEQ/L 32.5 MEQ/L Anion Gap 11 MEQ/L 11 MEQ/L Blood Urea Nitrogen 45 MG/DL 36 MG/DL Creatinine 10.11 MG/DL 8.25 MG/DL Estimat Glomerular Filtration 5 ML/MIN 6 ML/MIN Rate Random Glucose 110 MG/DL 91 MG/DL Calcium Level 7.5 MG/DL 7.7 MG/DL Total Bilirubin 0.9 MG/DL 1.0 MG/DL Aspartate Amino Transf 103 U/L 111 U/L (AST/SGOT) Alanine Aminotransferase 23 U/L 24 U/L (ALT/SGPT) Alkaline Phosphatase 154 U/L 120 U/L Total Protein 6.4 GM/DL 7.1 GM/DL Albumin 2.1 GM/DL 2.4 GM/DL Microbiology Date/Time Procedure Status Source Growth 02/04/17 07:53 - Final Complete Stool Stool NO ENTERIC PATHOGENS DETECTED BY PCR... 02/04/17 07:53 Cyclospora Exam - Final Resulted Stool Stool NO CYCLOSPORA SEEN 02/04/17 07:53 Cryptosporidium Exam Resulted Stool Stool Pending 02/04/17 07:53 Stool Pus (GT) - Final Resulted Stool Stool RARE WBC 02/04/17 07:53 Giardia Antigen (GT) Resulted Stool Stool Pending Imaging Last Impressions Gall Bladder Ultrasound 02/01/17 0000 Signed Impressions: Service Date/Time: Wednesday, February 01, 2017 09:01 - CONCLUSION: 1. Atrophic changes in the right kidney with multiple cortical cysts. 2. Echogenic foci in the region of the collecting system are characteristic of nonobstructing stones or vascular calcifications. 3. Small amount of sludge in the gallbladder neck. No stones, mural thickening or pericholecystic fluid. Robin Reed MD Chest X-Ray 02/01/17 0000 Signed Impressions: Service Date/Time: Wednesday, February 01, 2017 12:07 - CONCLUSION: 1. Mild cardiomegaly. 2. No acute focal pulmonary infiltrate or pulmonary vascular congestion. 3. Degenerative changes involving the thoracic spine. Mike Arriaga MD Abdomen/Pelvis CT 02/01/17 0000 Signed Impressions: Service Date/Time: Wednesday, February 01, 2017 08:10 - CONCLUSION: 1. Left-sided atelectatic changes with adjacent parenchymal density possibly representing early infiltrate. This could be the source of the patient's fever. 2. Benign-appearing diaphragmatic calcification on the right. 3. Both kidneys are atrophic with cortical thinning and bilateral renal cortical cysts. 4. Urinary bladder is decompressed with some relatively high density fluid centrally possibly representing dehydrated urine associated with chronic renal insufficiency. 5. 3 cm periumbilical hernia which only contains fat Robin Reed MD Elbow X-Ray 01/31/17 0000 Signed Impressions: Service Date/Time: Tuesday, January 31, 2017 07:45 - CONCLUSION: 1. Small olecranon spur with bony eburnation at the bicipital tuberosity of the proximal radius. These are both chronic and overtly benign. 2. No acute fracture or effusion. 3. Atherosclerotic calcification of the regional vasculature. Robin Reed MD Head CT 01/24/17 1025 Signed Impressions: Service Date/Time: Tuesday, January 24, 2017 11:06 - CONCLUSION: No acute disease. No significant change has occurred. No evidence of acute infarct, hemorrhage, mass or edema. Ba Uribe MD Physical Exam GENERAL: Obese CM patient, in no apparent distress. Chronically ill appearing SKIN: No rashes, ecchymoses or lesions. Cool and dry. HEAD: Atraumatic. Normocephalic. No temporal or scalp tenderness. EYES: Pupils equal round and reactive. Extraocular motions intact. No scleral icterus. No injection or drainage. ENT: oral mucosa dry with few shallow small ulcers on the tongue and erythema on soft palate CARDIOVASCULAR: HS audible. Tachycardic. RESPIRATORY: Clear to auscultation. Breath sounds equal bilaterally. No wheezes , rales, or rhonchi. GASTROINTESTINAL: Abdomen soft, non-tender, nondistended. MUSCULOSKELETAL:AV fistula site with no e.o infection. Bilateral LE some minimal edema no erythema noted chronic hyperpigmentation noted ROM wnl NEUROLOGICAL: Awake and alert. Grossly non focal Psych: cooperative IV line sites with no e.o infection. Assessment & Plan Remarks FUO, persistent leukocytosis with monocytosis - leukocytosis resolving +EBV reactivation profile + CMV viremia - colitis suspected based on clinical pic (diarrhea, blood in the stool) - negative C.diff - refuses colonoscopy HIV screen negative New onset diarrhea ? CMV colitis Sepsis present on admission - source no apparent Bilateral LE cellulitis: clinically resolved Right great toe with avulsed nail and ? nail bed infection(cellulitis/abscess), paronychia. resolved/ ESRD on HD using AV fistula. Clinically fistula does not appears to be the source of infection. Recs Agree pt needs endoscopy for suspected CMV colitis - that dx has to be made via colonoscopy Had extensive discussion with patient and : explained need for colonoscopy for various reasons: GI bleed, CMV colitis workup, rule out Colon cancer or other GI pathology. fu repeat CMV load Further tx rec per colonoscopy report DC oral doxy as patient has no e/o bacterial infection and has difficulty swallowing. D/w patient, and RN for patient. d/w GI: AlejandroSusana BENIGNO re: patient now agreeable to Colonoscopy and GI workup. Will follow prn over the weekend. If any change in clinical condition please call sooner. Minerva Lua MD Feb 05, 2017 13:04
--- NOTE | 2017-02-05 13:34 | HHI.GIFU ---
Subjective Remarks This is a reconsult, patient is agreeing now to having EGD/colonoscopy.Patient is sitting up in bed, eating lunch, no nausea, no vomiting, or abdomen pain. No more diarrhea, he had formed BM yesterday but with significant amount of bright red blood, denies history of this. (Kailash Meza) Objective Vitals I&O Vital Signs Date Time Temp Pulse Resp B/P Pulse Ox O2 Delivery O2 Flow Rate FiO2 02/05/17 12:23 92 02/05/17 11:56 97.9 93 18 99/67 98 02/05/17 11:56 93 02/05/17 10:22 105 02/05/17 09:02 96 02/05/17 08:40 104 02/05/17 07:40 Room Air 02/05/17 07:40 106 02/05/17 07:40 97.8 97 18 98/70 95 02/05/17 06:00 97 02/05/17 05:00 99 02/05/17 04:00 Room Air 02/05/17 04:00 112 02/05/17 04:00 98.4 112 18 89/59 95 02/05/17 03:00 98 02/05/17 02:00 111 02/05/17 01:00 110 02/05/17 00:00 117 02/05/17 00:00 Room Air 02/05/17 00:00 98.3 117 20 96/58 96 02/04/17 23:00 106 02/04/17 22:00 110 02/04/17 21:00 108 02/04/17 20:00 113 02/04/17 20:00 98.0 113 20 106/66 98 02/04/17 18:09 80 02/04/17 17:05 108 02/04/17 16:33 108 02/04/17 15:50 97.6 109 18 107/70 99 02/04/17 15:50 109 02/04/17 14:05 95 I/O 02/04/17 02/04/17 02/04/17 02/05/17 02/05/17 02/05/17 07:00 15:00 23:00 07:00 15:00 23:00 Intake Total 240 ml 960 ml 482 ml Output Total 2700 ml 0 ml Balance 240 ml -1740 ml 482 ml Intake Oral 240 ml 960 ml 480 ml IV Total 2 ml Output Urine Total 0 ml Hemodialysis 2700 ml # Voids 0 0 # Bowel Movements 1 0 Laboratory Laboratory Tests Test 02/05/17 08:52 White Blood Count 17.0 Red Blood Count 3.79 Hemoglobin 11.9 Hematocrit 35.4 Mean Corpuscular Volume 93.4 Mean Corpuscular Hemoglobin 31.3 Mean Corpuscular Hemoglobin 33.6 Concent Red Cell Distribution Width 15.8 Platelet Count 111 Mean Platelet Volume 9.9 Neutrophils (%) (Auto) Lymphocytes (%) (Auto) Monocytes (%) (Auto) Eosinophils (%) (Auto) Basophils (%) (Auto) Neutrophils # (Auto) Lymphocytes # (Auto) Monocytes # (Auto) Eosinophils # (Auto) Basophils # (Auto) CBC Comment AUTO DIFF Differential Total Cells 100 Counted Neutrophils % (Manual) 33 Band Neutrophils % 2 Lymphocytes % 51 Monocytes % 14 Neutrophils # (Manual) 6.0 Nucleated Red Blood Cells 1 Differential Comment FINAL DIFF MANUAL Platelet Estimate LOW Platelet Morphology Comment NORMAL Ovalocytes 1+ Prothrombin Time 24.7 Prothromb Time International 2.2 Ratio Activated Partial 51.9 Thromboplast Time Sodium Level 135 Potassium Level 4.9 Chloride Level 92 Carbon Dioxide Level 32.5 Anion Gap 11 Blood Urea Nitrogen 36 Creatinine 8.25 Estimat Glomerular Filtration 6 Rate Random Glucose 91 Calcium Level 7.7 Total Bilirubin 1.0 Aspartate Amino Transf 111 (AST/SGOT) Alanine Aminotransferase 24 (ALT/SGPT) Alkaline Phosphatase 120 Total Protein 7.1 Albumin 2.4 Date/Time Procedure Status Source Growth 02/04/17 07:53 Cyclospora Exam - Final Resulted Stool Stool NO CYCLOSPORA SEEN 02/04/17 07:53 Cryptosporidium Exam Resulted Stool Stool Pending 02/04/17 07:53 Stool Pus (GT) - Final Resulted Stool Stool RARE WBC 02/04/17 07:53 Giardia Antigen (GT) Resulted Stool Stool Pending 02/04/17 07:53 - Final Complete Stool Stool NO ENTERIC PATHOGENS DETECTED BY PCR... Imaging Last Impressions Gall Bladder Ultrasound 02/01/17 0000 Signed Impressions: Service Date/Time: Wednesday, February 01, 2017 09:01 - CONCLUSION: 1. Atrophic changes in the right kidney with multiple cortical cysts. 2. Echogenic foci in the region of the collecting system are characteristic of nonobstructing stones or vascular calcifications. 3. Small amount of sludge in the gallbladder neck. No stones, mural thickening or pericholecystic fluid. Robin Reed MD Chest X-Ray 02/01/17 0000 Signed Impressions: Service Date/Time: Wednesday, February 01, 2017 12:07 - CONCLUSION: 1. Mild cardiomegaly. 2. No acute focal pulmonary infiltrate or pulmonary vascular congestion. 3. Degenerative changes involving the thoracic spine. Mike Arriaga MD Abdomen/Pelvis CT 02/01/17 0000 Signed Impressions: Service Date/Time: Wednesday, February 01, 2017 08:10 - CONCLUSION: 1. Left-sided atelectatic changes with adjacent parenchymal density possibly representing early infiltrate. This could be the source of the patient's fever. 2. Benign-appearing diaphragmatic calcification on the right. 3. Both kidneys are atrophic with cortical thinning and bilateral renal cortical cysts. 4. Urinary bladder is decompressed with some relatively high density fluid centrally possibly representing dehydrated urine associated with chronic renal insufficiency. 5. 3 cm periumbilical hernia which only contains fat Robin Reed MD Elbow X-Ray 01/31/17 0000 Signed Impressions: Service Date/Time: Tuesday, January 31, 2017 07:45 - CONCLUSION: 1. Small olecranon spur with bony eburnation at the bicipital tuberosity of the proximal radius. These are both chronic and overtly benign. 2. No acute fracture or effusion. 3. Atherosclerotic calcification of the regional vasculature. Robin Reed MD Head CT 01/24/17 1025 Signed Impressions: Service Date/Time: Tuesday, January 24, 2017 11:06 - CONCLUSION: No acute disease. No significant change has occurred. No evidence of acute infarct, hemorrhage, mass or edema. Ba Uribe MD Physical Exam HEENT: Normocephalic; atraumatic; no jaundice. CHEST: CTA CARDIAC: Irregular ABDOMEN: Soft, nondistended, nontender; no hepatosplenomegaly; bowel sounds are present in all four quadrants. EXTREMITIES: trace edema ble, worse lle SKIN: Normal; no rash; no jaundice. 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 hgb stable - Diarrhea. Resolved- Stool studies negative for CDiff, Cyclospora, WBC, rest pending He has a known EBV and CMV infection and is being followed by ID. GI was consulted for evaluation for possible CMV colitis. Abdomen/Pelvis CT (02/01/17)- --> 1. Left-sided atelectatic changes with adjacent parenchymal density possibly representing early infiltrate. This could be the source of the patient's fever. 2. Benign-appearing diaphragmatic calcification on the right. 3. Both kidneys are atrophic with cortical thinning and bilateral renal cortical cysts. 4. Urinary bladder is decompressed with some relatively high density fluid centrally possibly representing dehydrated urine associated with chronic renal insufficiency. 5. 3 cm periumbilical hernia which only contains fat. Patient had a colonoscopy about 2 years ago. He cannot recall who did this. - Elevated LFTs. Pt is (+) EBV, CMV. Gall Bladder Ultrasound (02/01/17) 1. Atrophic changes in the right kidney with multiple cortical cysts. 2. Echogenic foci in the region of the collecting system are characteristic of nonobstructing stones or vascular calcifications. 3. Small amount of sludge in the gallbladder neck. No stones, mural thickening or pericholecystic fluid. Pt also has known liver cirrhosis secondary to fatty liver disease. - Leukocytosis, monocytosis with (+) EBV, CMV per ID. - ESRD, HD per renal - DM, Afib, CHF, KEVON per primary. Coumadin on hold for elevated INR. PLAN: - CLAUDINE - EGD/colonoscopy on Tuesday if INR stable - obtain consents - Clear liquids in am - Will need Coumadin on hold and can bridge with Lovenox if ok with cardiology and primary - Await , Giardia, Cryptosporidia, O&P, Enteric pathogens - Monitor labs - Supportive care - Further recommendations to follow based on results of above - Pt seen and examined by Dr. Ren and myself and this note is written on her behalf (Kailash Meza) Physician Comments agree with above (Negrita Ren MD) Kailash Meza Feb 05, 2017 13:34 Negrita Ren MD Feb 05, 2017 15:38
--- NOTE | 2017-02-05 15:09 | HHI.NPPN ---
Subjective General Problems: Anemia, Edema, Hypotension Renal Failure: Chronic, End Stage Renal Disease Review of Systems General Constitutional: Fever, Fatigue Cardiovascular Cardiac: Edema Gastrointestinal Gastrointestinal: Diarrhea, Blood/Tarry Stools Objective Data Data 02/04/17 02/05/17 19:00 07:00 Intake Total 960 ml 482 ml Output Total 2700 ml 0 ml Balance -1740 ml 482 ml Intake Oral 960 ml 480 ml IV Total 2 ml Output Urine Total 0 ml Hemodialysis 2700 ml # Voids 0 # Bowel Movements 1 0 Vital Signs Date Time Temp Pulse Resp B/P Pulse Ox O2 Delivery O2 Flow Rate FiO2 02/05/17 14:04 82 02/05/17 13:50 91 02/05/17 12:23 92 02/05/17 11:56 97.9 93 18 99/67 98 02/05/17 11:56 93 02/05/17 10:22 105 02/05/17 09:02 96 02/05/17 08:40 104 02/05/17 07:40 Room Air 02/05/17 07:40 106 02/05/17 07:40 97.8 97 18 98/70 95 02/05/17 06:00 97 02/05/17 05:00 99 02/05/17 04:00 Room Air 02/05/17 04:00 112 02/05/17 04:00 98.4 112 18 89/59 95 02/05/17 03:00 98 02/05/17 02:00 111 02/05/17 01:00 110 02/05/17 00:00 117 02/05/17 00:00 Room Air 02/05/17 00:00 98.3 117 20 96/58 96 02/04/17 23:00 106 02/04/17 22:00 110 02/04/17 21:00 108 02/04/17 20:00 113 02/04/17 20:00 98.0 113 20 106/66 98 02/04/17 18:09 80 02/04/17 17:05 108 02/04/17 16:33 108 02/04/17 15:50 97.6 109 18 107/70 99 02/04/17 15:50 109 -: 02/05/17 0852 02/05/17 0852 Physical Exam General Appearance: Well Developed, Well Nourished, No Acute Distress, Comfortable Throat Throat Exam: Oral Mucosa [place] & Moist Neck Neck Exam: Neck Supple Pulmonary Resp Exam: Clear Bilaterally, Breath Sounds Equal, No Distress Cardiology CV Exam: Good Perfusion, Irregular, Tachycardia Gastrointestinal/Abdomen GI Exam: Soft, Non-Tender, Bowel Sounds Present Musculoskeletal MS Exam: Joints Intact, Normal Gait, Good Strength Integumentary Skin Exam: Warm, Dry Extremeties Extremities Exam: Pedal Pulses Palpable, Trace Edema Neurologic Neuro Exam: Alert, Awake, Oriented, Speech Clear, Moving All Extremities Psychiatric Psych Exam: Appropriate Responses Assessment/Plan Discussed Condition With: Patient, Spouse Assessment Summary: Anemia of CKD, Hypotension, End Stage Renal Disease Problem List: (1) ESRD (end stage renal disease) Plan: Hemodialysis will be continued MWF. has access left arm that functions well no electrolyte concerns phosphorus acceptable, Renvela on hold He does nocturnal dialysis at [facility], prefers to go outpatient if discharged early today; chair time around 5pm ; he is preferring outpatient HD (2) CHF (congestive heart failure) Plan: now on digoxin, monitor volume status, adjust UF with dialysis (3) Atrial fibrillation Plan: heart rate improved, on digoxin; also on Lopressor INR is now therapeutic. (4) Fever Plan: Persisting but stable leukocytosis. He is afebrile Cultures are negative. Now with diarrhea. Rule out C.diff colitis. CMV positive, significance is not known. GI consulted but he is refusing colonoscopy ID following (5) Anemia of renal disease Plan: Hemoglobin is acceptable. Epogen as needed per protocol with dialysis. Problem Qualifiers (1) Atrial fibrillation: Qualified Code: I48.2 - Chronic atrial fibrillation Evie Osborne MD Feb 05, 2017 15:09
[2017-02-05] MEDS: ACETAMINOPHEN 325 MG TAB PO PRN (17:27)
[2017-02-05] MEDS: traMADol HCL 50 MG TAB PO PRN (20:24)
[2017-02-06] VITALS (26 sets, daily range): BP systolic 93–119; BP diastolic 60–75; PULSE 73–111; RESP 16–20; TEMP 97.6–98.6; O2SAT 94–99
[2017-02-06] MEDS: MIDODRINE 5 MG TAB PO SCH ×3 (06:50→17:33)
[2017-02-06] MEDS: INSULIN ASPART SUPPLEMENTAL SCALE SQ SCH ×2 (07:00→11:00)
[2017-02-06 07:48] LABS: INTERNATIONAL NORMALIZED RATIO 2.1 RATIO; PROTHROMBIN TIME - PATIENT 24.3 SEC (9.8-11.6)
[2017-02-06 07:55] LABS: APTT (PATIENT) 52.7 SEC (24.3-30.1)
[2017-02-06 07:56] LABS: HEMATOCRIT 34.6 % (39.0-51.0); MEAN CELL VOLUME 93.8 FL (80.0-100.0); MEAN CORPUSCULAR HEMOGLOBIN 30.4 PG (27.0-34.0); MEAN CORPUSCULAR HGB CONC 32.4 % (32.0-36.0); PLATELET COUNT 104 TH/MM3 (150-450); RED BLOOD COUNT 3.68 MIL/MM3 (4.50-5.90); RED CELL DISTRIBUTION WIDTH 15.8 % (11.6-17.2); WHITE BLOOD COUNT 17.9 TH/MM3 (4.0-11.0)
[2017-02-06 08:24] LABS: ALKALINE PHOSPHATASE 131 U/L (45-117); ALT (GPT) 21 U/L (12-78); ANION GAP 12 MEQ/L (5-15); AST (GOT) 100 U/L (15-37); BICARBONATE 30.1 MEQ/L (21.0-32.0); BLOOD UREA NITROGEN 49 MG/DL (7-18); CHLORIDE 90 MEQ/L (98-107); GLOMERULAR FILTRATION RATE 5 ML/MIN (>89); SODIUM (NA) 132 MEQ/L (136-145); TOTAL BILIRUBIN ADULT 0.9 MG/DL (0.2-1.0)
[2017-02-06 08:55] LABS: HEMO FLAGS AUTO DIFF
[2017-02-06] MEDS: CALCIUM CARBONATE 1.25 GM (CA 500 MG) TAB PO SCH (09:00)
[2017-02-06] MEDS: METOPROLOL TARTRATE 25 MG TAB PO SCH ×2 (09:00→20:32)
[2017-02-06] MEDS: DIGOXIN 0.125 MG TAB PO SCH (09:00)
[2017-02-06] MEDS: NYSTAT/DIPHENHY/LIDO MOUTHWASH (Adult) 120ML SWISH-SWAL SCH ×4 (09:01→20:29)
--- NOTE | 2017-02-06 11:41 | HHI.GIFU ---
Subjective Remarks No new complaints (María Yeung) Objective Vitals I&O Vital Signs Date Time Temp Pulse Resp B/P Pulse Ox O2 Delivery O2 Flow Rate FiO2 02/06/17 11:18 99 02/06/17 11:17 97.6 79 18 93/60 99 02/06/17 10:59 92 02/06/17 09:13 95 02/06/17 08:45 92 02/06/17 08:00 96 Room Air 02/06/17 07:45 97.7 94 18 104/66 96 02/06/17 07:30 102 02/06/17 06:00 87 02/06/17 05:57 98.6 75 16 101/72 94 02/06/17 05:00 109 02/06/17 04:00 94 02/06/17 03:00 94 02/06/17 02:00 98 02/06/17 01:00 92 02/06/17 00:00 86 02/05/17 23:00 120 02/05/17 23:00 98.3 85 16 110/66 96 02/05/17 22:00 96 02/05/17 21:00 92 02/05/17 20:11 95 Room Air 02/05/17 20:00 104 02/05/17 19:57 98.3 105 20 93/75 95 02/05/17 19:00 98 02/05/17 18:28 18 02/05/17 18:12 100 02/05/17 17:08 93 02/05/17 16:35 94 02/05/17 15:32 89 02/05/17 15:32 98.2 85 16 101/64 98 02/05/17 14:04 82 02/05/17 13:50 91 02/05/17 12:23 92 02/05/17 11:56 97.9 93 18 99/67 98 02/05/17 11:56 93 I/O 02/05/17 02/05/17 02/05/17 02/06/17 02/06/17 02/06/17 07:00 15:00 23:00 07:00 15:00 23:00 Intake Total 482 ml 960 ml 240 ml Output Total 0 ml 0 ml Balance 482 ml 960 ml 240 ml Intake Oral 480 ml 960 ml 240 ml IV Total 2 ml Output Urine Total 0 ml 0 ml # Voids 0 # Bowel Movements 0 0 2 Laboratory Laboratory Tests Test 02/06/17 07:09 White Blood Count 17.9 Red Blood Count 3.68 Hemoglobin 11.2 Hematocrit 34.6 Mean Corpuscular Volume 93.8 Mean Corpuscular Hemoglobin 30.4 Mean Corpuscular Hemoglobin 32.4 Concent Red Cell Distribution Width 15.8 Platelet Count 104 Mean Platelet Volume 9.6 Neutrophils (%) (Auto) Lymphocytes (%) (Auto) Monocytes (%) (Auto) Eosinophils (%) (Auto) Basophils (%) (Auto) Neutrophils # (Auto) Lymphocytes # (Auto) Monocytes # (Auto) Eosinophils # (Auto) Basophils # (Auto) CBC Comment AUTO DIFF Prothrombin Time 24.3 Prothromb Time International 2.1 Ratio Activated Partial 52.7 Thromboplast Time Sodium Level 132 Potassium Level 5.0 Chloride Level 90 Carbon Dioxide Level 30.1 Anion Gap 12 Blood Urea Nitrogen 49 Creatinine 9.44 Estimat Glomerular Filtration 5 Rate Random Glucose 80 Calcium Level 7.5 Total Bilirubin 0.9 Aspartate Amino Transf 100 (AST/SGOT) Alanine Aminotransferase 21 (ALT/SGPT) Alkaline Phosphatase 131 Total Protein 6.5 Albumin 2.3 Date/Time Procedure Status Source Growth 02/04/17 07:53 Cyclospora Exam - Final Resulted Stool Stool NO CYCLOSPORA SEEN 02/04/17 07:53 Cryptosporidium Exam Resulted Stool Stool Pending 02/04/17 07:53 Stool Pus (GT) - Final Resulted Stool Stool RARE WBC 02/04/17 07:53 Giardia Antigen (GT) Resulted Stool Stool Pending 02/04/17 07:53 - Final Complete Stool Stool NO ENTERIC PATHOGENS DETECTED BY PCR... Imaging Last Impressions Gall Bladder Ultrasound 02/01/17 0000 Signed Impressions: Service Date/Time: Wednesday, February 01, 2017 09:01 - CONCLUSION: 1. Atrophic changes in the right kidney with multiple cortical cysts. 2. Echogenic foci in the region of the collecting system are characteristic of nonobstructing stones or vascular calcifications. 3. Small amount of sludge in the gallbladder neck. No stones, mural thickening or pericholecystic fluid. Robin Reed MD Chest X-Ray 02/01/17 0000 Signed Impressions: Service Date/Time: Wednesday, February 01, 2017 12:07 - CONCLUSION: 1. Mild cardiomegaly. 2. No acute focal pulmonary infiltrate or pulmonary vascular congestion. 3. Degenerative changes involving the thoracic spine. Mike Arriaga MD Abdomen/Pelvis CT 02/01/17 0000 Signed Impressions: Service Date/Time: Wednesday, February 01, 2017 08:10 - CONCLUSION: 1. Left-sided atelectatic changes with adjacent parenchymal density possibly representing early infiltrate. This could be the source of the patient's fever. 2. Benign-appearing diaphragmatic calcification on the right. 3. Both kidneys are atrophic with cortical thinning and bilateral renal cortical cysts. 4. Urinary bladder is decompressed with some relatively high density fluid centrally possibly representing dehydrated urine associated with chronic renal insufficiency. 5. 3 cm periumbilical hernia which only contains fat Robin Reed MD Elbow X-Ray 01/31/17 0000 Signed Impressions: Service Date/Time: Tuesday, January 31, 2017 07:45 - CONCLUSION: 1. Small olecranon spur with bony eburnation at the bicipital tuberosity of the proximal radius. These are both chronic and overtly benign. 2. No acute fracture or effusion. 3. Atherosclerotic calcification of the regional vasculature. Robin Reed MD Head CT 01/24/17 1025 Signed Impressions: Service Date/Time: Tuesday, January 24, 2017 11:06 - CONCLUSION: No acute disease. No significant change has occurred. No evidence of acute infarct, hemorrhage, mass or edema. Ba Uribe MD Physical Exam HEENT: Normocephalic; atraumatic; no jaundice. CHEST: CTA CARDIAC: Irregular ABDOMEN: Soft, nondistended, nontender; no hepatosplenomegaly; bowel sounds are present in all four quadrants. EXTREMITIES: trace edema ble, worse lle SKIN: Normal; no rash; no jaundice. 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 H/H is stable - Diarrhea. Resolved. Stool studies negative for CDiff, Cyclospora, no enteric pathogens detected, rare WBC, rest pending. He has a known EBV and CMV infection and is being followed by ID. GI was consulted for evaluation for possible CMV colitis. Abdomen/Pelvis CT (02/01/17)---> Left-sided atelectatic changes with adjacent parenchymal density possibly representing early infiltrate. This could be the source of the patient's fever. Benign-appearing diaphragmatic calcification on the right. Both kidneys are atrophic with cortical thinning and bilateral renal cortical cysts. Urinary bladder is decompressed with some relatively high density fluid centrally possibly representing dehydrated urine associated with chronic renal insufficiency. 3 cm periumbilical hernia which only contains fat. Patient had a colonoscopy about 2 years ago. He cannot recall who did this. - Oral/Throat pain. Pt started on MMW QID and Chloraseptic spray PRN - Elevated LFTs. Pt is (+) EBV, CMV. Gall Bladder Ultrasound (02/01/17) --> Atrophic changes in the right kidney with multiple cortical cysts. Echogenic foci in the region of the collecting system are characteristic of nonobstructing stones or vascular calcifications. Small amount of sludge in the gallbladder neck. No stones, mural thickening or pericholecystic fluid. Pt also has known liver cirrhosis secondary to fatty liver disease. - Leukocytosis, monocytosis with (+) EBV, CMV per ID. - ESRD, HD per renal - DM, Afib, CHF, KEVON per primary. Coumadin on hold for elevated INR. PLAN: - EGD/colonoscopy tomorrow if INR stable - Obtain consents - Clear liquid diet - NPO after MN except meds - GoLytely - Will need Coumadin on hold and can bridge with Lovenox if ok with cardiology and primary - Await Giardia, Cryptosporidia, O&P - Monitor labs - Supportive care - Further recommendations as the case develops - Pt seen and examined by Dr. Ren and myself and this note is written on her behalf (María Yeung) Physician Comments agree (Negrita Ren MD) María Yeung Feb 06, 2017 11:41 Negrita Ren MD Feb 12, 2017 14:20
--- NOTE | 2017-02-06 11:45 | HHI.FPPN ---
Subjective Remarks Patient with no complaints. He states that the diarrhea is improving, last stool was overnight, producing a nonbloody loose stool. EGD/Colonoscopy to be completed tomorrow. No fever, chills, cp, sob, abd pain. Objective Vitals Vital Signs Date Time Temp Pulse Resp B/P Pulse Ox O2 Delivery O2 Flow Rate FiO2 02/06/17 11:18 99 02/06/17 11:17 97.6 79 18 93/60 99 02/06/17 10:59 92 02/06/17 09:13 95 02/06/17 08:45 92 02/06/17 08:00 96 Room Air 02/06/17 07:45 97.7 94 18 104/66 96 02/06/17 07:30 102 02/06/17 06:00 87 02/06/17 05:57 98.6 75 16 101/72 94 02/06/17 05:00 109 02/06/17 04:00 94 02/06/17 03:00 94 02/06/17 02:00 98 02/06/17 01:00 92 02/06/17 00:00 86 02/05/17 23:00 120 02/05/17 23:00 98.3 85 16 110/66 96 02/05/17 22:00 96 02/05/17 21:00 92 02/05/17 20:11 95 Room Air 02/05/17 20:00 104 02/05/17 19:57 98.3 105 20 93/75 95 02/05/17 19:00 98 02/05/17 18:28 18 02/05/17 18:12 100 02/05/17 17:08 93 02/05/17 16:35 94 02/05/17 15:32 89 02/05/17 15:32 98.2 85 16 101/64 98 02/05/17 14:04 82 02/05/17 13:50 91 02/05/17 12:23 92 02/05/17 11:56 97.9 93 18 99/67 98 02/05/17 11:56 93 I/O 02/05/17 02/05/17 02/05/17 02/06/17 02/06/17 02/06/17 07:00 15:00 23:00 07:00 15:00 23:00 Intake Total 482 ml 960 ml 240 ml Output Total 0 ml 0 ml Balance 482 ml 960 ml 240 ml Intake Oral 480 ml 960 ml 240 ml IV Total 2 ml Output Urine Total 0 ml 0 ml # Voids 0 # Bowel Movements 0 0 2 Result Diagram: 02/06/17 0709 02/06/17 0709 Imaging Last Impressions Gall Bladder Ultrasound 02/01/17 0000 Signed Impressions: Service Date/Time: Wednesday, February 01, 2017 09:01 - CONCLUSION: 1. Atrophic changes in the right kidney with multiple cortical cysts. 2. Echogenic foci in the region of the collecting system are characteristic of nonobstructing stones or vascular calcifications. 3. Small amount of sludge in the gallbladder neck. No stones, mural thickening or pericholecystic fluid. Robin Reed MD Chest X-Ray 02/01/17 0000 Signed Impressions: Service Date/Time: Wednesday, February 01, 2017 12:07 - CONCLUSION: 1. Mild cardiomegaly. 2. No acute focal pulmonary infiltrate or pulmonary vascular congestion. 3. Degenerative changes involving the thoracic spine. Mike Arriaga MD Abdomen/Pelvis CT 02/01/17 0000 Signed Impressions: Service Date/Time: Wednesday, February 01, 2017 08:10 - CONCLUSION: 1. Left-sided atelectatic changes with adjacent parenchymal density possibly representing early infiltrate. This could be the source of the patient's fever. 2. Benign-appearing diaphragmatic calcification on the right. 3. Both kidneys are atrophic with cortical thinning and bilateral renal cortical cysts. 4. Urinary bladder is decompressed with some relatively high density fluid centrally possibly representing dehydrated urine associated with chronic renal insufficiency. 5. 3 cm periumbilical hernia which only contains fat Robin Reed MD Elbow X-Ray 01/31/17 0000 Signed Impressions: Service Date/Time: Tuesday, January 31, 2017 07:45 - CONCLUSION: 1. Small olecranon spur with bony eburnation at the bicipital tuberosity of the proximal radius. These are both chronic and overtly benign. 2. No acute fracture or effusion. 3. Atherosclerotic calcification of the regional vasculature. Robin Reed MD Head CT 01/24/17 1025 Signed Impressions: Service Date/Time: Tuesday, January 24, 2017 11:06 - CONCLUSION: No acute disease. No significant change has occurred. No evidence of acute infarct, hemorrhage, mass or edema. Ba Uribe MD Objective Remarks GENERAL: Well-nourished elderly male lying in bed. In no acute distress. SKIN: Warm and dry. Skin is thin and scattered bruising noted. Lower extremities erythematous to mid-aguirre HEAD: Atraumatic. Normocephalic. EYES: Pupils equal and round. No scleral icterus. No injection or drainage. ENT: No nasal bleeding or discharge. Mucous membranes pink and moist. NECK: Trachea midline. No JVD. CARDIOVASCULAR: Irregular rhythm approximately 90. Faint 2/6 RAMY at left sternal border. AV fistula on left arm with acute defect. RESPIRATORY: No accessory muscle use. Clear to auscultation without evidence of crackles or wheezing. Breath sounds equal bilaterally. GASTROINTESTINAL: Abdomen soft, non-tender, nondistended. Hepatic and splenic margins not palpable. MUSCULOSKELETAL: Joints are not tender to palpation. No cyanosis, or edema. Distal toes show decreased sensation but no discoloration. Pulses are 1+ in the upper and lower extremities bilaterally. NEUROLOGICAL: Awake and alert. No obvious cranial nerve deficits. Motor grossly within normal limits. Normal speech. PSYCHIATRIC: Alert and oriented. Appropriate mood and affect; insight and judgment normal. Procedures Dialysis MWF Urinary Catheter: No Vascular Central Line Catheter: No A/P Assessment and Plan Mr. Rowe is a 71-year-old male, with a past medical history of type 2 diabetes, atrial fibrillation on Coumadin, end-stage renal disease on dialysis, MRSA infection on his posterior neck, liver cirrhosis, presented to the [place] emergency department on 01/24/17 with a one-week history of general lethargy, confusion, decreased appetite, and subjective fevers and chills. He was admitted for work-up of SIRS and AMS. Discharge Planning Discharge was held due to increasing leukocytosis and LFTs. He is now noted to have diarrhea with reportedly bloody stools. Infectious Disease consult was placed and recommended GI evaluation given CMV positive and loose stools. Problem List: (1) Fever of unknown origin Status: Acute Plan: Plan as follows: -Infectious disease and GI teams recommend further evaluation of the colon given new symptoms of bloody diarrhea and lab findings suggestive of CMV colitis. He is now agreeing to colonoscopy, to be completed on 02/07/17. - C. difficile collected 02/04 negative given diarrhea Hospital course: -Initially met SIRS criteria -Initial potential sources were bacteremia and skin infection, not found on labs or clinical exam. -Culture from right foot negative, s/p nail removal, no abscess or evidence of infection on exam. -Source was not definitively identified at admission, however, increasing suspicion for GI source based on interim workup including increasing LFTs, positive serum CMV, persistent leukocytosis, and bloody diarrhea -CT of the head on admission 01/24 showed no acute changes, chest x-ray was benign. He is anuric at baseline given ESRD. -C. difficile is negative -Patient continues to be afebrile Afebrile x 24 hours off of antibiotics and cultures have been negative for 5 days. 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 A follow-up chest x-ray was negative for any consolidations. -Blood cultures 01/24, 01/30 showed no growth (final) -Peripheral smear showed monocytosis unspecific for any malignancy, inflammatory process, or infection. -ESR 01/31 was elevated at 65, nonspecific -Lactic acid on admission 3.1, with repeat 01/31 within normal limits -WBC decreased from 19.5-->16.2 ---> stable at 17,000 for a few days, while off antibiotics. -Infectious disease team has followed patient, appreciate recommendations. -AST increased but currently stable at approximately 100, ALT is normal, alkaline phosphatase mildly elevated at 131 -CMV [place] 01/31 [place] [address], repeat 02/03 was 3780. Bili 0.9 normal. IgM and IgG EBV antibodies positive. May represent reactivation. Antibiotic course: Vancomycin 1.5 g IV renally dosed (01/26-01/28, 01/31) Zosyn 4.5g IV x 1 (01/24) 2.25g IV q8hr (01/24-01/27) (2) Atrial fibrillation Status: Chronic Plan: Heart rate was irregular on admission exam, at 100 bpm. Coumadin was held on 01/30 given supra-therapeutic INR. Coumadin restarted at 4 mg daily on 02/03, pharmacy consulted. Continue monitoring. Coumadin consult placed with pharmacy; No indication to bridge to Lovenox given patient having low bleeding risk surgery with normal INR Home metoprolol was 25 mg PO BID was restarted per cardiology. Hold parameters ( HR <60, systolic < 100). Digoxin ordered, 0.125mg renally dosed to q 48. (3) End stage renal disease Status: Acute Plan: Creatinine on admission was 9.19. Gradual increase between dialysis sessions, range 8-11. Patient has not tolerated inpatient dialysis well given he must lie supine and normally sits in recliner at outpatient dialysis. -Consulted nephrology, appreciate their assistance. -Scheduled for hemodialysis MWF -Avoid nephrotoxic agents. -Digoxin and vancomycin (d/c'd 02/02) renally dosed (4) CHF (congestive heart failure) Status: Chronic Plan: Echocardiogram 01/25/17: EF 30%. Asymptomatic. -Cardiology consult placed 01/29 given A. fib and hypotension. -Continue medical management to include beta bairon, digoxin -He was not on a statin as outpatient -Follow up with vocational director (Dr. Chiang) within one week of discharge (5) Diabetes mellitus Status: Chronic Plan: Novolog Sliding Slide scale. Not requiring sliding scale insulin over the past 6 days, likely due to decreased po intake in inpatient setting A1C 7.2 -Hold accuchecks -monitor serum glucose (6) Avulsion of toenail of right foot Status: Resolved Plan: Podiatry was consulted on 01/25, operative right toenail avulsion was performed at that time. Not obvious source of infection per podiatry (7) Liver cirrhosis Status: Chronic Plan: AST mildly elevated and trending upward. Repeat CMV showing downtrend. Hep B panel negative for signs of infection. ALT within normal limits. Negative Physical exam. CT abd showed no hepatic pathology. ID and GI teams recommend colonoscopy as noted above (8) Right arm pain Status: Resolved Plan: Resolved. -X-ray right elbow was insignificant (9) Fluids/Electrolytes/Nutrition/Prophylaxis Status: Acute Plan: Fluids: d/c fluids, HD MWF. Electrolytes: Grossly within normal limits except for elevated BUN and creatinine. Started on Ca2+Carbonate 500 mg daily for low corrected Ca, as of , corrected calcium 8.86 which is wnl. We'll continue to monitor and replete as needed Nutrition: Diabetic diet. DVT prophylaxis: On Coumadin at home, 5 mg daily. INR 2.1 on 02/06. wdw Dr. Sanon. Problem Qualifiers (1) Atrial fibrillation: Qualified Code: I48.2 - Chronic atrial fibrillation Jane Ellington MD Feb 06, 2017 11:45
[2017-02-06] MEDS ORDERED: PEG (High)/E-LYTE SOLN 4000 ML BTL PO ONE (12:00)
[2017-02-06 12:30] LABS: BANDS 5 % (0-6); BASOPHILS 2 % (0-2); EOSINOPHILS 2 % (0-4); NEUTROPHIL # MANUAL DIFF 6.1 TH/MM3 (1.8-7.7); POLYS (SEG NEUTROPHILS) 29 % (16-70); WBC DIFF SAMPLE 100
[2017-02-06 12:31] LABS: PLATELET ESTIMATE SMEAR LOW (NORMAL); PLATELET MORPHOLOGY NORMAL (NORMAL); SCAN/DIFF FINAL DIFF MANUAL
[2017-02-06] MEDS: traMADol HCL 50 MG TAB PO PRN ×2 (13:49→20:32)
--- NOTE | 2017-02-06 14:06 | HHI.NPPN ---
Subjective General Problems: Anemia, Edema, Hypotension Renal Failure: Chronic, End Stage Renal Disease Review of Systems General Constitutional: Fever, Fatigue Cardiovascular Cardiac: Edema Gastrointestinal Gastrointestinal: Diarrhea, Blood/Tarry Stools Objective Data Data 02/05/17 02/06/17 19:00 07:00 Intake Total 960 ml 240 ml Output Total 0 ml Balance 960 ml 240 ml Intake Oral 960 ml 240 ml Output Urine Total 0 ml # Bowel Movements 0 2 Vital Signs Date Time Temp Pulse Resp B/P Pulse Ox O2 Delivery O2 Flow Rate FiO2 02/06/17 13:02 93 02/06/17 12:06 95 02/06/17 11:18 99 02/06/17 11:17 97.6 79 18 93/60 99 02/06/17 10:59 92 02/06/17 09:13 95 02/06/17 08:45 92 02/06/17 08:00 96 Room Air 02/06/17 07:45 97.7 94 18 104/66 96 02/06/17 07:30 102 02/06/17 06:00 87 02/06/17 05:57 98.6 75 16 101/72 94 02/06/17 05:00 109 02/06/17 04:00 94 02/06/17 03:00 94 02/06/17 02:00 98 02/06/17 01:00 92 02/06/17 00:00 86 02/05/17 23:00 120 02/05/17 23:00 98.3 85 16 110/66 96 02/05/17 22:00 96 02/05/17 21:00 92 02/05/17 20:11 95 Room Air 02/05/17 20:00 104 02/05/17 19:57 98.3 105 20 93/75 95 02/05/17 19:00 98 02/05/17 18:28 18 02/05/17 18:12 100 02/05/17 17:08 93 02/05/17 16:35 94 02/05/17 15:32 89 02/05/17 15:32 98.2 85 16 101/64 98 -: 02/06/17 0709 02/06/17 0709 Physical Exam General Appearance: Well Developed, Well Nourished, No Acute Distress, Comfortable Throat Throat Exam: Oral Mucosa Kistler & Moist Neck Neck Exam: Neck Supple Pulmonary Resp Exam: Clear Bilaterally, Breath Sounds Equal, No Distress Cardiology CV Exam: Good Perfusion, Irregular, Tachycardia Gastrointestinal/Abdomen GI Exam: Soft, Non-Tender, Bowel Sounds Present Musculoskeletal MS Exam: Joints Intact, Normal Gait, Good Strength Integumentary Skin Exam: Warm, Dry Extremeties Extremities Exam: Pedal Pulses Palpable, Trace Edema Neurologic Neuro Exam: Alert, Awake, Oriented, Speech Clear, Moving All Extremities Psychiatric Psych Exam: Appropriate Responses Assessment/Plan Discussed Condition With: Patient, Spouse Assessment Summary: Anemia of CKD, Hypotension, End Stage Renal Disease Problem List: (1) ESRD (end stage renal disease) Plan: Hemodialysis will be continued MWF. has access left arm that functions well higher BUN/cr phosphorus acceptable, Renvela on hold He does nocturnal dialysis at [facility], prefers to go outpatient if discharged early today; chair time around 5pm ; he is preferring outpatient HD (2) CHF (congestive heart failure) Plan: now on digoxin, monitor volume status, adjust UF with dialysis (3) Atrial fibrillation Plan: heart rate improved, on digoxin; also on Lopressor INR is now therapeutic. (4) Fever Plan: Cultures are negative. Now with diarrhea. Rule out C.diff colitis. CMV positive, significance is not known. GI consulted but he is refusing colonoscopy ID following (5) Anemia of renal disease Plan: Hemoglobin is acceptable. Epogen as needed per protocol with dialysis. Problem Qualifiers (1) Atrial fibrillation: Qualified Code: I48.2 - Chronic atrial fibrillation Evie Osborne MD Feb 06, 2017 14:06
[2017-02-07] VITALS (24 sets, daily range): BP systolic 91–123; BP diastolic 46–74; PULSE 87–129; RESP 16–18; TEMP 97–98.3; O2SAT 95–97
[2017-02-07 05:10] LABS: HEMATOCRIT 34.8 % (39.0-51.0); MEAN CELL VOLUME 92.9 FL (80.0-100.0); MEAN CORPUSCULAR HGB CONC 33.4 % (32.0-36.0); PLATELET COUNT 117 TH/MM3 (150-450); RED BLOOD COUNT 3.75 MIL/MM3 (4.50-5.90); RED CELL DISTRIBUTION WIDTH 16.1 % (11.6-17.2); WHITE BLOOD COUNT 14.9 TH/MM3 (4.0-11.0)
[2017-02-07 05:16] LABS: APTT (PATIENT) 55.1 SEC (24.3-30.1); HEMO FLAGS AUTO DIFF; PROTHROMBIN TIME - PATIENT 22.3 SEC (9.8-11.6)
[2017-02-07 05:25] LABS: ALKALINE PHOSPHATASE 109 U/L (45-117); ALT (GPT) 23 U/L (12-78); ANION GAP 13 MEQ/L (5-15); AST (GOT) 103 U/L (15-37); BICARBONATE 26.3 MEQ/L (21.0-32.0); BLOOD UREA NITROGEN 56 MG/DL (7-18); CHLORIDE 91 MEQ/L (98-107); GLOMERULAR FILTRATION RATE 5 ML/MIN (>89); POTASSIUM 5.6 MEQ/L (3.5-5.1); SODIUM (NA) 130 MEQ/L (136-145); TOTAL BILIRUBIN ADULT 0.9 MG/DL (0.2-1.0)
[2017-02-07] MEDS: MIDODRINE 5 MG TAB PO SCH ×3 (06:23→17:55)
[2017-02-07 06:39] LABS: BANDS 4 % (0-6); NEUTROPHIL # MANUAL DIFF 8.9 TH/MM3 (1.8-7.7); POLYS (SEG NEUTROPHILS) 56 % (16-70); WBC DIFF SAMPLE 100
[2017-02-07 06:40] LABS: PLATELET ESTIMATE SMEAR LOW (NORMAL)
[2017-02-07 06:41] LABS: PLATELET MORPHOLOGY NORMAL (NORMAL); SCAN/DIFF FINAL DIFF MANUAL
--- NOTE | 2017-02-07 08:54 | HHI.FPPN ---
Subjective Remarks Patient feels well this morning, denying fever, chills, nausea, vomiting, abdominal pain, chest pain, shortness of breath. He has consumed all of his prep for his GI procedure and has has bowel movements "like a river." His bowel movements now are running clear. He notes he has not had blood in his stool since he first reported them days ago. EGD and colonoscopy scheduled 930 this morning Dialysis will be after this (by noon per schedulers) Objective Vitals Vital Signs Date Time Temp Pulse Resp B/P Pulse Ox O2 Delivery O2 Flow Rate FiO2 02/07/17 06:00 99 02/07/17 05:00 103 02/07/17 04:00 Room Air 02/07/17 04:00 98.3 101 18 91/64 96 02/07/17 04:00 101 02/07/17 03:00 111 02/07/17 02:00 103 02/07/17 01:00 101 02/07/17 00:00 113 02/07/17 00:00 98.2 113 18 103/63 95 02/07/17 00:00 Room Air 02/06/17 23:00 97 02/06/17 22:00 100 02/06/17 21:00 111 02/06/17 20:00 104 02/06/17 20:00 98.0 104 20 119/75 97 02/06/17 20:00 Room Air 02/06/17 18:01 103 02/06/17 17:04 101 02/06/17 16:01 90 02/06/17 15:10 97.7 89 18 111/63 98 02/06/17 15:10 95 02/06/17 14:58 18 02/06/17 14:03 73 02/06/17 13:02 93 02/06/17 12:06 95 02/06/17 11:18 99 02/06/17 11:17 97.6 79 18 93/60 99 02/06/17 10:59 92 02/06/17 09:13 95 I/O 02/06/17 02/06/17 02/06/17 02/07/17 02/07/17 02/07/17 07:00 15:00 23:00 07:00 15:00 23:00 Intake Total 240 ml 2400 ml 502 ml Output Total 0 ml 1500 ml Balance 240 ml 2400 ml -998 ml Intake Oral 240 ml 2400 ml 500 ml IV Total 2 ml Output Urine Total 0 ml 0 ml Stool Total 1500 ml # Bowel Movements 2 2 10 Result Diagram: 02/07/1742202/07/17422 Imaging Last Impressions Gall Bladder Ultrasound 02/01/17 0000 Signed Impressions: Service Date/Time: Wednesday, February 01, 2017 09:01 - CONCLUSION: 1. Atrophic changes in the right kidney with multiple cortical cysts. 2. Echogenic foci in the region of the collecting system are characteristic of nonobstructing stones or vascular calcifications. 3. Small amount of sludge in the gallbladder neck. No stones, mural thickening or pericholecystic fluid. Robin Reed MD Chest X-Ray 02/01/17 0000 Signed Impressions: Service Date/Time: Wednesday, February 01, 2017 12:07 - CONCLUSION: 1. Mild cardiomegaly. 2. No acute focal pulmonary infiltrate or pulmonary vascular congestion. 3. Degenerative changes involving the thoracic spine. Mike Arriaga MD Abdomen/Pelvis CT 02/01/17 0000 Signed Impressions: Service Date/Time: Wednesday, February 01, 2017 08:10 - CONCLUSION: 1. Left-sided atelectatic changes with adjacent parenchymal density possibly representing early infiltrate. This could be the source of the patient's fever. 2. Benign-appearing diaphragmatic calcification on the right. 3. Both kidneys are atrophic with cortical thinning and bilateral renal cortical cysts. 4. Urinary bladder is decompressed with some relatively high density fluid centrally possibly representing dehydrated urine associated with chronic renal insufficiency. 5. 3 cm periumbilical hernia which only contains fat Robin Reed MD Elbow X-Ray 01/31/17 0000 Signed Impressions: Service Date/Time: Tuesday, January 31, 2017 07:45 - CONCLUSION: 1. Small olecranon spur with bony eburnation at the bicipital tuberosity of the proximal radius. These are both chronic and overtly benign. 2. No acute fracture or effusion. 3. Atherosclerotic calcification of the regional vasculature. Robin Reed MD Head CT 01/24/17 1025 Signed Impressions: Service Date/Time: Tuesday, January 24, 2017 11:06 - CONCLUSION: No acute disease. No significant change has occurred. No evidence of acute infarct, hemorrhage, mass or edema. Ba Uribe MD Objective Remarks GENERAL: Well-nourished elderly male lying in bed. In no acute distress. Family at bedside. SKIN: Warm and dry. Skin is thin and scattered bruising noted. Lower extremities erythematous to mid-aguirre, nontender, unchanged in over one week. Right great toenail previously with surgical avulsion, no signs of infection. HEAD: Atraumatic. Normocephalic. EYES: Pupils equal and round. No scleral icterus. No injection or drainage. ENT: No nasal bleeding or discharge. Mucous membranes pink and moist. NECK: Trachea midline. No JVD. CARDIOVASCULAR: Irregular rhythm approximately 90. No audible murmur. AV fistula on left arm without acute defect. RESPIRATORY: No accessory muscle use. Clear to auscultation without evidence of crackles or wheezing. Breath sounds equal bilaterally. GASTROINTESTINAL: Abdomen soft, non-tender, nondistended. Hepatic and splenic margins not palpable. MUSCULOSKELETAL: Joints are not tender to palpation. No cyanosis, or edema. Distal toes show decreased sensation but no discoloration. Pulses are 1+ in the upper and lower extremities bilaterally. NEUROLOGICAL: Awake and alert. No obvious cranial nerve deficits. Motor grossly within normal limits. Normal speech. PSYCHIATRIC: Alert and oriented. Appropriate mood and affect; insight and judgment normal. Procedures Dialysis MWF Medications and IVs Inpatient Medications Acetaminophen (Tylenol) 650 mg Q4H PRN PO SEE LABEL COMMENTS Last administered on 02/05/17 17:27; Start 01/24/17 at 13:00 Acetaminophen 650 mg 650 mg ONCE ONCE RECTAL Last administered on 01/24/17 10 :47; Start 01/24/17 at 10:30; Stop 01/24/17 at 10:32; Status DC Al Hydrox/Mg Hydrox/ Simethicone 30 ml 30 ml Q6H PRN PO heart burn Last administered on 01/30/17 14:05; Start 01/30/17 at 13:30 Albumin Human (Albumin 25% Inj) 25 gm UNSCH PRN IV WITH DIALYSIS Last administered on 02/04/17 13:22; Start 01/24/17 at 11:15 Benzocaine/Menthol (Chloraseptic Maximiliano) 1 lozenge UNSCH PRN BUCCAL THROAT IRRITATION; Start 02/04/17 at 15:15 Calcium Carbonate (Oscal) 500 mg DAILY PO Last administered on 02/06/17 09:00 ; Start 02/03/17 at 09:00 Calcium Carbonate (Tums Chew) 500 mg ONCE ONCE CHEW Last administered on 09:50; Start 01/26/17 at 09:30; Stop 01/26/17 at 09:32; Status DC Calcium Carbonate 500 mg 500 mg DAILY PO ; Start 01/26/17 at 09:30; Stop at 09:35; Status DC Calcium Gluconate/ Sodium Chloride (Calcium Gluconate Inj/NS Inj) 110 ml @ 110 mls/hr ONCE ONCE IV Last administered on 01/26/17 19:24; Start 01/26/17 at 15 :00; Stop 01/26/17 at 15:59; Status DC Clonidine (Catapres) 0.1 mg UNSCH PRN PO for BP > 180/100 X 2 readings; Start 01/24/17 at 11:15 Diatrizoate Meglum/ Diatrizoate Sod ( Gastroview Liq) 18 ml ONCE ONCE PO Last administered on 01/31/17 21:05; Start 01/31/17 at 19:45; Stop 01/31/17 at 19:46; Status DC Digoxin (Lanoxin) 0.125 mg EVERY OTHER DAY PO Last administered on 02/06/17 09:00; Start 01/31/17 at 09:00 Diltiazem HCl (Cardizem Inj) 15 mg NOW ONCE IV Last administered on 02/02/17 22:32; Start 02/02/17 at 22:15; Stop 02/02/17 at 22:16; Status DC Diphenhydramine HCl (Benadryl) 25 mg UNSCH PRN PO for hives/itching/ anaphylaxis Last administered on 02/06/17 20:33; Start 01/24/17 at 11:15 Doxycycline Hyclate (Vibramycin) 100 mg BID PO Last administered on 01/30/17 23:16; Start 01/30/17 at 21:00; Stop 02/05/17 at 13:06; Status DC Epoetin Dawood (Epogen Inj) 5,000 units UNSCH PRN IV WITH DIALYSIS Last administered on 02/04/17 13:22; Start 01/24/17 at 11:15 Gelatin (Gelfoam 12 Mm/7 Mm Top) 1 foam UNSCH PRN TOP SEE LABEL COMMENTS; Start 01/24/17 at 11:15 Gentamicin Sulfate (Gentamicin (Dialysis) Inj) 20 mg UNSCH PRN IV WITH DIALYSIS ; Start 01/24/17 at 11:15 Heparin Sodium (Porcine) (Heparin Inj) 5,000 units Q12HR SQ Last administered on 01/26/17 20:39; Start 01/24/17 at 21:00; Stop 01/27/17 at 15:33; Status DC Hydromorphone HCl (Dilaudid Pf Inj) 1 mg Q4H PRN IV PAIN SCALE 6 TO 10; Start 01/24/17 at 13:00 Insulin Aspart (NovoLOG SUPPLEMENTAL SCALE) 1 ACHS SLIDING SCALE SQ Last administered on 01/31/17 21:05; Start 01/24/17 at 21:00; Status Hold IV Flush (NS Flush) 2 ml UNSCH PRN IV FLUSH FLUSH AFTER USING IV ACCESS; Start 01/24/17 at 13:00; Stop 01/24/17 at 13:21; Status DC IV Flush 2 ml 2 ml BID IV FLUSH ; Start 01/24/17 at 21:00; Stop 01/24/17 at 21: 00; Status DC Magnesium Sulfate/ Dextrose (Magnesium Sulfate 1 Gm Premix) 100 ml @ 100 mls/ hr ONCE ONCE IV Last administered on 01/27/17 09:27; Start 01/27/17 at 09:00 ; Stop 01/27/17 at 09:59; Status DC Mannitol (Mannitol Inj) 12.5 gm UNSCH PRN IV WITH DIALYSIS; Start 01/24/17 at 11:15 Metoprolol Tartrate (Lopressor) 25 mg Q12HR PO Last administered on 02/06/17 20:32; Start 01/31/17 at 16:45 Metoprolol Tartrate 5 mg 5 mg ONCE IV Last administered on 01/27/17 03:10; Start 01/27/17 at 02:30; Stop 01/28/17 at 02:29; Status DC Midodrine (Proamatine) 5 mg TID@07,12,17 PO Last administered on 02/07/17 06: 23; Start 02/02/17 at 12:00 Midodrine 10 mg 10 mg TID@07,12,17 PO Last administered on 02/01/17 16:41; Start 01/31/17 at 12:00; Stop 02/02/17 at 10:57; Status DC Miscellaneous (Pill Splitter) 1 ea UNSCH PRN OTHER SEE LABEL COMMENTS; Start at 16:15 Multi-Ingredient Mouthwash/Gargle (Magic Mouthwash Adult Liq) 5 ml QID SWISH- SWAL Last administered on 02/06/17 20:29; Start 02/04/17 at 18:00 Nitroglycerin (Nitrostat Sl) 0.4 mg UNSCH PRN SL CHEST PAIN; Start 01/24/17 at 11:15 Ondansetron HCl (Zofran Inj) 4 mg UNSCH PRN IV WITH DIALYSIS; Start 01/24/17 at 11:15 Oxycodone/ Acetaminophen (Percocet 5-325 Mg) 1 tab Q4H PRN PO PAIN SCALE 1 TO 5 Last administered on 01/27/17 11:55; Start 01/24/17 at 13:00; Stop 01/27/17 at 16:57; Status DC Patient Medication Teaching (Coumadin Booklet) 1 ONCE ONCE XX ; Start 01/25/17 at 16:00; Stop 01/25/17 at 16:01; Status DC Patient Own Medication PT OWN MED: RENVELA(SEVELAMER)-1 PACKET(2.4 ... TIDAC PO Last administered on 02/04/17 16:51; Start 01/27/17 at 18:00 Petrolatum (Vaseline Oint) 1 applic UNSCH PRN TOPICAL dry skin and lips; Start 02/04/17 at 15:15 Pharmacy Profile Note (Coumadin Consult Pharmacy) 0 ml @ 0 mls/hr UNSCH OTHER ; Start 01/31/17 at 10:45 Piperacillin Sod/ Tazobactam Sod 50 ml @ 200 mls/hr Q8H IV Last administered on 01/27/17 09:25; Start 01/24/17 at 17:00; Stop 01/27/17 at 13:00; Status DC Polyethylene Glycol/ Electrolytes (Colyte Liq) 4,000 ml ONCE ONCE PO Last administered on 02/06/17 13:45; Start 02/06/17 at 12:00; Stop 02/06/17 at 12:01 ; Status DC Senna/Docusate Sodium (Erin-Colace) 1 tab DAILY PO Last administered on 09:21; Start 01/28/17 at 18:00; Status Hold Sevelamer Carbonate (Renvela) 800 mg TIDAC PO Last administered on 01/27/17 16 :10; Start 01/26/17 at 12:00; Stop 01/27/17 at 17:47; Status DC Sodium Chloride (NS 1000 ml Inj) 1,000 ml @ 125 mls/hr Q8H IV Last administered on 01/25/17 23:44; Start 01/24/17 at 14:00; Stop 01/26/17 at 08:50 ; Status DC Sodium Chloride (NS 500 ml Inj) 500 ml @ 500 mls/hr BOLUS ONCE IV ; Start at 10:30; Stop 01/24/17 at 11:29; Status DC Tramadol HCl (Ultram) 50 mg Q6H PRN PO PAIN Last administered on 02/06/17 20: 32; Start 01/27/17 at 17:00 Vancomycin HCl 1000 mg/Sodium Chloride 260 ml @ 262.5 mls/ hr Q12H IV ; Start 01/25/17 at 01:00; Stop 01/25/17 at 01:00; Status DC Vancomycin HCl/ Sodium Chloride (Vancomycin Inj/ NS 250 ml Inj) 250 ml @ 250 mls/hr ONCE ONCE IV Last administered on 01/24/17 10:45; Start 01/24/17 at 10 :30; Stop 01/24/17 at 11:29; Status DC Vancomycin HCl/ Sodium Chloride (Vancomycin Inj/ NS 500 ml Inj) 515 ml @ 257.5 mls/ hr WITH DIALYSIS IV Last administered on 01/31/17 11:59; Start 01/31/17 at 08:00; Stop 02/01/17 at 15:54; Status DC Warfarin Sodium (Coumadin) 4 mg DAILY@16 PO Last administered on 02/04/17 16: 51; Start 02/03/17 at 16:00; Status Hold Urinary Catheter: No Vascular Central Line Catheter: No A/P Assessment and Plan Mr. Rowe is a 71-year-old male, with a past medical history of type 2 diabetes, atrial fibrillation on Coumadin, end-stage renal disease on dialysis, MRSA infection on his posterior neck, liver cirrhosis, presented to the [facility] emergency department on 01/24/17 with a one-week history of general lethargy, confusion, decreased appetite, and subjective fevers and chills. He was admitted for work-up of SIRS and AMS. Discharge Planning Discharge was held due to increasing leukocytosis and LFTs. He reported bloody stools approximately one week ago, resolved. Infectious Disease consult was placed and recommended GI evaluation given CMV positive and bloody/loose stools. Problem List: (1) Leukocytosis Status: Acute Plan: Plan as follows: - Infectious disease and GI teams recommend further evaluation of the colon given new symptoms of bloody diarrhea and lab findings suggestive of CMV colitis. He is now agreeing to colonoscopy, to be completed on 02/07/17. - C. difficile collected 02/04 negative given diarrhea - CMV downtrending Hospital course: -Initially met SIRS criteria -Initial potential sources were bacteremia and skin infection, not found on labs or clinical exam. -Culture from right foot negative, s/p nail removal, no abscess or evidence of infection on exam. -Source was not definitively identified at admission, however, increasing suspicion for GI source based on interim workup including increasing LFTs, positive serum CMV, persistent leukocytosis, and bloody diarrhea -CT of the head on admission 01/24 showed no acute changes, chest x-ray was benign. He is anuric at baseline given ESRD. -C. difficile is negative -Patient continues to be afebrile Afebrile x 24 hours off of antibiotics and cultures have been negative for 5 days. -Only documented low-grade fevers of 100.1 F on evening of 01/30 and porter bath 01/31 -CT abdomen/pelvis with Oral Contrast 02/01: Left sided atelectasis changes with adjacent parenchymal density possibly representing an early infiltrate. A follow-up chest x-ray was negative for any consolidations. -Blood cultures 01/24, 01/30 showed no growth (final) -Peripheral smear showed monocytosis unspecific for any malignancy, inflammatory process, or infection. -ESR 01/31 was elevated at 65, nonspecific -Lactic acid on admission 3.1, with repeat 01/31 within normal limits -WBC decreased from 19.5-->16.2 ---> stable at 17,000 for a few days, while off antibiotics. -Infectious disease team has followed patient, appreciate recommendations. -AST increased but currently stable at approximately 100, ALT is normal, alkaline phosphatase mildly elevated at 131 -[place] 01[place] [address], repeat 02/03 was 3780. Bili 0.9 normal. IgM and IgG EBV antibodies positive. May represent reactivation. Antibiotic history: Vancomycin 1.5 g IV renally dosed (01/26-01/28, 01/31) Zosyn 4.5g IV x 1 (01/24) 2.25g IV q8hr (01/24-01/27) (2) Fever of unknown origin Status: Resolved Plan: Resolved. Plan as above. (3) Atrial fibrillation Status: Chronic Plan: Heart rate was irregular on admission exam, at 100 bpm. Coumadin was held on admission given supra-therapeutic INR, restarted once INR normalized, now held due to GI procedure 02/07. Coumadin restarted at 4 mg daily on 02/03, pharmacy consulted. Continue monitoring. Coumadin consult placed with pharmacy; No indication to bridge to Lovenox given patient having low bleeding risk surgery with normal INR Home metoprolol was 25 mg PO BID was restarted per cardiology. Hold parameters ( HR <60, systolic < 100). Digoxin ordered, 0.125mg renally dosed to q 48. (4) End stage renal disease Status: Acute Plan: Currently hyperkalemic to 5.6. Dialysis scheduled for this morning but delayed due to EGD procedure. Creatinine on admission was 9.19. Gradual increase between dialysis sessions, range 8-11. Patient has not tolerated inpatient dialysis well given he must lie supine and normally sits in recliner at outpatient dialysis. -Consulted nephrology, appreciate their assistance -Scheduled for hemodialysis MWF -Avoid nephrotoxic agents -Digoxin and vancomycin (d/c'd 02/02) renally dosed (5) CHF (congestive heart failure) Status: Chronic Plan: Echocardiogram 01/25/17: EF 30%. Asymptomatic. -Cardiology consult placed 01/29 given A. fib and hypotension. -Continue medical management to include beta bairon, digoxin -He was not on a statin as outpatient -Follow up with securities teller (Dr. Chiang) within one week of discharge (6) Diabetes mellitus Status: Chronic Plan: Novolog Sliding Slide scale. Not requiring sliding scale insulin over the past 6 days, likely due to decreased PO intake in inpatient setting -A1C 7.2 -Hold accuchecks -monitor serum glucose (7) Avulsion of toenail of right foot Status: Resolved Plan: Podiatry was consulted on 01/25, operative right toenail avulsion was performed at that time. Not obvious source of infection per podiatry (8) Liver cirrhosis Status: Chronic Plan: AST mildly elevated and trending upward. Repeat CMV showing downtrend. Hep B panel negative for signs of infection. ALT within normal limits. Negative Physical exam. CT abd showed no hepatic pathology. ID and GI teams recommend colonoscopy as noted above (9) Right arm pain Status: Resolved Plan: Resolved. -X-ray right elbow was insignificant (10) Fluids/Electrolytes/Nutrition/Prophylaxis Status: Acute Plan: Fluids: d/c fluids, HD MWF. Electrolytes: Hyperkalemia 02/07, will monitor after dialysis. Grossly within normal limits except for elevated BUN and creatinine. Started on Ca2+Carbonate 500 mg daily for low corrected Ca, as of 02/06, corrected calcium 8.86 which is wnl. We'll continue to monitor and replete as needed Nutrition: Diabetic diet. DVT prophylaxis: On Coumadin at home, 5 mg daily. INR 2.1 on 02/06. wdw Dr. Sanon. Problem Qualifiers (1) Atrial fibrillation: Qualified Code: I48.2 - Chronic atrial fibrillation Danii Ellington MD R1 Feb 07, 2017 08:54
[2017-02-07] MEDS: METOPROLOL TARTRATE 25 MG TAB PO SCH ×2 (09:00→18:45)
[2017-02-07] MEDS: CALCIUM CARBONATE 1.25 GM (CA 500 MG) TAB PO SCH (09:00)
[2017-02-07] MEDS ORDERED: PROPOFOL 200 MG/20 ML AMP IV ONE (09:41)
--- NOTE | 2017-02-07 10:16 | GIPROC ---
[facility] [address] [facility]. [facility], [address] EGD PROCEDURE REPORT EXAM DATE: 02/07/2017 PATIENT NAME: Doug Rowe MR #: [id number] BIRTHDATE: 1945 ATTENDING: Agustín Spivey MD ORDER #: [id number] [employer]AF[employer] MARKER: Hakan Portillo and Tre Hall STATUS: inpatient INDICATIONS: The patient is a 71 yr old male here for an EGD due to dysphagia and hematochezia PROCEDURE PERFORMED: EGD, diagnostic MEDICATIONS: None and Per Anesthesia. TOPICAL ANESTHETIC: CONSENT: The patient understands the risks and benefits of the procedure and understands that these risks include, but are not limited to: sedation, allergic reaction, infection, perforation and/or bleeding. Alternative means of evaluation and treatment include, among others: physical exam, x-rays, and/or surgical intervention. The patient elects to proceed with this endoscopic procedure. medical equipment was checked for proper function. Hand hygiene and appropriate measures for infection prevention was taken. After the risks, benefits and alternatives of the procedure were thoroughly explained, Informed consent was verified, confirmed and timeout was successfully executed by the treatment team. The patient was anesthetized with topical anesthesia and the EC-[id number] (Pedi C) and [id number] endoscope was introduced through the mouth and advanced to the second portion of the duodenum. Retroflexed views revealed no abnormalities The gastroscope was then slowly withdrawn and removed. ESOPHAGUS: There was LA Class B esophagitis noted. STOMACH: There was mild erosive gastritis in the gastric antrum. The endoscopy was otherwise normal. ADVERSE EVENTS: There were no complications. IMPRESSIONS: 1. There was LA Class B esophagitis noted 2. There was mild gastritis in the gastric antrum 3. Normal endoscopy otherwise 4. Retroflexed views revealed no abnormalities RECOMMENDATIONS: 1. Start PPI 2. Avoid NSAIDS PATIENT CONDITION: stable DISPOSITION: Inpatient REPEAT EXAM: Return 2 months EGD Agustín Spivey MD eSigned: Agustín Spivey MD 02/07/2017 10:16 AM cc: PATIENT NAME: Doug Rowe MR#: [id number]
--- NOTE | 2017-02-07 10:21 | GIPROC ---
[facility] [address] [facility]. [facility], [address] COLONOSCOPY PROCEDURE REPORT EXAM DATE: 02/07/2017 PATIENT NAME: Doug Rowe MR #: [id number] BIRTHDATE: 1945 ENDOSCOPIST: Agustín Spivey MD ORDER #: [id number] INDUSTRIAL [employer]OMICS PROFESSOR: Hakan Portillo and Tre Hall STATUS: inpatient INDICATIONS: The patient is a 71 yr old male here for a colonoscopy due to hematochezia PROCEDURE PERFORMED: Colonoscopy with biopsy MEDICATIONS: None and Per Anesthesia. PREP QUALITY: good ESTIMATED BLOOD LOSS: None CONSENT: The patient understands the risks and benefits of the procedure and understands that these risks include, but are not limited to: sedation, allergic reaction, infection, perforation and/or bleeding. Alternative means of evaluation and treatment include, among others: physical exam, x-rays, and/or surgical intervention. The patient elects to proceed with this endoscopic procedure. medical equipment was checked for proper function. Hand hygiene and appropriate measures for infection prevention was taken. After the risks, benefits and alternatives of the procedure were thoroughly explained, Informed consent was verified, confirmed and timeout was successfully executed by the treatment team. A digital exam revealed no abnormalities of the rectum The [id number] and Pentax EC-[id number] endoscope was introduced through the anus and advanced to the cecum, which was identified by both the appendix and ileocecal valve. The instrument was then slowly withdrawn as the colon was fully examined. COLON FINDINGS: A large sized patch of colitis was found in the ascending colon. The mucosa was edematous, erythematous, friable and ulcerated. This is consistent with ischemic colitis disease. Multiple biopsies were performed. The colon mucosa was otherwise normal. Retroflexed views revealed no abnormalities The scope was then completely withdrawn from the patient and the procedure terminated. PROCEDURE WITHDRAWAL TIME:5.5minutes ADVERSE EVENTS: There were no complications. IMPRESSIONS: 1. Large sized colitis was found in the ascending colon; The mucosa was edematous, erythematous, friable and ulcerated; This is consistent with ischemic colitis.; multiple biopsies were performed 2. The colon mucosa was otherwise normal 3. Retroflexed views revealed no abnormalities 4. Revealed no abnormalities of the rectum RECOMMENDATIONS: 1. Await biopsy results. Biopsy results will not be ready for 7-10 days. If you don't hear from us in two weeks, call our office for results. 2. Follow-up: GI Clinic 4 week(s) 3. Yearly hemoccult 4. High fiber diet 5. CTA of the abdomen if ok with renal and attending physician RECALL: Return 1 year Colonoscopy Agustín Spivey MD eSigned: Agustín Spivey MD 02/07/2017 10:20 AM cc:
[2017-02-07] MEDS: traMADol HCL 50 MG TAB PO PRN ×2 (11:05→18:00)
[2017-02-07] MEDS: NYSTAT/DIPHENHY/LIDO MOUTHWASH (Adult) 120ML SWISH-SWAL SCH ×4 (11:06→21:38)
[2017-02-07] MEDS: PANTOPRAZOLE SOD 40 MG DELAYED RELEASE TAB PO SCH (11:46)
[2017-02-07] MEDS ORDERED: ePHEDrine/NS 25 MG/5 ML SYR IV ONE (12:00)
[2017-02-07] MEDS ORDERED: PHENYLEPH/NS 1000 MCG/10 ML SYR IV ONE (12:00)
[2017-02-07] MEDS: EPOETIN ALFA 10,000 UNITS/ML VIAL IV PRN (14:45)
--- NOTE | 2017-02-07 17:06 | HHI.NPPN ---
Subjective General Problems: Anemia, Edema, Hypotension Renal Failure: Chronic, End Stage Renal Disease Interval History Had EGD/colonoscopy this am, was dialyzed after. (Eileen Salgado) Review of Systems General Constitutional: Fever, Fatigue (Eileen Salgado) Cardiovascular Cardiac: Edema (Eileen Salgado) Gastrointestinal Gastrointestinal: Diarrhea, Blood/Tarry Stools (Eileen Salgado) Objective Data Data 02/06/17 02/07/17 19:00 07:00 Intake Total 2400 ml 502 ml Output Total 1500 ml Balance 2400 ml -998 ml Intake Oral 2400 ml 500 ml IV Total 2 ml Output Urine Total 0 ml Stool Total 1500 ml # Bowel Movements 2 10 Vital Signs Date Time Temp Pulse Resp B/P Pulse Ox O2 Delivery O2 Flow Rate FiO2 02/07/17 13:00 116 02/07/17 12:00 97.5 106 16 123/74 96 02/07/17 12:00 112 02/07/17 11:00 87 02/07/17 10:25 110 18 91/64 94 02/07/17 10:13 101 18 94/67 94 02/07/17 09:58 98.7 109 18 70/50 88 02/07/17 09:05 98.3 101 18 91/64 96 02/07/17 08:00 96 Room Air 02/07/17 08:00 108 02/07/17 08:00 97.4 107 16 99/71 96 02/07/17 07:00 116 02/07/17 06:00 99 02/07/17 05:00 103 02/07/17 04:00 Room Air 02/07/17 04:00 98.3 101 18 91/64 96 02/07/17 04:00 101 02/07/17 03:00 111 02/07/17 02:00 103 02/07/17 01:00 101 02/07/17 00:00 113 02/07/17 00:00 98.2 113 18 103/63 95 02/07/17 00:00 Room Air 02/06/17 23:00 97 02/06/17 22:00 100 02/06/17 21:00 111 02/06/17 20:00 104 02/06/17 20:00 98.0 104 20 119/75 97 02/06/17 20:00 Room Air 02/06/17 18:01 103 02/06/17 17:04 101 (Eileen Salgado) -: 02/07/17 0423 02/07/17 0423 Imaging Last Impressions Gall Bladder Ultrasound 02/01/17 0000 Signed Impressions: Service Date/Time: Wednesday, February 01, 2017 09:01 - CONCLUSION: 1. Atrophic changes in the right kidney with multiple cortical cysts. 2. Echogenic foci in the region of the collecting system are characteristic of nonobstructing stones or vascular calcifications. 3. Small amount of sludge in the gallbladder neck. No stones, mural thickening or pericholecystic fluid. Robin Reed MD Chest X-Ray 02/01/17 0000 Signed Impressions: Service Date/Time: Wednesday, February 01, 2017 12:07 - CONCLUSION: 1. Mild cardiomegaly. 2. No acute focal pulmonary infiltrate or pulmonary vascular congestion. 3. Degenerative changes involving the thoracic spine. Mike Arriaga MD Abdomen/Pelvis CT 02/01/17 0000 Signed Impressions: Service Date/Time: Wednesday, February 01, 2017 08:10 - CONCLUSION: 1. Left-sided atelectatic changes with adjacent parenchymal density possibly representing early infiltrate. This could be the source of the patient's fever. 2. Benign-appearing diaphragmatic calcification on the right. 3. Both kidneys are atrophic with cortical thinning and bilateral renal cortical cysts. 4. Urinary bladder is decompressed with some relatively high density fluid centrally possibly representing dehydrated urine associated with chronic renal insufficiency. 5. 3 cm periumbilical hernia which only contains fat Robin Reed MD Elbow X-Ray 01/31/17 0000 Signed Impressions: Service Date/Time: Tuesday, January 31, 2017 07:45 - CONCLUSION: 1. Small olecranon spur with bony eburnation at the bicipital tuberosity of the proximal radius. These are both chronic and overtly benign. 2. No acute fracture or effusion. 3. Atherosclerotic calcification of the regional vasculature. Robin Reed MD Head CT 01/24/17 1025 Signed Impressions: Service Date/Time: Tuesday, January 24, 2017 11:06 - CONCLUSION: No acute disease. No significant change has occurred. No evidence of acute infarct, hemorrhage, mass or edema. Ba Uribe MD (Eileen Salgado B. FLOORING MACHINE OPERATOR) Physical Exam General Appearance: Well Developed, Well Nourished, No Acute Distress, Comfortable ( Demarcus Salgadoon B. FLOORING MACHINE OPERATOR) Throat Throat Exam: Oral Mucosa [place] & Moist Throat Remarks poor dentition (DamianEileen B. FLOORING MACHINE OPERATOR) Neck Neck Exam: Neck Supple (DamianEileen B. FLOORING MACHINE OPERATOR) Pulmonary Resp Exam: Clear Bilaterally, Breath Sounds Equal, No Distress (Damian, Eileen B. FLOORING MACHINE OPERATOR) Cardiology CV Exam: Good Perfusion, Irregular, Tachycardia (Demarcus Salgadoon B. FLOORING MACHINE OPERATOR) Gastrointestinal/Abdomen GI Exam: Soft, Non-Tender, Bowel Sounds Present (Eileen Salgado B. FLOORING MACHINE OPERATOR) Musculoskeletal MS Exam: Joints Intact, Normal Gait, Good Strength (Demarcus Salgadoon B. FLOORING MACHINE OPERATOR) Integumentary Skin Exam: Warm, Dry (Demarcus Salgadoon B. FLOORING MACHINE OPERATOR) Extremeties Extremities Exam: Pedal Pulses Palpable, Trace Edema (Demarcus Salgadoon B. FLOORING MACHINE OPERATOR) Neurologic Neuro Exam: Alert, Awake, Oriented, Speech Clear, Moving All Extremities ( Eileen Salgado B. FLOORING MACHINE OPERATOR) Psychiatric Psych Exam: Appropriate Responses (Eileen Salgado B. FLOORING MACHINE OPERATOR) Assessment/Plan Discussed Condition With: Patient, Spouse Assessment Summary: Anemia of CKD, Hypotension, End Stage Renal Disease Problem List: (1) ESRD (end stage renal disease) Plan: Hemodialysis MWF. 3L UF today K 5.6, repeat in am has access left arm that functions well phosphorus acceptable, Renvela on hold He does nocturnal dialysis at [facility], prefers to go outpatient if discharged early on dialysis days; chair time around 5pm ; he is preferring outpatient HD (2) Fever Plan: Cultures are negative. he had been complaining of diarrhea. c diff negative CMV positive, colonoscopy to rule out CMV colitis results of endoscopy showing significant ischemic colitis, biopsy in process ID following (3) CHF (congestive heart failure) Plan: now on digoxin, monitor volume status, adjust UF with dialysis (4) Atrial fibrillation Plan: tachycardic today; on digoxin and Lopressor INR is therapeutic. (5) Anemia of renal disease Plan: Hemoglobin is acceptable. Epogen as needed per protocol with dialysis. (Eileen Salgado) Plan patient was seen and examined. Agree with above assessment and plan. (Prashant Richardson MD) Problem Qualifiers (1) Atrial fibrillation: Qualified Code: I48.2 - Chronic atrial fibrillation Eileen Salgado Feb 07, 2017 17:06 Prashant Richardson MD Feb 08, 2017 14:37
[2017-02-07 19:57] LABS: BICARBONATE 28.9 MEQ/L (21.0-32.0); POTASSIUM 4.5 MEQ/L (3.5-5.1)
[2017-02-08] VITALS (18 sets, daily range): BP systolic 88–107; BP diastolic 48–67; PULSE 86–118; RESP 15–20; TEMP 97–98.8; O2SAT 94–100
[2017-02-08] MEDS: traMADol HCL 50 MG TAB PO PRN ×2 (00:17→17:48)
[2017-02-08] MEDS: MIDODRINE 5 MG TAB PO SCH ×3 (06:13→17:00)
[2017-02-08 06:29] LABS: APTT (PATIENT) 51.4 SEC (24.3-30.1)
[2017-02-08 06:35] LABS: INTERNATIONAL NORMALIZED RATIO 1.9 RATIO; PROTHROMBIN TIME - PATIENT 21.1 SEC (9.8-11.6)
[2017-02-08 06:48] LABS: ALT (GPT) 25 U/L (12-78); ANION GAP 11 MEQ/L (5-15); AST (GOT) 108 U/L (15-37); BICARBONATE 31.1 MEQ/L (21.0-32.0); BLOOD UREA NITROGEN 43 MG/DL (7-18); CHLORIDE 93 MEQ/L (98-107); GLOMERULAR FILTRATION RATE 6 ML/MIN (>89); POTASSIUM 4.9 MEQ/L (3.5-5.1); SODIUM (NA) 135 MEQ/L (136-145)
[2017-02-08 06:50] LABS: ALKALINE PHOSPHATASE 138 U/L (45-117); TOTAL BILIRUBIN ADULT 0.9 MG/DL (0.2-1.0)
--- NOTE | 2017-02-08 08:45 | HHI.FPPN ---
Subjective Remarks Doing well. No diarrhea overnight, semi formed stool without blood yesterday ---- No abdominal pain currently. Denies palp, cp, sob or N/V. (MontroseKleber bhatti MD R2) Objective Vitals Vital Signs Date Time Temp Pulse Resp B/P Pulse Ox O2 Delivery O2 Flow Rate FiO2 02/08/17 06:00 116 02/08/17 05:00 100 02/08/17 04:00 98.3 109 16 97/65 97 02/08/17 04:00 100 02/08/17 03:00 112 02/08/17 02:00 100 02/08/17 01:17 16 02/08/17 01:00 94 02/08/17 00:00 102 02/08/17 00:00 97.0 102 16 106/67 96 02/07/17 23:00 94 02/07/17 22:00 104 02/07/17 21:00 106 02/07/17 20:00 97.0 107 18 99/57 97 02/07/17 20:00 110 02/07/17 20:00 97 Room Air 02/07/17 19:00 128 02/07/17 18:00 126 02/07/17 17:56 91/46 02/07/17 17:00 129 02/07/17 16:00 118 02/07/17 15:00 118 02/07/17 14:00 116 02/07/17 13:00 116 02/07/17 12:00 97.5 106 16 123/74 96 02/07/17 12:00 112 02/07/17 11:00 87 02/07/17 10:25 110 18 91/64 94 02/07/17 10:13 101 18 94/67 94 02/07/17 09:58 98.7 109 18 70/50 88 02/07/17 09:05 98.3 101 18 91/64 96 I/O 02/07/17 02/07/17 02/07/17 02/08/17 02/08/17 02/08/17 07:00 15:00 23:00 07:00 15:00 23:00 Intake Total 502 ml 240 ml 240 ml Output Total 1500 ml 3000 ml 0 ml Balance -998 ml -2760 ml 240 ml Intake Oral 500 ml 240 ml 240 ml IV Total 2 ml Output Urine Total 0 ml 0 ml Stool Total 1500 ml Hemodialysis 3000 ml # Bowel Movements 10 4 0 (Kleber Finn MD R2) Result Diagram: 02/07/17 0423 02/08/17 0607 Imaging Last Impressions Gall Bladder Ultrasound 02/01/17 0000 Signed Impressions: Service Date/Time: Wednesday, February 01, 2017 09:01 - CONCLUSION: 1. Atrophic changes in the right kidney with multiple cortical cysts. 2. Echogenic foci in the region of the collecting system are characteristic of nonobstructing stones or vascular calcifications. 3. Small amount of sludge in the gallbladder neck. No stones, mural thickening or pericholecystic fluid. Robin Reed MD Chest X-Ray 02/01/17 0000 Signed Impressions: Service Date/Time: Wednesday, February 01, 2017 12:07 - CONCLUSION: 1. Mild cardiomegaly. 2. No acute focal pulmonary infiltrate or pulmonary vascular congestion. 3. Degenerative changes involving the thoracic spine. Mike Arriaga MD Abdomen/Pelvis CT 02/01/17 0000 Signed Impressions: Service Date/Time: Wednesday, February 01, 2017 08:10 - CONCLUSION: 1. Left-sided atelectatic changes with adjacent parenchymal density possibly representing early infiltrate. This could be the source of the patient's fever. 2. Benign-appearing diaphragmatic calcification on the right. 3. Both kidneys are atrophic with cortical thinning and bilateral renal cortical cysts. 4. Urinary bladder is decompressed with some relatively high density fluid centrally possibly representing dehydrated urine associated with chronic renal insufficiency. 5. 3 cm periumbilical hernia which only contains fat Robin Reed MD Elbow X-Ray 01/31/17 0000 Signed Impressions: Service Date/Time: Tuesday, January 31, 2017 07:45 - CONCLUSION: 1. Small olecranon spur with bony eburnation at the bicipital tuberosity of the proximal radius. These are both chronic and overtly benign. 2. No acute fracture or effusion. 3. Atherosclerotic calcification of the regional vasculature. Robin Reed MD Head CT 01/24/17 1025 Signed Impressions: Service Date/Time: Tuesday, January 24, 2017 11:06 - CONCLUSION: No acute disease. No significant change has occurred. No evidence of acute infarct, hemorrhage, mass or edema. Ba Uribe MD Objective Remarks GENERAL: Well-nourished elderly male lying in bed. In no acute distress. Family at bedside. SKIN: Warm and dry. Skin is thin and scattered bruising noted. Lower extremities erythematous to mid-aguirre, nontender, unchanged in over one week. Right great toenail previously with surgical avulsion, no signs of infection. HEAD: Atraumatic. Normocephalic. EYES: Pupils equal and round. No scleral icterus. No injection or drainage. ENT: No nasal bleeding or discharge. Mucous membranes pink and moist. NECK: Trachea midline. No JVD. CARDIOVASCULAR: Irregular rhythm approximately 90. No audible murmur. AV fistula on left arm without acute defect. RESPIRATORY: No accessory muscle use. Clear to auscultation without evidence of crackles or wheezing. Breath sounds equal bilaterally. GASTROINTESTINAL: Abdomen soft, non-tender, nondistended. Hepatic and splenic margins not palpable. MUSCULOSKELETAL: Joints are not tender to palpation. No cyanosis, or edema. Distal toes show decreased sensation but no discoloration. Pulses are 1+ in the upper and lower extremities bilaterally. NEUROLOGICAL: Awake and alert. No obvious cranial nerve deficits. Motor grossly within normal limits. Normal speech. PSYCHIATRIC: Alert and oriented. Appropriate mood and affect; insight and judgment normal. Procedures Dialysis MWF (Kleber Finn MD R2) A/P Assessment and Plan Mr. Rowe is a 71-year-old male, with a past medical history of type 2 diabetes, atrial fibrillation on Coumadin, end-stage renal disease on dialysis, MRSA infection on his posterior neck, liver cirrhosis, presented to the [place] emergency department on 01/24/17 with a one-week history of general lethargy, confusion, decreased appetite, and subjective fevers and chills. He was admitted for work-up of SIRS and AMS. Discharge Planning Discharge was held due to increasing leukocytosis and LFTs. He reported bloody stools approximately one week ago, resolved. Infectious Disease consult was placed and recommended GI evaluation given CMV positive and bloody/loose stools. Colonoscopy showed poss ischemic bowel - rec CTA prior to d/c. (Kleber Finn MD R2) Attending Attestation Pt. examined and case discussed with resident physician I have read the above note and agree with the assessment/plan as discussed with me I was involved in all medical decision making for this patient Ezio Sanon MD (Ezio Sanon MD) Problem List: (1) Leukocytosis Status: Acute Plan: Plan as follows: - Infectious disease and GI teams recommend further evaluation of the colon given new symptoms of bloody diarrhea and lab findings suggestive of CMV colitis. -Colonoscopy showed ischemic changes in ascending colon - suggest CTA to be done prior to dialysis. Will set up for Tuesday. - C. difficile collected 02/04 negative given diarrhea - CMV downtrending Hospital course: -Initially met SIRS criteria -Initial potential sources were bacteremia and skin infection, not found on labs or clinical exam. -Culture from right foot negative, s/p nail removal, no abscess or evidence of infection on exam. -Source was not definitively identified at admission, however, increasing suspicion for GI source based on interim workup including increasing LFTs, positive serum CMV, persistent leukocytosis, and bloody diarrhea -CT of the head on admission 01/24 showed no acute changes, chest x-ray was benign. He is anuric at baseline given ESRD. -C. difficile is negative -Patient continues to be afebrile Afebrile x 24 hours off of antibiotics and cultures have been negative for 5 days. -Only documented low-grade fevers of 100.1 F on evening of 01/30 and commercial correspondent 01/31 -CT abdomen/pelvis with Oral Contrast 02/01: Left sided atelectasis changes with adjacent parenchymal density possibly representing an early infiltrate. A follow-up chest x-ray was negative for any consolidations. -Blood cultures 01/24, 01/30 showed no growth (final) -Peripheral smear showed monocytosis unspecific for any malignancy, inflammatory process, or infection. -ESR 01/31 was elevated at 65, nonspecific -Lactic acid on admission 3.1, with repeat 01/31 within normal limits -WBC decreased from 19.5-->16.2 ---> stable at 17,000 for a few days, while off antibiotics. -Infectious disease team has followed patient, appreciate recommendations. -AST increased but currently stable at approximately 100, ALT is normal, alkaline phosphatase mildly elevated at 131 -[place] 01[place] [id number], repeat 02/03 was 3780. Bili 0.9 normal. IgM and IgG EBV antibodies positive. May represent reactivation. Antibiotic history: Vancomycin 1.5 g IV renally dosed (01/26-01/28, 01/31) Zosyn 4.5g IV x 1 (01/24) 2.25g IV q8hr (01/24-01/27) (2) Fever of unknown origin Status: Resolved Plan: Resolved. Plan as above. (3) Atrial fibrillation Status: Chronic Plan: Heart rate was irregular on admission exam, at 100 bpm. Coumadin was held on admission given supra-therapeutic INR, restarted once INR normalized, held temporarily due to GI procedure on 02/07. Continue monitoring. Coumadin consult placed with pharmacy. Metoprolol 25 BID and Dig 0.125 mg with dialysis. Rate fairly well controlled. May need increased dose of digoxin. (4) End stage renal disease Status: Acute Plan: Currently hyperkalemic to 4.9. -Consulted nephrology, appreciate their assistance -Scheduled for hemodialysis MWF -Avoid nephrotoxic agents -Digoxin and vancomycin (d/c'd 02/02) renally dosed (5) CHF (congestive heart failure) Status: Chronic Plan: Echocardiogram 01/25/17: EF 30%. Asymptomatic. -Cardiology consult placed 01/29 given A. fib and hypotension. -Continue medical management to include beta bairon, digoxin -He was not on a statin as outpatient -Follow up with furniture salesperson (Dr. Chiang) within one week of discharge (6) Diabetes mellitus Status: Chronic Plan: Novolog Sliding Slide scale. Not requiring sliding scale insulin over the past 6 days, likely due to decreased PO intake in inpatient setting -A1C 7.2 -Hold accuchecks -monitor serum glucose (7) Avulsion of toenail of right foot Status: Resolved Plan: Podiatry was consulted on 01/25, operative right toenail avulsion was performed at that time. Not obvious source of infection per podiatry (8) Liver cirrhosis Status: Chronic Plan: AST mildly elevated and trending upward. Repeat CMV showing downtrend. Hep B panel negative for signs of infection. ALT within normal limits. Negative Physical exam. CT abd showed no hepatic pathology. ID and GI teams recommend colonoscopy as noted above (9) Right arm pain Status: Resolved Plan: Resolved. -X-ray right elbow was insignificant (10) Fluids/Electrolytes/Nutrition/Prophylaxis Status: Acute Plan: Fluids: d/c fluids, HD MWF. Electrolytes: Started on Ca2+Carbonate 500 mg daily for low corrected Ca, as of 02/06, corrected calcium 8.86 which is wnl. We'll continue to monitor and replete as needed. Nutrition: Diabetic diet. DVT prophylaxis: On Coumadin at home, 4 mg daily (Held since 02/04). INR 1.[address] Sanon. (Kleber Finn MD R2) Problem Qualifiers (1) Atrial fibrillation: Qualified Code: I48.2 - Chronic atrial fibrillation Kleber Finn MD R2 Feb 08, 2017 08:45 Ezio Sanon MD Feb 08, 2017 16:12
[2017-02-08] MEDS: NYSTAT/DIPHENHY/LIDO MOUTHWASH (Adult) 120ML SWISH-SWAL SCH ×4 (09:00→21:32)
[2017-02-08] MEDS: DIGOXIN 0.125 MG TAB PO SCH (09:28)
[2017-02-08] MEDS: METOPROLOL TARTRATE 25 MG TAB PO SCH ×2 (09:28→21:32)
[2017-02-08] MEDS: CALCIUM CARBONATE 1.25 GM (CA 500 MG) TAB PO SCH (09:28)
[2017-02-08] MEDS: PANTOPRAZOLE SOD 40 MG DELAYED RELEASE TAB PO SCH (09:28)
--- NOTE | 2017-02-08 10:04 | HHI.NPPN ---
Subjective General Problems: Anemia, Edema, Hypotension Renal Failure: Chronic, End Stage Renal Disease Interval History Lying in bed. No BM today. Denies complaints. Tachycardia persists. (Eileen Salgado) Review of Systems General Constitutional: Fever, Fatigue (Eileen Salgado) Cardiovascular Cardiac: Edema (Eileen Salgado) Gastrointestinal Gastrointestinal: Diarrhea, Blood/Tarry Stools (Eileen Salgado) Objective Data Data 02/07/17 02/08/17 19:00 07:00 Intake Total 240 ml 240 ml Output Total 3000 ml 0 ml Balance -2760 ml 240 ml Intake Oral 240 ml 240 ml Output Urine Total 0 ml Hemodialysis 3000 ml # Bowel Movements 4 0 Vital Signs Date Time Temp Pulse Resp B/P Pulse Ox O2 Delivery O2 Flow Rate FiO2 02/08/17 09:31 110 18 94/48 94 02/08/17 09:00 110 02/08/17 08:00 101 02/08/17 08:00 98.2 94 18 88/65 99 02/08/17 06:00 116 02/08/17 05:00 100 02/08/17 04:00 98.3 109 16 97/65 97 02/08/17 04:00 100 02/08/17 03:00 112 02/08/17 02:00 100 02/08/17 01:17 16 02/08/17 01:00 94 02/08/17 00:00 102 02/08/17 00:00 97.0 102 16 106/67 96 02/07/17 23:00 94 02/07/17 22:00 104 02/07/17 21:00 106 02/07/17 20:00 97.0 107 18 99/57 97 02/07/17 20:00 110 02/07/17 20:00 97 Room Air 02/07/17 19:00 128 02/07/17 18:00 126 02/07/17 17:56 91/46 02/07/17 17:00 129 02/07/17 16:00 118 02/07/17 15:00 118 02/07/17 14:00 116 02/07/17 13:00 116 02/07/17 12:00 97.5 106 16 123/74 96 02/07/17 12:00 112 02/07/17 11:00 87 02/07/17 10:25 110 18 91/64 94 02/07/17 10:13 101 18 94/67 94 (Eileen Salgado) -: 02/07/17 0423 02/08/17 0607 Imaging Last Impressions Gall Bladder Ultrasound 02/01/17 0000 Signed Impressions: Service Date/Time: Wednesday, February 01, 2017 09:01 - CONCLUSION: 1. Atrophic changes in the right kidney with multiple cortical cysts. 2. Echogenic foci in the region of the collecting system are characteristic of nonobstructing stones or vascular calcifications. 3. Small amount of sludge in the gallbladder neck. No stones, mural thickening or pericholecystic fluid. Robin Reed MD Chest X-Ray 02/01/17 0000 Signed Impressions: Service Date/Time: Wednesday, February 01, 2017 12:07 - CONCLUSION: 1. Mild cardiomegaly. 2. No acute focal pulmonary infiltrate or pulmonary vascular congestion. 3. Degenerative changes involving the thoracic spine. Mike Arriaga MD Abdomen/Pelvis CT 02/01/17 0000 Signed Impressions: Service Date/Time: Wednesday, February 01, 2017 08:10 - CONCLUSION: 1. Left-sided atelectatic changes with adjacent parenchymal density possibly representing early infiltrate. This could be the source of the patient's fever. 2. Benign-appearing diaphragmatic calcification on the right. 3. Both kidneys are atrophic with cortical thinning and bilateral renal cortical cysts. 4. Urinary bladder is decompressed with some relatively high density fluid centrally possibly representing dehydrated urine associated with chronic renal insufficiency. 5. 3 cm periumbilical hernia which only contains fat Robin Reed MD Elbow X-Ray 01/31/17 0000 Signed Impressions: Service Date/Time: Tuesday, January 31, 2017 07:45 - CONCLUSION: 1. Small olecranon spur with bony eburnation at the bicipital tuberosity of the proximal radius. These are both chronic and overtly benign. 2. No acute fracture or effusion. 3. Atherosclerotic calcification of the regional vasculature. Robin Reed MD Head CT 01/24/17 1025 Signed Impressions: Service Date/Time: Tuesday, January 24, 2017 11:06 - CONCLUSION: No acute disease. No significant change has occurred. No evidence of acute infarct, hemorrhage, mass or edema. Ba Uribe MD (Eileen Salgado [employer]) Physical Exam General Appearance: Well Developed, Well Nourished, No Acute Distress, Comfortable ( Eileen Salgado B. [employer]) Throat Throat Exam: Oral Mucosa Mullens & Moist Throat Remarks poor dentition (Eileen Salgado B. [employer]) Neck Neck Exam: Neck Supple (Eileen Salgado B. [employer]) Pulmonary Resp Exam: Clear Bilaterally, Breath Sounds Equal, No Distress (Eileen Salgado B. [employer]) Cardiology CV Exam: Good Perfusion, Irregular, Tachycardia (Eileen Salgado B. [employer]) Gastrointestinal/Abdomen GI Exam: Soft, Non-Tender, Bowel Sounds Present (Eileen Salgado B. [employer]) Musculoskeletal MS Exam: Joints Intact, Normal Gait, Good Strength (Eileen Salgado B. [employer]) Integumentary Skin Exam: Warm, Dry (Eileen Salgado. [employer]) Extremeties Extremities Exam: Pedal Pulses Palpable, Trace Edema Extremeties Remarks LUE AVF, + thrill/bruit (Eileen Salgado B. [employer]) Neurologic Neuro Exam: Alert, Awake, Oriented, Speech Clear, Moving All Extremities ( Eileen Salgado [employer]) Psychiatric Psych Exam: Appropriate Responses (Eileen Salgado) Assessment/Plan Discussed Condition With: Patient, Spouse Assessment Summary: Anemia of CKD, Hypotension, End Stage Renal Disease Problem List: (1) ESRD (end stage renal disease) Plan: continue dialysis support MWF. Dialysis yesterday without complications K normal, hyperkalemic yesterday has access left arm that functions well on midodrine daily phosphorus increasing, resume 800 mg Renvela for metabolic bone disorder he will have CTA tomorrow; HD after imaging; okay to place IV in AC area, avoid left arm as he has fistula He does nocturnal dialysis at [facility], prefers to go outpatient if discharged early on dialysis days (MWF) ; chair time around 5pm ; he is preferring outpatient HD (2) Fever Plan: Cultures are negative. he had been complaining of diarrhea. c diff negative CMV positive, colonoscopy showing ischemic colitis; CTA planned for tomorrow biopsy in process ID following (3) CHF (congestive heart failure) Plan: now on digoxin, monitor volume status, adjust UF with dialysis (4) Atrial fibrillation Plan: tachycardia persists; he is on both digoxin and Lopressor Hypotensive; consider increasing digoxin and stopping Lopressor INR is therapeutic. (5) Anemia of renal disease Plan: Hemoglobin is acceptable. Epogen per protocol with dialysis. (Eileen Salgado) Problem List: (1) ESRD (end stage renal disease) Plan: continue dialysis support MWF. Dialysis yesterday without complications K normal, hyperkalemic yesterday has access left arm that functions well on midodrine daily phosphorus increasing, resume 800 mg Renvela for metabolic bone disorder he will have CTA tomorrow; HD after imaging; okay to place IV in AC area, avoid left arm as he has fistula (2) Fever Plan: Cultures are negative. he had been complaining of diarrhea. c diff negative CMV positive, colonoscopy showing ischemic colitis; CTA planned for tomorrow biopsy in process ID following (3) CHF (congestive heart failure) Plan: now on digoxin, monitor volume status, adjust UF with dialysis (4) Atrial fibrillation Plan: tachycardia persists; he is on both digoxin and Lopressor Hypotensive; consider increasing digoxin and stopping Lopressor INR is therapeutic. (5) Anemia of renal disease Plan: Hemoglobin is acceptable. Epogen per protocol with dialysis. Plan patient was seen and examined. Agree with above assessment and plan. Ischemic colitis likely due to multiple episodes of hypotension and hypoperfusion. ( Prashant Richardson MD) Problem Qualifiers (1) Atrial fibrillation: Qualified Code: I48.2 - Chronic atrial fibrillation Eileen Salgado Feb 08, 2017 10:04 Prashant Richardson MD Feb 08, 2017 14:44
[2017-02-08 16:42] LABS: DIGOXIN 0.7 NG/ML (0.8-2.0); HDL CHOLESTEROL 12.8 MG/DL (40.0-60.0)
--- NOTE | 2017-02-08 21:42 | HHI.GIFU ---
Subjective Remarks Comfortable in bed denies any abdominal pain denies any bleeding he did not have any bowel movements today Objective Vitals I&O Vital Signs Date Time Temp Pulse Resp B/P Pulse Ox O2 Delivery O2 Flow Rate FiO2 02/08/17 16:00 98.8 118 20 98/52 02/08/17 12:21 90 02/08/17 11:04 97.9 110 18 90/57 94 02/08/17 11:04 97 02/08/17 10:15 111 02/08/17 09:31 110 18 94/48 94 02/08/17 09:00 110 02/08/17 08:00 Room Air 02/08/17 08:00 101 02/08/17 08:00 98.2 94 18 88/65 99 02/08/17 06:00 116 02/08/17 05:00 100 02/08/17 04:00 98.3 109 16 97/65 97 02/08/17 04:00 100 02/08/17 03:00 112 02/08/17 02:00 100 02/08/17 01:17 16 02/08/17 01:00 94 02/08/17 00:00 102 02/08/17 00:00 97.0 102 16 106/67 96 02/07/17 23:00 94 02/07/17 22:00 104 I/O 02/07/17 02/07/17 02/07/17 02/08/17 02/08/17 02/08/17 07:00 15:00 23:00 07:00 15:00 23:00 Intake Total 502 ml 240 ml 240 ml 120 ml Output Total 1500 ml 3000 ml 0 ml Balance -998 ml -2760 ml 240 ml 120 ml Intake Oral 500 ml 240 ml 240 ml 120 ml IV Total 2 ml Output Urine Total 0 ml 0 ml Stool Total 1500 ml Hemodialysis 3000 ml # Bowel Movements 10 4 0 Laboratory Laboratory Tests Test 02/08/17 02/08/17 02/08/17 05:58 06:07 15:07 Activated Partial 51.4 Thromboplast Time Prothrombin Time 21.1 Prothromb Time International 1.9 Ratio Sodium Level 135 Potassium Level 4.9 Chloride Level 93 Carbon Dioxide Level 31.1 Anion Gap 11 Blood Urea Nitrogen 43 Creatinine 9.03 Estimat Glomerular Filtration 6 Rate Random Glucose 89 Calcium Level 7.7 Phosphorus Level 4.7 Total Bilirubin 0.9 Aspartate Amino Transf 108 (AST/SGOT) Alanine Aminotransferase 25 (ALT/SGPT) Alkaline Phosphatase 138 Total Protein 7.0 Albumin 2.6 Triglycerides Level 210 Cholesterol Level 76 LDL Cholesterol 21 HDL Cholesterol 12.8 Cholesterol/HDL Ratio 5.93 Digoxin Level 0.7 Date/Time Procedure Status Source Growth 02/04/17 07:53 Cyclospora Exam - Final Complete Stool Stool NO CYCLOSPORA SEEN 02/04/17 07:53 Cryptosporidium Exam - Final Complete Stool Stool NEGATIVE - NO CRYPTOSPORIDIUM ANTIGEN... 02/04/17 07:53 Stool Pus (GT) - Final Complete Stool Stool RARE WBC 02/04/17 07:53 Giardia Antigen (GT) - Final Complete Stool Stool NEGATIVE - NO GIARDIA ANTIGEN DETECTE... 02/04/17 07:53 - Final Complete Stool Stool NO ENTERIC PATHOGENS DETECTED BY PCR... Imaging Last Impressions Gall Bladder Ultrasound 02/01/17 0000 Signed Impressions: Service Date/Time: Wednesday, February 01, 2017 09:01 - CONCLUSION: 1. Atrophic changes in the right kidney with multiple cortical cysts. 2. Echogenic foci in the region of the collecting system are characteristic of nonobstructing stones or vascular calcifications. 3. Small amount of sludge in the gallbladder neck. No stones, mural thickening or pericholecystic fluid. Robin Reed MD Chest X-Ray 02/01/17 0000 Signed Impressions: Service Date/Time: Wednesday, February 01, 2017 12:07 - CONCLUSION: 1. Mild cardiomegaly. 2. No acute focal pulmonary infiltrate or pulmonary vascular congestion. 3. Degenerative changes involving the thoracic spine. Mike Arriaga MD Abdomen/Pelvis CT 02/01/17 0000 Signed Impressions: Service Date/Time: Wednesday, February 01, 2017 08:10 - CONCLUSION: 1. Left-sided atelectatic changes with adjacent parenchymal density possibly representing early infiltrate. This could be the source of the patient's fever. 2. Benign-appearing diaphragmatic calcification on the right. 3. Both kidneys are atrophic with cortical thinning and bilateral renal cortical cysts. 4. Urinary bladder is decompressed with some relatively high density fluid centrally possibly representing dehydrated urine associated with chronic renal insufficiency. 5. 3 cm periumbilical hernia which only contains fat Robin Reed MD Elbow X-Ray 01/31/17 0000 Signed Impressions: Service Date/Time: Tuesday, January 31, 2017 07:45 - CONCLUSION: 1. Small olecranon spur with bony eburnation at the bicipital tuberosity of the proximal radius. These are both chronic and overtly benign. 2. No acute fracture or effusion. 3. Atherosclerotic calcification of the regional vasculature. Robin Reed MD Head CT 01/24/17 1025 Signed Impressions: Service Date/Time: Tuesday, January 24, 2017 11:06 - CONCLUSION: No acute disease. No significant change has occurred. No evidence of acute infarct, hemorrhage, mass or edema. Ba Uribe MD Physical Exam HEENT: Normocephalic; atraumatic; no jaundice. CHEST: CTA CARDIAC: Irregular ABDOMEN: Soft, nondistended, nontender; no hepatosplenomegaly; bowel sounds are present in all four quadrants. EXTREMITIES: trace edema ble, worse lle SKIN: Normal; no rash; no jaundice. [employer]: No focal deficits; alert and oriented times three Assessment and Plan Plan ASSESSMENT: - BRBPR- started on 02/04 with the BM, no further diarrhea. H/H is stable - Diarrhea. Resolved. Stool studies negative for CDiff, Cyclospora, no enteric pathogens detected, rare WBC, rest pending. He has a known EBV and CMV infection and is being followed by ID. GI was consulted for evaluation for possible CMV colitis. Abdomen/Pelvis CT (02/01/17)---> Left-sided atelectatic changes with adjacent parenchymal density possibly representing early infiltrate. This could be the source of the patient's fever. Benign-appearing diaphragmatic calcification on the right. Both kidneys are atrophic with cortical thinning and bilateral renal cortical cysts. Urinary bladder is decompressed with some relatively high density fluid centrally possibly representing dehydrated urine associated with chronic renal insufficiency. 3 cm periumbilical hernia which only contains fat. Patient had a colonoscopy about 2 years ago. He cannot recall who did this. - Oral/Throat pain. Pt started on MMW QID and Chloraseptic spray PRN - Elevated LFTs. Pt is (+) EBV, CMV. Gall Bladder Ultrasound (02/01/17) --> Atrophic changes in the right kidney with multiple cortical cysts. Echogenic foci in the region of the collecting system are characteristic of nonobstructing stones or vascular calcifications. Small amount of sludge in the gallbladder neck. No stones, mural thickening or pericholecystic fluid. Pt also has known liver cirrhosis secondary to fatty liver disease. - Leukocytosis, monocytosis with (+) EBV, CMV per ID. - ESRD, HD per renal - DM, Afib, CHF, KEVON per primary. Coumadin on hold for elevated INR. PLAN: -Esophagitis gastritis colitis noted on endoscopy yesterday the concern here is that of possible ischemic colitis in the right colon we will need vascular evaluation await approval by nephrology -Continue present supportive care - Await Giardia, Cryptosporidia, O&P - Monitor labs - Supportive care - Further recommendations as the case develops -Await pathology Agustín Spivey MD Feb 08, 2017 21:42
[2017-02-09] VITALS (16 sets, daily range): BP systolic 95–113; BP diastolic 53–68; PULSE 80–150; RESP 18; TEMP 97.3–98; O2SAT 92–97
[2017-02-09] MEDS: MIDODRINE 5 MG TAB PO SCH ×3 (04:29→16:03)
[2017-02-09 06:49] LABS: AUTOMATED NEUTROPHIL # 5.2 TH/MM3 (1.8-7.7); BASOPHIL # 0.1 TH/MM3 (0-0.2); BASOPHIL % 0.6 % (0.0-2.0); EOSINOPHIL # 0.1 TH/MM3 (0-0.4); HEMATOCRIT 33.8 % (39.0-51.0); LYMPH % 47.2 % (9.0-44.0); LYMPHOCYTE # 6.2 TH/MM3 (1.0-4.8); MEAN CELL VOLUME 93.3 FL (80.0-100.0); MEAN CORPUSCULAR HEMOGLOBIN 31.5 PG (27.0-34.0); MEAN CORPUSCULAR HGB CONC 33.8 % (32.0-36.0); MONO % 12.1 % (0.0-8.0); NEUT % 39.1 % (16.0-70.0); PLATELET COUNT 152 TH/MM3 (150-450); RED BLOOD COUNT 3.62 MIL/MM3 (4.50-5.90); RED CELL DISTRIBUTION WIDTH 16.2 % (11.6-17.2); WHITE BLOOD COUNT 13.2 TH/MM3 (4.0-11.0)
[2017-02-09 06:54] LABS: HEMO FLAGS AUTO DIFF
[2017-02-09 06:55] LABS: APTT (PATIENT) 45.3 SEC (24.3-30.1); INTERNATIONAL NORMALIZED RATIO 1.4 RATIO; PROTHROMBIN TIME - PATIENT 16.1 SEC (9.8-11.6)
[2017-02-09 07:12] LABS: BICARBONATE 29.8 MEQ/L (21.0-32.0); POTASSIUM 5.4 MEQ/L (3.5-5.1)
[2017-02-09 07:42] LABS: CALCIUM-PROTEIN CORRECTED 7.4 MG/DL (8.5-10.1)
[2017-02-09 07:50] LABS: NEUTROPHIL # MANUAL DIFF 6.6 TH/MM3 (1.8-7.7); PLATELET ESTIMATE SMEAR NORMAL (NORMAL); PLATELET MORPHOLOGY NORMAL (NORMAL); POLYS (SEG NEUTROPHILS) 50 % (16-70); SCAN/DIFF FINAL DIFF MANUAL; WBC DIFF SAMPLE 100
[2017-02-09] MEDS: NYSTAT/DIPHENHY/LIDO MOUTHWASH (Adult) 120ML SWISH-SWAL SCH ×2 (07:53→13:10)
[2017-02-09] MEDS: CALCIUM CARBONATE 1.25 GM (CA 500 MG) TAB PO SCH (08:11)
[2017-02-09] MEDS: METOPROLOL TARTRATE 25 MG TAB PO SCH ×2 (08:11→13:10)
[2017-02-09] MEDS: PANTOPRAZOLE SOD 40 MG DELAYED RELEASE TAB PO SCH (08:11)
--- NOTE | 2017-02-09 08:25 | HHI.FPPN ---
Subjective Remarks Patient seen and examined this morning. He is on the way to get CTA this morning with dialysis to follow immediately after. He feels "tired and weak" but denies fevers, chills, nausea, vomiting, diarrhea, constipation, chest pain. He has not had any abdominal or back pain. (Danii Ellington MD R1) Objective Vitals Vital Signs Date Time Temp Pulse Resp B/P Pulse Ox O2 Delivery O2 Flow Rate FiO2 02/09/17 06:00 94 02/09/17 05:00 98 02/09/17 04:00 90 02/09/17 04:00 98.0 85 18 100/53 97 02/09/17 03:00 86 02/09/17 02:00 88 02/09/17 01:00 80 02/09/17 00:00 101 02/09/17 00:00 97.3 105 18 103/60 95 02/08/17 23:00 92 02/08/17 22:00 94 02/08/17 21:00 108 02/08/17 20:00 Room Air 02/08/17 20:00 93 02/08/17 20:00 97.7 86 15 107/63 100 02/08/17 16:00 98.8 118 20 98/52 02/08/17 12:21 90 02/08/17 11:04 97.9 110 18 90/57 94 02/08/17 11:04 97 02/08/17 10:15 111 02/08/17 09:31 110 18 94/48 94 02/08/17 09:00 110 I/O 02/08/17 02/08/17 02/08/17 02/09/17 02/09/17 02/09/17 07:00 15:00 23:00 07:00 15:00 23:00 Intake Total 240 ml 120 ml Output Total 0 ml Balance 240 ml 120 ml Intake Oral 240 ml 120 ml Output Urine Total 0 ml # Voids 0 # Bowel Movements 0 (Danii Ellington MD R1) Result Diagram: 02/09/17 0603 02/09/17 0603 Imaging Last Impressions Gall Bladder Ultrasound 02/01/17 0000 Signed Impressions: Service Date/Time: Wednesday, February 01, 2017 09:01 - CONCLUSION: 1. Atrophic changes in the right kidney with multiple cortical cysts. 2. Echogenic foci in the region of the collecting system are characteristic of nonobstructing stones or vascular calcifications. 3. Small amount of sludge in the gallbladder neck. No stones, mural thickening or pericholecystic fluid. Robin Reed MD Chest X-Ray 02/01/17 0000 Signed Impressions: Service Date/Time: Wednesday, February 01, 2017 12:07 - CONCLUSION: 1. Mild cardiomegaly. 2. No acute focal pulmonary infiltrate or pulmonary vascular congestion. 3. Degenerative changes involving the thoracic spine. Mike Arriaga MD Abdomen/Pelvis CT 02/01/17 0000 Signed Impressions: Service Date/Time: Wednesday, February 01, 2017 08:10 - CONCLUSION: 1. Left-sided atelectatic changes with adjacent parenchymal density possibly representing early infiltrate. This could be the source of the patient's fever. 2. Benign-appearing diaphragmatic calcification on the right. 3. Both kidneys are atrophic with cortical thinning and bilateral renal cortical cysts. 4. Urinary bladder is decompressed with some relatively high density fluid centrally possibly representing dehydrated urine associated with chronic renal insufficiency. 5. 3 cm periumbilical hernia which only contains fat Robin Reed MD Elbow X-Ray 01/31/17 0000 Signed Impressions: Service Date/Time: Tuesday, January 31, 2017 07:45 - CONCLUSION: 1. Small olecranon spur with bony eburnation at the bicipital tuberosity of the proximal radius. These are both chronic and overtly benign. 2. No acute fracture or effusion. 3. Atherosclerotic calcification of the regional vasculature. Robin Reed MD Head CT 01/24/17 1025 Signed Impressions: Service Date/Time: Tuesday, January 24, 2017 11:06 - CONCLUSION: No acute disease. No significant change has occurred. No evidence of acute infarct, hemorrhage, mass or edema. Ba Uribe MD Objective Remarks GENERAL: Well-nourished elderly male lying in bed. In no acute distress. Family at bedside. SKIN: Warm and dry. Skin is thin and scattered bruising noted. Lower extremities erythematous to mid-aguirre, nontender, unchanged. HEAD: Atraumatic. Normocephalic. EYES: Pupils equal and round. No scleral icterus. No injection or drainage. ENT: No nasal bleeding or discharge. Mucous membranes pink and moist. NECK: Trachea midline. No JVD. CARDIOVASCULAR: Irregular rhythm approximately 90 on telemetry and by palpation. No audible murmur. AV fistula on left arm without acute defect, new right AC IV placed while examining patient. RESPIRATORY: No accessory muscle use. Clear to auscultation without evidence of crackles or wheezing. Breath sounds equal bilaterally. GASTROINTESTINAL: Abdomen soft, non-tender, nondistended. Hepatic and splenic margins not palpable. MUSCULOSKELETAL: Joints are not tender to palpation. No cyanosis, or edema. Distal toes show decreased sensation but no discoloration. Pulses are 1+ in the upper and lower extremities bilaterally. NEUROLOGICAL: Awake and alert. No obvious cranial nerve deficits. Motor grossly within normal limits. Normal speech. PSYCHIATRIC: Alert and oriented. Appropriate mood and affect; insight and judgment normal. Procedures Dialysis MWF (Danii Ellingotn MD R1) Urinary Catheter: No (Danii Ellington MD R1) Vascular Central Line Catheter: No (Danii Ellington MD R1) A/P Assessment and Plan Mr. Rowe is a 71-year-old male, with a past medical history of type 2 diabetes, atrial fibrillation on Coumadin, end-stage renal disease on dialysis, MRSA infection on his posterior neck, liver cirrhosis, presented to the [facility] emergency department on 01/24/17 with a one-week history of general lethargy, confusion, decreased appetite, and subjective fevers and chills. He was admitted for work-up of SIRS and AMS. Discharge Planning Discharge was held due to increasing leukocytosis and LFTs. He reported bloody stools approximately one week ago, resolved. Infectious Disease consult was placed and recommended GI evaluation given CMV positive and bloody/loose stools. Colonoscopy showed poss ischemic bowel - rec CTA prior to d/c. CTA scheduled this morning 02/09, if normal likely can discharge patient today ( Danii Ellington MD R1) Attending Attestation Patient examined and case discussed with resident physicians I have read the above note and agree with the assessment/plan as discussed with me I was involved in all medical decision making this patient Ezio Sanon MD (Ezio Sanon MD) Problem List: (1) Leukocytosis Status: Acute Plan: Improved since admission, approx 13K today. Plan as follows: - Infectious disease and GI teams recommend further evaluation of the colon given new symptoms of bloody diarrhea and lab findings suggestive of CMV colitis. - Colonoscopy showed ischemic changes in ascending colon - suggest CTA to be done prior to dialysis, pending 02/09, will discharge if wnl, if evidence for ischemic bowel will consult Vascular surgery. Biopsy is pending. - C. difficile collected 02/04 negative given diarrhea - CMV downtrending Hospital course: -Initially met SIRS criteria -Initial potential sources were bacteremia and skin infection, not found on labs or clinical exam. -Culture from right foot negative, s/p nail removal, no abscess or evidence of infection on exam. -Source was not definitively identified at admission, however, increasing suspicion for GI source based on interim workup including increasing LFTs, positive serum CMV, persistent leukocytosis, and bloody diarrhea -CT of the head on admission 01/24 showed no acute changes, chest x-ray was benign. He is anuric at baseline given ESRD. -C. difficile is negative -Patient continues to be afebrile Afebrile x 24 hours off of antibiotics and cultures have been negative for 5 days. -Only documented low-grade fevers of 100.1 F on evening of 01/30 and displayer 01/31 -CT abdomen/pelvis with Oral Contrast 02/01: Left sided atelectasis changes with adjacent parenchymal density possibly representing an early infiltrate. A follow-up chest x-ray was negative for any consolidations. -Blood cultures 01/24, 01/30 showed no growth (final) -Peripheral smear showed monocytosis unspecific for any malignancy, inflammatory process, or infection. -ESR 01/31 was elevated at 65, nonspecific -Lactic acid on admission 3.1, with repeat 01/31 within normal limits -WBC decreased from 19.5-->16.2 ---> stable at 17,000 for a few days, while off antibiotics. -Infectious disease team has followed patient, appreciate recommendations. -AST increased but currently stable at approximately 100, ALT is normal, alkaline phosphatase mildly elevated at 131 -CMV [place] 01/31 [place] [address], repeat 02/03 was 3780. Bili 0.9 normal. IgM and IgG EBV antibodies positive. May represent reactivation. Antibiotic history: Vancomycin 1.5 g IV renally dosed (01/26-01/28, 01/31) Zosyn 4.5g IV x 1 (3/13) 2.25g IV q8hr (01/24-01/27) (2) Fever of unknown origin Status: Resolved Plan: Resolved. Plan as above. (3) Atrial fibrillation Status: Chronic Plan: Restart Coumadin 02/09, INR is 1.4. Continue metoprolol but at reduced dose of 12.5 mg BID, digoxin 0.125mg with dialysis. May consider titrating up digoxin to better manage BP, reduce metoprolol as tolerated. Hospital Course: Heart rate was irregular on admission exam, at 100 bpm. Coumadin was held on admission given supra-therapeutic INR, restarted once INR normalized, held temporarily due to GI procedure on 02/07. Continue monitoring. Coumadin consult placed with pharmacy. Metoprolol 25 BID and Digoxin 0.125 mg with dialysis. Rate fairly well controlled. May need increased dose of digoxin. (4) End stage renal disease Status: Acute Plan: Currently hyperkalemic to 5.4, dialysis today -Consulted nephrology, appreciate their assistance -Scheduled for hemodialysis MWF -Avoid nephrotoxic agents -Digoxin and vancomycin (d/c'd 02/02) renally dosed (5) CHF (congestive heart failure) Status: Chronic Plan: Echocardiogram 01/25/17: EF 30%. Asymptomatic. -Cardiology consult placed 01/29 given A. fib and hypotension. -Continue medical management to include beta bairon, digoxin -He was not on a statin as outpatient -Follow up with paper products supervisor (Dr. Chiang) within one week of discharge (6) Diabetes mellitus Status: Chronic Plan: Novolog Sliding Slide scale. Not requiring sliding scale insulin over the past 6 days, likely due to decreased PO intake in inpatient setting -A1C 7.2 -Hold accuchecks -monitor serum glucose (7) Avulsion of toenail of right foot Status: Resolved Plan: Podiatry was consulted on 01/25, operative right toenail avulsion was performed at that time. Not obvious source of infection per podiatry (8) Liver cirrhosis Status: Chronic Plan: AST mildly elevated and trending upward. Repeat CMV showing downtrend. Hep B panel negative for signs of infection. ALT within normal limits. Negative Physical exam. CT abd showed no hepatic pathology. ID and GI teams recommend colonoscopy as noted above (9) Right arm pain Status: Resolved Plan: Resolved. -X-ray right elbow was insignificant (10) Fluids/Electrolytes/Nutrition/Prophylaxis Status: Acute Plan: Fluids: d/c fluids, HD MWF. Electrolytes: Started on Ca2+Carbonate 500 mg daily for low corrected Ca, as of 02/06, corrected calcium 8.86 which is wnl. HyperK btw dialysis session. We'll continue to monitor and replete as needed. Nutrition: Diabetic diet. DVT prophylaxis: On Coumadin at home, 4 mg daily, INR 1.4 today, restarting 02/[address] Sanon. (Danii Ellington MD R1) Problem Qualifiers (1) Atrial fibrillation: Qualified Code: I48.2 - Chronic atrial fibrillation Danii Ellington MD R1 Feb 09, 2017 08:25 Ezio Sanon MD Feb 09, 2017 14:53
[2017-02-09] MEDS ORDERED: IOHEXOL 350 MG/ML 10 ML VIAL (for RAD DIAG) IV ONE (08:51)
--- NOTE | 2017-02-09 09:03 | HHI.NPPN ---
Subjective General Problems: Anemia, Edema, Hypotension Renal Failure: Chronic, End Stage Renal Disease Interval History He is seen in dialysis, just had CTA done. He feels well today. (Eileen Salgado) Review of Systems General Constitutional: Fever, Fatigue (Eileen Salgado) Cardiovascular Cardiac: Edema (Eileen Salgado) Gastrointestinal Gastrointestinal: Diarrhea, Blood/Tarry Stools (Eileen Salgado) Objective Data Data 02/08/17 02/09/17 19:00 07:00 Intake Total 120 ml Balance 120 ml Intake Oral 120 ml # Voids 0 Vital Signs Date Time Temp Pulse Resp B/P Pulse Ox O2 Delivery O2 Flow Rate FiO2 02/09/17 06:00 94 02/09/17 05:00 98 02/09/17 04:00 90 02/09/17 04:00 98.0 85 18 100/53 97 02/09/17 03:00 86 02/09/17 02:00 88 02/09/17 01:00 80 02/09/17 00:00 101 02/09/17 00:00 97.3 105 18 103/60 95 02/08/17 23:00 92 02/08/17 22:00 94 02/08/17 21:00 108 02/08/17 20:00 Room Air 02/08/17 20:00 93 02/08/17 20:00 97.7 86 15 107/63 100 02/08/17 16:00 98.8 118 20 98/52 02/08/17 12:21 90 02/08/17 11:04 97.9 110 18 90/57 94 02/08/17 11:04 97 02/08/17 10:15 111 02/08/17 09:31 110 18 94/48 94 02/08/17 09:00 110 (Eileen Salgado) -: 02/09/17 0603 02/09/17 0603 Physical Exam General Appearance: Well Developed, Well Nourished, No Acute Distress, Comfortable ( Eileen Salgado) Throat Throat Exam: Oral Mucosa [place] & Moist Throat Remarks poor dentition (Eileen Salgado) Neck Neck Exam: Neck Supple (Eileen Salgado) Pulmonary Resp Exam: Clear Bilaterally, Breath Sounds Equal, No Distress (Eileen Salgado) Cardiology CV Exam: Good Perfusion, Irregular, Tachycardia (Eileen Salgado) Gastrointestinal/Abdomen GI Exam: Soft, Non-Tender, Bowel Sounds Present (Eileen Salgado) Musculoskeletal MS Exam: Joints Intact, Normal Gait, Good Strength (Eileen Salgado) Integumentary Skin Exam: Warm, Dry (Eileen Salgado) Extremeties Extremities Exam: Pedal Pulses Palpable, Trace Edema Extremeties Remarks LUE AVF, + thrill/bruit (Eileen Salgado) Neurologic Neuro Exam: Alert, Awake, Oriented, Speech Clear, Moving All Extremities ( Eileen Salgado) Psychiatric Psych Exam: Appropriate Responses (Eileen Salgado) Assessment/Plan Discussed Condition With: Patient, Spouse Assessment Summary: Anemia of CKD, Hypotension, End Stage Renal Disease Problem List: (1) ESRD (end stage renal disease) Plan: continue dialysis support MWF. Seen during dialysis today (after CTA) on a 2K, 350 BFR, goal 3L has access left arm that functions well on midodrine daily Renvela resumed for metabolic bone disorder no acute renal concerns cleared for discharge if cleared by all physicians (2) Fever Plan: Cultures have been negative. he was complaining of diarrhea with negative c diff s/p CTA today to evaluate for ischemic colitis biopsy in process s/p EGD/colonoscopy ID following, appreciate recommendations (3) CHF (congestive heart failure) Plan: now on digoxin, monitor volume status, adjust UF with dialysis (4) Atrial fibrillation Plan: intermittent tachycardia; he is on both digoxin and Lopressor digoxin level noted on coumadin, INR is not therapeutic. (5) Anemia of renal disease Plan: Hemoglobin is acceptable. no Epogen required (Eileen Salgado) Plan patient was seen and examined. Possible discharge today. Seen at dialysis. Continues to have back pain. He is cleared for discharge from renal standpoint. (Prashant Richardson MD) Problem Qualifiers (1) Atrial fibrillation: Qualified Code: I48.2 - Chronic atrial fibrillation Eileen Salgado Feb 09, 2017 09:03 Prashant Richardson MD Feb 10, 2017 11:53
--- NOTE | 2017-02-09 09:59 | RADRPT ---
EXAM DATE/TIME: 02/09/2017 08:28 [facility] COMPARISON: CT ABDOMEN & PELVIS W/O CONTRAST, February 01, 2017, 8:10. INDICATIONS : Evaluate for ischemic colitis of the ascending colon. IV CONTRAST: 80 cc Omnipaque 350 (iohexol) IV RADIATION DOSE: 7.54 CTDIvol (mGy) MEDICAL HISTORY : Cardiovascular disease. Renal failure, chronic. Diabetes mellitus type 2. Cirrhosis. SURGICAL HISTORY : AV Shunt ENCOUNTER: Initial ACUITY: 2 days PAIN SCALE: 5/10 LOCATION: Abdomen. TECHNIQUE: Volumetric scanning was performed using a multi-row detector CT scanner. The data was post processed with a variety of visualization algorithms including full volume maximum intensity projection, multi -planar sliding thin slab reformation, curved planar reformation, and surface rendering techniques. Using automated exposure control and adjustment of the mA and/or kV according to patient size, radiat ion dose was kept as low as reasonably achievable to obtain optimal diagnostic quality images. FINDINGS: CTA was performed in this patient with a history of ischemic colitis. Patient is in renal failure. There is extensive calcific atherosclerotic vascular disease evident. Calcific plaque is seen in the origin of the celiac and superior mesenteric arteries. This is not felt to be hemodynamically significant in eithe r vessel. Extensive end artery calcifications are seen in the mesentery. I can visualize the CLIF. The SMA is severely attenuated. Distal aorta shows extensive vascular calcifications. Common iliac's and common femoral's are unrema rkable. Patient is dialysis patient with calcific vascular disease at the origin of both renal arteries. CONCLUSION: 1. There is no significant major branch vessel stenosis, however, there is significant truncation of all the small vessels consistent with long standing atherosclerotic renal vascular disease. I can v isualize an CLIF, SMA and celiac. 2. There is bowel thickening in the proximal ascending colon that has progressed from 02/01/17. This could be an early colitis. Correlation is suggested. Leon Miller MD FACR on February 09, 2017 at 9:41 Board Certified Radiologist. This report was verified electronically.
[2017-02-09] MEDS ORDERED: METO25TA3 PO (12:10)
[2017-02-09] MEDS ORDERED: DIGO0.25 PO (12:10)
[2017-02-09] MEDS ORDERED: ULTR50TA5 PO (12:11)
--- NOTE | 2017-02-09 13:28 | HHI.GIFU ---
Subjective Remarks Seen in HD. Doing well. States he feels much better. Reports no bowel movement since bowel prep. No abdominal pain. States he is finally getting appetite back. (Arianne Gomes) Objective Vitals I&O Vital Signs Date Time Temp Pulse Resp B/P Pulse Ox O2 Delivery O2 Flow Rate FiO2 02/09/17 13:04 127 02/09/17 12:59 97.4 92 18 113/62 96 02/09/17 12:17 103 02/09/17 11:35 120 02/09/17 10:04 98 02/09/17 07:15 97.4 116 18 95/68 96 02/09/17 07:15 96 Room Air 02/09/17 07:15 94 02/09/17 06:00 94 02/09/17 05:00 98 02/09/17 04:00 90 02/09/17 04:00 98.0 85 18 100/53 97 02/09/17 03:00 86 02/09/17 02:00 88 02/09/17 01:00 80 02/09/17 00:00 101 02/09/17 00:00 97.3 105 18 103/60 95 02/08/17 23:00 92 02/08/17 22:00 94 02/08/17 21:00 108 02/08/17 20:00 Room Air 02/08/17 20:00 93 02/08/17 20:00 97.7 86 15 107/63 100 02/08/17 16:00 98.8 118 20 98/52 I/O 02/08/17 02/08/17 02/08/17 02/09/17 02/09/17 02/09/17 07:00 15:00 23:00 07:00 15:00 23:00 Intake Total 240 ml 120 ml Output Total 0 ml Balance 240 ml 120 ml Intake Oral 240 ml 120 ml Output Urine Total 0 ml # Voids 0 # Bowel Movements 0 Laboratory Laboratory Tests Test 02/08/17 02/09/17 15:07 06:03 Triglycerides Level 210 Cholesterol Level 76 LDL Cholesterol 21 HDL Cholesterol 12.8 Cholesterol/HDL Ratio 5.93 Digoxin Level 0.7 White Blood Count 13.2 Red Blood Count 3.62 Hemoglobin 11.4 Hematocrit 33.8 Mean Corpuscular Volume 93.3 Mean Corpuscular Hemoglobin 31.5 Mean Corpuscular Hemoglobin 33.8 Concent Red Cell Distribution Width 16.2 Platelet Count 152 Mean Platelet Volume 9.6 Neutrophils (%) (Auto) 39.1 Lymphocytes (%) (Auto) 47.2 Monocytes (%) (Auto) 12.1 Eosinophils (%) (Auto) 1.0 Basophils (%) (Auto) 0.6 Neutrophils # (Auto) 5.2 Lymphocytes # (Auto) 6.2 Monocytes # (Auto) 1.6 Eosinophils # (Auto) 0.1 Basophils # (Auto) 0.1 CBC Comment AUTO DIFF Differential Total Cells 100 Counted Neutrophils % (Manual) 50 Lymphocytes % 34 Monocytes % 16 Neutrophils # (Manual) 6.6 Differential Comment FINAL DIFF MANUAL Platelet Estimate NORMAL Platelet Morphology Comment NORMAL Prothrombin Time 16.1 Prothromb Time International 1.4 Ratio Activated Partial 45.3 Thromboplast Time Sodium Level 133 Potassium Level 5.4 Chloride Level 92 Carbon Dioxide Level 29.8 Anion Gap 11 Blood Urea Nitrogen 55 Creatinine 10.43 Estimat Glomerular Filtration 5 Rate Random Glucose 85 Calcium Level 7.2 Protein Corrected Calcium 7.4 Total Protein 6.7 Imaging Last Impressions Gall Bladder Ultrasound 02/01/17 0000 Signed Impressions: Service Date/Time: Wednesday, February 01, 2017 09:01 - CONCLUSION: 1. Atrophic changes in the right kidney with multiple cortical cysts. 2. Echogenic foci in the region of the collecting system are characteristic of nonobstructing stones or vascular calcifications. 3. Small amount of sludge in the gallbladder neck. No stones, mural thickening or pericholecystic fluid. Robin Reed MD Chest X-Ray 02/01/17 0000 Signed Impressions: Service Date/Time: Wednesday, February 01, 2017 12:07 - CONCLUSION: 1. Mild cardiomegaly. 2. No acute focal pulmonary infiltrate or pulmonary vascular congestion. 3. Degenerative changes involving the thoracic spine. Mike Arriaga MD Abdomen/Pelvis CT 02/01/17 0000 Signed Impressions: Service Date/Time: Wednesday, February 01, 2017 08:10 - CONCLUSION: 1. Left-sided atelectatic changes with adjacent parenchymal density possibly representing early infiltrate. This could be the source of the patient's fever. 2. Benign-appearing diaphragmatic calcification on the right. 3. Both kidneys are atrophic with cortical thinning and bilateral renal cortical cysts. 4. Urinary bladder is decompressed with some relatively high density fluid centrally possibly representing dehydrated urine associated with chronic renal insufficiency. 5. 3 cm periumbilical hernia which only contains fat Robin Reed MD Elbow X-Ray 01/31/17 0000 Signed Impressions: Service Date/Time: Tuesday, January 31, 2017 07:45 - CONCLUSION: 1. Small olecranon spur with bony eburnation at the bicipital tuberosity of the proximal radius. These are both chronic and overtly benign. 2. No acute fracture or effusion. 3. Atherosclerotic calcification of the regional vasculature. Robin Reed MD Head CT 01/24/17 1025 Signed Impressions: Service Date/Time: Tuesday, January 24, 2017 11:06 - CONCLUSION: No acute disease. No significant change has occurred. No evidence of acute infarct, hemorrhage, mass or edema. Ba Uribe MD Physical Exam HEENT: Normocephalic; atraumatic; no jaundice. CHEST: CTA CARDIAC: Irregular ABDOMEN: Soft, nondistended, nontender; no hepatosplenomegaly; bowel sounds are present in all four quadrants. EXTREMITIES: trace edema ble, worse lle SKIN: Normal; no rash; no jaundice. CLEAN UP PERSON: No focal deficits; alert and oriented times three (Arianne Gomes) Assessment and Plan Plan ASSESSMENT: - BRBPR. S/P EGD/Colonoscopy (02/07/17)---> 1. There was LA Class B esophagitis noted. 2. There was mild gastritis in the gastric antrum. 3. Normal endoscopy otherwise 4. Retroflexed views revealed no abnormalities, 1. Large sized colitis was found in the ascending colon; The mucosa was edematous, erythematous, friable and ulcerated; This is consistent with ischemic colitis.; multiple biopsies were performed. 2. The colon mucosa was otherwise normal 3. Retroflexed views revealed no abnormalities 4. Revealed no abnormalities of the rectum. No further bleeding. - Colitis, ? Ischemic. 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 I can visualize an CLIF, SMA, and celiac. There is bowel wall thickening in the proximal ascending colon that has progressed from 02/01/17. This could be an early colitis. Correlation is suggested No further episodes. - Esophagitis, Gastritis. Pathology pending. PPI - Diarrhea. Resolved. Stool studies negative for CDiff, Cyclospora, no enteric pathogens detected, rare WBC, rest pending. He has a known EBV and CMV infection and is being followed by ID. GI was consulted for evaluation for possible CMV colitis. Abdomen/Pelvis CT (02/01/17)---> Left-sided atelectatic changes with adjacent parenchymal density possibly representing early infiltrate. This could be the source of the patient's fever. Benign-appearing diaphragmatic calcification on the right. Both kidneys are atrophic with cortical thinning and bilateral renal cortical cysts. Urinary bladder is decompressed with some relatively high density fluid centrally possibly representing dehydrated urine associated with chronic renal insufficiency. 3 cm periumbilical hernia which only contains fat. Colonoscopy as above. Pathology pending. - Oral/Throat pain. Pt started on MMW QID and Chloraseptic spray PRN - Elevated LFTs. Pt is (+) EBV, CMV. Gall Bladder Ultrasound (02/01/17) --> Atrophic changes in the right kidney with multiple cortical cysts. Echogenic foci in the region of the collecting system are characteristic of nonobstructing stones or vascular calcifications. Small amount of sludge in the gallbladder neck. No stones, mural thickening or pericholecystic fluid. Pt also has known liver cirrhosis secondary to fatty liver disease. - Leukocytosis, monocytosis with (+) EBV, CMV per ID. - ESRD, HD per renal - DM, Afib, CHF, KEVON per primary. PLAN: - Okay from GI standpoint for discharge. - Await pathology - PPI - FU JUSTIN 2 weeks - Pt seen and examined by Dr. Spivey and myself and this note is written on their behalf. (Arianne Gomes) Physician Comments Patient seen and examined Agree with above Continue with current supportive care (Agustín Spivey MD) Arianne Gomes Feb 09, 2017 13:28 Agustín Spivey MD Feb 09, 2017 19:50
[2017-02-09] MEDS: ACETAMINOPHEN 325 MG TAB PO PRN (15:46)
[2017-02-09] MEDS: WARFARIN SOD 4 MG TAB PO SCH (16:03)
== END 2017-02-09 17:04 | DRG 871 ==
LOC: NEPA 10:00 → NEDA 12:05 → N07A 16:26 → HCIS 01-27 07:57
PROVIDERS: ADMIT Family Medicine; ATTEND Family Medicine
PROC: 5A1D60Z (ICD-10-PCS; principal; 2017-01-24)
PROC: 0HBRXZZ Excision of Toe Nail, External Approach (ICD-10-PCS; 2017-01-25)
PROC: 0HBRXZZ Excision of Toe Nail, External Approach (ICD-10-PCS; 2017-01-25)
PROC: 0DBK8ZX Excision of Ascending Colon, Via Natural or Artificial Opening Endoscopic, Diagnostic (ICD-10-PCS; 2017-02-07)
PROC: 0DJ08ZZ Inspection of Upper Intestinal Tract, Via Natural or Artificial Opening Endoscopic (ICD-10-PCS; 2017-02-07)
DX: A41.9 Sepsis, unspecified organism (principal); N18.6 End stage renal disease; R34 Anuria and oliguria; I47.2 Ventricular tachycardia; K55.9 Vascular disorder of intestine, unspecified; E87.2 Acidosis; B25.8 Other cytomegaloviral diseases; I42.9 Cardiomyopathy, unspecified; R13.10 Dysphagia, unspecified; I12.0 Hypertensive chronic kidney disease with stage 5 chronic kidney disease or end stage renal disease; L03.115 Cellulitis of right lower limb; L03.116 Cellulitis of left lower limb; J98.11 Atelectasis; K62.5 Hemorrhage of anus and rectum; I50.9 Heart failure, unspecified; I48.2 Chronic atrial fibrillation; E11.22 Type 2 diabetes mellitus with diabetic chronic kidney disease; B35.1 Tinea unguium; K74.60 Unspecified cirrhosis of liver; M10.9 Gout, unspecified; M19.90 Unspecified osteoarthritis, unspecified site; R65.20 Severe sepsis without septic shock; K76.0 Fatty (change of) liver, not elsewhere classified; D63.1 Anemia in chronic kidney disease; S91.202A Unspecified open wound of left great toe with damage to nail, initial encounter; S91.201A Unspecified open wound of right great toe with damage to nail, initial encounter; S91.204A Unspecified open wound of right lesser toe(s) with damage to nail, initial encounter; W19.XXXA Unspecified fall, initial encounter; Y93.9 Activity, unspecified; Y92.9 Unspecified place or not applicable; Y99.9 Unspecified external cause status; K30 Functional dyspepsia; R20.0 Anesthesia of skin; I87.8 Other specified disorders of veins; G47.33 Obstructive sleep apnea (adult) (pediatric); K42.9 Umbilical hernia without obstruction or gangrene; B27.00 Gammaherpesviral mononucleosis without complication; N28.1 Cyst of kidney, acquired; R68.2 Dry mouth, unspecified; M79.601 Pain in right arm; R07.0 Pain in throat; E87.5 Hyperkalemia; K20.9 Esophagitis, unspecified; K29.70 Gastritis, unspecified, without bleeding; Z99.2 Dependence on renal dialysis; Z88.6 Allergy status to analgesic agent; Z91.81 History of falling; Z87.891 Personal history of nicotine dependence; Z86.14 Personal history of Methicillin resistant Staphylococcus aureus infection; Z79.01 Long term (current) use of anticoagulants
CPT/HCPCS: 70450; 71010; 73070; 74174; 74176; 76705; 76937; 80048; 80053; 80061; 80074; 80162; 80202; 80307; 82140; 82248; 82550; 82948; 83036; 83605; 83735; 84100; 84155; 84443; 84484; 85007; 85027; 85060; 85610; 85652; 85730; 86308; 86403; 86664; 86665; 86703; 87040; 87070; 87205; 87207; 87328; 87329; 87493; 87497; 87506; 87804; 88305; 90935; 93005; 93306; 96365; 96368; 96374; 96375; J0171; J0461; J0610; J1644; J1815; J2370; J2543; J3370; J3475; J7030; J7040; J7050; P9047; Q4081; Q9963; Q9967